=== PATIENT | female | born 1945 | race Caucasian/White ===

== ENCOUNTER 2020-11-25 17:58 | Emergency (ER) | payer MEDICARE ==
--- NOTE | 2020-11-25 18:47 | ERPHSYRPT ---
- History of Present Illness Time Seen by Provider: 11/25/20 18:02 Source: patient Exam Limitations: no limitations Patient Subjective Stated Complaint: HTN Triage Nursing Assessment: pt to ED c/o HTN and SOB onset today. states BP was 140/99 and HR 88 bpm. pt reports her normal BP runs around 130s systolic. 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 reports being shakey today after reading high BP. Physician History: 75 years old female with history of hypertension, hyperlipidemia, thoracic aortic aneurysm around 4.5 cm, atrial fibrillation not on any anticoagulants because of GI bleed who presented in the ER with chief complaint of elevated blood pressure and some shaking that started this afternoon. Patient report her blood pressure was 169/99 and usually her blood pressure is in 130s systolic. Denies any headache, no numbness tingling or focal weakness. Denies any difficulty speech or blurry vision. Patient report having some shaking's spell and this usually happens when her blood pressure is high. Denies any chest pain but have mild shortness of breath and palpitations. Denies any recent fever chills cough or sick contact. Timing/Duration: today, gradual onset, improved Severity: moderate Associated Symptoms: shortness of breath, weakness, No chest pain Allergies/Adverse Reactions: codeine Allergy (Verified 11/25/20 18:27) unknown Sulfa (Sulfonamide Antibiotics) Allergy (Verified 11/25/20 18:27) Rash JASBIR Inhibitors Adverse Reaction (Verified 11/25/20 18:27) Cough Home Medications: Amlodipine Besylate [Norvasc] 10 mg PO DAILY 11/25/20 [History] Ascorbic Acid [Vitamin C] 1,000 mg PO DAILY 11/25/20 [History] Atorvastatin Calcium [Lipitor 20MG Tablet] 20 mg PO DAILY 11/25/20 [History] Metoprolol Succinate 100 mg PO DAILY 11/25/20 [History] Omeprazole 20 mg PO DAILY 11/25/20 [History] Hx Tetanus, Diphtheria Vaccination/Date Given: Yes Hx Influenza Vaccination/Date Given: Yes Hx Pneumococcal Vaccination/Date Given: Yes Immunizations Up to Date: Yes Travel Risk - International Travel Have you traveled outside of the country in past 3 weeks: No - Coronavirus Screening Are you exhibiting any of the following symptoms?: Yes Symptoms: Shortness of Breath Close contact with a COVID-19 positive Pt in past 14-21 Days: No - Review of Systems Constitutional: No Symptoms Eyes: No Symptoms Ears, Nose, & Throat: No Symptoms Respiratory: Dyspnea, No Wheezing Cardiac: Palpitations, No Chest Pain Abdominal/Gastrointestinal: No Symptoms Genitourinary Symptoms: No Symptoms Musculoskeletal: No Symptoms Skin: No Symptoms Neurological: Other (Tremors) Endocrine: No Symptoms Hematologic/Lymphatic: No Symptoms Immunological/Allergic: No Symptoms - Past Medical History Pertinent Past Medical History: Yes Cardiac History: High Cholesterol, Hypertension, Other Female Reproductive Disorders: Breast Cancer Other Medical History: afib. breast cancer R side - 2017. aortic aneurysm - 2005 - Past Surgical History Past Surgical History: Yes Gastrointestinal: Appendectomy, Cholecystectomy Musculoskeletal: Joint Replacement, Orthopedic Surgery Female Surgical History: Hysterectomy Other Surgical History: R knee, metal in R ankle,. lymphectomy R side. lasix on eyes - Social History Smoking Status: Never smoker Exposure to second hand smoke: No Drug Use: none Patient Lives Alone: No () - Female History Hx Now: No - Nursing Vital Signs Nursing Vital Signs: Initial Vital Signs Temperature 99.1 F 11/25/20 18:04 Pulse Rate 100 H 11/25/20 18:04 Respiratory Rate 20 11/25/20 18:04 Blood Pressure 162/97 11/25/20 18:04 O2 Sat by Pulse Oximetry 98 11/25/20 18:04 Pain Scale Pain Intensity 0 - Physical Exam General Appearance: no apparent distress, alert, anxiety Eye Exam: PERRL/EOMI, eyes nml inspection Ears, Nose, Throat Exam: normal ENT inspection, TMs normal, pharynx normal Neck Exam: normal inspection, non-tender, supple, full range of motion Respiratory Exam: normal breath sounds, lungs clear Cardiovascular Exam: normal heart sounds, irregular Gastrointestinal/Abdomen Exam: soft, normal bowel sounds, No tenderness Back Exam: normal inspection, normal range of motion Extremity Exam: normal inspection, normal range of motion, pelvis stable Neurologic Exam: alert, oriented x 3, cooperative, assistant scientist II-XII nml as tested, nml cerebellar function, sensation nml, other (Anxious), No motor deficits, No sensory deficit Skin Exam: normal color SpO2 Interpretation: normal SpO2: 98 O2 Delivery: Room Air - Course EKG Interpreted by Me: RATE (98), A-fib, NORMAL AXIS, NORMAL INTERVALS, Q-wave (Anteroseptal) Ordered Tests: Active Orders 24 hr Category Date Time Status Mortar Man STAT Care 11/25/20 18:42 Active EKG-ER Only STAT Care 11/25/20 18:42 Active IV Insertion STAT Care 11/25/20 18:42 Active CHEST 1 VIEW (PORTABLE) Stat Exams 11/25/20 18:42 Taken CBC W DIFF Stat Lab 11/25/20 19:00 Completed CMP Stat Lab 11/25/20 19:00 Completed D-DIMER QUANTITATIVE Stat Lab 11/25/20 19:00 Completed MAGNESIUM Stat Lab 11/25/20 19:00 Completed NT PRO BNP Stat Lab 11/25/20 19:00 Completed TROPONIN Q3H Lab 11/25/20 19:00 Completed TROPONIN Q3H Lab 11/25/20 21:30 Completed TROPONIN Q3H Lab 11/26/20 00:45 Ordered TROPONIN Q3H Lab 11/26/20 03:45 Ordered TROPONIN Q3H Lab 11/26/20 06:45 Ordered Medication Summary Discontinued Medications Generic Name Dose Route Start Last Admin Trade Name Freq PRN Reason Stop Dose Admin Lorazepam 1 mg 11/25/20 18:42 11/25/20 18:50 Ativan 1 Mg PO 11/25/20 18:43 1 mg STAT ONE Administration Lorazepam Confirm 11/25/20 18:49 Ativan 1 Mg Administered 11/25/20 18:50 Dose 1 mg .ROUTE .STK-MED ONE Lab/Rad Data: Laboratory Result Diagrams 11/25/20 19:00 11/25/20 19:00 Laboratory Results 11/25/20 11/25/20 11/25/20 Range/Units 21:30 19:00 19:00 WBC (4.0-10.5) K/mm3 RBC (4.1-5.4) M/mm3 Hgb (12.0-16.0) gm/dl Hct (35-47) % MCV (78-100) fl MCH (26-32) pg MCHC (32-36) g/dl RDW (11.5-14.0) % Plt Count (150-450) K/mm3 MPV (7.5-11.0) fl Gran % (36.0-66.0) % Eos # (Auto) (0-0.5) Absolute Lymphs (auto) (1.0-4.6) Absolute Monos (auto) (0.0-1.3) Lymphocytes % (24.0-44.0) % Monocytes % (0.0-12.0) % Eosinophils % (0.00-5.0) % Basophils % (0.0-0.4) % Absolute Granulocytes (1.4-6.9) Basophils # (0-0.4) D-Dimer 395 (215-500) ng/mL Sodium (137-145) mmol/L Potassium (3.5-5.1) mmol/L Chloride (98-107) mmol/L Carbon Dioxide (22-30) mmol/L Anion Gap (5-15) MEQ/L BUN (7-17) mg/dL Creatinine (0.52-1.04) mg/dL Estimated GFR ML/MIN Glucose (74-106) mg/dL Calcium (8.4-10.2) mg/dL Magnesium (1.6-2.3) mg/dL Total Bilirubin (0.2-1.3) mg/dL AST (14-36) U/L ALT (0-35) U/L Alkaline Phosphatase (38-126) U/L Troponin I < 0.012 < 0.012 (0.000-0.034) ng/mL NT-Pro-B Natriuret Pep (0-1800) pg/mL Serum Total Protein (6.3-8.2) g/dL Albumin (3.5-5.0) g/dL 11/25/20 11/25/20 Range/Units 19:00 19:00 WBC 4.9 (4.0-10.5) K/mm3 RBC 3.86 L (4.1-5.4) M/mm3 Hgb 13.2 (12.0-16.0) gm/dl Hct 40.3 (35-47) % MCV 104.4 H (78-100) fl MCH 34.2 H (26-32) pg MCHC 32.8 (32-36) g/dl RDW 13.2 (11.5-14.0) % Plt Count 165 (150-450) K/mm3 MPV 10.7 (7.5-11.0) fl Gran % 67.2 H (36.0-66.0) % Eos # (Auto) 0.14 (0-0.5) Absolute Lymphs (auto) 0.79 L (1.0-4.6) Absolute Monos (auto) 0.68 (0.0-1.3) Lymphocytes % 16.0 L (24.0-44.0) % Monocytes % 13.8 H (0.0-12.0) % Eosinophils % 2.8 (0.00-5.0) % Basophils % 0.2 (0.0-0.4) % Absolute Granulocytes 3.32 (1.4-6.9) Basophils # 0.01 (0-0.4) D-Dimer (215-500) ng/mL Sodium 136 L (137-145) mmol/L Potassium 3.7 (3.5-5.1) mmol/L Chloride 105 (98-107) mmol/L Carbon Dioxide 24 (22-30) mmol/L Anion Gap 10.9 (5-15) MEQ/L BUN 19 H (7-17) mg/dL Creatinine 0.90 (0.52-1.04) mg/dL Estimated GFR > 60.0 ML/MIN Glucose 124 H (74-106) mg/dL Calcium 9.7 (8.4-10.2) mg/dL Magnesium 1.7 (1.6-2.3) mg/dL Total Bilirubin 1.00 (0.2-1.3) mg/dL AST 28 (14-36) U/L ALT 21 (0-35) U/L Alkaline Phosphatase 63 (38-126) U/L Troponin I (0.000-0.034) ng/mL NT-Pro-B Natriuret Pep 752 (0-1800) pg/mL Serum Total Protein 6.9 (6.3-8.2) g/dL Albumin 4.2 (3.5-5.0) g/dL - Progress Progress: improved, re-examined Progress Note: 11/25/20 22:32 75 years old is evaluated for elevated blood pressure at home and some shaking. Patient was very anxious on presentation. EKG did not show any acute ST elevations. Has negative troponins x2. Negative D-dimers. Chest x-ray negative for any acute cardiopulmonary findings. Patient is given Ativan, her shaking is improved and she is feeling back to normal. She did not have elevated blood pressure while in the ER and it remained in 120s/130s. Part of her symptoms are secondary to anxiety as well. Patient is advised to keep a blood pressure log and follow-up with primary care and laboratory animal caretaker for reevaluation. Discussed signs symptoms of worsening needing return to ER which she seems understanding. She does not have any chest pain tightness or pressure throughout stay in the ER or before she came in. Do not think patient needs to be admitted and is stable for discharge. 11/25/20 22:37 Counseled pt/family regarding: lab results, diagnosis, need for follow-up, rad results - Departure Departure Disposition: Home Clinical Impression: Uncontrolled hypertension, Anxiety Condition: Stable Critical Care Time: No Referrals: RIZWAN ASENCIO MD [Primary Care Provider] - (1-2 days for reevaluation) Instructions: Malignant Hypertension (DC) Additional Instructions: Call your laboratory animal caretaker for appointment tomorrow morning to be seen in next few days. Keep blood pressure log. Follow-up with primary care as well. Return to ER for any worsening.
[2020-11-25] MEDS ORDERED: Ativan 1 MG ONE (18:49)
[2020-11-25] MEDS: Ativan 1 MG PO ONE (18:50)
[2020-11-25 19:05] LABS: Absolute Neutrophil Ct (ANC) 3.32 (1.4-6.9); BASOPHIL % 0.2 % (0.0-0.4); Basophil (Absolute #) 0.01 (0-0.4); Eosinophil % 2.8 % (0.00-5.0); Eosinophil (Absolute #) 0.14 (0-0.5); Hematocrit 40.3 % (35-47); Hemoglobin 13.2 gm/dl (12.0-16.0); Lymphocyte (Absolute #) 0.79 (1.0-4.6); Mean Cell Volume 104.4 fl (78-100); Mean Corpuscular Hemoglobin 34.2 pg (26-32); Mean Corpuscular Hgb Concent. 32.8 g/dl (32-36); Mean Platelet Volume 10.7 fl (7.5-11.0); Monocyte (Absolute #) 0.68 (0.0-1.3); Monocytes % 13.8 % (0.0-12.0); Neutrophil % 67.2 % (36.0-66.0); Platelet Count 165 K/mm3 (150-450); Red Blood Count 3.86 M/mm3 (4.1-5.4); Red Cell Distribution Width 13.2 % (11.5-14.0); White Blood Count 4.9 K/mm3 (4.0-10.5)
[2020-11-25 19:27] LABS: ALBUMIN 4.2 g/dL (3.5-5.0); ALKALINE PHOSPHATASE 63 U/L (38-126); ANION GAP 10.9 MEQ/L (5-15); BLOOD UREA NITROGEN 19 mg/dL (7-17); CHLORIDE 105 mmol/L (98-107); Calcium 9.7 mg/dL (8.4-10.2); Carbon Dioxide 24 mmol/L (22-30); EST GLOMERULAR FILTRATION RATE > 60.0 ML/MIN; Glucose 124 mg/dL (74-106); MAGNESIUM 1.7 mg/dL (1.6-2.3); NT PRO BNP 752 pg/mL (0-1800); Potassium 3.7 mmol/L (3.5-5.1); SGOT/AST 28 U/L (14-36); SGPT/ALT 21 U/L (0-35); SODIUM 136 mmol/L (137-145); Total Protein 6.9 g/dL (6.3-8.2)
[2020-11-25 22:08] VITALS: BP 132/73; PULSE 82
[2020-11-25 22:36] VITALS: O2SAT 98
--- NOTE | 2020-11-26 08:34 | XRAY ---
Indication: High blood pressure. Known aortic aneurysm. Comparison: None Portable chest hyperinflated with minimal scattered fibrosis/scarring. No focal infiltrate, consolidation, or large effusion. Heart is borderline enlarged. Bony thorax intact with mild degenerative changes. Impression: Nonacute hyperinflated chest with chronic features.
== END 2020-11-25 22:52 | disposition home or self-care (01) ==
LOC: ED 17:58
DX: I10 Essential (primary) hypertension (principal); R06.02 Shortness of breath; E78.5 Hyperlipidemia, unspecified; I48.91 Unspecified atrial fibrillation; F41.9 Anxiety disorder, unspecified; Z79.899 Other long term (current) drug therapy
CPT/HCPCS: 36000; 36415; 71045; 80053; 83735; 83880; 84484; 85025; 85379; 93005; 93041; 99284; A9270-GY

== ENCOUNTER 2021-05-09 15:50 | Emergency (ER) | payer MEDICARE ==
--- NOTE | 2021-05-09 16:37 | ERPHSYRPT ---
- History of Present Illness Time Seen by Provider: 05/09/21 16:33 Source: patient, family Exam Limitations: no limitations Patient Subjective Stated Complaint: here for sudden onset of headache while watching tv , no other cos Triage Nursing Assessment: pt alert, walked in, resp easy, skin w/d/p. abd soft , slight swelling to ankles Physician History: pt has had onset today of feeling that her scalp /hair hurts ( which sounds like shingles , although she had the shot several yrs ago) no skin lesions yet. no hx trauma. fundi benign. no neuro deficits. pt is on eliquis and will need CT head . no fever. Timing/Duration: today Quality: burning, sharpness Head Pain Location: occipital Severity of Pain-Max: moderate Severity of Pain-Current: moderate Recent Head Trauma: no recent headache/trauma Associated Symptoms: denies symptoms Previous symptoms: no prior history Allergies/Adverse Reactions: codeine Allergy (Verified 05/09/21 16:05) unknown Sulfa (Sulfonamide Antibiotics) Allergy (Verified 05/09/21 16:05) Rash JASBIR Inhibitors Adverse Reaction (Verified 05/09/21 16:05) Cough Home Medications: Amlodipine Besylate [Norvasc] 10 mg PO DAILY 11/25/20 [History] Ascorbic Acid [Vitamin C] 1,000 mg PO DAILY 11/25/20 [History] Atorvastatin Calcium [Lipitor 20MG Tablet] 20 mg PO DAILY 11/25/20 [History] Metoprolol Succinate 100 mg PO DAILY 11/25/20 [History] Omeprazole 40 mg PO DAILY 11/25/20 [History] Apixaban [Eliquis] 1 ea DAILY 05/09/21 [History] Hx Tetanus, Diphtheria Vaccination/Date Given: Yes Hx Influenza Vaccination/Date Given: Yes Hx Pneumococcal Vaccination/Date Given: Yes Travel Risk - International Travel Have you traveled outside of the country in past 3 weeks: No - Coronavirus Screening Are you exhibiting any of the following symptoms?: No Close contact with a COVID-19 positive Pt in past 14-21 Days: No - Vaccine Status Have you recieved a Covid-19 vaccination: Yes 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: [employer] - Vaccination Dates Date of 2cond Vaccination (if applicable): january - Review of Systems Constitutional: No Fever, No Chills Eyes: No Symptoms, No Eye Pain Ears, Nose, & Throat: No Symptoms Respiratory: No Cough, No Dyspnea Cardiac: No Chest Pain, No Edema, No Syncope Abdominal/Gastrointestinal: No Abdominal Pain, No Nausea, No Vomiting, No Diarrhea Genitourinary Symptoms: No Dysuria Musculoskeletal: No Back Pain, No Neck Pain Skin: Other (pain in scalp), No Rash Neurological: Headache, No Dizziness, No Focal Weakness, No Sensory Changes Psychological: No Symptoms Endocrine: No Symptoms Hematologic/Lymphatic: No Symptoms Immunological/Allergic: No Symptoms All Other Systems: Reviewed and Negative - Past Medical History Pertinent Past Medical History: Yes Cardiac History: High Cholesterol, Hypertension, Other Female Reproductive Disorders: Breast Cancer Other Medical History: afib. breast cancer R side - 2017. aortic aneurysm - 2005 - Past Surgical History Past Surgical History: Yes Gastrointestinal: Appendectomy, Cholecystectomy Musculoskeletal: Joint Replacement, Orthopedic Surgery Female Surgical History: Hysterectomy Other Surgical History: R knee, metal in R ankle,. lymphectomy R side. lasix on eyes - Social History Smoking Status: Never smoker Exposure to second hand smoke: No Drug Use: none Patient Lives Alone: No - Female History Hx Last Menstrual Period: post - Nursing Vital Signs Nursing Vital Signs: Initial Vital Signs Temperature 98.0 F 05/09/21 15:57 Pulse Rate 98 H 05/09/21 15:57 Respiratory Rate 18 05/09/21 15:57 Blood Pressure 141/75 05/09/21 15:57 O2 Sat by Pulse Oximetry 97 05/09/21 15:57 Pain Scale Pain Intensity 6 - Physical Exam General Appearance: no apparent distress Eye Exam: PERRL/EOMI Ears, Nose, Throat Exam: normal ENT inspection, moist mucous membranes Neck Exam: normal inspection, supple, full range of motion, No meningismus Respiratory Exam: normal breath sounds, lungs clear Cardiovascular Exam: regular rate/rhythm, normal heart sounds Gastrointestinal/Abdominal Exam: soft, No tenderness, No distention Back Exam: normal inspection, normal range of motion Mental Status Exam: alert, oriented x 3, cooperative section hand Exam: normal speech, PERRL, No facial droop Coordination/Gait Exam: normal cerebellar function Motor/Sensory Exam: no motor deficit, no sensory deficit DTR Exam: bicep (R): 2+, bicep (L): 2+, tricep (R): 2+, tricep (L): 2+, knee (R): 2+, knee (L): 2+, ankle (R): 2+, ankle (L): 2+ Skin Exam: normal color, warm, dry, No rash SpO2 Interpretation: normal SpO2: 97 O2 Delivery: Room Air - Course Nursing assessment & vital signs reviewed: Yes Ordered Tests: Active Orders 24 hr Category Date Time Status HEAD WITHOUT CONTRAST [CT] Stat Exams 05/09/21 16:08 Taken CBC W DIFF Stat Lab 05/09/21 17:37 Completed SED RATE [Erythrocyte Sedimentation Rate] Stat Lab 05/09/21 17:37 Completed Lab/Rad Data: Laboratory Result Diagrams 05/09/21 17:37 Laboratory Results 05/09/21 05/09/21 Range/Units 17:37 17:37 WBC 4.0 (4.0-10.5) K/mm3 RBC 4.04 L (4.1-5.4) M/mm3 Hgb 13.3 (12.0-16.0) gm/dl Hct 40.4 (35-47) % MCV 100.0 (78-100) fl MCH 32.9 H (26-32) pg MCHC 32.9 (32-36) g/dl RDW 12.8 (11.5-14.0) % Plt Count 167 (150-450) K/mm3 MPV 11.3 H (7.5-11.0) fl Gran % 61.0 (36.0-66.0) % Eos # (Auto) 0.14 (0-0.5) Absolute Lymphs (auto) 0.88 L (1.0-4.6) Absolute Monos (auto) 0.54 (0.0-1.3) Lymphocytes % 22.0 L (24.0-44.0) % Monocytes % 13.5 H (0.0-12.0) % Eosinophils % 3.5 (0.00-5.0) % Basophils % 0.0 (0.0-0.4) % Absolute Granulocytes 2.44 (1.4-6.9) Basophils # 0 (0-0.4) ESR 17 (0-20) mm/hr Slides for Path Review 17 - Progress Progress: improved, re-examined Air Movement: good Progress Note: 05/09/21 18:20 discussed with pt and that we have not yet found a cause for her headache, and that serious pathology could still be evolving even with negative CT; discussed possibility for spinal tap but risks with that , and pt wishes to decline and accept the rsik of missing a bleed with just CT, which is reasonable vanessa with her at risk for complications on eliquis from tap as well, they have the capacity to make these choices and prefer to f/u with PCP this week, and will return meantime if any concerns- not improving. Blood Culture(s) Obtained: No Antibiotics given: No Counseled pt/family regarding: lab results, diagnosis, need for follow-up, rad results - Departure Departure Disposition: Home Clinical Impression: headache Condition: Good Critical Care Time: No Referrals: RIZWAN ASENCIO MD [Primary Care Provider] - Instructions: Concussion, Adult (DC), Headache, Adult (DC), Shingles (DC) Additional Instructions: we are providing instructions also for shingles since some symptoms could eventually clipper and turner to be this , and for concussion as this helps you be aware of serious symptoms to return for meantime - see your Dr,. this week for further workup and follow-up of the headache.
[2021-05-09 17:45] LABS: Absolute Neutrophil Ct (ANC) 2.44 (1.4-6.9); Basophil (Absolute #) 0 (0-0.4); Eosinophil % 3.5 % (0.00-5.0); Eosinophil (Absolute #) 0.14 (0-0.5); Hematocrit 40.4 % (35-47); Hemoglobin 13.3 gm/dl (12.0-16.0); Lymphocyte (Absolute #) 0.88 (1.0-4.6); Mean Corpuscular Hemoglobin 32.9 pg (26-32); Mean Corpuscular Hgb Concent. 32.9 g/dl (32-36); Mean Platelet Volume 11.3 fl (7.5-11.0); Monocyte (Absolute #) 0.54 (0.0-1.3); Monocytes % 13.5 % (0.0-12.0); Platelet Count 167 K/mm3 (150-450); Red Blood Count 4.04 M/mm3 (4.1-5.4); Red Cell Distribution Width 12.8 % (11.5-14.0)
[2021-05-09 18:03] LABS: Slide Review 1 17
[2021-05-09 18:31] VITALS: BP 132/78
[2021-05-09 18:42] VITALS: PULSE 74; O2SAT 98
--- NOTE | 2021-05-09 19:35 | XRAY ---
Indication: Right-sided headache. Blood thinner therapy. Multiple contiguous images obtained through the head without contrast. Comparison: None Normal appearing brain parenchyma, ventricles, and bony calvarium for patient's age. Visualized paranasal sinuses and mastoid air cells are clear. Impression: Negative CT head without contrast exam. Comment: Preliminary interpretation was made by [facility]. No critical discrepancy.
== END 2021-05-09 18:42 | disposition home or self-care (01) ==
LOC: ED 15:50
DX: R51.9 Headache, unspecified (principal); Z79.899 Other long term (current) drug therapy; Z79.01 Long term (current) use of anticoagulants; I10 Essential (primary) hypertension; E78.00 Pure hypercholesterolemia, unspecified
CPT/HCPCS: 36415; 70450; 85025; 85652; 99283

== ENCOUNTER 2021-09-03 21:54 | Emergency (ER) | payer MEDICARE ==
--- NOTE | 2021-09-03 22:06 | ERPHSYRPT ---
- History of Present Illness Time Seen by Provider: 09/03/21 22:06 Source: patient Exam Limitations: no limitations Physician History: This is a 75-year-old female who has recurrent urinary tract infections and today she was having some dysuria, frequency and some mild suprapubic pressure. She has had multiple urinary tract infections that tend to "get bad" quickly and therefore she wanted to come in early and get antibiotics started. She has no nausea vomiting or diarrhea. She has no chest pain and no shortness of breath. Timing/Duration: today Activites at Onset: none Quality: burning Onset Location: suprapubic Severity of Pain-Max: mild Severity of Pain-Current: mild Sexual intercourse history: non-contributory Associated Symptoms: abdominal pain (Mild suprapubic), dysuria, urinary frequency Allergies/Adverse Reactions: codeine Allergy (Verified 09/03/21 22:10) unknown Sulfa (Sulfonamide Antibiotics) Allergy (Verified 09/03/21 22:10) Rash JASBIR Inhibitors Adverse Reaction (Verified 09/03/21 22:10) Cough Home Medications: Amlodipine Besylate [Norvasc] 10 mg PO DAILY 11/25/20 [History] Ascorbic Acid [Vitamin C] 1,000 mg PO DAILY 11/25/20 [History] Atorvastatin Calcium [Lipitor 20MG Tablet] 20 mg PO DAILY 11/25/20 [History] Metoprolol Succinate 100 mg PO DAILY 11/25/20 [History] Omeprazole 40 mg PO DAILY 11/25/20 [History] Apixaban [Eliquis] 1 ea DAILY 05/09/21 [History] Hx Tetanus, Diphtheria Vaccination/Date Given: Yes Hx Influenza Vaccination/Date Given: Yes Hx Pneumococcal Vaccination/Date Given: Yes Travel Risk - International Travel Have you traveled outside of the country in past 3 weeks: No - Coronavirus Screening Are you exhibiting any of the following symptoms?: No Close contact with a COVID-19 positive Pt in past 14-21 Days: No - Vaccine Status Have you recieved a Covid-19 vaccination: Yes 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: [employer] - Vaccination Dates Date of 2cond Vaccination (if applicable): january - Review of Systems Constitutional: No Symptoms Eyes: No Symptoms Ears, Nose, & Throat: No Symptoms Respiratory: No Symptoms Cardiac: No Symptoms Abdominal/Gastrointestinal: Abdominal Pain (Mild suprapubic tenderness) Genitourinary Symptoms: Dysuria, Frequency Musculoskeletal: No Symptoms Skin: No Symptoms Neurological: No Symptoms Psychological: No Symptoms Endocrine: No Symptoms Hematologic/Lymphatic: No Symptoms Immunological/Allergic: No Symptoms All Other Systems: Reviewed and Negative - Past Medical History Pertinent Past Medical History: Yes Neurological History: No Pertinent History Cardiac History: Arrhythmia, Hypertension Respiratory History: No Pertinent History Endocrine Medical History: No Pertinent History Musculoskeletal History: Arthritis, Osteoarthritis Female Reproductive Disorders: Breast Cancer Other Medical History: R TKA 2011. R ankle fx 2009 - Past Surgical History Past Surgical History: Yes Gastrointestinal: Appendectomy, Cholecystectomy Musculoskeletal: Joint Replacement, Orthopedic Surgery Female Surgical History: Hysterectomy Other Surgical History: R knee, metal in R ankle,. lymphectomy R side. lasix on eyes - Social History Smoking Status: Never smoker Exposure to second hand smoke: No Drug Use: none Patient Lives Alone: No - Nursing Vital Signs Nursing Vital Signs: Initial Vital Signs Temperature 98 F 09/03/21 21:55 Pulse Rate 100 H 09/03/21 21:55 Respiratory Rate 18 09/03/21 21:55 Blood Pressure 162/94 09/03/21 21:55 O2 Sat by Pulse Oximetry 96 09/03/21 21:55 Pain Scale Pain Intensity 5 - Physical Exam General Appearance: no apparent distress, alert, anxiety Eye Exam: PERRL/EOMI, eyes nml inspection Ears, Nose, Throat Exam: normal ENT inspection, moist mucous membranes Neck Exam: normal inspection, non-tender, supple, full range of motion Respiratory Exam: airway intact, No respiratory distress Gastrointestinal/Abdomen Exam: soft, normal bowel sounds, tenderness (Mild suprapubic) Pelvic Exam: not done Rectal Exam: not done Back Exam: normal inspection, normal range of motion, vertebral tenderness, No CVA tenderness Extremity Exam: normal inspection, normal range of motion, pelvis stable Neurologic Exam: alert, oriented x 3, cooperative, 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 tested, normal mood/affect, nml cerebellar function, nml station & gait, sensation nml Skin Exam: normal color, warm, dry Lymphatic Exam: No adenopathy SpO2 Interpretation: normal O2 Delivery: Room Air - Course Nursing assessment & vital signs reviewed: Yes Ordered Tests: Active Orders 24 hr Category Date Time Status CULTURE,URINE Stat Lab 09/03/21 22:06 Received UA W/RFX UR CULTURE Stat Lab 09/03/21 22:06 Completed Medication Summary Discontinued Medications Generic Name Dose Route Start Last Admin Trade Name [place]ero PRN Reason Stop Dose Admin Levofloxacin 500 mg 09/03/21 22:41 Levofloxacin 500 Mg Tablet PO 09/03/21 22:42 STAT ONE Lab/Rad Data: Laboratory Results 09/03/21 Range/Units 22:06 Urine Color NAOMI (YELLOW) Urine Appearance CLOUDY (CLEAR) Urine pH 5.0 (5-6) Ur Specific [place] 1.032 (1.005-1.025) Urine Protein 30 (Negative) Urine Ketones TRACE (NEGATIVE) Urine Blood NEGATIVE (0-5) Thomas/ul Urine Nitrite POSITIVE (NEGATIVE) Urine Bilirubin NEGATIVE (NEGATIVE) Urine Urobilinogen 2 (0-1) mg/dL Ur Leukocyte Esterase MODERATE (NEGATIVE) Urine WBC (Auto) >100 (0-5) /HPF Urine RBC (Auto) 0-2 (0-2) /HPF U Hyaline Cast (Auto) 0-2 (0-2) /LPF U Epithel Cells (Auto) FEW (FEW) /HPF Urine Bacteria (Auto) MODERATE (NEGATIVE) /HPF Urine Mucus (Auto) SLIGHT (NEGATIVE) /HPF Urine Culture Reflexed YES (NO) Urine Glucose NEGATIVE (NEGATIVE) mg/dL - Progress Progress: re-examined Air Movement: good Blood Culture(s) Obtained: No Antibiotics given: Yes Counseled pt/family regarding: diagnosis, need for follow-up - Departure Departure Disposition: Home Clinical Impression: UTI (urinary tract infection) Condition: Stable Critical Care Time: No Referrals: RIZWAN ASENCIO MD [Primary Care Provider] - Additional Instructions: Drink plenty of fluids. Take your medication as prescribed. Follow-up with your primary care physician for further management. Prescriptions: Ciprofloxacin [Cipro 500 MG] 500 mg PO BID #14 tablet
[2021-09-03 22:31] LABS: Appearance CLOUDY (CLEAR); Bacteria MODERATE /HPF (NEGATIVE); Bilirubin NEGATIVE (NEGATIVE); Blood NEGATIVE Ery/ul (0-5); Epithelial Cells FEW /HPF (FEW); Glucose NEGATIVE (NEGATIVE); Hyaline Casts 0-2 /LPF (0-2); Ketones TRACE (NEGATIVE); Leukocyte Esterase MODERATE (NEGATIVE); Mucus SLIGHT /HPF (NEGATIVE); Nitrite POSITIVE (NEGATIVE); Protein,Urine Dip 30 (Negative); RBC 0-2 /HPF (0-2); Specific Gravity 1.032 (1.005-1.025); Urobilinogen 2 mg/dL (0-1); WBC >100 /HPF (0-5)
[2021-09-03] MEDS ORDERED: Levofloxacin 500 MG Tablet PO ONE (22:41)
[2021-09-03] MEDS ORDERED: Levofloxacin 500 MG Tablet ONE (22:46)
[2021-09-03 22:58] VITALS: BP 137/87; PULSE 88; O2SAT 98
== END 2021-09-03 22:55 | disposition home or self-care (01) ==
LOC: ED 21:54
DX: N39.0 Urinary tract infection, site not specified (principal)
CPT/HCPCS: 81001; 87077; 87086; 87186; 99283; A9270-GY

== ENCOUNTER 2021-12-03 13:41 | Emergency (ER) | payer MEDICARE ==
--- NOTE | 2021-12-03 13:51 | ERPHSYRPT ---
- History of Present Illness Time Seen by Provider: 12/03/21 13:51 Source: patient Exam Limitations: no limitations Physician History: This is a 76-year-old white female who has a history of hypertension, gastroesophageal reflux disease and elevated cholesterol who presents with urgency and frequency and suprapubic pressure with urination. Patient states that this is her second urinary tract infection, assuming that is what it is, in the last 2 years. She states that Cipro antibiotics works well for her. She has no chest pain she has no other areas of abdominal pain she has no shortness of breath. Timing/Duration: today Activites at Onset: none Quality: pressure (Suprapubic) Onset Location: suprapubic, abdominal pain (Suprapubic) Pain Radiation: none Severity of Pain-Max: mild (To moderate) Severity of Pain-Current: mild (To moderate) Sexual intercourse history: non-contributory Modifying Factors: Improves With: urinating Associated Symptoms: dysuria, urinary frequency Allergies/Adverse Reactions: codeine Allergy (Verified 12/03/21 13:55) unknown Sulfa (Sulfonamide Antibiotics) Allergy (Verified 12/03/21 13:55) Rash JASBIR Inhibitors Adverse Reaction (Verified 12/03/21 13:55) Cough Home Medications: Amlodipine Besylate [Norvasc] 10 mg PO DAILY 11/25/20 [History] Ascorbic Acid [Vitamin C] 1,000 mg PO DAILY 11/25/20 [History] Atorvastatin Calcium [Lipitor 20MG Tablet] 20 mg PO DAILY 11/25/20 [History] Metoprolol Succinate 100 mg PO DAILY 11/25/20 [History] Omeprazole 40 mg PO DAILY 11/25/20 [History] Apixaban [Eliquis] 1 ea BID 05/09/21 [History] Hx Tetanus, Diphtheria Vaccination/Date Given: Yes Hx Influenza Vaccination/Date Given: Yes Hx Pneumococcal Vaccination/Date Given: Yes Travel Risk - International Travel Have you traveled outside of the country in past 3 weeks: No - Coronavirus Screening Are you exhibiting any of the following symptoms?: No Close contact with a COVID-19 positive Pt in past 14-21 Days: No - Vaccine Status Have you recieved a Covid-19 vaccination: Yes [employer]: [employer] - Vaccination Dates Date of 2cond Vaccination (if applicable): january - Review of Systems Constitutional: No Symptoms Eyes: No Symptoms Ears, Nose, & Throat: No Symptoms Respiratory: No Symptoms Cardiac: No Symptoms Abdominal/Gastrointestinal: Abdominal Pain (Suprapubic pressure) Genitourinary Symptoms: Dysuria, Frequency, Urgency Musculoskeletal: No Symptoms Skin: No Symptoms Neurological: No Symptoms Psychological: No Symptoms Endocrine: No Symptoms Hematologic/Lymphatic: No Symptoms Immunological/Allergic: No Symptoms All Other Systems: Reviewed and Negative - Past Medical History Pertinent Past Medical History: Yes Neurological History: No Pertinent History Cardiac History: Arrhythmia, Hypertension Respiratory History: No Pertinent History Endocrine Medical History: No Pertinent History Musculoskeletal History: Arthritis, Osteoarthritis Female Reproductive Disorders: Breast Cancer Other Medical History: R TKA 2011. R ankle fx 2008 - Past Surgical History Past Surgical History: Yes Gastrointestinal: Appendectomy, Cholecystectomy Musculoskeletal: Joint Replacement, Orthopedic Surgery Female Surgical History: Hysterectomy Other Surgical History: R knee, metal in R ankle,. lymphectomy R side. lasix on eyes - Social History Smoking Status: Never smoker Exposure to second hand smoke: No Drug Use: none Patient Lives Alone: No - Nursing Vital Signs Nursing Vital Signs: Initial Vital Signs Temperature 98.1 F 12/03/21 13:49 Pulse Rate 93 H 12/03/21 13:49 Respiratory Rate 18 12/03/21 13:49 Blood Pressure 150/94 12/03/21 13:49 O2 Sat by Pulse Oximetry 98 12/03/21 13:49 Pain Scale Pain Intensity 5 - Physical Exam General Appearance: no apparent distress, alert, anxiety Eye Exam: PERRL/EOMI, eyes nml inspection Ears, Nose, Throat Exam: normal ENT inspection, moist mucous membranes Neck Exam: normal inspection, non-tender, supple, full range of motion Respiratory Exam: normal breath sounds, lungs clear, airway intact, No chest tenderness, No respiratory distress Cardiovascular Exam: regular rate/rhythm, normal heart sounds, normal peripheral pulses Gastrointestinal/Abdomen Exam: soft, normal bowel sounds, No tenderness Pelvic Exam: not done Rectal Exam: not done Back Exam: normal inspection, normal range of motion, No CVA tenderness, No vertebral tenderness Extremity Exam: normal inspection, normal range of motion, pelvis stable Neurologic Exam: alert, oriented x 3, cooperative, 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, normal mood/affect, nml cerebellar function, nml station & gait, sensation nml Skin Exam: normal color, warm, dry Lymphatic Exam: No adenopathy SpO2 Interpretation: normal O2 Delivery: Room Air - Course Nursing assessment & vital signs reviewed: Yes Ordered Tests: Active Orders 24 hr Category Date Time Status CULTURE,URINE Stat Lab 12/03/21 13:57 Received UA W/RFX UR CULTURE Stat Lab 12/03/21 13:57 Completed Lab/Rad Data: Laboratory Results 12/03/21 Range/Units 13:57 Urine Color NAOMI (YELLOW) Urine Appearance CLOUDY (CLEAR) Urine pH 5.0 (5-6) Ur Specific [place] 1.023 (1.005-1.025) Urine Protein NEGATIVE (Negative) Urine Ketones TRACE (NEGATIVE) Urine Blood NEGATIVE (0-5) Thomas/ul Urine Nitrite POSITIVE (NEGATIVE) Urine Bilirubin NEGATIVE (NEGATIVE) Urine Urobilinogen 4 (0-1) mg/dL Ur Leukocyte Esterase MODERATE (NEGATIVE) Urine WBC (Auto) >100 (0-5) /HPF Urine RBC (Auto) 0-2 (0-2) /HPF U Epithel Cells (Auto) MANY (FEW) /HPF Urine Bacteria (Auto) MODERATE (NEGATIVE) /HPF Urine Mucus (Auto) SLIGHT (NEGATIVE) /HPF Urine Culture Reflexed YES (NO) Urine Glucose NEGATIVE (NEGATIVE) mg/dL - Departure Departure Disposition: Home Clinical Impression: UTI (urinary tract infection) Condition: Stable Critical Care Time: No Referrals: RIZWAN ASENCIO MD [Primary Care Provider] - Follow up/PCP as directed Additional Instructions: Drink plenty of fluids. Take antibiotics as prescribed. Follow-up with your primary care provider for persistent symptoms.
[2021-12-03 14:41] LABS: Appearance CLOUDY (CLEAR); Bacteria MODERATE /HPF (NEGATIVE); Bilirubin NEGATIVE (NEGATIVE); Blood NEGATIVE Ery/ul (0-5); Epithelial Cells MANY /HPF (FEW); Glucose NEGATIVE (NEGATIVE); Ketones TRACE (NEGATIVE); Leukocyte Esterase MODERATE (NEGATIVE); Mucus SLIGHT /HPF (NEGATIVE); Nitrite POSITIVE (NEGATIVE); Protein,Urine Dip NEGATIVE (Negative); RBC 0-2 /HPF (0-2); Specific Gravity 1.023 (1.005-1.025); Urobilinogen 4 mg/dL (0-1); WBC >100 /HPF (0-5)
[2021-12-03 14:43] VITALS: BP 139/75; PULSE 88; O2SAT 97
[2021-12-03] MEDS ORDERED: Levofloxacin 500 MG Tablet PO ONE (14:44)
[2021-12-03] MEDS ORDERED: Levofloxacin 500 MG Tablet ONE (14:47)
== END 2021-12-03 14:55 | disposition home or self-care (01) ==
LOC: ED 13:41
DX: N39.0 Urinary tract infection, site not specified (principal); R30.0 Dysuria; R39.15 Urgency of urination; R35.0 Frequency of micturition; R10.2 Pelvic and perineal pain; I10 Essential (primary) hypertension; E78.5 Hyperlipidemia, unspecified; K21.9 Gastro-esophageal reflux disease without esophagitis; Z79.01 Long term (current) use of anticoagulants; Z79.899 Other long term (current) drug therapy
CPT/HCPCS: 81001; 87077; 87086; 87186; 99283; A9270-GY

== ENCOUNTER 2022-08-25 18:09 | Emergency (ER) | payer MEDICARE ==
[2022-08-25] MEDS ORDERED: Ativan 2 MG/1 ML VIAL IV ONE (18:42)
--- NOTE | 2022-08-25 18:48 | ERPHSYRPT ---
- History of Present Illness Time Seen by Provider: 08/25/22 18:25 Source: patient, family Exam Limitations: no limitations Patient Subjective Stated Complaint: daughter states "She was having blood pressure problems at home. It was reading 170s/100s." Triage Nursing Assessment: pt ambulated into the er along with a cane; pt is axo x4; pt is anxious; c/o hypertension; pt states 5/10 generalized pain; hypertensive 154/78; clear lung sounds in all lobes; clear heart tone; skin PDW Physician History: This is a 76-year-old white female patient who presents with hypertension per her report. Patient had a couple readings of her systolic blood pressure in the 170s and became concerned. The reason why she checked her blood pressure was because she was shaking all over. Patient took her amlodipine and metoprolol today which she takes for blood pressure and her chronic atrial fibrillation. She is taking Eliquis as well. Patient denies chest pain. She denies headache. She denies vision changes. She denies shortness of breath. Patient also has a history of gastroesophageal reflux disease and hyperlipidemia. Patient states that she is not sleeping well. She is under a lot of stress per her report. Her is ill. Timing/Duration: today Severity: mild Modifying Factors: Improves With: nothing Associated Symptoms: denies symptoms Allergies/Adverse Reactions: codeine Allergy (Verified 08/25/22 18:17) unknown Sulfa (Sulfonamide Antibiotics) Allergy (Verified 08/25/22 18:17) Rash JASBIR Inhibitors Adverse Reaction (Verified 08/25/22 18:17) Cough Home Medications: Amlodipine Besylate [Norvasc] 10 mg PO DAILY 11/25/20 [History] Ascorbic Acid [Vitamin C] 1,000 mg PO DAILY 11/25/20 [History] Atorvastatin Calcium [Lipitor 20MG Tablet] 20 mg PO DAILY 11/25/20 [History] Metoprolol Succinate 100 mg PO DAILY 11/25/20 [History] Omeprazole 40 mg PO DAILY 11/25/20 [History] Apixaban [Eliquis] 2.5 mg PO BID 05/09/21 [History] Anastrozole [Arimidex] 1 mg PO DAILY 08/25/22 [History] Furosemide 20 mg [Lasix 20 mg] 20 mg PO DAILY PRN 08/25/22 [History] Hx Tetanus, Diphtheria Vaccination/Date Given: Yes Hx Influenza Vaccination/Date Given: No Hx Pneumococcal Vaccination/Date Given: Yes Travel Risk - International Travel Have you traveled outside of the country in past 3 weeks: No - Coronavirus Screening Are you exhibiting any of the following symptoms?: No Close contact with a COVID-19 positive Pt in past 14-21 Days: No - Vaccine Status Have you recieved a Covid-19 vaccination: Yes [employer]: [employer] - Vaccination Dates Date of 2cond Vaccination (if applicable): january - Review of Systems Constitutional: No Symptoms Eyes: No Symptoms Ears, Nose, & Throat: No Symptoms Respiratory: No Symptoms Cardiac: No Symptoms Abdominal/Gastrointestinal: No Symptoms Genitourinary Symptoms: No Symptoms Musculoskeletal: No Symptoms Skin: No Symptoms Neurological: No Symptoms Psychological: Anxiety Endocrine: No Symptoms Hematologic/Lymphatic: No Symptoms Immunological/Allergic: No Symptoms All Other Systems: Reviewed and Negative - Past Medical History Pertinent Past Medical History: Yes Neurological History: No Pertinent History ENT History: Cataracts Cardiac History: Arrhythmia, Hypertension, Other Respiratory History: No Pertinent History Endocrine Medical History: No Pertinent History Musculoskeletal History: Arthritis, Osteoarthritis Psycho-Social History: Depression Female Reproductive Disorders: Breast Cancer Other Medical History: AAA. R TKA 2012. R ankle fx 2008 - Past Surgical History Past Surgical History: Yes Gastrointestinal: Appendectomy, Cholecystectomy Musculoskeletal: Joint Replacement, Orthopedic Surgery Female Surgical History: Hysterectomy Other Surgical History: R knee, metal in R ankle,. lymphectomy R and L side. lasix on eyes - Social History Smoking Status: Never smoker Exposure to second hand smoke: No Drug Use: none Patient Lives Alone: No - Nursing Vital Signs Nursing Vital Signs: Initial Vital Signs Pulse Rate 86 08/25/22 18:19 Respiratory Rate 18 08/25/22 18:19 Blood Pressure 154/78 08/25/22 18:19 O2 Sat by Pulse Oximetry 97 08/25/22 18:19 Pain Scale Pain Intensity 5 - Physical Exam General Appearance: no apparent distress, alert, anxiety, obese Eye Exam: PERRL/EOMI, eyes nml inspection Ears, Nose, Throat Exam: normal ENT inspection, moist mucous membranes Neck Exam: normal inspection, non-tender, supple, full range of motion Respiratory Exam: normal breath sounds, lungs clear, airway intact, No chest tenderness, No respiratory distress Cardiovascular Exam: regular rate/rhythm, normal heart sounds, normal peripheral pulses Gastrointestinal/Abdomen Exam: soft, normal bowel sounds, No tenderness Pelvic Exam: not done Rectal Exam: not done Back Exam: normal inspection, normal range of motion, No CVA tenderness, No vertebral tenderness Extremity Exam: normal inspection, normal range of motion, pelvis stable Neurologic Exam: alert, oriented x 3, 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, 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, normal mood/affect, nml cerebellar function, nml station & gait, sensation nml Skin Exam: normal color, warm, dry Lymphatic Exam: No adenopathy SpO2 Interpretation: normal SpO2: 97 O2 Delivery: Room Air - Course Nursing assessment & vital signs reviewed: Yes EKG Interpreted by Me: RATE (89), A-fib, NORMAL INTERVALS, Non-specific ST Changes, Other (No acute ischemic changes on today's EKG.) Ordered Tests: Active Orders 24 hr Category Date Time Status Vacuum [employer] Supervisor STAT Care 08/25/22 18:41 Active EKG-ER Only STAT Care 08/25/22 18:41 Active IV Insertion STAT Care 08/25/22 18:41 Active Pulse Oximetry (ED) STAT Care 08/25/22 18:41 Active BMP Stat Lab 08/25/22 18:54 Completed CBC W DIFF Stat Lab 08/25/22 18:54 Completed CULTURE,URINE Stat Lab 08/25/22 18:50 Received TROPONIN Q4H Lab 08/25/22 18:54 Received TROPONIN Q4H Lab 08/25/22 22:45 Ordered TROPONIN Q4H Lab 08/26/22 02:45 Ordered UA W/RFX CULTURE Stat Lab 08/25/22 18:50 Completed Medication Summary Generic Name Dose Route Start Last Admin Trade Name Freq PRN Reason Stop Dose Admin Levofloxacin 500 mg 08/25/22 19:15 Levofloxacin 500 Mg Tablet PO 08/25/22 19:16 STAT ONE Discontinued Medications Generic Name Dose Route Start Last Admin Trade Name Freq PRN Reason Stop Dose Admin Lorazepam 0.5 mg 08/25/22 18:42 08/25/22 18:54 Lorazepam 2 Mg/1 Ml 2 Mg Vial IV 08/25/22 18:43 0.5 mg STAT ONE Administration Lorazepam Confirm 08/25/22 18:51 Lorazepam 2 Mg/1 Ml 2 Mg Vial Administered 08/25/22 18:52 Dose 2 mg .ROUTE .STK-MED ONE Lab/Rad Data: Laboratory Result Diagrams 08/25/22 18:54 08/25/22 18:54 Laboratory Results 08/25/22 08/25/22 08/25/22 Range/Units 18:54 18:54 18:50 WBC 5.0 (4.0-10.5) x10^3/uL RBC 3.82 L (4.1-5.4) x10^6/uL Hgb 13.0 (12.0-16.0) g/dL Hct 39.3 (35-47) % MCV 102.9 H (78-100) fL MCH 34.0 H (26-32) pg MCHC 33.1 (32-36) g/dL RDW 12.4 (11.5-14.0) % Plt Count 187 (150-450) x10^3/uL MPV 10.9 (7.5-11.0) fL Gran % 74.0 H (36.0-66.0) % Immature Gran % (Auto) 0.2 (0.00-0.4) % Nucleat RBC Rel Count 0.0 (0.00-0.1) % Eos # (Auto) 0.08 (0-0.5) x10^3/uL Immature Gran # (Auto) 0.01 (0.00-0.03) x10^3u/L Absolute Lymphs (auto) 0.57 L (1.0-4.6) x10^3/uL Absolute Monos (auto) 0.61 (0.0-1.3) x10^3/uL Absolute Nucleated RBC 0.00 (0.00-0.01) x10^3u/L Lymphocytes % 11.5 L (24.0-44.0) % Monocytes % 12.3 H (0.0-12.0) % Eosinophils % 1.6 (0.00-5.0) % Basophils % 0.4 (0.0-0.4) % Absolute Granulocytes 3.68 (1.4-6.9) x10^3/uL Basophils # 0.02 (0-0.4) x10^3/uL Sodium 135 L (137-145) mmol/L Potassium 4.2 (3.5-5.1) mmol/L Chloride 105 (98-107) mmol/L Carbon Dioxide 26 (22-30) mmol/L Anion Gap 8.3 (5-15) MEQ/L BUN 17 (7-17) mg/dL Creatinine 0.93 (0.52-1.04) mg/dL Estimated GFR > 60.0 ML/MIN Glucose 115 H (74-106) mg/dL Calcium 9.6 (8.4-10.2) mg/dL Urinalys Dipstick Clnc MAIN LAB Urine Color YELLOW (YELLOW) Urine Appearance CLEAR (CLEAR) Urine pH 6.0 (5-6) Ur Specific [place] 1.020 (1.005-1.025) POC Urine Protein Conf NEGATIVE (Negative) Urine Ketones TRACE (NEGATIVE) Urine Nitrite NEGATIVE (NEGATIVE) Urine Bilirubin NEGATIVE (NEGATIVE) Urine Urobilinogen 2 (0-1) mg/dL Urine Leukocytes MODERATE (NEGATIVE) Urine WBC (Auto) 6-10 (0-5) /HPF Urine RBC (Auto) 3-5 (0-2) /HPF U Hyaline Cast (Auto) 3-5 (0-2) /LPF U Epithel Cells (Auto) RARE (FEW) /HPF Urine Bacteria (Auto) FEW (NEGATIVE) /HPF Urine RBC NEGATIVE (0-5) Thomas/ul Urine Mucus (Auto) SLIGHT (NEGATIVE) /HPF Ur Culture Indicated? YES Urine Glucose NEGATIVE (NEGATIVE) mg/dL - Progress Progress: improved Counseled pt/family regarding: lab results, diagnosis, need for follow-up - Departure Departure Disposition: Home Clinical Impression: UTI (urinary tract infection) Condition: Stable Critical Care Time: No Referrals: RIZWAN ASENCIO MD [Primary Care Provider] - Follow up/PCP as directed Additional Instructions: Drink plenty of fluids. Take your medication as prescribed. Follow-up with y our primary care provider tomorrow to make them aware of your visit today and to discuss treatment options for your insomnia. Prescriptions: Ciprofloxacin [Cipro 500 MG] 500 mg PO BID #14 tablet
[2022-08-25] MEDS ORDERED: Ativan 2 MG/1 ML VIAL ONE (18:51)
[2022-08-25 18:57] LABS: Appearance CLEAR (CLEAR); Bilirubin NEGATIVE (NEGATIVE); Dipstick done @ ? MAIN LAB; Glucose NEGATIVE (NEGATIVE); Ketones TRACE (NEGATIVE); Nitrite NEGATIVE (NEGATIVE); Protein,Urine Dip NEGATIVE (Negative); RBC NEGATIVE Ery/ul (0-5); Urobilinogen 2 mg/dL (0-1)
[2022-08-25 18:57] LABS: Absolute Neutrophil Ct (ANC) 3.68 x10^3/uL (1.4-6.9); Basophil (Absolute #) 0.02 x10^3/uL (0-0.4); Eosinophil % 1.6 % (0.00-5.0); Eosinophil (Absolute #) 0.08 x10^3/uL (0-0.5); Hematocrit 39.3 % (35-47); Lymphocyte (Absolute #) 0.57 x10^3/uL (1.0-4.6); Lymphocytes % 11.5 % (24.0-44.0); Mean Cell Volume 102.9 fL (78-100); Mean Corpuscular Hgb Concent. 33.1 g/dL (32-36); Mean Platelet Volume 10.9 fL (7.5-11.0); Monocyte (Absolute #) 0.61 x10^3/uL (0.0-1.3); Monocytes % 12.3 % (0.0-12.0); Platelet Count 187 x10^3/uL (150-450); Red Blood Count 3.82 x10^6/uL (4.1-5.4); Red Cell Distribution Width 12.4 % (11.5-14.0)
[2022-08-25 18:58] LABS: Bacteria FEW /HPF (NEGATIVE); Epithelial Cells RARE /HPF (FEW); Mucus SLIGHT /HPF (NEGATIVE)
[2022-08-25 18:59] LABS: Urine Cultured Indicated? YES
[2022-08-25 19:11] LABS: ANION GAP 8.3 MEQ/L (5-15); BLOOD UREA NITROGEN 17 mg/dL (7-17); CHLORIDE 105 mmol/L (98-107); Calcium 9.6 mg/dL (8.4-10.2); Carbon Dioxide 26 mmol/L (22-30); Creatinine 1 0.93 mg/dL (0.52-1.04); EST GLOMERULAR FILTRATION RATE > 60.0 ML/MIN; Glucose 115 mg/dL (74-106); Potassium 4.2 mmol/L (3.5-5.1); SODIUM 135 mmol/L (137-145)
[2022-08-25] MEDS ORDERED: Levofloxacin 500 MG Tablet PO ONE (19:15)
[2022-08-25] MEDS ORDERED: Levofloxacin 500 MG Tablet ONE (19:17)
[2022-08-25 19:31] VITALS: BP 127/87; PULSE 84; O2SAT 96
[2022-08-25 23:34] LABS: Slide Review 1 YES
== END 2022-08-25 19:36 | disposition home or self-care (01) ==
LOC: ED 18:09
DX: N39.0 Urinary tract infection, site not specified (principal); I10 Essential (primary) hypertension; R25.1 Tremor, unspecified; E78.5 Hyperlipidemia, unspecified; Z79.01 Long term (current) use of anticoagulants; Z79.899 Other long term (current) drug therapy
CPT/HCPCS: 36000; 36415; 80048; 81015; 84484; 85025; 87077; 87086; 87186; 93005; 93041; 94760; 96374; 99284; J2060; A9270-GY

== ENCOUNTER 2022-10-04 20:09 | Emergency (ER) | payer MEDICARE ==
[2022-10-04 21:55] LABS: Bacteria RARE /HPF (NEGATIVE); Epithelial Cells RARE /HPF (FEW); Mucus SLIGHT /HPF (NEGATIVE); RBC 0-2 /HPF (0-2); WBC >100 /HPF (0-5)
[2022-10-04 21:56] LABS: Appearance CLEAR (CLEAR); Bilirubin NEGATIVE (NEGATIVE); Glucose NEGATIVE (NEGATIVE); Ketones NEGATIVE (NEGATIVE); Nitrite POSITIVE (NEGATIVE); Ph 5.5 (5-6); Protein,Urine Dip NEGATIVE (Negative); RBC NEGATIVE Ery/ul (0-5); Urine Cultured Indicated? YES; Urobilinogen 0.2 mg/dL (0-1)
[2022-10-04 22:06] LABS: Dipstick done @ ? MAIN LAB
[2022-10-04 22:07] VITALS: BP 155/87; PULSE 81; O2SAT 95
[2022-10-04] MEDS ORDERED: Levofloxacin 500 MG Tablet PO ONE (22:26)
--- NOTE | 2022-10-04 22:27 | ERPHSYRPT ---
- History of Present Illness Time Seen by Provider: 10/04/22 21:30 Source: patient Exam Limitations: no limitations Patient Subjective Stated Complaint: pt states "I started feeling bad a week ago. I think I have a uti or bladder infection." Triage Nursing Assessment: pt ambulatory to bed by self with personal cane, a&o x3, pt c/o uti symptoms including burning, frequency, and pressure when urinating for about a week, pt states "I just generally don't feel well", symptoms started 09/27/22, pt received COVID booster on 09/26/22 Physician History: Patient is 76-year-old female presents to our ED with complaints of dysuria frequency and bladder pressure. Symptoms are similar to her previous history of UTI. Symptoms started approximately 1 week ago. Patient that symptoms have progressed. Symptoms are mild to moderate in intensity. No specific worsening improving factors. Patient does have some myalgias that started 2 days ago after her COVID booster. However her myalgias are improving. She has no other complaints. No nausea vomiting or diaphoresis. No diarrhea. No rash. No fever. Patient voices no other complaints or concerns at this time. Patient requesting ciprofloxacin for her UTI. Ciprofloxacin resolved her previous UTI symptoms. Patient declined pain medication. Patient states she has Tylenol in her purse. Portions of this note were created with voice recognition technology. There may be grammatical, spelling, punctuation or sound alike errors Timing/Duration: week(s) (1 week) Severity: moderate Modifying Factors: Improves With: nothing Associated Symptoms: denies symptoms, No nausea, No vomiting, No abdominal pain, No shortness of breath, No chest pain, No weakness Allergies/Adverse Reactions: codeine Allergy (Verified 10/04/22 21:06) unknown Sulfa (Sulfonamide Antibiotics) Allergy (Verified 10/04/22 21:06) Rash JASBIR Inhibitors Adverse Reaction (Verified 10/04/22 21:06) Cough Home Medications: Amlodipine Besylate [Norvasc] 10 mg PO DAILY 11/25/20 [History] Ascorbic Acid [Vitamin C] 1,000 mg PO DAILY 11/25/20 [History] Atorvastatin Calcium [Lipitor 20MG Tablet] 20 mg PO DAILY 11/25/20 [History] Metoprolol Succinate 100 mg PO DAILY 11/25/20 [History] Omeprazole 40 mg PO DAILY 11/25/20 [History] Apixaban [Eliquis] 2.5 mg PO BID 05/09/21 [History] Anastrozole [Arimidex] 1 mg PO DAILY 08/25/22 [History] Furosemide 20 mg [Lasix 20 mg] 20 mg PO DAILY PRN 08/25/22 [History] Hx Tetanus, Diphtheria Vaccination/Date Given: Yes Hx Influenza Vaccination/Date Given: Yes (2021) Hx Pneumococcal Vaccination/Date Given: Yes (12/02/2021) Immunizations Up to Date: Yes Travel Risk - International Travel Have you traveled outside of the country in past 3 weeks: No - Coronavirus Screening Are you exhibiting any of the following symptoms?: No Close contact with a COVID-19 positive Pt in past 14-21 Days: No - Vaccine Status Have you recieved a Covid-19 vaccination: Yes 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: [employer] - Vaccination Dates Date of 2cond Vaccination (if applicable): 01/07/2021 - Review of Systems Constitutional: No Symptoms, No Fever, No Chills Eyes: No Symptoms Ears, Nose, & Throat: No Symptoms Respiratory: No Symptoms, No Cough, No Dyspnea Cardiac: No Symptoms, No Chest Pain, No Edema, No Syncope Abdominal/Gastrointestinal: No Symptoms, No Abdominal Pain, No Nausea, No Vomiting, No Diarrhea Genitourinary Symptoms: No Symptoms, No Dysuria Musculoskeletal: No Symptoms, No Back Pain, No Neck Pain Skin: No Symptoms, No Rash Neurological: No Symptoms, No Dizziness, No Focal Weakness, No Sensory Changes Psychological: No Symptoms Endocrine: No Symptoms Hematologic/Lymphatic: No Symptoms Immunological/Allergic: No Symptoms All Other Systems: Reviewed and Negative - Past Medical History Pertinent Past Medical History: Yes Neurological History: No Pertinent History ENT History: Cataracts Cardiac History: Arrhythmia, Hypertension, Other Respiratory History: No Pertinent History Endocrine Medical History: No Pertinent History Musculoskeletal History: Arthritis, Osteoarthritis GI Medical History: No Pertinent History History: No Pertinent History Psycho-Social History: Depression Female Reproductive Disorders: Breast Cancer Other Medical History: AAA. R TKA 2012. R ankle fx 2008 - Past Surgical History Past Surgical History: Yes Neuro Surgical History: No Pertinent History Cardiac: No Pertinent History Respiratory: No Pertinent History Gastrointestinal: Appendectomy, Cholecystectomy Musculoskeletal: Joint Replacement, Orthopedic Surgery Female Surgical History: Hysterectomy Other Surgical History: R knee, metal in R ankle,. lymphectomy R and L side. lasix on eyes - Social History Smoking Status: Never smoker Exposure to second hand smoke: No Drug Use: none Patient Lives Alone: No - Nursing Vital Signs Nursing Vital Signs: Initial Vital Signs Temperature 97.6 F 10/04/22 21:10 Pulse Rate 83 10/04/22 21:10 Respiratory Rate 18 10/04/22 21:10 Blood Pressure 174/102 10/04/22 21:10 O2 Sat by Pulse Oximetry 97 10/04/22 21:10 Pain Scale Pain Intensity 4 - Physical Exam General Appearance: no apparent distress, alert Eye Exam: PERRL/EOMI, eyes nml inspection Ears, Nose, Throat Exam: normal ENT inspection, TMs normal, pharynx normal, moist mucous membranes Neck Exam: normal inspection, non-tender, supple, full range of motion Respiratory Exam: normal breath sounds, lungs clear, No respiratory distress Cardiovascular Exam: regular rate/rhythm, normal heart sounds, normal peripheral pulses Gastrointestinal/Abdomen Exam: soft, normal bowel sounds, other (No CVA tenderness), No tenderness, No mass Pelvic Exam: not done Back Exam: normal inspection, normal range of motion, No CVA tenderness, No vertebral tenderness Extremity Exam: normal inspection, normal range of motion, pelvis stable Neurologic Exam: alert, oriented x 3, cooperative, normal mood/affect, nml cerebellar function, nml station & gait, sensation nml, No motor deficits Skin Exam: normal color, warm, dry, No rash Lymphatic Exam: No adenopathy SpO2 Interpretation: normal SpO2: 95 O2 Delivery: Room Air - Course Nursing assessment & vital signs reviewed: Yes Ordered Tests: Active Orders 24 hr Category Date Time Status CULTURE,URINE Stat Lab 10/04/22 21:22 Received UA W/RFX CULTURE Stat Lab 10/04/22 21:22 Completed Medication Summary Discontinued Medications Generic Name Dose Route Start Last Admin Trade Name Freq PRN Reason Stop Dose Admin Levofloxacin 500 mg 10/04/22 22:26 Levofloxacin 500 Mg Tablet PO 10/04/22 22:27 STAT ONE Lab/Rad Data: Laboratory Results 10/04/22 Range/Units 21:22 Urinalys Dipstick Clnc MAIN LAB Urine Color YELLOW (YELLOW) Urine Appearance CLEAR (CLEAR) Urine pH 5.5 (5-6) Ur Specific [place] 1.020 (1.005-1.025) POC Urine Protein Conf NEGATIVE (Negative) Urine Ketones NEGATIVE (NEGATIVE) Urine Nitrite POSITIVE A (NEGATIVE) Urine Bilirubin NEGATIVE (NEGATIVE) Urine Urobilinogen 0.2 (0-1) mg/dL Urine Leukocytes MODERATE A (NEGATIVE) Urine WBC (Auto) >100 A (0-5) /HPF Urine RBC (Auto) 0-2 (0-2) /HPF U Epithel Cells (Auto) RARE (FEW) /HPF Urine Bacteria (Auto) RARE (NEGATIVE) /HPF Urine RBC NEGATIVE (0-5) Thomas/ul Urine Mucus (Auto) SLIGHT A (NEGATIVE) /HPF Ur Culture Indicated? YES Urine Glucose NEGATIVE (NEGATIVE) mg/dL - Progress Progress: improved Progress Note: Patient reassessed. She feels well. Work-up reveals a urinary tract infection. Patient declined pain medication. Patient states she has Tylenol in her purse. Patient received a dose of ciprofloxacin in our ED. A prescription for the same was forwarded to patient's pharmacy. Patient agrees to follow-up with her primary care doctor within 48 hours for evaluation. She voices no other complaints or concerns at this time. Portions of this note were created with voice recognition technology. There may be grammatical, spelling, punctuation or sound alike errors 10/04/22 22:38 Counseled pt/family regarding: lab results, diagnosis, need for follow-up - Departure Departure Disposition: Home Clinical Impression: UTI (urinary tract infection), Dysuria Condition: Stable Critical Care Time: No Referrals: RIZWAN ASENCIO MD [Primary Care Provider] - Follow up/PCP as directed Additional Instructions: Discharge/Care Plan MANDIE PA was seen on 10/04/22 in the Emergency Room. The patient was counseled regarding Diagnosis,Lab results, Imaging studies, need for follow up and when to return to the Emergency Room. Prescriptions given: Discharge Note I have spoken with the patient and/or caregivers. I have explained the patient's condition, diagnosis and treatment plan based on the information available to me at this time. I have answered the patient's and/or caregiver's questions and addressed any concerns. The patient and/or caregivers have as good understanding of the patient's diagnosis, condition and treatment plan as can be expected at this point. The vital signs have been stable. The patient's condition is stable and appropriate for discharge from the emergency department. The patient will pursue further outpatient evaluation with the primary care physician or other designated or consulting physician as outlined in the discharge instructions. The patient and/or caregivers are agreeable to this plan of care and follow-up instructions have been explained in detail. The patient and/or caregivers have received these instruction. The patient/and or caregivers are aware that any significant change in condition or worsening of symptoms should prompt an immediate return to this or the closest emergency department or call 911. Prescriptions: Ciprofloxacin [Cipro 500 MG] 500 mg PO BID 7 Days #14 tablet
[2022-10-04] MEDS ORDERED: Levofloxacin 500 MG Tablet ONE (22:32)
== END 2022-10-04 22:39 | disposition home or self-care (01) ==
LOC: ED 20:09
DX: N39.0 Urinary tract infection, site not specified (principal); R30.0 Dysuria; R35.0 Frequency of micturition; I10 Essential (primary) hypertension; Z79.01 Long term (current) use of anticoagulants; Z79.899 Other long term (current) drug therapy
CPT/HCPCS: 81015; 87077; 87086; 87186; 99283; A9270-GY

== ENCOUNTER 2022-10-17 18:21 | Emergency (ER) | payer MEDICARE ==
[2022-10-17 18:33] VITALS: O2SAT 97
[2022-10-17 18:50] LABS: Absolute Neutrophil Ct (ANC) 3.77 x10^3/uL (1.4-6.9); Basophil (Absolute #) 0.01 x10^3/uL (0-0.4); Eosinophil % 1.8 % (0.00-5.0); Eosinophil (Absolute #) 0.09 x10^3/uL (0-0.5); Hematocrit 39.8 % (35-47); Hemoglobin 13.1 g/dL (12.0-16.0); Mean Cell Volume 101.8 fL (78-100); Mean Corpuscular Hemoglobin 33.5 pg (26-32); Mean Corpuscular Hgb Concent. 32.9 g/dL (32-36); Mean Platelet Volume 10.3 fL (7.5-11.0); Monocyte (Absolute #) 0.51 x10^3/uL (0.0-1.3); Monocytes % 10.2 % (0.0-12.0); Neutrophil % 75.6 % (36.0-66.0); Platelet Count 196 x10^3/uL (150-450); Red Blood Count 3.91 x10^6/uL (4.1-5.4); Red Cell Distribution Width 13.6 % (11.5-14.0)
[2022-10-17 19:04] LABS: ALBUMIN 4.2 g/dL (3.5-5.0); ALKALINE PHOSPHATASE 69 U/L (38-126); ANION GAP 11.4 MEQ/L (5-15); BLOOD UREA NITROGEN 20 mg/dL (7-17); CHLORIDE 103 mmol/L (98-107); Carbon Dioxide 24 mmol/L (22-30); EST GLOMERULAR FILTRATION RATE > 60.0 ML/MIN; Glucose 149 mg/dL (74-106); Potassium 4.1 mmol/L (3.5-5.1); SGOT/AST 29 U/L (14-36); SGPT/ALT 27 U/L (0-35); SODIUM 134 mmol/L (137-145); Total Protein 6.8 g/dL (6.3-8.2)
[2022-10-17 19:12] VITALS: BP 142/88; PULSE 87
--- NOTE | 2022-10-17 19:16 | ERPHSYRPT ---
- History of Present Illness Time Seen by Provider: 10/17/22 19:16 Source: patient Exam Limitations: no limitations Patient Subjective Stated Complaint: pt here for hypertension today while eating pizza at home, she states she also feels shaky Triage Nursing Assessment: pt alert. arrived per ambulance, face mask apllied, resp easy, skin w/d/p. edema to lower legs, Physician History: Patient 76-year-old female presents emergency department via EMS for evaluation of high blood pressure. Patient states that she has been checking her blood pressure throughout the day and observed that to be higher than her baseline. Blood pressure has been up and down. Patient appears very anxious. Patient states I feel shaky. No chest pain or shortness of breath. No nausea vomiting or diaphoresis. No fever. No rash. No trauma. Patient voices no other complaints or concerns at this time. Patient appears anxious. Portions of this note were created with voice recognition technology. There may be grammatical, spelling, punctuation or sound alike errors Timing/Duration: today Severity: moderate Modifying Factors: Improves With: nothing Associated Symptoms: denies symptoms Allergies/Adverse Reactions: codeine Allergy (Verified 10/17/22 18:30) unknown Sulfa (Sulfonamide Antibiotics) Allergy (Verified 10/17/22 18:30) Rash JASBIR Inhibitors Adverse Reaction (Verified 10/17/22 18:30) Cough Home Medications: Amlodipine Besylate [Norvasc] 10 mg PO DAILY 11/25/20 [History] Ascorbic Acid [Vitamin C] 1,000 mg PO DAILY 11/25/20 [History] Atorvastatin Calcium [Lipitor 20MG Tablet] 20 mg PO DAILY 11/25/20 [History] Metoprolol Succinate 100 mg PO DAILY 11/25/20 [History] Omeprazole 40 mg PO DAILY 11/25/20 [History] Apixaban [Eliquis] 2.5 mg PO BID 05/09/21 [History] Anastrozole [Arimidex] 1 mg PO DAILY 08/25/22 [History] Furosemide 20 mg [Lasix 20 mg] 20 mg PO DAILY PRN 08/25/22 [History] Hx Tetanus, Diphtheria Vaccination/Date Given: Yes Hx Influenza Vaccination/Date Given: Yes (2021) Hx Pneumococcal Vaccination/Date Given: Yes (12/02/2021) Immunizations Up to Date: Yes Travel Risk - International Travel Have you traveled outside of the country in past 3 weeks: No - Vaccine Status Have you recieved a Covid-19 vaccination: Yes 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 - Vaccination Dates Date of 2cond Vaccination (if applicable): 01/07/2021 - Review of Systems Constitutional: No Symptoms, No Fever, No Chills Eyes: No Symptoms Ears, Nose, & Throat: No Symptoms Respiratory: No Symptoms, No Cough, No Dyspnea Cardiac: No Symptoms, No Chest Pain, No Edema, No Syncope Abdominal/Gastrointestinal: No Symptoms, No Abdominal Pain, No Nausea, No Vomiting, No Diarrhea Genitourinary Symptoms: No Symptoms, No Dysuria Musculoskeletal: No Symptoms, No Back Pain, No Neck Pain Skin: No Symptoms, No Rash Neurological: No Symptoms, No Dizziness, No Focal Weakness, No Sensory Changes Psychological: No Symptoms Endocrine: No Symptoms Hematologic/Lymphatic: No Symptoms Immunological/Allergic: No Symptoms All Other Systems: Reviewed and Negative - Past Medical History Pertinent Past Medical History: Yes Neurological History: No Pertinent History ENT History: Cataracts Cardiac History: Arrhythmia, Hypertension, Other Respiratory History: No Pertinent History Endocrine Medical History: No Pertinent History Musculoskeletal History: Arthritis, Osteoarthritis GI Medical History: No Pertinent History History: No Pertinent History Psycho-Social History: Depression Female Reproductive Disorders: Breast Cancer Other Medical History: AAA. R TKA 2012. R ankle fx 2008 - Past Surgical History Past Surgical History: Yes Neuro Surgical History: No Pertinent History Cardiac: No Pertinent History Respiratory: No Pertinent History Gastrointestinal: Appendectomy, Cholecystectomy Musculoskeletal: Joint Replacement, Orthopedic Surgery Female Surgical History: Hysterectomy Other Surgical History: R knee, metal in R ankle,. lymphectomy R and L side. lasix on eyes - Social History Smoking Status: Never smoker Exposure to second hand smoke: No Drug Use: none Patient Lives Alone: No - Nursing Vital Signs Nursing Vital Signs: Initial Vital Signs O2 Sat by Pulse Oximetry 97 10/17/22 18:33 Pain Scale Pain Intensity 4 - Physical Exam General Appearance: no apparent distress, alert, other (Patient appears very an xious. Pressured speech. Fine tremors.) Eye Exam: PERRL/EOMI, eyes nml inspection Ears, Nose, Throat Exam: normal ENT inspection, TMs normal, pharynx normal, moist mucous membranes Neck Exam: normal inspection, non-tender, supple, full range of motion Respiratory Exam: normal breath sounds, lungs clear, No respiratory distress Cardiovascular Exam: regular rate/rhythm, normal heart sounds, normal peripheral pulses Gastrointestinal/Abdomen Exam: soft, normal bowel sounds, No tenderness, No mass Back Exam: normal inspection, normal range of motion, No CVA tenderness, No vertebral tenderness Extremity Exam: normal inspection, normal range of motion, pelvis stable Neurologic Exam: alert, oriented x 3, cooperative, normal mood/affect, nml cerebellar function, nml station & gait, sensation nml, No motor deficits Skin Exam: normal color, warm, dry, No rash Lymphatic Exam: No adenopathy SpO2 Interpretation: normal SpO2: 97 O2 Delivery: Room Air - Course Nursing assessment & vital signs reviewed: Yes EKG Interpreted by Me: RATE (102 chronic A. fib. Patient is anticoagulated), A- fib, NORMAL AXIS, NORMAL INTERVALS Ordered Tests: Active Orders 24 hr Category Date Time Status Optical Engineering Manager STAT Care 10/17/22 18:26 Active IV Insertion STAT Care 10/17/22 18:26 Active Pulse Oximetry (ED) STAT Care 10/17/22 18:26 Active CBC W DIFF Stat Lab 10/17/22 18:45 Completed CMP Stat Lab 10/17/22 18:45 Completed TROPONIN Q4H Lab 10/17/22 18:45 Received TROPONIN Q4H Lab 10/17/22 22:30 Ordered TROPONIN Q4H Lab 10/18/22 02:30 Ordered TSH [TSH, 3RD Generation] Stat Lab 10/17/22 18:45 Received Lab/Rad Data: Laboratory Result Diagrams 10/17/22 18:45 10/17/22 18:45 Laboratory Results 10/17/22 10/17/22 Range/Units 18:45 18:45 WBC 5.0 (4.0-10.5) x10^3/uL RBC 3.91 L (4.1-5.4) x10^6/uL Hgb 13.1 (12.0-16.0) g/dL Hct 39.8 (35-47) % MCV 101.8 H (78-100) fL MCH 33.5 H (26-32) pg MCHC 32.9 (32-36) g/dL RDW 13.6 (11.5-14.0) % Plt Count 196 (150-450) x10^3/uL MPV 10.3 (7.5-11.0) fL Gran % 75.6 H (36.0-66.0) % Immature Gran % (Auto) 0.2 (0.00-0.4) % Nucleat RBC Rel Count 0.0 (0.00-0.1) % Eos # (Auto) 0.09 (0-0.5) x10^3/uL Immature Gran # (Auto) 0.01 (0.00-0.03) x10^3u/L Absolute Lymphs (auto) 0.60 L (1.0-4.6) x10^3/uL Absolute Monos (auto) 0.51 (0.0-1.3) x10^3/uL Absolute Nucleated RBC 0.00 (0.00-0.01) x10^3u/L Lymphocytes % 12.0 L (24.0-44.0) % Monocytes % 10.2 (0.0-12.0) % Eosinophils % 1.8 (0.00-5.0) % Basophils % 0.2 (0.0-0.4) % Absolute Granulocytes 3.77 (1.4-6.9) x10^3/uL Basophils # 0.01 (0-0.4) x10^3/uL Sodium 134 L (137-145) mmol/L Potassium 4.1 (3.5-5.1) mmol/L Chloride 103 (98-107) mmol/L Carbon Dioxide 24 (22-30) mmol/L Anion Gap 11.4 (5-15) MEQ/L BUN 20 H (7-17) mg/dL Creatinine 0.90 (0.52-1.04) mg/dL Estimated GFR > 60.0 ML/MIN Glucose 149 H (74-106) mg/dL Calcium 9.0 (8.4-10.2) mg/dL Total Bilirubin 1.30 (0.2-1.3) mg/dL AST 29 (14-36) U/L ALT 27 (0-35) U/L Alkaline Phosphatase 69 (38-126) U/L Serum Total Protein 6.8 (6.3-8.2) g/dL Albumin 4.2 (3.5-5.0) g/dL - Progress Progress: improved Will see patient in: hospital (observation) Counseled pt/family regarding: lab results, diagnosis, need for follow-up - Departure Departure Disposition: Home Clinical Impression: Essential hypertension, Anxiety Condition: Stable Critical Care Time: No Referrals: RIZWAN ASENCIO MD [Primary Care Provider] - Follow up/PCP as directed Additional Instructions: Discharge/Care Plan MANDIE PA was seen on 10/17/22 in the Emergency Room. The patient was counseled regarding Diagnosis,Lab results, Imaging studies, need for follow up and when to return to the Emergency Room. Prescriptions given: Discharge Note I have spoken with the patient and/or caregivers. I have explained the patient's condition, diagnosis and treatment plan based on the information available to me at this time. I have answered the patient's and/or caregiver's questions and addressed any concerns. The patient and/or caregivers have as good understanding of the patient's diagnosis, condition and treatment plan as can be expected at this point. The vital signs have been stable. The patient's condition is stable and appropriate for discharge from the emergency department. The patient will pursue further outpatient evaluation with the primary care physician or other designated or consulting physician as outlined in the discharge instructions. The patient and/or caregivers are agreeable to this plan of care and follow-up instructions have been explained in detail. The patient and/or caregivers have received these instruction. The patient/and or caregivers are aware that any significant change in condition or worsening of symptoms should prompt an immediate return to this or the closest emergency department or call 911.
== END 2022-10-17 19:56 | disposition home or self-care (01) ==
LOC: ED 18:21
DX: I10 Essential (primary) hypertension (principal); F41.9 Anxiety disorder, unspecified; Z79.01 Long term (current) use of anticoagulants; Z79.899 Other long term (current) drug therapy
CPT/HCPCS: 36000; 36415; 80053; 84443; 84484; 85025; 93005; 93041; 94760; 99284

== ENCOUNTER 2022-10-26 22:11 | Emergency (ER) | payer MEDICARE ==
--- NOTE | 2022-10-26 23:13 | ERPHSYRPT ---
- History of Present Illness Time Seen by Provider: 10/26/22 23:12 Exam Limitations: no limitations Patient Subjective Stated Complaint: pt states she has been having some palpitations and problems with her a fib. states she had a shaking episode today, had lower leg pain and leg weakness following episode Triage Nursing Assessment: pt alert and oriented, answers questions approp. pt back per wheelchair and ambulates from wheelchair to stretcher per self with steady gait noted. heart rate 82 on monitor with a fib noted. peripheral pulses intact. Physician History: Patient is 76-year-old female lives at home with her presents to our ED for evaluation of heart palpitations. Patient has history of chronic A. fib. Patient currently on Eliquis. Pain states she was at home and felt heart palpitations. No chest pain. Patient has had the symptoms before. Patient states they occur intermittently. Patient takes Benadryl to calm herself down. Patient states she took Benadryl as usual however it did not help this time. Symptoms are mild to moderate in intensity. No specific worsening improving factors. No associated nausea vomiting or diaphoresis. No fever. Patient voices no other complaints or concerns at this time. Portions of this note were created with voice recognition technology. There may be grammatical, spelling, punctuation or sound alike errors Timing/Duration: today Severity: moderate Modifying Factors: Improves With: nothing Associated Symptoms: denies symptoms Allergies/Adverse Reactions: codeine Allergy (Verified 10/26/22 23:01) unknown Sulfa (Sulfonamide Antibiotics) Allergy (Verified 10/26/22 23:01) Rash JASBIR Inhibitors Adverse Reaction (Verified 10/26/22 23:01) Cough Home Medications: Amlodipine Besylate [Norvasc] 10 mg PO DAILY 11/25/20 [History] Ascorbic Acid [Vitamin C] 1,000 mg PO DAILY 11/25/20 [History] Atorvastatin Calcium [Lipitor 20MG Tablet] 20 mg PO DAILY 11/25/20 [History] Metoprolol Succinate 100 mg PO DAILY 11/25/20 [History] Omeprazole 40 mg PO DAILY 11/25/20 [History] Apixaban [Eliquis] 2.5 mg PO BID 05/09/21 [History] Anastrozole [Arimidex] 1 mg PO DAILY 08/25/22 [History] Furosemide 20 mg [Lasix 20 mg] 20 mg PO DAILY PRN 08/25/22 [History] Hx Tetanus, Diphtheria Vaccination/Date Given: Yes Hx Influenza Vaccination/Date Given: Yes Hx Pneumococcal Vaccination/Date Given: Yes Immunizations Up to Date: Yes Travel Risk - International Travel Have you traveled outside of the country in past 3 weeks: No - Coronavirus Screening Are you exhibiting any of the following symptoms?: No Close contact with a COVID-19 positive Pt in past 14-21 Days: No - Vaccine Status Have you recieved a Covid-19 vaccination: Yes [employer]: [employer] - Vaccination Dates Date of 2cond Vaccination (if applicable): 01/07/2021 - Review of Systems Constitutional: No Symptoms, No Fever, No Chills Eyes: No Symptoms Ears, Nose, & Throat: No Symptoms Respiratory: No Symptoms, No Cough, No Dyspnea Cardiac: No Symptoms, No Chest Pain, No Edema, No Syncope Abdominal/Gastrointestinal: No Symptoms, No Abdominal Pain, No Nausea, No Vomiting, No Diarrhea Genitourinary Symptoms: No Symptoms, No Dysuria Musculoskeletal: No Symptoms, No Back Pain, No Neck Pain Skin: No Symptoms, No Rash Neurological: No Symptoms, No Dizziness, No Focal Weakness, No Sensory Changes Psychological: No Symptoms Endocrine: No Symptoms Hematologic/Lymphatic: No Symptoms Immunological/Allergic: No Symptoms All Other Systems: Reviewed and Negative - Past Medical History Pertinent Past Medical History: Yes Neurological History: No Pertinent History ENT History: Cataracts Cardiac History: Arrhythmia, Hypertension, Other Respiratory History: No Pertinent History Endocrine Medical History: No Pertinent History Musculoskeletal History: Arthritis, Osteoarthritis GI Medical History: No Pertinent History History: No Pertinent History Psycho-Social History: Depression Female Reproductive Disorders: Breast Cancer Other Medical History: AAA 4.0 cm. R TKA 2012. R ankle fx 2009 - Past Surgical History Past Surgical History: Yes Neuro Surgical History: No Pertinent History Cardiac: No Pertinent History Respiratory: No Pertinent History Gastrointestinal: Appendectomy, Cholecystectomy Musculoskeletal: Joint Replacement, Orthopedic Surgery Female Surgical History: Hysterectomy Other Surgical History: R knee, metal in R ankle,. lymphectomy R and L side. lasik on eyes - Social History Smoking Status: Never smoker Exposure to second hand smoke: No Drug Use: none Patient Lives Alone: No - Nursing Vital Signs Nursing Vital Signs: Initial Vital Signs Temperature 98.1 F 10/26/22 22:46 Pulse Rate 74 10/26/22 22:46 Respiratory Rate 18 10/26/22 22:46 Blood Pressure 117/78 10/26/22 22:46 O2 Sat by Pulse Oximetry 98 10/26/22 22:46 Pain Scale Pain Intensity 4 - Physical Exam General Appearance: no apparent distress, alert Eye Exam: PERRL/EOMI, eyes nml inspection Ears, Nose, Throat Exam: normal ENT inspection, TMs normal, pharynx normal, moist mucous membranes Neck Exam: normal inspection, non-tender, supple, full range of motion Respiratory Exam: normal breath sounds, lungs clear, airway intact, No chest tenderness, No respiratory distress Cardiovascular Exam: regular rate/rhythm, normal heart sounds, normal peripheral pulses Gastrointestinal/Abdomen Exam: soft, normal bowel sounds, No tenderness, No mass Back Exam: normal inspection, normal range of motion, No CVA tenderness, No vertebral tenderness Extremity Exam: normal inspection, normal range of motion, pelvis stable Neurologic Exam: alert, oriented x 3, cooperative, normal mood/affect, nml cerebellar function, nml station & gait, sensation nml, other (Nonremarkable neurologic exam.), No motor deficits Skin Exam: normal color, warm, dry, No rash Lymphatic Exam: No adenopathy SpO2 Interpretation: normal SpO2: 98 O2 Delivery: Room Air - Course Nursing assessment & vital signs reviewed: Yes EKG Interpreted by Me: RATE (85), A-fib, NORMAL AXIS, NORMAL INTERVALS, NORMAL QRS Ordered Tests: Active Orders 24 hr Category Date Time Status Database Dba STAT Care 10/26/22 23:05 Active EKG-ER Only STAT Care 10/26/22 23:02 Active IV Insertion STAT Care 10/26/22 23:02 Active Pulse Oximetry (ED) STAT Care 10/26/22 23:02 Active CBC W DIFF Stat Lab 10/26/22 23:15 Completed CMP Stat Lab 10/26/22 23:15 Completed TROPONIN Q4H Lab 10/26/22 23:15 Completed TROPONIN Q4H Lab 10/27/22 01:45 Completed TROPONIN Q4H Lab 10/27/22 07:15 Ordered Lab/Rad Data: Laboratory Result Diagrams 10/26/22 23:15 10/26/22 23:15 Laboratory Results 10/27/22 10/26/22 10/26/22 Range/Units 01:45 23:15 23:15 WBC (4.0-10.5) x10^3/uL RBC (4.1-5.4) x10^6/uL Hgb (12.0-16.0) g/dL Hct (35-47) % MCV (78-100) fL MCH (26-32) pg MCHC (32-36) g/dL RDW (11.5-14.0) % Plt Count (150-450) x10^3/uL MPV (7.5-11.0) fL Gran % (36.0-66.0) % Immature Gran % (Auto) (0.00-0.4) % Nucleat RBC Rel Count (0.00-0.1) % Eos # (Auto) (0-0.5) x10^3/uL Immature Gran # (Auto) (0.00-0.03) x10^3u/L Absolute Lymphs (auto) (1.0-4.6) x10^3/uL Absolute Monos (auto) (0.0-1.3) x10^3/uL Absolute Nucleated RBC (0.00-0.01) x10^3u/L Lymphocytes % (24.0-44.0) % Monocytes % (0.0-12.0) % Eosinophils % (0.00-5.0) % Basophils % (0.0-0.4) % Absolute Granulocytes (1.4-6.9) x10^3/uL Basophils # (0-0.4) x10^3/uL Sodium 135 L (137-145) mmol/L Potassium 4.1 (3.5-5.1) mmol/L Chloride 105 (98-107) mmol/L Carbon Dioxide 29 (22-30) mmol/L Anion Gap 6.2 (5-15) MEQ/L BUN 23 H (7-17) mg/dL Creatinine 0.84 (0.52-1.04) mg/dL Estimated GFR > 60.0 ML/MIN Glucose 111 H (74-106) mg/dL Calcium 9.0 (8.4-10.2) mg/dL Total Bilirubin 0.90 (0.2-1.3) mg/dL AST 23 (14-36) U/L ALT 19 (0-35) U/L Alkaline Phosphatase 61 (38-126) U/L Troponin I < 0.012 < 0.012 (0.000-0.034) ng/mL Serum Total Protein 6.5 (6.3-8.2) g/dL Albumin 4.0 (3.5-5.0) g/dL Slides for Path Review 10/26/22 Range/Units 23:15 WBC 4.3 (4.0-10.5) x10^3/uL RBC 3.77 L (4.1-5.4) x10^6/uL Hgb 12.8 (12.0-16.0) g/dL Hct 39.1 (35-47) % MCV 103.7 H (78-100) fL MCH 34.0 H (26-32) pg MCHC 32.7 (32-36) g/dL RDW 14.0 (11.5-14.0) % Plt Count 176 (150-450) x10^3/uL MPV 10.3 (7.5-11.0) fL Gran % 71.1 H (36.0-66.0) % Immature Gran % (Auto) 0.2 (0.00-0.4) % Nucleat RBC Rel Count 0.0 (0.00-0.1) % Eos # (Auto) 0.13 (0-0.5) x10^3/uL Immature Gran # (Auto) 0.01 (0.00-0.03) x10^3u/L Absolute Lymphs (auto) 0.50 L (1.0-4.6) x10^3/uL Absolute Monos (auto) 0.59 (0.0-1.3) x10^3/uL Absolute Nucleated RBC 0.00 (0.00-0.01) x10^3u/L Lymphocytes % 11.7 L (24.0-44.0) % Monocytes % 13.8 H (0.0-12.0) % Eosinophils % 3.0 (0.00-5.0) % Basophils % 0.2 (0.0-0.4) % Absolute Granulocytes 3.04 (1.4-6.9) x10^3/uL Basophils # 0.01 (0-0.4) x10^3/uL Sodium (137-145) mmol/L Potassium (3.5-5.1) mmol/L Chloride (98-107) mmol/L Carbon Dioxide (22-30) mmol/L Anion Gap (5-15) MEQ/L BUN (7-17) mg/dL Creatinine (0.52-1.04) mg/dL Estimated GFR ML/MIN Glucose (74-106) mg/dL Calcium (8.4-10.2) mg/dL Total Bilirubin (0.2-1.3) mg/dL AST (14-36) U/L ALT (0-35) U/L Alkaline Phosphatase (38-126) U/L Troponin I (0.000-0.034) ng/mL Serum Total Protein (6.3-8.2) g/dL Albumin (3.5-5.0) g/dL Slides for Path Review YES - Progress Progress: improved Progress Note: 10/27/22 02:30 Patient reassessed. She is well. Patient asymptomatic. No recurrence of heart palpitations while in our ED. Troponin negative x2. Work-up essentially nonremarkable. EKG shows chronic A. fib. Patient requesting discharge. No indication for further work-up at this time. Will discharge home. Patient agrees to follow-up with her primary care doctor within 48 hours for evaluation. Portions of this note were created with voice recognition technology. There may be grammatical, spelling, punctuation or sound alike errors 10/27/22 02:31 Counseled pt/family regarding: lab results, diagnosis, need for follow-up, rad r esults - Departure Departure Disposition: Home Clinical Impression: Heart palpitations Condition: Stable Critical Care Time: No Referrals: RIZWAN ASENCIO MD [Primary Care Provider] - Follow up/PCP as directed Additional Instructions: Discharge/Care Plan MANDIE PA was seen on 10/27/22 in the Emergency Room. The patient was counseled regarding Diagnosis,Lab results, Imaging studies, need for follow up and when to return to the Emergency Room. Prescriptions given: Discharge Note I have spoken with the patient and/or caregivers. I have explained the patient's condition, diagnosis and treatment plan based on the information available to me at this time. I have answered the patient's and/or caregiver's questions and addressed any concerns. The patient and/or caregivers have as good understanding of the patient's diagnosis, condition and treatment plan as can be expected at this point. The vital signs have been stable. The patient's condition is stable and appropriate for discharge from the emergency department. The patient will pursue further outpatient evaluation with the primary care p hysician or other designated or consulting physician as outlined in the discharge instructions. The patient and/or caregivers are agreeable to this plan of care and follow-up instructions have been explained in detail. The patient and/or caregivers have received these instruction. The patient/and or caregivers are aware that any significant change in condition or worsening of symptoms should prompt an immediate return to this or the closest emergency department or call 911.
[2022-10-26 23:19] LABS: Absolute Neutrophil Ct (ANC) 3.04 x10^3/uL (1.4-6.9); Basophil (Absolute #) 0.01 x10^3/uL (0-0.4); Eosinophil (Absolute #) 0.13 x10^3/uL (0-0.5); Hematocrit 39.1 % (35-47); Hemoglobin 12.8 g/dL (12.0-16.0); Lymphocytes % 11.7 % (24.0-44.0); Mean Cell Volume 103.7 fL (78-100); Mean Corpuscular Hgb Concent. 32.7 g/dL (32-36); Mean Platelet Volume 10.3 fL (7.5-11.0); Monocyte (Absolute #) 0.59 x10^3/uL (0.0-1.3); Monocytes % 13.8 % (0.0-12.0); Neutrophil % 71.1 % (36.0-66.0); Platelet Count 176 x10^3/uL (150-450); Red Blood Count 3.77 x10^6/uL (4.1-5.4); White Blood Count 4.3 x10^3/uL (4.0-10.5)
[2022-10-26 23:34] LABS: ALKALINE PHOSPHATASE 61 U/L (38-126); ANION GAP 6.2 MEQ/L (5-15); BLOOD UREA NITROGEN 23 mg/dL (7-17); CHLORIDE 105 mmol/L (98-107); Carbon Dioxide 29 mmol/L (22-30); Creatinine 1 0.84 mg/dL (0.52-1.04); EST GLOMERULAR FILTRATION RATE > 60.0 ML/MIN; Glucose 111 mg/dL (74-106); Potassium 4.1 mmol/L (3.5-5.1); SGOT/AST 23 U/L (14-36); SGPT/ALT 19 U/L (0-35); SODIUM 135 mmol/L (137-145); Total Protein 6.5 g/dL (6.3-8.2)
[2022-10-27 01:14] LABS: Slide Review 1 YES
[2022-10-27 02:42] VITALS: BP 143/95; PULSE 81; O2SAT 97
== END 2022-10-27 02:45 | disposition home or self-care (01) ==
LOC: ED 22:11
DX: R00.2 Palpitations (principal); I48.20 Chronic atrial fibrillation, unspecified; I10 Essential (primary) hypertension; Z79.01 Long term (current) use of anticoagulants; Z79.899 Other long term (current) drug therapy
CPT/HCPCS: 36000; 36415; 80053; 84484; 85025; 93005; 93041; 94760; 99284

== ENCOUNTER 2022-10-30 13:27 | Emergency (ER) | payer MEDICARE ==
[2022-10-30 13:49] VITALS: BP 147/94
[2022-10-30 13:53] LABS: Absolute Neutrophil Ct (ANC) 4.49 x10^3/uL (1.4-6.9); Basophil (Absolute #) 0.03 x10^3/uL (0-0.4); Eosinophil (Absolute #) 0.06 x10^3/uL (0-0.5); Hematocrit 42.6 % (35-47); Hemoglobin 13.8 g/dL (12.0-16.0); Lymphocyte (Absolute #) 0.68 x10^3/uL (1.0-4.6); Lymphocytes % 11.9 % (24.0-44.0); Mean Cell Volume 104.2 fL (78-100); Mean Corpuscular Hemoglobin 33.7 pg (26-32); Mean Corpuscular Hgb Concent. 32.4 g/dL (32-36); Mean Platelet Volume 10.2 fL (7.5-11.0); Monocyte (Absolute #) 0.45 x10^3/uL (0.0-1.3); Monocytes % 7.9 % (0.0-12.0); Neutrophil % 78.5 % (36.0-66.0); Platelet Count 183 x10^3/uL (150-450); Red Blood Count 4.09 x10^6/uL (4.1-5.4); Red Cell Distribution Width 13.8 % (11.5-14.0); White Blood Count 5.7 x10^3/uL (4.0-10.5)
--- NOTE | 2022-10-30 13:53 | ERPHSYRPT ---
- History of Present Illness Time Seen by Provider: 10/30/22 13:51 Source: patient Exam Limitations: no limitations Patient Subjective Stated Complaint: pt here for burning with urination that started today, hx UTI Triage Nursing Assessment: pt alert, resp easy, skin w/d/p, walked in with cane,abd soft Physician History: pt here for burning with urination that started today Patient is 76-year-old female with significant past medical history of atrial fibrillation hypertension started having burning urination today morning. She denies any fever chills nausea or vomiting. Patient states she has a history of recurrent urinary tract infection. Timing/Duration: today Severity: moderate Associated Symptoms: denies symptoms Allergies/Adverse Reactions: codeine Allergy (Verified 10/30/22 13:39) unknown Sulfa (Sulfonamide Antibiotics) Allergy (Verified 10/30/22 13:39) Rash JASBIR Inhibitors Adverse Reaction (Verified 10/30/22 13:39) Cough Home Medications: Amlodipine Besylate [Norvasc] 10 mg PO DAILY 11/25/20 [History] Ascorbic Acid [Vitamin C] 1,000 mg PO DAILY 11/25/20 [History] Atorvastatin Calcium [Lipitor 20MG Tablet] 20 mg PO DAILY 11/25/20 [History] Metoprolol Succinate 100 mg PO DAILY 11/25/20 [History] Omeprazole 40 mg PO DAILY 11/25/20 [History] Apixaban [Eliquis] 2.5 mg PO BID 05/09/21 [History] Anastrozole [Arimidex] 1 mg PO DAILY 08/25/22 [History] Furosemide 20 mg [Lasix 20 mg] 20 mg PO DAILY PRN 08/25/22 [History] Hx Tetanus, Diphtheria Vaccination/Date Given: Yes Hx Influenza Vaccination/Date Given: Yes Hx Pneumococcal Vaccination/Date Given: Yes Immunizations Up to Date: Yes Travel Risk - International Travel Have you traveled outside of the country in past 3 weeks: No - Coronavirus Screening Close contact with a COVID-19 positive Pt in past 14-21 Days: No - Vaccine Status Have you recieved a Covid-19 vaccination: Yes [employer]: [employer] - Vaccination Dates Date of 2cond Vaccination (if applicable): 01/07/2021 - Review of Systems Constitutional: No Fever, No Chills Eyes: No Symptoms Ears, Nose, & Throat: No Symptoms Respiratory: No Cough, No Dyspnea Cardiac: No Chest Pain, No Edema, No Syncope Abdominal/Gastrointestinal: No Abdominal Pain, No Nausea, No Vomiting, No Diarrhea Genitourinary Symptoms: Dysuria Musculoskeletal: No Back Pain, No Neck Pain Skin: No Rash Neurological: No Dizziness, No Focal Weakness, No Sensory Changes Psychological: No Symptoms Endocrine: No Symptoms All Other Systems: Reviewed and Negative - Past Medical History Pertinent Past Medical History: Yes Neurological History: No Pertinent History ENT History: Cataracts Cardiac History: Arrhythmia, Hypertension, Other Respiratory History: No Pertinent History Endocrine Medical History: No Pertinent History Musculoskeletal History: Arthritis, Osteoarthritis GI Medical History: No Pertinent History History: No Pertinent History Psycho-Social History: Depression Female Reproductive Disorders: Breast Cancer Other Medical History: AAA 4.0 cm. R TKA 2011. R ankle fx 2009 - Past Surgical History Past Surgical History: Yes Neuro Surgical History: No Pertinent History Cardiac: No Pertinent History Respiratory: No Pertinent History Gastrointestinal: Appendectomy, Cholecystectomy Musculoskeletal: Joint Replacement, Orthopedic Surgery Female Surgical History: Hysterectomy Other Surgical History: R knee, metal in R ankle,. lymphectomy R and L side. lasik on eyes - Social History Smoking Status: Never smoker Exposure to second hand smoke: No Drug Use: none Patient Lives Alone: No - Nursing Vital Signs Nursing Vital Signs: Initial Vital Signs Temperature 97.2 F 10/30/22 13:48 Pulse Rate 97 H 10/30/22 13:48 Respiratory Rate 18 10/30/22 13:48 Blood Pressure 147/94 10/30/22 13:48 O2 Sat by Pulse Oximetry 98 10/30/22 13:48 Pain Scale Pain Intensity 6 - Physical Exam General Appearance: no apparent distress, alert Eye Exam: PERRL/EOMI, eyes nml inspection Ears, Nose, Throat Exam: normal ENT inspection, TMs normal, pharynx normal, moist mucous membranes Neck Exam: normal inspection, non-tender, supple, full range of motion Respiratory Exam: normal breath sounds, lungs clear, No respiratory distress Cardiovascular Exam: regular rate/rhythm, normal heart sounds, normal peripheral pulses Gastrointestinal/Abdomen Exam: soft, normal bowel sounds, No tenderness, No mass Back Exam: normal inspection, normal range of motion, No CVA tenderness, No vertebral tenderness Extremity Exam: normal inspection, normal range of motion, pelvis stable Neurologic Exam: alert, oriented x 3, cooperative, normal mood/affect, nml cerebellar function, nml station & gait, sensation nml, No motor deficits Skin Exam: normal color, warm, dry, No rash Lymphatic Exam: No adenopathy SpO2: 98 Ordered Tests: Active Orders 24 hr Category Date Time Status cath [Cath for Specimen-Straight] STAT Care 10/30/22 15:24 Active CBC W DIFF Stat Lab 10/30/22 13:50 Completed CMP Stat Lab 10/30/22 13:50 Completed CULTURE,URINE Stat Lab 10/30/22 15:24 Ordered UA W/RFX CULTURE Stat Lab 10/30/22 15:24 Results Medication Summary Discontinued Medications Generic Name Dose Route Start Last Admin Trade Name Freq PRN Reason Stop Dose Admin Orphenadrine Citrate 60 mg 10/30/22 14:30 10/30/22 14:39 Orphenadrine Citrate 60 Mg/2 Ml Vial IM 10/30/22 14:31 60 mg STAT ONE Administration Orphenadrine Citrate Confirm 10/30/22 14:37 Orphenadrine Citrate 60 Mg/2 Ml Vial Administered 10/30/22 14:38 Dose 60 mg .ROUTE .STK-MED ONE Phenazopyridine HCl 200 mg 10/30/22 14:32 10/30/22 14:39 Phenazopyridine Hcl 200 Mg Tablet PO 10/30/22 14:33 200 mg ONCE ONE Administration Phenazopyridine HCl Confirm 10/30/22 14:37 Phenazopyridine Hcl 200 Mg Tablet Administered 10/30/22 14:38 Dose 200 mg .ROUTE .STK-MED ONE Lab/Rad Data: Laboratory Result Diagrams 10/30/22 13:50 10/30/22 13:50 Laboratory Results 10/30/22 10/30/22 10/30/22 Range/Units 15:24 13:50 13:50 WBC 5.7 (4.0-10.5) x10^3/uL RBC 4.09 L (4.1-5.4) x10^6/uL Hgb 13.8 (12.0-16.0) g/dL Hct 42.6 (35-47) % MCV 104.2 H (78-100) fL MCH 33.7 H (26-32) pg MCHC 32.4 (32-36) g/dL RDW 13.8 (11.5-14.0) % Plt Count 183 (150-450) x10^3/uL MPV 10.2 (7.5-11.0) fL Gran % 78.5 H (36.0-66.0) % Immature Gran % (Auto) 0.2 (0.00-0.4) % Nucleat RBC Rel Count 0.0 (0.00-0.1) % Eos # (Auto) 0.06 (0-0.5) x10^3/uL Immature Gran # (Auto) 0.01 (0.00-0.03) x10^3u/L Absolute Lymphs (auto) 0.68 L (1.0-4.6) x10^3/uL Absolute Monos (auto) 0.45 (0.0-1.3) x10^3/uL Absolute Nucleated RBC 0.00 (0.00-0.01) x10^3u/L Lymphocytes % 11.9 L (24.0-44.0) % Monocytes % 7.9 (0.0-12.0) % Eosinophils % 1.0 (0.00-5.0) % Basophils % 0.5 (0.0-0.4) % Absolute Granulocytes 4.49 (1.4-6.9) x10^3/uL Basophils # 0.03 (0-0.4) x10^3/uL Sodium 135 L (137-145) mmol/L Potassium 4.2 (3.5-5.1) mmol/L Chloride 103 (98-107) mmol/L Carbon Dioxide 24 (22-30) mmol/L Anion Gap 11.3 (5-15) MEQ/L BUN 19 H (7-17) mg/dL Creatinine 1.03 (0.52-1.04) mg/dL Estimated GFR 55.2 ML/MIN Glucose 219 H (74-106) mg/dL Calcium 9.4 (8.4-10.2) mg/dL Total Bilirubin 1.60 H (0.2-1.3) mg/dL AST 27 (14-36) U/L ALT 22 (0-35) U/L Alkaline Phosphatase 69 (38-126) U/L Serum Total Protein 7.4 (6.3-8.2) g/dL Albumin 4.5 (3.5-5.0) g/dL Urinalys Dipstick Clnc MAIN LAB Urine Color DARK YELLOW (YELLOW) Urine Appearance CLOUDY A (CLEAR) Urine pH 5.0 (5-6) Ur Specific [place] 1.020 (1.005-1.025) POC Urine Protein Conf 100 A (Negative) Urine Ketones TRACE A (NEGATIVE) Urine Nitrite POSITIVE A (NEGATIVE) Urine Bilirubin SMALL A (NEGATIVE) Urine Urobilinogen 1 A (0-1) mg/dL Urine Leukocytes SMALL A (NEGATIVE) Urine WBC (Auto) Pending Urine RBC (Auto) Pending U Epithel Cells (Auto) Pending Urine Bacteria (Auto) Pending Urine RBC MODERATE A (0-5) Thomas/ul Ur Culture Indicated? Pending Urine Glucose NEGATIVE (NEGATIVE) mg/dL - Progress Progress: improved, pain not gone completely Counseled pt/family regarding: lab results, diagnosis, need for follow-up - Departure Departure Disposition: Home Clinical Impression: UTI (urinary tract infection) Qualifiers: Urinary tract infection type: acute cystitis Hematuria presence: without hematuria Qualified Code(s): N30.00 - Acute cystitis without hematuria Condition: Stable Critical Care Time: No Referrals: RIZWAN ASENCIO MD [Primary Care Provider] - Follow up/PCP as directed Instructions: Urinary Tract Infection, Adult (DC) Additional Instructions: Discharge/Care Plan MANDIE PA was seen on 10/30/22 in the Emergency Room. The patient was counseled regarding Diagnosis,Lab results, Imaging studies, need for follow up and when to return to the Emergency Room. Prescriptions given: Discharge Note I have spoken with the patient and/or caregivers. I have explained the patient's condition, diagnosis and treatment plan based on the information available to me at this time. I have answered the patient's and/or caregiver's questions and ad dressed any concerns. The patient and/or caregivers have as good understanding of the patient's diagnosis, condition and treatment plan as can be expected at this point. The vital signs have been stable. The patient's condition is stable and appropriate for discharge from the emergency department. The patient will pursue further outpatient evaluation with the primary care physician or other designated or consulting physician as outlined in the discharge instructions. The patient and/or caregivers are agreeable to this plan of care and follow-up instructions have been explained in detail. The patient and/or caregivers have received these instruction. The patient/and or caregivers are aware that any significant change in condition or worsening of symptoms should prompt an immediate return to this or the closest emergency department or call 911. MANDIE PA was seen on 10/30/22 n the Emergency Room. At that time you were treated for an emergent condition, during your visit Laboratory, Radiology and/or other procedures may have been ordered. It is very important that you follow-up with your Primary Care Physician RIZWAN ASENCIO within the next 24-48 hours to review your Emergency Room visit and the final results of testing that was ordered. Some test results such as Urine Cultures, Blood Cultures, and other cultures if ordered will not be finalized for 24-48 hours. If you do not have a Primary Care Provider please call the medical records department at [phone] ext [phone] to obtain a copy of your results or you may sign into our patient portal to obtain these results by visiting us [email or web address] and completing the following steps: 1. Click on the Patient Portal link 2. Click the Patient Self Enrollment Link to complete the enrollment form and entering your 3. Once the enrollment form is completed you will receive an email with a temporary ID and password at the email address you provided. 4. Next choose a user name and password. Your user name must be at least 4 characters long and your password must be at least 4 characters long. 5. Choose a security question from the list and provide your answer to the question. If you already have signed into the Health Portal you may access your Health Care Information 29/05 by the following steps: 1. Login to our website @ [email or web address] 2. Enter your original user name and password. FAQS The [facility] Health Portal is an online tool that contains your Lab Results, Radiology Reports, Visit History, Discharge Instructions and Health Summary Lab and Radiology Results will not be available for 72 hours on the portal. The Portal is a secure site, passwords are encryted and URLs are re-written so they cannot be copied and pasted. You and authorized family members are the only ones who can access your Portal. Also there is a timeout feature that protects your information if you leave the Portal page open. If you have technical difficulty please use the Contact Us link on the page this will allow you to submit any questions you have regarding the Portal or you may contact the Medical Record Department at [phone] ext [phone]. Take Cephalexin (what you have already) 500 mg orally four times a day till all gone
[2022-10-30 14:07] LABS: ALBUMIN 4.5 g/dL (3.5-5.0); ANION GAP 11.3 MEQ/L (5-15); BILIRUBIN,TOTAL 1.6 mg/dL (0.2-1.3); Calcium 9.4 mg/dL (8.4-10.2); Creatinine 1 1.03 mg/dL (0.52-1.04); EST GLOMERULAR FILTRATION RATE 55.2 ML/MIN; Potassium 4.2 mmol/L (3.5-5.1); Total Protein 7.4 g/dL (6.3-8.2)
[2022-10-30] MEDS ORDERED: Norflex 60 MG/2 ML IM ONE (14:30)
[2022-10-30] MEDS ORDERED: PYRIDIUM 200 MG PO ONE (14:32)
[2022-10-30] MEDS ORDERED: PYRIDIUM 200 MG ONE (14:37)
[2022-10-30] MEDS ORDERED: Norflex 60 MG/2 ML ONE (14:37)
[2022-10-30 15:36] LABS: Appearance CLOUDY (CLEAR); Bilirubin SMALL (NEGATIVE); Glucose NEGATIVE (NEGATIVE); Ketones TRACE (NEGATIVE); Nitrite POSITIVE (NEGATIVE); Protein,Urine Dip 100 (Negative); RBC MODERATE Ery/ul (0-5); Urobilinogen 1 mg/dL (0-1)
[2022-10-30 15:37] LABS: Dipstick done @ ? MAIN LAB
[2022-10-30 15:39] LABS: Bacteria MODERATE /HPF (NEGATIVE); Mucus SLIGHT /HPF (NEGATIVE); RBC 51-100 /HPF (0-2); WBC >100 /HPF (0-5)
[2022-10-30] MEDS ORDERED: Rocephin 1000 MG INJ IM ONE (15:39)
[2022-10-30 15:42] LABS: Urine Cultured Indicated? YES
[2022-10-30] MEDS ORDERED: Rocephin 1000 MG INJ ONE (15:45)
[2022-10-30 16:03] VITALS: PULSE 92; O2SAT 96
== END 2022-10-30 16:02 | disposition home or self-care (01) ==
LOC: ED 13:27
DX: N30.00 Acute cystitis without hematuria (principal); R30.0 Dysuria; I10 Essential (primary) hypertension; Z79.01 Long term (current) use of anticoagulants; Z79.899 Other long term (current) drug therapy
CPT/HCPCS: 36415; 80053; 81015; 85025; 87086; 96372; 99284; J0696; J2360; P9612; A9270-GY

== ENCOUNTER 2022-11-14 05:50 | Emergency (ER) | payer MEDICARE ==
[2022-11-14 05:57] VITALS: O2SAT 98
--- NOTE | 2022-11-14 06:38 | ERPHSYRPT ---
- History of Present Illness Source: patient, EMS Exam Limitations: no limitations Patient Subjective Stated Complaint: my b/p is up and I have a headache Triage Nursing Assessment: pt brought in by ambulance, pt alert and oriented x3, pleasant and cooperative. Pt called the ambulance due to having a headache and htn, 178/100. Pt c/o headache to rt posterior upper portion of head, throbbing. Pt's headache started yesterday afternoon, relieved with tylenol, but returned at 4am this morning. Lungs clear, heart tones irreg, pt has hx of a-fib. Physician History: 77 yo wf presents per EMS w R parietal MILLER x 1 day. Pain is an ache and currently 5/10. It has been up to a 9/10. She took some Tylenol at 2200, but pain did not decrease until much later. Pt denies fever/stiff neck/nausea/vomiting/focal weakness/blurry vision/head trauma. She does not have a MILLER history and is on Eliquis for Afib. Cough/coryza/diarrhea are denied also. Nothing seems to make the pain better or worse. Pt states that her BP has been elevated. Timing/Duration: yesterday Quality: aching Head Pain Location: parietal (R parietal) Severity of Pain-Max: severe Severity of Pain-Current: moderate Recent Head Trauma: no recent headache/trauma Modifying Factors: Improves With: other Associated Symptoms: denies symptoms Previous symptoms: no prior history Allergies/Adverse Reactions: codeine Allergy (Verified 11/14/22 06:08) unknown Sulfa (Sulfonamide Antibiotics) Allergy (Verified 11/14/22 06:08) Rash JASBIR Inhibitors Adverse Reaction (Verified 11/14/22 06:08) Cough Home Medications: Amlodipine Besylate [Norvasc] 10 mg PO DAILY 11/25/20 [History] Ascorbic Acid [Vitamin C] 1,000 mg PO DAILY 11/25/20 [History] Atorvastatin Calcium [Lipitor 20MG Tablet] 20 mg PO DAILY 11/25/20 [History] Metoprolol Succinate 100 mg PO DAILY 11/25/20 [History] Omeprazole 40 mg PO DAILY 11/25/20 [History] Apixaban [Eliquis] 2.5 mg PO BID 05/09/21 [History] Anastrozole [Arimidex] 1 mg PO DAILY 08/25/22 [History] Furosemide 20 mg [Lasix 20 mg] 20 mg PO DAILY PRN PRN 08/25/22 [History] Cholecalciferol (Vitamin D3) [Vitamin D3] 10 mcg PO DAILY 11/14/22 [History] Cyanocobalamin (Vitamin B-12) [Vitamin B12] 2,500 mcg PO DAILY 11/14/22 [History] Hx Tetanus, Diphtheria Vaccination/Date Given: Yes Hx Influenza Vaccination/Date Given: Yes Hx Pneumococcal Vaccination/Date Given: Yes Immunizations Up to Date: Yes Travel Risk - International Travel Have you traveled outside of the country in past 3 weeks: No - Coronavirus Screening Are you exhibiting any of the following symptoms?: No Close contact with a COVID-19 positive Pt in past 14-21 Days: No - Vaccine Status Have you recieved a Covid-19 vaccination: Yes 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 Comment: 2 boosters - Review of Systems Constitutional: No Symptoms Eyes: No Symptoms Ears, Nose, & Throat: No Symptoms Respiratory: No Symptoms Cardiac: No Symptoms Abdominal/Gastrointestinal: No Symptoms Genitourinary Symptoms: No Symptoms Musculoskeletal: No Symptoms Skin: No Symptoms Neurological: No Symptoms, Headache Psychological: No Symptoms Endocrine: No Symptoms Hematologic/Lymphatic: No Symptoms Immunological/Allergic: No Symptoms - Past Medical History Pertinent Past Medical History: Yes Neurological History: No Pertinent History ENT History: Cataracts Cardiac History: Arrhythmia, Hypertension, Other Respiratory History: No Pertinent History Endocrine Medical History: No Pertinent History Musculoskeletal History: Arthritis, Osteoarthritis GI Medical History: No Pertinent History History: No Pertinent History Psycho-Social History: Depression Female Reproductive Disorders: Breast Cancer Other Medical History: AAA 4.0 cm. R TKA 2012. R ankle fx 2009 - Past Surgical History Past Surgical History: Yes Neuro Surgical History: No Pertinent History Cardiac: No Pertinent History Respiratory: No Pertinent History Gastrointestinal: Appendectomy, Cholecystectomy Musculoskeletal: Joint Replacement, Orthopedic Surgery Female Surgical History: Hysterectomy Other Surgical History: R knee, metal in R ankle,. lumpectomy R and L side. lasik on eyes - Social History Smoking Status: Never smoker Exposure to second hand smoke: No Drug Use: none Patient Lives Alone: No - Nursing Vital Signs Nursing Vital Signs: Initial Vital Signs Temperature 98.6 F 11/14/22 05:56 Pulse Rate 95 H 11/14/22 05:56 Respiratory Rate 20 11/14/22 05:56 Blood Pressure 153/81 11/14/22 05:56 O2 Sat by Pulse Oximetry 98 11/14/22 05:56 Pain Scale Pain Intensity 5 Hypertensive - Physical Exam General Appearance: no apparent distress Eye Exam: PERRL/EOMI, eyes nml inspection Ears, Nose, Throat Exam: normal ENT inspection, TMs normal, pharynx normal, moist mucous membranes Neck Exam: normal inspection, non-tender, supple, full range of motion, No meningismus, No mass, No Brudzinski, No Kernig's, No carotid bruit Respiratory Exam: normal breath sounds, lungs clear, airway intact, No respiratory distress Cardiovascular Exam: capillary refill <2 sec, other (Ir-Ir), No murmur Gastrointestinal/Abdominal Exam: soft, normal bowel sounds, No tenderness Back Exam: normal inspection, normal range of motion, No CVA tenderness, No vertebral tenderness Extremity Exam: normal inspection, normal range of motion Mental Status Exam: alert, oriented x 3, 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 Exam: normal hearing, normal speech, PERRL, tongue midline, No facial droop, No facial paresthesias, No facial weakness, No tongue deviation to R, No tongue deviation to L Motor/Sensory Exam: no motor deficit, no sensory deficit, no pronator drift, negative Babinski's sign DTR Exam: bicep (R): 2+, bicep (L): 2+ Skin Exam: normal color, warm, dry, No rash Lymphatic Exam: No adenopathy SpO2 Interpretation: normal SpO2: 98 O2 Delivery: Room Air - Course Nursing assessment & vital signs reviewed: Yes - CT Exams Head CT Interpretation: Tele-radiologist Report (CT head neg per Rad) Ordered Tests: Active Orders 24 hr Category Date Time Status HEAD WITHOUT CONTRAST [CT] Stat Exams 11/14/22 06:27 Taken Medication Summary Generic Name Dose Route Start Last Admin Trade Name Frefranco PRN Reason Stop Dose Admin Ketorolac Tromethamine 15 mg 11/14/22 07:22 Ketorolac Tromethamine 30 Mg/Ml Inj IM 11/14/22 07:23 STAT ONE - Progress Progress: improved Progress Note: Pt w neg CT of head. Blood pressure has been good wo treatment during stay. Pt states that she has been having similar headaches after initially stating that she did not. She was wo focal weakness/fever/nuchal rigidity during entire stay. 15mg IM Toradol CT results reviewed and shared w pt Counseled pt/family regarding: diagnosis, need for follow-up, rad results - Departure Departure Disposition: Home Clinical Impression: Headache Condition: Stable Critical Care Time: No Referrals: RIZWAN ASENCIO MD [Primary Care Provider] - Follow up/PCP as directed Instructions: Headache, Adult (DC) Additional Instructions: Continue current meds Follow up with your family MD Return to ER for increasing pain, focal weakness, or temperature greater than 100.5
[2022-11-14] MEDS ORDERED: TORAdol 30 mg Injection IM ONE (07:22)
[2022-11-14] MEDS ORDERED: TORAdol 30 mg Injection ONE (07:25)
[2022-11-14 07:27] VITALS: BP 114/78; PULSE 80
--- NOTE | 2022-11-14 09:00 | XRAY ---
Indication: Posterior headache and nausea. High blood pressure. Multiple contiguous axial images obtained through the head without contrast. Comparison: May 09, 2021 Normal appearing brain parenchyma, ventricles, and bony calvarium for patient's age. Mild mucosal thickening floor of both maxillary sinuses. Remaining visualized paranasal sinuses and mastoid air cells are clear. Impression: Continued negative CT head without contrast exam. Comment: Preliminary interpretation made by [facility]. No critical discrepancy.
== END 2022-11-14 07:48 | disposition home or self-care (01) ==
LOC: ED 05:50
DX: R51.9 Headache, unspecified (principal); Z79.01 Long term (current) use of anticoagulants; Z79.899 Other long term (current) drug therapy; I10 Essential (primary) hypertension
CPT/HCPCS: 70450; 96372; 99283; J1885

== ENCOUNTER 2023-01-31 21:55 | Observation (INO) | payer MEDICARE ==
--- NOTE | 2023-01-31 22:13 | ERPHSYRPT ---
- History of Present Illness Time Seen by Provider: 01/31/23 22:12 Historian: patient Exam Limitations: no limitations Physician History: Pt c/o chest pain; a few episodes during last few weeks. Pain located on center. No radiation. Described as pressure, 5/10 in severity Lasts for a few minutes. Both at rest and on exertion. BP elevated over the past week, SBP 190 at home Endorses palpitations. Denies SOB, heartburn or emotional stressors. Recent diarrheal illness Hx of Afib on Eliquis Hx of Afib, HTN, HLD Timing/Duration: today Activities at Onset: rest Quality: pressure Location: central Chest Pain Radiation: no radiation Severity of Pain-Max: severe Severity of Pain-Current: moderate Modifying Factors: Improves With: nothing. Worsens With: exertion Associated Symptoms: palpitations, back pain, No nausea, No vomiting, No heartbu rn, No abdominal pain, No shortness of breath, No diaphoresis, No chills Prior Chest Pain/Cardiac Workup: no prior chest pain Nitro Today/Relief: no nitro taken today Aspirin Treatment Today: 81 mg x 4, provided by ED Allergies/Adverse Reactions: codeine Allergy (Verified 01/31/23 22:22) unknown Sulfa (Sulfonamide Antibiotics) Allergy (Verified 01/31/23 22:22) Rash JASBIR Inhibitors Adverse Reaction (Verified 01/31/23 22:22) Cough Home Medications: Amlodipine Besylate [Norvasc] 10 mg PO DAILY 11/25/20 [History] Ascorbic Acid [Vitamin C] 1,000 mg PO DAILY 11/25/20 [History] Atorvastatin Calcium [Lipitor 20MG Tablet] 20 mg PO DAILY 11/25/20 [History] Metoprolol Succinate 100 mg PO DAILY 11/25/20 [History] Omeprazole 40 mg PO DAILY 11/25/20 [History] Apixaban [Eliquis] 2.5 mg PO BID 05/09/21 [History] Furosemide 20 mg [Lasix 20 mg] 20 mg PO DAILY PRN PRN 08/25/22 [History] Cholecalciferol (Vitamin D3) [Vitamin D3] 10 mcg PO DAILY 11/14/22 [History] Cyanocobalamin (Vitamin B-12) [Vitamin B12] 2,500 mcg PO DAILY 11/14/22 [History] Anastrozole [Arimidex] 1 mg PO DAILY 01/31/23 [History] Hx Tetanus, Diphtheria Vaccination/Date Given: Yes Hx Influenza Vaccination/Date Given: Yes Hx Pneumococcal Vaccination/Date Given: Yes Travel Risk - Vaccine Status Have you recieved a Covid-19 vaccination: Yes 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 Comment: 2 boosters - Review of Systems Constitutional: No Symptoms Eyes: No Symptoms Ears, Nose, & Throat: No Symptoms Respiratory: No Symptoms Cardiac: Chest Pain, Palpitations, No Edema Abdominal/Gastrointestinal: Diarrhea, No Abdominal Pain, No Nausea, No Vomiting Genitourinary Symptoms: No Symptoms Musculoskeletal: No Symptoms Neurological: No Symptoms Psychological: No Symptoms Endocrine: No Symptoms Hematologic/Lymphatic: No Symptoms Immunological/Allergic: No Symptoms All Other Systems: Reviewed and Negative - Past Medical History Pertinent Past Medical History: Yes Neurological History: No Pertinent History ENT History: Cataracts Cardiac History: Arrhythmia, Hypertension, Other Respiratory History: No Pertinent History Endocrine Medical History: No Pertinent History Musculoskeletal History: Arthritis, Osteoarthritis GI Medical History: No Pertinent History History: No Pertinent History Psycho-Social History: Depression Female Reproductive Disorders: Breast Cancer Other Medical History: AAA 4.0 cm. R TKA 2012. R ankle fx 2009 - Past Surgical History Past Surgical History: Yes Neuro Surgical History: No Pertinent History Cardiac: No Pertinent History Respiratory: No Pertinent History Gastrointestinal: Appendectomy, Cholecystectomy Musculoskeletal: Joint Replacement, Orthopedic Surgery Female Surgical History: Hysterectomy Other Surgical History: R knee, metal in R ankle,. lumpectomy R and L side. lasik on eyes - Social History Smoking Status: Never smoker Exposure to second hand smoke: No Drug Use: none Patient Lives Alone: No - Nursing Vital Signs Nursing Vital Signs: Initial Vital Signs Temperature 98.1 F 01/31/23 21:58 Pulse Rate 90 01/31/23 21:58 Respiratory Rate 22 01/31/23 21:58 Blood Pressure 159/87 01/31/23 21:58 O2 Sat by Pulse Oximetry 96 01/31/23 21:58 Pain Scale Pain Intensity 0 - Physical Exam General Appearance: no apparent distress Eye Exam: eyes nml inspection Ears, Nose, Throat Exam: normal ENT inspection Neck Exam: normal inspection Respiratory Exam: normal breath sounds, lungs clear, airway intact, No respiratory distress Cardiovascular Exam: irregular, capillary refill <2 sec, No edema Gastrointestinal/Abdomen Exam: soft, normal bowel sounds, No tenderness Back Exam: point tenderness (sacrum) Extremity Exam: normal inspection, swelling (trace) Neurologic Exam: alert, oriented x 3, cooperative Skin Exam: normal color, warm, dry SpO2 Interpretation: normal O2 Delivery: Room Air - Course Nursing assessment & vital signs reviewed: Yes EKG Interpreted by Me: RATE (87), A-fib, NORMAL AXIS, NORMAL INTERVALS, NORMAL QRS, NORMAL ST-T - Radiology Exams Chest X-ray Interpretation: Interpreted by me, Negative (similar to previous) Ordered Tests: Active Orders 24 hr Category Date Time Status Foreign Student Adviser STAT Care 01/31/23 22:15 Active EKG-ER Only STAT Care 01/31/23 22:15 Active IV Insertion STAT Care 01/31/23 22:15 Active Pulse Oximetry (ED) STAT Care 01/31/23 22:15 Active CHEST 1 VIEW (PORTABLE) Stat Exams 01/31/23 22:15 Taken CBC W DIFF Stat Lab 01/31/23 22:21 Completed CMP Stat Lab 01/31/23 22:21 Completed NT PRO BNPII Stat Lab 01/31/23 22:21 Completed TROPONIN Q4H Lab 01/31/23 22:21 Completed TROPONIN Q4H Lab 02/01/23 02:15 Ordered TROPONIN Q4H Lab 02/01/23 06:15 Ordered Medication Summary Discontinued Medications Generic Name Dose Route Start Last Admin Trade Name Freq PRN Reason Stop Dose Admin Aspirin 324 mg 01/31/23 22:15 01/31/23 22:20 Aspirin 81 Mg Tab.Chew PO 01/31/23 22:16 324 mg STAT ONE Administration Aspirin Confirm 01/31/23 22:19 Aspirin 81 Mg Tab.Chew Administered 01/31/23 22:20 Dose 324 mg .ROUTE .STK-MED ONE Nitroglycerin 0.4 mg 01/31/23 22:15 Nitroglycerin 0.4 Mg (Ed) 0.4 Mg Tab.Subl SL 01/31/23 22:16 STAT ONE Ondansetron HCl 4 mg 01/31/23 22:15 Ondansetron Hcl 4 Mg/2 Ml Vial IV 01/31/23 22:16 STAT ONE Lab/Rad Data: Laboratory Result Diagrams 01/31/23 22:21 01/31/23 22:21 Laboratory Results 03/01/31/23 01/31/23 Range/Units 22:21 22:21 22:21 WBC 4.3 (4.0-10.5) x10^3/uL RBC 3.85 L (4.1-5.4) x10^6/uL Hgb 13.2 (12.0-16.0) g/dL Hct 39.7 (35-47) % MCV 103.1 H (78-100) fL MCH 34.3 H (26-32) pg MCHC 33.2 (32-36) g/dL RDW 12.7 (11.5-14.0) % Plt Count 181 (150-450) x10^3/uL MPV 10.1 (7.5-11.0) fL Gran % 67.7 H (36.0-66.0) % Immature Gran % (Auto) 0.2 (0.00-0.4) % Nucleat RBC Rel Count 0.0 (0.00-0.1) % Eos # (Auto) 0.15 (0-0.5) x10^3/uL Immature Gran # (Auto) 0.01 (0.00-0.03) x10^3u/L Absolute Lymphs (auto) 0.72 L (1.0-4.6) x10^3/uL Absolute Monos (auto) 0.49 (0.0-1.3) x10^3/uL Absolute Nucleated RBC 0.00 (0.00-0.01) x10^3u/L Lymphocytes % 16.7 L (24.0-44.0) % Monocytes % 11.4 (0.0-12.0) % Eosinophils % 3.5 (0.00-5.0) % Basophils % 0.5 (0.0-0.4) % Absolute Granulocytes 2.91 (1.4-6.9) x10^3/uL Basophils # 0.02 (0-0.4) x10^3/uL Sodium 138 (137-145) mmol/L Potassium 4.1 (3.5-5.1) mmol/L Chloride 100 (98-107) mmol/L Carbon Dioxide 26 (22-30) mmol/L Anion Gap 15.0 (5-15) MEQ/L BUN 20 H (7-17) mg/dL Creatinine 1.04 (0.52-1.04) mg/dL Estimated GFR 54.5 ML/MIN Glucose 129 H (74-106) mg/dL Calcium 8.9 (8.4-10.2) mg/dL Total Bilirubin 1.10 (0.2-1.3) mg/dL AST 28 (14-36) U/L ALT 23 (0-35) U/L Alkaline Phosphatase 75 (38-126) U/L Troponin I < 0.012 (0.000-0.034) ng/mL NT-Pro-B Natriuret Pep 695 (<300) pg/mL Serum Total Protein 6.6 (6.3-8.2) g/dL Albumin 4.0 (3.5-5.0) g/dL - Progress Progress: improved Air Movement: good Progress Note: 01/31/23 23:34 NERY, supportive care. Admit to telemetry r/o ACS. Hemodynamically stable. EKG w/o evidence of acute ischemia, in Afib, rate controlled Negative troponin. Trend. 01/31/23 23:42 Spoke w/ Dr. Subramanian who accepts patient for observation to r/o ACS. Blood Culture(s) Obtained: No Antibiotics given: No Counseled pt/family regarding: lab results, diagnosis, rad results Medical Desision Making - Discussion of managment Care discussed with:: hospitalist Reviewed:: Test results, Need for additional workup Agreed on:: Treatment plan, place in obs Will see patient: in hospital - Diagnostic Testing Diagnostic test were ordered, analyzed, and reviewed by me: Yes Radiological Interpretation: Interpreted by me, Reviewed by me - Risk of complications The pt has a high risk of morbidity or mortality based on: Decision regarding hospitilization or escalation of hosp level of care - Departure Departure Disposition: Observation Clinical Impression: Unstable angina, Uncontrolled hypertension, Atrial fibrillation with controlled ventricular rate, HLD (hyperlipidemia) Condition: Good Critical Care Time: No Referrals: RIZWAN ASENCIO MD [Primary Care Provider] - Follow up/PCP as directed Instructions: Chest Pain (DC)
[2023-01-31] MEDS ORDERED: Nitrostat 0.4 MG (ED) SL ONE (22:15)
[2023-01-31] MEDS ORDERED: Zofran 4 MG/2 ML VIAL IV ONE (22:15)
[2023-01-31] MEDS ORDERED: BABY ASPIRIN 81 MG CHEW PO ONE (22:15)
[2023-01-31] MEDS ORDERED: BABY ASPIRIN 81 MG CHEW ONE (22:19)
[2023-01-31 22:23] LABS: Absolute Neutrophil Ct (ANC) 2.91 x10^3/uL (1.4-6.9); BASOPHIL % 0.5 % (0.0-0.4); Basophil (Absolute #) 0.02 x10^3/uL (0-0.4); Eosinophil % 3.5 % (0.00-5.0); Eosinophil (Absolute #) 0.15 x10^3/uL (0-0.5); Hematocrit 39.7 % (35-47); Hemoglobin 13.2 g/dL (12.0-16.0); IMMATURE GRAN # 0.01 x10^3u/L (0.00-0.03); IMMATURE GRAN % 0.2 % (0.00-0.4); Lymphocyte (Absolute #) 0.72 x10^3/uL (1.0-4.6); Lymphocytes % 16.7 % (24.0-44.0); Mean Cell Volume 103.1 fL (78-100); Mean Corpuscular Hemoglobin 34.3 pg (26-32); Mean Corpuscular Hgb Concent. 33.2 g/dL (32-36); Mean Platelet Volume 10.1 fL (7.5-11.0); Monocyte (Absolute #) 0.49 x10^3/uL (0.0-1.3); Monocytes % 11.4 % (0.0-12.0); Neutrophil % 67.7 % (36.0-66.0); Platelet Count 181 x10^3/uL (150-450); Red Blood Count 3.85 x10^6/uL (4.1-5.4); Red Cell Distribution Width 12.7 % (11.5-14.0); White Blood Count 4.3 x10^3/uL (4.0-10.5)
[2023-01-31 22:48] LABS: ALKALINE PHOSPHATASE 75 U/L (38-126); BLOOD UREA NITROGEN 20 mg/dL (7-17); CHLORIDE 100 mmol/L (98-107); Calcium 8.9 mg/dL (8.4-10.2); Carbon Dioxide 26 mmol/L (22-30); Creatinine 1 1.04 mg/dL (0.52-1.04); EST GLOMERULAR FILTRATION RATE 54.5 ML/MIN; Glucose 129 mg/dL (74-106); Potassium 4.1 mmol/L (3.5-5.1); SGOT/AST 28 U/L (14-36); SGPT/ALT 23 U/L (0-35); SODIUM 138 mmol/L (137-145); TROPONIN < 0.012 ng/mL (0.000-0.034); Total Protein 6.6 g/dL (6.3-8.2)
[2023-01-31 23:49] LABS: INFLUENZA A NEGATIVE (NEGATIVE); INFLUENZA B NEGATIVE (NEGATIVE); RESPIRATORY SYNCTIAL VIRUS NEGATIVE (NEGATIVE); SARS-CoV-2 Xpert Express NEGATIVE (NEGATIVE)
[2023-02-01] MEDS ORDERED: Zofran 4 MG/2 ML VIAL IV PRN (00:28)
[2023-02-01] MEDS ORDERED: MILK OF MAGNESIA 30 ML PO PRN (00:28)
[2023-02-01] MEDS ORDERED: Nitrostat 0.4 MG Tablet SL PRN (00:28)
[2023-02-01] MEDS ORDERED: Senokot-S Tablet PO PRN (00:28)
[2023-02-01] MEDS ORDERED: TYLENOL 325 MG PO PRN (00:28)
[2023-02-01] MEDS ORDERED: MAALOX ES 30 ML UNIT DOSE PO PRN (00:28)
[2023-02-01] MEDS ORDERED: Lidoderm Patch 5% TOP SCH ×2 (00:45→10:00)
--- NOTE | 2023-02-01 01:49 | PCM.HP ---
History of Present Illness - Chief Complaint Chief Complaint: chest pain History of Present Illness: is a 77 year old female with h/o HTN, breast cancer, A-fib, and thoracic aortic aneurysm, who presents with one week of substernal chest pressure, lasting for seconds up to a minute, recurrent a few times per day, not worsened with exertion, non-radiating. No associated dyspnea, nausea, or diaphoresis. No similar prior episodes. No history of coronary disease. She notes that she has PRN Lasix at home, but has not been taking recently and has not felt dyspneic or that she has edema. Primary care physician: Dr. Tamiko Elias, [facility] Works Manager: Dr. Avni Mike, [facility] - Review of Systems Constitutional: No Symptoms Eyes: No Symptoms Ears, Nose, & Throat: No Symptoms Respiratory: No Cough, No Short Of Breath, No Wheezing Cardiac: Chest Pain, No Edema, No Palpitations, No PND Abdominal/Gastrointestinal: No Abdominal Pain, No Nausea, No Constipation Genitourinary Symptoms: No Symptoms Musculoskeletal: No Symptoms Skin: No Symptoms Neurological: No Symptoms All Other Systems: Reviewed and Negative Medications & Allergies Home Medications: Home Medication List Amlodipine Besylate [Norvasc] 10 mg PO DAILY 11/25/20 [History Confirmed 01/31/23] Ascorbic Acid [Vitamin C] 1,000 mg PO DAILY 11/25/20 [History Confirmed 01/31/23] Atorvastatin Calcium [Lipitor 20MG Tablet] 20 mg PO DAILY 11/25/20 [History Confirmed 01/31/23] Metoprolol Succinate 100 mg PO DAILY 11/25/20 [History Confirmed 01/31/23] Omeprazole 40 mg PO DAILY 11/25/20 [History Confirmed 01/31/23] Apixaban [Eliquis] 2.5 mg PO BID 05/09/21 [History Confirmed 01/31/23] Furosemide 20 mg [Lasix 20 mg] 20 mg PO DAILY PRN PRN 08/25/22 [History Confirmed 02/01/23] Cholecalciferol (Vitamin D3) [Vitamin D3] 10 mcg PO DAILY 11/14/22 [History Confirmed 01/31/23] Cyanocobalamin (Vitamin B-12) [Vitamin B12] 2,500 mcg PO DAILY 11/14/22 [History Confirmed 01/31/23] Anastrozole [Arimidex] 1 mg PO DAILY 01/31/23 [History Confirmed 01/31/23] Allergies/Adverse Reactions: Allergies Allergy/AdvReac Type Severity Reaction Status Date / Time codeine Allergy unknown Verified 01/31/23 22:22 Sulfa (Sulfonamide Allergy Rash Verified 01/31/23 22:22 Antibiotics) JASBIR Inhibitors AdvReac Cough Verified 01/31/23 22:22 - Past Medical History Past Medical History: Yes Neurological History: No Pertinent History ENT History: Cataracts Cardiac History: Hypertension, Other (Thoracic aortic aneurysm, follows with cyber reverse engineer Avni Mike, due for repeat Echo now) Respiratory History: No Pertinent History Endocrine Medical History: No Pertinent History Musculoskelatal History: Arthritis, Fractures GI Medical History: No Pertinent History History: No Pertinent History Pyscho-Social History: No Pertinent History Reproductive Disorders: Breast Cancer Comment: AAA 4.0 cm. R TKA 2011. R ankle fx 2008 - Female History Are you now?: No (N/A) - Past Surgical History Past Surgical History: Yes Neuro Surgical History: No Pertinent History Cardiac History: No Pertinent History Respiratory Surgery: No Pertinent History GI Surgical History: Appendectomy, Cholecystectomy Genitourinary Surgical Hx: No Pertinent History Musculskeletal Surgical Hx: Joint Replacement Female Surgical History: Hysterectomy Other Surgical History: R knee, metal in R ankle,. lumpectomy R and L side. lasik on eyes - Social History Smoking Status: Never smoker Exposure to second hand smoke: No Alcohol: None Drug Use: none Family History: No history of CAD - Physical Exam Vital Signs: Vital Signs - 24 hr Temp Pulse Pulse Resp BP Pulse Ox 02/01/23 00:49 97 F 83 20 140/87 01/31/23 23:06 77 17 148/92 95 01/31/23 22:18 95 01/31/23 21:58 98.1 F 90 90 22 159/87 96 General Appearance: no apparent distress Neurologic Exam: alert, oriented x 3, cooperative, normal mood/affect Eye Exam: eyes nml inspection Respiratory Exam: normal breath sounds, No respiratory distress Cardiovascular Exam: irregular, No murmur, No edema Gastrointestinal/Abdomen Exam: normal bowel sounds Skin Exam: No rash Results - Labs Lab/Micro Results: Lab Results-Last 24 Hours 01/31/23 01/31/23 01/31/23 Range/Units 22:21 22:21 22:21 WBC 4.3 (4.0-10.5) x10^3/uL RBC 3.85 L (4.1-5.4) x10^6/uL Hgb 13.2 (12.0-16.0) g/dL Hct 39.7 (35-47) % MCV 103.1 H (78-100) fL MCH 34.3 H (26-32) pg MCHC 33.2 (32-36) g/dL RDW 12.7 (11.5-14.0) % Plt Count 181 (150-450) x10^3/uL MPV 10.1 (7.5-11.0) fL Gran % 67.7 H (36.0-66.0) % Immature Gran % (Auto) 0.2 (0.00-0.4) % Nucleat RBC Rel Count 0.0 (0.00-0.1) % Eos # (Auto) 0.15 (0-0.5) x10^3/uL Immature Gran # (Auto) 0.01 (0.00-0.03) x10^3u/L Absolute Lymphs (auto) 0.72 L (1.0-4.6) x10^3/uL Absolute Monos (auto) 0.49 (0.0-1.3) x10^3/uL Absolute Nucleated RBC 0.00 (0.00-0.01) x10^3u/L Lymphocytes % 16.7 L (24.0-44.0) % Monocytes % 11.4 (0.0-12.0) % Eosinophils % 3.5 (0.00-5.0) % Basophils % 0.5 (0.0-0.4) % Absolute Granulocytes 2.91 (1.4-6.9) x10^3/uL Basophils # 0.02 (0-0.4) x10^3/uL Sodium 138 (137-145) mmol/L Potassium 4.1 (3.5-5.1) mmol/L Chloride 100 (98-107) mmol/L Carbon Dioxide 26 (22-30) mmol/L Anion Gap 15.0 (5-15) MEQ/L BUN 20 H (7-17) mg/dL Creatinine 1.04 (0.52-1.04) mg/dL Estimated GFR 54.5 ML/MIN Glucose 129 H (74-106) mg/dL Calcium 8.9 (8.4-10.2) mg/dL Total Bilirubin 1.10 (0.2-1.3) mg/dL AST 28 (14-36) U/L ALT 23 (0-35) U/L Alkaline Phosphatase 75 (38-126) U/L Troponin I < 0.012 (0.000-0.034) ng/mL NT-Pro-B Natriuret Pep 695 (<300) pg/mL Serum Total Protein 6.6 (6.3-8.2) g/dL Albumin 4.0 (3.5-5.0) g/dL Influenza Type A Ag (NEGATIVE) Influenza Type B Ag (NEGATIVE) RSV (PCR) (NEGATIVE) SARS-CoV-2 (PCR) (NEGATIVE) 01/31/23 Range/Units 23:11 WBC (4.0-10.5) x10^3/uL RBC (4.1-5.4) x10^6/uL Hgb (12.0-16.0) g/dL Hct (35-47) % MCV (78-100) fL MCH (26-32) pg MCHC (32-36) g/dL RDW (11.5-14.0) % Plt Count (150-450) x10^3/uL MPV (7.5-11.0) fL Gran % (36.0-66.0) % Immature Gran % (Auto) (0.00-0.4) % Nucleat RBC Rel Count (0.00-0.1) % Eos # (Auto) (0-0.5) x10^3/uL Immature Gran # (Auto) (0.00-0.03) x10^3u/L Absolute Lymphs (auto) (1.0-4.6) x10^3/uL Absolute Monos (auto) (0.0-1.3) x10^3/uL Absolute Nucleated RBC (0.00-0.01) x10^3u/L Lymphocytes % (24.0-44.0) % Monocytes % (0.0-12.0) % Eosinophils % (0.00-5.0) % Basophils % (0.0-0.4) % Absolute Granulocytes (1.4-6.9) x10^3/uL Basophils # (0-0.4) x10^3/uL Sodium (137-145) mmol/L Potassium (3.5-5.1) mmol/L Chloride (98-107) mmol/L Carbon Dioxide (22-30) mmol/L Anion Gap (5-15) MEQ/L BUN (7-17) mg/dL Creatinine (0.52-1.04) mg/dL Estimated GFR ML/MIN Glucose (74-106) mg/dL Calcium (8.4-10.2) mg/dL Total Bilirubin (0.2-1.3) mg/dL AST (14-36) U/L ALT (0-35) U/L Alkaline Phosphatase (38-126) U/L Troponin I (0.000-0.034) ng/mL NT-Pro-B Natriuret Pep (<300) pg/mL Serum Total Protein (6.3-8.2) g/dL Albumin (3.5-5.0) g/dL Influenza Type A Ag NEGATIVE (NEGATIVE) Influenza Type B Ag NEGATIVE (NEGATIVE) RSV (PCR) NEGATIVE (NEGATIVE) SARS-CoV-2 (PCR) NEGATIVE (NEGATIVE) - Radiology Impressions Radiology Exams & Impressions: Radiology Procedures Category Date Time Status CHEST 1 VIEW (PORTABLE) Stat Exams 01/31/23 22:15 Taken Images reviewed personally. No infiltrates, effusion, or consolidation. Normal heart size. Borderline pulmonary edema. - Other Procedures and Tests Respiratory Therapy 02/01/23 00:28 EKG Q8HX2,QAMX3,PRN Assessment/Plan (1) Chest pain Current Visit: Yes Status: Acute Assessment & Plan: Onset for the past week, atypical for cardiac pain (no exertional component, no associated symtpoms.) Main risk factors are age. Does have h/o stable thoracic aortic aneurysm, but usually would expect constant chest pain in that scenario. Initial troponin, EKG, and CXR are all unremarkable. - trend troponins - repeat EKG - if negative troponins, can plan on stress test perhaps - patient would like results communicated to her cyber reverse engineer [facility] Code(s): R07.9 - CHEST PAIN, UNSPECIFIED (2) Atrial fibrillation with controlled ventricular rate Current Visit: Yes Status: Acute Assessment & Plan: Rate controlled. - continue home Eliquis, Toprol XL 100 Code(s): I48.91 - UNSPECIFIED ATRIAL FIBRILLATION (3) Essential hypertension Current Visit: Yes Status: Acute Assessment & Plan: BP controlled - continue home Toprol XL 100, Norvasc 10 Code(s): I10 - ESSENTIAL (PRIMARY) HYPERTENSION (4) HLD (hyperlipidemia) Current Visit: Yes Status: Acute Assessment & Plan: Continue home statin Code(s): E78.5 - HYPERLIPIDEMIA, UNSPECIFIED Telemedicine Encounter - Telemedicine Encounter Telemedicine Encounter: The entirety of this encounter was performed via Telemedicine" Patient consented to telemedicine.
[2023-02-01 06:57] LABS: Hemoglobin 12.9 g/dL (12.0-16.0); Mean Cell Volume 101.6 fL (78-100); Mean Corpuscular Hemoglobin 33.6 pg (26-32); Mean Corpuscular Hgb Concent. 33.1 g/dL (32-36); Platelet Count 163 x10^3/uL (150-450); Red Blood Count 3.84 x10^6/uL (4.1-5.4); Red Cell Distribution Width 12.5 % (11.5-14.0); White Blood Count 3.9 x10^3/uL (4.0-10.5)
[2023-02-01 07:14] LABS: ANION GAP 10.6 MEQ/L (5-15); BLOOD UREA NITROGEN 15 mg/dL (7-17); CHLORIDE 104 mmol/L (98-107); Calcium 9.1 mg/dL (8.4-10.2); Carbon Dioxide 29 mmol/L (22-30); Creatinine 1 0.84 mg/dL (0.52-1.04); EST GLOMERULAR FILTRATION RATE > 60.0 ML/MIN; Glucose 102 mg/dL (74-106); Potassium 4.3 mmol/L (3.5-5.1); SODIUM 140 mmol/L (137-145)
[2023-02-01 07:27] VITALS: O2SAT 94
[2023-02-01 07:54] LABS: Risk Ratio 2.1
--- NOTE | 2023-02-01 08:40 | XRAY ---
Indication: Chest pain. Comparison: November 25, 2020. Portable chest again demonstrates minimal scattered fibrosis/scarring. No focal infiltrate, consolidation, or large effusion. Heart remains borderline enlarged. Bony thorax intact again with osteopenia, mild degenerative changes, and left axilla wanda dissection. Impression: Continued nonacute chest with chronic features.
[2023-02-01] MEDS ORDERED: Protonix 40MG Tablet PO SCH (10:00)
[2023-02-01] MEDS ORDERED: ELIQUIS 2.5 MG TABLET PO SCH (10:00)
[2023-02-01] MEDS ORDERED: Toprol Xl 100 MG PO SCH (10:00)
[2023-02-01] MEDS ORDERED: NORVASC 5 MG PO SCH (10:00)
[2023-02-01 11:25] VITALS: BP 122/70; PULSE 77
--- NOTE | 2023-02-01 12:49 | PCM.DS ---
Discharge Summary Date of Admission: 02/01/23 00:26 Admitting Physician: ARIANNA SUBRAMANIAN MD Primary Care Provider: FERNANDEZ FIERRO Allergies Allergies codeine Allergy (Verified 01/31/23 22:22) unknown Sulfa (Sulfonamide Antibiotics) Allergy (Verified 01/31/23 22:22) Rash JASBIR Inhibitors Adverse Reaction (Verified 01/31/23 22:22) Cough Hospital Summary - Hospital Course Hospital Course: Chief Complaint Diagnosis chest pain Allergies Allergy/AdvReac Type Severity Reaction Status Date / Time codeine Allergy unknown Verified 01/31/23 22:22 Sulfa (Sulfonamide Allergy Rash Verified 01/31/23 22:22 Antibiotics) JASBIR Inhibitors AdvReac Cough Verified 01/31/23 22:22 Vital Signs (Last 24 hours) Temp Pulse Pulse Resp BP Pulse Ox 02/01/23 11:24 97.3 F 77 16 122/70 94 L 02/01/23 07:26 97.1 F 80 16 134/76 94 L 02/01/23 03:52 97.7 F 78 18 125/61 96 02/01/23 00:49 97 F 83 20 140/87 01/31/23 23:06 77 17 148/92 95 01/31/23 22:18 95 01/31/23 21:58 98.1 F 90 90 22 159/87 96 Home Medications Medication Instructions Recorded Confirmed Last Taken Type Anastrozole [Arimidex] 1 mg PO DAILY 01/31/23 01/31/23 01/31/23 History Diclofenac Sodium [Voltaren 1 each TOP BIDPRN PRN 02/01/23 02/01/23 Unknown History Arthritis Pain] Current Medications Generic Name Dose Route Start Last Admin Trade Name Freq PRN Reason Stop Dose Admin Acetaminophen 650 mg 02/01/23 00:28 02/01/23 06:47 Acetaminophen 325 Mg Tablet PO 03/03/23 00:27 650 mg Q4H PRN PRN Administration PAIN AND/OR FEVER Al Hydrox/Mg Hydrox/Simethicone 30 ml 02/01/23 00:28 02/01/23 06:48 Mag Hydrox/Al Hydrox/Simeth 30 Ml Udcup PO 03/03/23 00:27 30 ml Q4H PRN PRN Administration INDIGESTION Amlodipine Besylate 10 mg 02/01/23 10:00 02/01/23 09:21 Amlodipine Besylate 5 Mg Tablet PO 03/03/23 09:59 10 mg QAM MERCED Administration Apixaban 2.5 mg 02/01/23 10:00 02/01/23 09:21 Apixaban 2.5 Mg Tablet PO 03/03/23 09:59 2.5 mg BID MERCED Administration Lidocaine 2 patch 02/01/23 10:00 02/01/23 09:22 Lidocaine Hcl 1 Patch Patch TOP 03/03/23 00:44 2 patch DAILY MERCED Administration Magnesium Hydroxide 30 - 60 ml 02/01/23 00:28 Magnesium Hydroxide 30 Ml Udcup PO 03/03/23 00:27 QDP PRN CONSTIPATION Metoprolol Succinate 100 mg 02/01/23 10:00 02/01/23 09:21 Metoprolol Succinate 100 Mg Tablet.Sa PO 03/03/23 09:59 100 mg DAILY MERCED Administration Nitroglycerin 0.4 mg 02/01/23 00:28 Nitroglycerin 0.4 Mg Tablet Bottle SL 03/03/23 00:27 .Q5MIN PRN CHEST PAIN Non-Formulary Medication 1 each 02/01/23 07:16 Remove Patch 1 Each TOP 03/03/23 07:15 UD PRN Ondansetron HCl 4 mg 02/01/23 00:28 Ondansetron Hcl 4 Mg/2 Ml Vial IV 03/03/23 00:27 Q4H PRN PRN NAUSEA/VOMITING Pantoprazole Sodium 40 mg 02/01/23 10:00 02/01/23 09:21 Protonix (Pantoprazole) 40 Mg Tablet PO 03/03/23 09:59 40 mg DAILY MERCED Administration Senna/Docusate Sodium 2 udtab 02/01/23 00:28 Senna/Docusate Sodium 1 Udtab Tablet PO 03/03/23 00:27 BID PRN PRN CONSTIPATION Simvastatin 40 mg 02/01/23 22:00 Simvastatin 20 Mg Tablet PO 03/03/23 21:59 HS MERCED Discontinued Medications Generic Name Dose Route Start Last Admin Trade Name Freq PRN Reason Stop Dose Admin Aspirin 324 mg 01/31/23 22:15 01/31/23 22:20 Aspirin 81 Mg Tab.Chew PO 01/31/23 22:16 324 mg STAT ONE Administration Aspirin Confirm 01/31/23 22:19 Aspirin 81 Mg Tab.Chew Administered 01/31/23 22:20 Dose 324 mg .ROUTE .STK-MED ONE Lidocaine 2 patch 02/01/23 00:45 02/01/23 01:42 Lidocaine Hcl 1 Patch Patch TOP 03/03/23 00:44 2 patch Q12H MERCED Administration Nitroglycerin 0.4 mg 01/31/23 22:15 02/01/23 08:11 Nitroglycerin 0.4 Mg (Ed) 0.4 Mg Tab.Subl SL 01/31/23 22:16 Not Given STAT ONE Ondansetron HCl 4 mg 01/31/23 22:15 02/01/23 08:11 Ondansetron Hcl 4 Mg/2 Ml Vial IV 01/31/23 22:16 Not Given STAT ONE Intake & Output (Last 24 hours) 01/30/23 01/31/23 02/01/23 02/02/23 11:59 11:59 11:59 11:59 Intake Total 360 Output Total 1800 Balance -1440 Weight 114.2 kg Laboratory Results (Last 24 hours) 02/01/23 02/01/23 02/01/23 06:50 06:50 06:50 WBC 3.9 L RBC 3.84 L Hgb 12.9 Hct 39.0 MCV 101.6 H MCH 33.6 H MCHC 33.1 RDW 12.5 Plt Count 163 MPV 10.0 Gran % Immature Gran % (Auto) Nucleat RBC Rel Count Eos # (Auto) Immature Gran # (Auto) Absolute Lymphs (auto) Absolute Monos (auto) Absolute Nucleated RBC Lymphocytes % Monocytes % Eosinophils % Basophils % Absolute Granulocytes Basophils # Sodium 140 Potassium 4.3 Chloride 104 Carbon Dioxide 29 Anion Gap 10.6 BUN 15 Creatinine 0.84 Estimated GFR > 60.0 Glucose 102 Calcium 9.1 Total Bilirubin AST ALT Alkaline Phosphatase Troponin I NT-Pro-B Natriuret Pep Serum Total Protein Albumin Triglycerides 79 Cholesterol 153 LDL Cholesterol 57 HDL Cholesterol 74 H Heart Disease Risk Ratio 2.1 Influenza Type A Ag Influenza Type B Ag RSV (PCR) SARS-CoV-2 (PCR) 02/01/23 02/01/23 01/31/23 06:50 02:24 23:11 WBC RBC Hgb Hct MCV MCH MCHC RDW Plt Count MPV Gran % Immature Gran % (Auto) Nucleat RBC Rel Count Eos # (Auto) Immature Gran # (Auto) Absolute Lymphs (auto) Absolute Monos (auto) Absolute Nucleated RBC Lymphocytes % Monocytes % Eosinophils % Basophils % Absolute Granulocytes Basophils # Sodium Potassium Chloride Carbon Dioxide Anion Gap BUN Creatinine Estimated GFR Glucose Calcium Total Bilirubin AST ALT Alkaline Phosphatase Troponin I < 0.012 < 0.012 NT-Pro-B Natriuret Pep Serum Total Protein Albumin Triglycerides Cholesterol LDL Cholesterol HDL Cholesterol Heart Disease Risk Ratio Influenza Type A Ag NEGATIVE Influenza Type B Ag NEGATIVE RSV (PCR) NEGATIVE SARS-CoV-2 (PCR) NEGATIVE 01/31/23 01/31/23 01/31/23 22:21 22:21 22:21 WBC 4.3 RBC 3.85 L Hgb 13.2 Hct 39.7 MCV 103.1 H MCH 34.3 H MCHC 33.2 RDW 12.7 Plt Count 181 MPV 10.1 Gran % 67.7 H Immature Gran % (Auto) 0.2 Nucleat RBC Rel Count 0.0 Eos # (Auto) 0.15 Immature Gran # (Auto) 0.01 Absolute Lymphs (auto) 0.72 L Absolute Monos (auto) 0.49 Absolute Nucleated RBC 0.00 Lymphocytes % 16.7 L Monocytes % 11.4 Eosinophils % 3.5 Basophils % 0.5 Absolute Granulocytes 2.91 Basophils # 0.02 Sodium 138 Potassium 4.1 Chloride 100 Carbon Dioxide 26 Anion Gap 15.0 BUN 20 H Creatinine 1.04 Estimated GFR 54.5 Glucose 129 H Calcium 8.9 Total Bilirubin 1.10 AST 28 ALT 23 Alkaline Phosphatase 75 Troponin I < 0.012 NT-Pro-B Natriuret Pep 695 Serum Total Protein 6.6 Albumin 4.0 Triglycerides Cholesterol LDL Cholesterol HDL Cholesterol Heart Disease Risk Ratio Influenza Type A Ag Influenza Type B Ag RSV (PCR) SARS-CoV-2 (PCR) Orders (Last 24 hours) Category Date Time Status Bedrest with BRP/BSC TOLERATED Activity 02/01/23 01:44 Active Up Ad Preeti TOLERATED Activity 02/01/23 01:45 Active Ride Operator STAT Care 01/31/23 22:15 Completed Code Status Order ROUTINE Care 02/01/23 00:28 Active EKG-ER Only STAT Care 01/31/23 22:15 Completed IV Care Q6H Care 02/01/23 00:28 Active IV Insertion STAT Care 01/31/23 22:15 Completed Implement Chest Pain Pathway ROUTINE Care 02/01/23 00:[address] in Observation ROUTINE Care 02/01/23 00:28 Active Pulse Oximetry (ED) STAT Care 01/31/23 22:15 Completed Teresa Carroll ROUTINE Care 02/01/23 00:28 Active Telemetry q6h Care 02/01/23 00:28 Active Weight,Daily 0600 Care 02/01/23 00:28 Active Heart-Healthy Diet Diet 02/01/23 Breakfast Active Discharge Routine Discharge 02/01/23 Ordered CHEST 1 VIEW (PORTABLE) Stat Exams 01/31/23 22:15 Completed BMP AM.LAB Lab 02/01/23 06:50 Completed CBC AM.LAB Lab 02/01/23 06:50 Completed CBC W DIFF Stat Lab 01/31/23 22:21 Completed CMP Stat Lab 01/31/23 22:21 Completed COVID/FLU/RSV Panel Stat Lab 01/31/23 23:11 Completed LIPID PROFILE AM.LAB Lab 02/01/23 06:50 Completed NT PRO BNPII Stat Lab 01/31/23 22:21 Completed TROPONIN Q4H Lab 01/31/23 22:21 Completed TROPONIN Q4H Lab 02/01/23 02:24 Completed TROPONIN Q4H Lab 02/01/23 06:50 Completed Acetaminophen 325 mg [Tylenol 325 mg] Med 02/01/23 00:28 Active 650 mg PO Q4H PRN PRN Amlodipine Besylate 5 mg [Norvasc 5 mg] Med 02/01/23 10:00 Active 10 mg PO QAM Apixaban [Eliquis 2.5 mg Tablet] Med 02/01/23 10:00 Active 2.5 mg PO BID Aspirin 81 gm Chew [Baby Aspirin 81 mg Chew] Med 01/31/23 22:19 Discontinued 324 mg .ROUTE .STK-MED ONE Aspirin 81 gm Chew [Baby Aspirin 81 mg Chew] Med 01/31/23 22:15 Discontinued 324 mg PO STAT ONE Lidocaine HCl 5% Patch [Lidoderm Patch 5%] Med 02/01/23 10:00 Active 2 patch TOP DAILY Lidocaine HCl 5% Patch [Lidoderm Patch 5%] Med 02/01/23 00:45 Discontinued 2 patch TOP Q12H Mag Hydrox/Al Hydrox/Simeth [Maalox Es 30 ml Unit Med 02/01/23 00:28 Active Dose] 30 ml PO Q4H PRN PRN Magnesium Hydroxide 30 ml [Milk of Magnesia 30 ml Med 02/01/23 00:28 Active ] 30 - 60 ml PO QDP PRN Metoprolol Succinate 100 mg [Toprol Xl 100 MG] Med 02/01/23 10:00 Active 100 mg PO DAILY Nitroglycerin 0.4 mg (Ed) [Nitrostat 0.4 MG (ED)] Med 01/31/23 22:15 Discontinued 0.4 mg SL STAT ONE Nitroglycerin 0.4 mg Tablet [Nitrostat 0.4 MG Tablet Med 02/01/23 00:28 Active ] 0.4 mg SL .Q5MIN PRN Ondansetron HCl 4 mg/2 ml [Zofran 4 MG/2 ML VIAL] Med 02/01/23 00:28 Active 4 mg IV Q4H PRN PRN Ondansetron HCl 4 mg/2 ml [Zofran 4 MG/2 ML VIAL] Med 01/31/23 22:15 Discontinued 4 mg IV STAT ONE PANTOPRAZOLE 40 mg Tablet [Protonix 40MG Tablet] Med 02/01/23 10:00 Active 40 mg PO DAILY Remove Patch [Remove Patch Reminder] Med 02/01/23 07:16 Active 1 each TOP UD PRN Senna/Docusate Sodium Tab [Senokot-S Tablet] Med 02/01/23 00:28 Active 2 udtab PO BID PRN PRN Simvastatin 20Mg [Zocor 20Mg] Med 02/01/23 22:00 Active 40 mg PO HS EKG Q8HX2,QAMX3,PRN RT 02/01/23 00:28 Completed EKG ROUTINE RT 02/01/23 05:00 Completed EKG ROUTINE RT 02/02/23 05:00 Active EKG ROUTINE RT 02/03/23 05:00 Active EKG ROUTINE RT 02/04/23 05:00 Active Pulse Oximetry Q4H RT 02/01/23 00:28 Completed Patient Care Notes (Last 24 hours) 02/01/23 06:50 Nursing Note by Aissatou Hobbs Patient medicated for lower back pain; 5/10; Tylenol 650 mg p.o. Also Patient reported to [employer] that she had a discomfort in her chest; this RN noted Patient to be belching. Vital signs josé luis, skin warm/dry, no changes on telemetry. Maalox 30 ml p.o. given. Will continue to monitor and inform oncoming RN. Initialized on 02/01/23 06:50 - END OF NOTE 02/01/23 01:30 (created 02/01/23 01:50) Nursing Note by Aissatou Hobbs This RN spoke with Dr. Subramanian regarding adm assessment. Tele-health monitor set- up in patient room. Initialized on 02/01/23 01:50 - END OF NOTE 02/01/23 00:30 (created 02/01/23 02:38) Nursing Admission Note by Aissatou Hobbs Patient received to unit/room #[id number] via wheelchair; oriented x4, RA no acute distress noted. Assisted to bed, stand-by assist. Patient has her personal cane to use as well. Patient assessment performed; see form; introduced to room. Telemetry applied, [id number]; patient denies, CP or SOB, skin warm/dry, PIV to right AC intact/patent. SR up x2 with call light and personal items in reach; fall risk explained and Patient voiced understanding and agreement. Initialized on 02/01/23 02:38 - END OF NOTE - Vitals & Intake/Output Vital Signs: Vital Signs Temperature 97.3 F 02/01/23 11:24 Pulse Rate 77 02/01/23 11:24 Respiratory Rate 16 02/01/23 11:24 Blood Pressure 122/70 02/01/23 11:24 O2 Sat by Pulse Oximetry 94 L 02/01/23 11:24 Intake & Output: Intake & Output 01/30/23 01/31/23 02/01/23 02/02/23 11:59 11:59 11:59 11:59 Intake Total 360 Output Total 1800 Balance -1440 Weight 114.2 kg - Lab Result Diagrams: 02/01/23 06:50 02/01/23 06:50 Lab Results-Last 24 Hrs: Lab Results-Last 24 Hours 01/31/23 01/31/23 01/31/23 Range/Units 22:21 22:21 22:21 WBC 4.3 (4.0-10.5) x10^3/uL RBC 3.85 L (4.1-5.4) x10^6/uL Hgb 13.2 (12.0-16.0) g/dL Hct 39.7 (35-47) % MCV 103.1 H (78-100) fL MCH 34.3 H (26-32) pg MCHC 33.2 (32-36) g/dL RDW 12.7 (11.5-14.0) % Plt Count 181 (150-450) x10^3/uL MPV 10.1 (7.5-11.0) fL Gran % 67.7 H (36.0-66.0) % Immature Gran % (Auto) 0.2 (0.00-0.4) % Nucleat RBC Rel Count 0.0 (0.00-0.1) % Eos # (Auto) 0.15 (0-0.5) x10^3/uL Immature Gran # (Auto) 0.01 (0.00-0.03) x10^3u/L Absolute Lymphs (auto) 0.72 L (1.0-4.6) x10^3/uL Absolute Monos (auto) 0.49 (0.0-1.3) x10^3/uL Absolute Nucleated RBC 0.00 (0.00-0.01) x10^3u/L Lymphocytes % 16.7 L (24.0-44.0) % Monocytes % 11.4 (0.0-12.0) % Eosinophils % 3.5 (0.00-5.0) % Basophils % 0.5 (0.0-0.4) % Absolute Granulocytes 2.91 (1.4-6.9) x10^3/uL Basophils # 0.02 (0-0.4) x10^3/uL Sodium 138 (137-145) mmol/L Potassium 4.1 (3.5-5.1) mmol/L Chloride 100 (98-107) mmol/L Carbon Dioxide 26 (22-30) mmol/L Anion Gap 15.0 (5-15) MEQ/L BUN 20 H (7-17) mg/dL Creatinine 1.04 (0.52-1.04) mg/dL Estimated GFR 54.5 ML/MIN Glucose 129 H (74-106) mg/dL Calcium 8.9 (8.4-10.2) mg/dL Total Bilirubin 1.10 (0.2-1.3) mg/dL AST 28 (14-36) U/L ALT 23 (0-35) U/L Alkaline Phosphatase 75 (38-126) U/L Troponin I < 0.012 (0.000-0.034) ng/mL NT-Pro-B Natriuret Pep 695 (<300) pg/mL Serum Total Protein 6.6 (6.3-8.2) g/dL Albumin 4.0 (3.5-5.0) g/dL Triglycerides (30-150) mg/dL Cholesterol (50-200) mg/dL LDL Cholesterol (30-100) mg/dL HDL Cholesterol (40-60) mg/dL Heart Disease Risk Ratio Influenza Type A Ag (NEGATIVE) Influenza Type B Ag (NEGATIVE) RSV (PCR) (NEGATIVE) SARS-CoV-2 (PCR) (NEGATIVE) 01/31/23 02/01/23 02/01/23 Range/Units 23:11 02:24 06:50 WBC (4.0-10.5) x10^3/uL RBC (4.1-5.4) x10^6/uL Hgb (12.0-16.0) g/dL Hct (35-47) % MCV (78-100) fL MCH (26-32) pg MCHC (32-36) g/dL RDW (11.5-14.0) % Plt Count (150-450) x10^3/uL MPV (7.5-11.0) fL Gran % (36.0-66.0) % Immature Gran % (Auto) (0.00-0.4) % Nucleat RBC Rel Count (0.00-0.1) % Eos # (Auto) (0-0.5) x10^3/uL Immature Gran # (Auto) (0.00-0.03) x10^3u/L Absolute Lymphs (auto) (1.0-4.6) x10^3/uL Absolute Monos (auto) (0.0-1.3) x10^3/uL Absolute Nucleated RBC (0.00-0.01) x10^3u/L Lymphocytes % (24.0-44.0) % Monocytes % (0.0-12.0) % Eosinophils % (0.00-5.0) % Basophils % (0.0-0.4) % Absolute Granulocytes (1.4-6.9) x10^3/uL Basophils # (0-0.4) x10^3/uL Sodium (137-145) mmol/L Potassium (3.5-5.1) mmol/L Chloride (98-107) mmol/L Carbon Dioxide (22-30) mmol/L Anion Gap (5-15) MEQ/L BUN (7-17) mg/dL Creatinine (0.52-1.04) mg/dL Estimated GFR ML/MIN Glucose (74-106) mg/dL Calcium (8.4-10.2) mg/dL Total Bilirubin (0.2-1.3) mg/dL AST (14-36) U/L ALT (0-35) U/L Alkaline Phosphatase (38-126) U/L Troponin I < 0.012 < 0.012 (0.000-0.034) ng/mL NT-Pro-B Natriuret Pep (<300) pg/mL Serum Total Protein (6.3-8.2) g/dL Albumin (3.5-5.0) g/dL Triglycerides (30-150) mg/dL Cholesterol (50-200) mg/dL LDL Cholesterol (30-100) mg/dL HDL Cholesterol (40-60) mg/dL Heart Disease Risk Ratio Influenza Type A Ag NEGATIVE (NEGATIVE) Influenza Type B Ag NEGATIVE (NEGATIVE) RSV (PCR) NEGATIVE (NEGATIVE) SARS-CoV-2 (PCR) NEGATIVE (NEGATIVE) 02/01/23 02/01/23 02/01/23 Range/Units 06:50 06:50 06:50 WBC 3.9 L (4.0-10.5) x10^3/uL RBC 3.84 L (4.1-5.4) x10^6/uL Hgb 12.9 (12.0-16.0) g/dL Hct 39.0 (35-47) % MCV 101.6 H (78-100) fL MCH 33.6 H (26-32) pg MCHC 33.1 (32-36) g/dL RDW 12.5 (11.5-14.0) % Plt Count 163 (150-450) x10^3/uL MPV 10.0 (7.5-11.0) fL Gran % (36.0-66.0) % Immature Gran % (Auto) (0.00-0.4) % Nucleat RBC Rel Count (0.00-0.1) % Eos # (Auto) (0-0.5) x10^3/uL Immature Gran # (Auto) (0.00-0.03) x10^3u/L Absolute Lymphs (auto) (1.0-4.6) x10^3/uL Absolute Monos (auto) (0.0-1.3) x10^3/uL Absolute Nucleated RBC (0.00-0.01) x10^3u/L Lymphocytes % (24.0-44.0) % Monocytes % (0.0-12.0) % Eosinophils % (0.00-5.0) % Basophils % (0.0-0.4) % Absolute Granulocytes (1.4-6.9) x10^3/uL Basophils # (0-0.4) x10^3/uL Sodium 140 (137-145) mmol/L Potassium 4.3 (3.5-5.1) mmol/L Chloride 104 (98-107) mmol/L Carbon Dioxide 29 (22-30) mmol/L Anion Gap 10.6 (5-15) MEQ/L BUN 15 (7-17) mg/dL Creatinine 0.84 (0.52-1.04) mg/dL Estimated GFR > 60.0 ML/MIN Glucose 102 (74-106) mg/dL Calcium 9.1 (8.4-10.2) mg/dL Total Bilirubin (0.2-1.3) mg/dL AST (14-36) U/L ALT (0-35) U/L Alkaline Phosphatase (38-126) U/L Troponin I (0.000-0.034) ng/mL NT-Pro-B Natriuret Pep (<300) pg/mL Serum Total Protein (6.3-8.2) g/dL Albumin (3.5-5.0) g/dL Triglycerides 79 (30-150) mg/dL Cholesterol 153 (50-200) mg/dL LDL Cholesterol 57 (30-100) mg/dL HDL Cholesterol 74 H (40-60) mg/dL Heart Disease Risk Ratio 2.1 Influenza Type A Ag (NEGATIVE) Influenza Type B Ag (NEGATIVE) RSV (PCR) (NEGATIVE) SARS-CoV-2 (PCR) (NEGATIVE) - Radiology Exams Ordered Rad Exams-Entire Visit: Radiology Procedures Category Date Time Status CHEST 1 VIEW (PORTABLE) Stat Exams 01/31/23 22:15 Completed - Procedures and Test Procedures and Tests throughout Hospitalization: Therapy Orders & Screens 02/01/23 00:28 EKG Q8HX2,QAMX3,PRN Comment: 02/01/23 05:00 EKG ROUTINE Comment: Diagnosis: chest pain 02/02/23 05:00 EKG ROUTINE Comment: Diagnosis: chest pain 02/03/23 05:00 EKG ROUTINE Comment: Diagnosis: chest pain 02/04/23 05:00 EKG ROUTINE Comment: Diagnosis: chest pain Discharge Exam General Appearance: no apparent distress, alert Neurologic Exam: alert, oriented x 3, cooperative, normal mood/affect, nml cerebellar function, sensation nml, No motor deficits Eye Exam: PERRL, EOMI, eyes nml inspection Ears, Nose, Throat Exam: normal ENT inspection, pharynx normal, moist mucous membranes Neck Exam: normal inspection, non-tender, supple, full range of motion Respiratory Exam: normal breath sounds, lungs clear, No respiratory distress Cardiovascular Exam: regular rate/rhythm, normal heart sounds Gastrointestinal/Abdomen Exam: soft, No tenderness, No mass Pelvic Exam: deferred Rectal Exam: deferred Back Exam: normal inspection, normal range of motion, No CVA tenderness, No vertebral tenderness Extremity Exam: normal inspection, normal range of motion Skin Exam: normal color, warm, dry Final Diagnosis/Problem List - Final Discharge Diagnosis/Problem (1) Atrial fibrillation with controlled ventricular rate Current Visit: Yes Status: Chronic Code(s): I48.91 - UNSPECIFIED ATRIAL FIBRILLATION (2) Essential hypertension Current Visit: Yes Status: Chronic Code(s): I10 - ESSENTIAL (PRIMARY) HYPERTENSION (3) Unstable angina Current Visit: Yes Status: Resolved - Discharge Discharge Date: 02/01/23 Disposition: Home, Self-Care Condition: Stable Prescriptions: Continue Omeprazole 40 mg PO DAILY Metoprolol Succinate 100 mg PO DAILY Atorvastatin Calcium [Lipitor 20MG Tablet] 20 mg PO DAILY Ascorbic Acid [Vitamin C] 1,000 mg PO DAILY Amlodipine Besylate [Norvasc] 10 mg PO DAILY Apixaban [Eliquis] 2.5 mg PO BID Furosemide 20 mg [Lasix 20 mg] 20 mg PO DAILY PRN PRN PRN Reason: edema Cyanocobalamin (Vitamin B-12) [Vitamin B12] 2,500 mcg PO DAILY Cholecalciferol (Vitamin D3) [Vitamin D3] 10 mcg PO DAILY Anastrozole [Arimidex] 1 mg PO DAILY Diclofenac Sodium [Voltaren Arthritis Pain] 1 each TOP BIDPRN PRN PRN Reason: Pain Follow up with: FERNANDEZ FIERRO MD [Primary Care Provider] - 7 Days
[2023-02-01] MEDS ORDERED: ZOCOR 20MG PO SCH (22:00)
== END 2023-02-01 14:40 | disposition home or self-care (01) ==
LOC: ED 21:55 → MED SURG 02-01 00:26
PROVIDERS: ADMIT Internal Medicine; ATTEND General Practice
DX: I48.91 Unspecified atrial fibrillation (principal); I10 Essential (primary) hypertension; I20.0 Unstable angina; E78.5 Hyperlipidemia, unspecified; Z79.01 Long term (current) use of anticoagulants; Z79.899 Other long term (current) drug therapy; Z20.828 Contact with and (suspected) exposure to other viral communicable diseases; Z85.3 Personal history of malignant neoplasm of breast
CPT/HCPCS: 0241U; 36000; 36415; 71045; 80048; 80053; 80061; 83721; 83880; 84484; 85025; 85027; 93005; 93041; 94760; 93268; 99285; A9270-GY; G0378

== ENCOUNTER 2023-03-08 05:31 | Emergency (ER) | payer MEDICARE ==
[2023-03-08 05:55] VITALS: PULSE 85
--- NOTE | 2023-03-08 06:24 | ERPHSYRPT ---
- History of Present Illness Time Seen by Provider: 03/08/23 06:26 Source: patient Exam Limitations: no limitations Patient Subjective Stated Complaint: pt states "she woke up at 0330 and took her BP which was high and that the bottom number got up to 95. I recently switched to Dr Fierro and he had me change the time I take my norvasc from am to 6pm and ever since I have had issues with my blood pressure". Pt is unable to verbalize any other specifics about BP except the bottom number as high as 95. Triage Nursing Assessment: Pt was brought into room 6 via EMS cot and stood and walked to get into ED bed independently with slow steady gait. pt is alert and oriented times three, able to move all extremities, speak in complete sentences, and with resp even and unlabored. no s/s distress noted. denies pain, sob, n/v, lightheadedness, dizziness, or other complaint. Physician History: Patient is a 77-year-old female presents to our ED via EMS for evaluation of blood pressure and inability to sleep. Patient states that she has been experiencing chronic leg pain for several months. Patient's primary care doctor changed the timing of her Norvasc from morning to evening. Patient awoke this morning at 3:30 AM. Patient checked her blood pressure and found her diastolic to be 95. Patient states this is too high for her. Patient decided come to our ED for an evaluation. No associated chest pain or shortness of breath. No nausea vomiting or diaphoresis. Patient otherwise asymptomatic. Patient's complaints are chronic. Patient otherwise feels well. She voices no other complaints or concerns at this time. Portions of this note were created with voice recognition technology. There may be grammatical, spelling, punctuation or sound alike errors Timing/Duration: today Severity: mild Modifying Factors: Improves With: nothing Associated Symptoms: denies symptoms Allergies/Adverse Reactions: codeine Allergy (Verified 01/31/23 22:22) unknown Sulfa (Sulfonamide Antibiotics) Allergy (Verified 01/31/23 22:22) Rash JASBIR Inhibitors Adverse Reaction (Verified 01/31/23 22:22) Cough Home Medications: Amlodipine Besylate [Norvasc] 10 mg PO DAILY 11/25/20 [History] Ascorbic Acid [Vitamin C] 1,000 mg PO DAILY 11/25/20 [History] Atorvastatin Calcium [Lipitor 20MG Tablet] 20 mg PO DAILY 11/25/20 [History] Metoprolol Succinate 100 mg PO DAILY 11/25/20 [History] Omeprazole 40 mg PO DAILY 11/25/20 [History] Apixaban [Eliquis] 2.5 mg PO BID 05/09/21 [History] Furosemide 20 mg [Lasix 20 mg] 20 mg PO DAILY PRN PRN 08/25/22 [History] Cholecalciferol (Vitamin D3) [Vitamin D3] 10 mcg PO DAILY 11/14/22 [History] Cyanocobalamin (Vitamin B-12) [Vitamin B12] 2,500 mcg PO DAILY 11/14/22 [History] Anastrozole [Arimidex] 1 mg PO DAILY 01/31/23 [History] Diclofenac Sodium [Voltaren Arthritis Pain] 1 each TOP BIDPRN PRN 02/01/23 [History] Hx Tetanus, Diphtheria Vaccination/Date Given: Yes Hx Influenza Vaccination/Date Given: Yes Hx Pneumococcal Vaccination/Date Given: Yes Immunizations Up to Date: Yes Travel Risk - International Travel Have you traveled outside of the country in past 3 weeks: No - Coronavirus Screening Are you exhibiting any of the following symptoms?: No Close contact with a COVID-19 positive Pt in past 14-21 Days: No - Vaccine Status Have you recieved a Covid-19 vaccination: Yes [employer]: [employer] - Vaccination Dates Date of 2cond Vaccination (if applicable): 01/07/2021 - Review of Systems Constitutional: No Symptoms, No Fever, No Chills Eyes: No Symptoms Ears, Nose, & Throat: No Symptoms Respiratory: No Symptoms, No Cough, No Dyspnea Cardiac: No Symptoms, No Chest Pain, No Edema, No Syncope Abdominal/Gastrointestinal: No Symptoms, No Abdominal Pain, No Nausea, No Vomiting, No Diarrhea Genitourinary Symptoms: No Symptoms, No Dysuria Musculoskeletal: No Symptoms, No Back Pain, No Neck Pain Skin: No Symptoms, No Rash Neurological: No Symptoms, No Dizziness, No Focal Weakness, No Sensory Changes Psychological: No Symptoms Endocrine: No Symptoms Hematologic/Lymphatic: No Symptoms Immunological/Allergic: No Symptoms All Other Systems: Reviewed and Negative - Past Medical History Pertinent Past Medical History: Yes Neurological History: No Pertinent History ENT History: Cataracts Cardiac History: Hypertension, Other Respiratory History: No Pertinent History Endocrine Medical History: No Pertinent History Musculoskeletal History: Arthritis, Fractures GI Medical History: No Pertinent History History: No Pertinent History Psycho-Social History: No Pertinent History Female Reproductive Disorders: Breast Cancer Other Medical History: AAA 4.0 cm. R TKA 2012. R ankle fx 2009 - Past Surgical History Past Surgical History: Yes Neuro Surgical History: No Pertinent History Cardiac: No Pertinent History Respiratory: No Pertinent History Gastrointestinal: Appendectomy, Cholecystectomy Genitourinary: No Pertinent History Musculoskeletal: Joint Replacement Female Surgical History: Hysterectomy Other Surgical History: R knee, metal in R ankle,. lumpectomy R and L side. lasik on eyes - Social History Smoking Status: Never smoker Exposure to second hand smoke: No Drug Use: none Patient Lives Alone: No - Nursing Vital Signs Nursing Vital Signs: Initial Vital Signs Temperature 98.1 F 03/08/23 05:33 Pulse Rate 89 03/08/23 05:33 Respiratory Rate 16 03/08/23 05:33 Blood Pressure 164/83 03/08/23 05:33 O2 Sat by Pulse Oximetry 97 03/08/23 05:33 Pain Scale Pain Intensity 0 - Physical Exam General Appearance: no apparent distress, alert Eye Exam: PERRL/EOMI, eyes nml inspection Ears, Nose, Throat Exam: normal ENT inspection, TMs normal, pharynx normal, moist mucous membranes Neck Exam: normal inspection, non-tender, supple, full range of motion Respiratory Exam: normal breath sounds, lungs clear, airway intact, No respirat ory distress Cardiovascular Exam: regular rate/rhythm, normal heart sounds, normal peripheral pulses Gastrointestinal/Abdomen Exam: soft, normal bowel sounds, No tenderness, No mass Back Exam: normal inspection, normal range of motion, No CVA tenderness, No vertebral tenderness Extremity Exam: normal inspection, normal range of motion, pelvis stable, other (Negative Homans' sign bilaterally) Neurologic Exam: alert, oriented x 3, cooperative, normal mood/affect, nml cereb ellar function, nml station & gait, sensation nml, No motor deficits Skin Exam: normal color, warm, dry, No rash Lymphatic Exam: No adenopathy SpO2 Interpretation: normal SpO2: 96 O2 Delivery: Room Air - Course Nursing assessment & vital signs reviewed: Yes - Progress Progress: improved Progress Note: Case discussed with patient's primary care doctor, Dr. Fierro who advises that patient does not require work-up giving her complaints. Patient's leg pain is chronic. Patient's blood pressure is not an acute issue. Patient otherwise asymptomatic. He will call in a prescription today to address her chronic leg pain. He will also see patient tomorrow in his office. Plan of care discussed with patient. Patient states she will call office today to confirm the medication has been sent to the pharmacy and to arrange a follow-up appointment for tomorrow. Patient states she is ready for discharge. Patient requesting a breakfast tray prior to discharge home. She will call her daughter for a ride home. Vital stable. Patient voices no other complaints or concerns at this time. Patient is a 77-year-old female presents to our ED for evaluation of unable to sleep due to concerns regarding her blood pressure and leg pain. These concerns are chronic not acute. No chest pain or shortness of breath no nausea vomiting or diaphoresis. Physical exam nonremarkable. Complexity of problem addressed is low acute uncomplicated. No critical care time. Complexity of data reviewed and analyzed is none. No specialized testing indicated. Risk of complication and or risk morbidity/mortality of patient management is minimal. No specific intervention administered. Patient's blood pressure is in a safe range at this time. Patient has no acute complaints. Patient's primary care doctor will manage patient chronic problems as an outpatient. Patient agrees to follow-up with her primary care doctor this morning. Patient voices no other complaints or concerns at this time. Portions of this note were created with voice recognition technology. There may be grammatical, spelling, punctuation or sound alike errors 03/08/23 06:19 Discussed with .: Nicole Will see patient in: office Counseled pt/family regarding: diagnosis, need for follow-up - Departure Departure Disposition: Home Clinical Impression: Chronic leg pain, Hypertension Condition: Stable Critical Care Time: No Referrals: FERNANDEZ FIERRO MD [Primary Care Provider] - Follow up/PCP as directed Additional Instructions: Please call Dr. Fierro's office today to confirm your prescription for leg pain and to schedule a follow-up visit for tomorrow. Discharge/Care Plan MANDIE PA was seen on 03/08/23 in the Emergency Room. The patient was counseled regarding Diagnosis,Lab results, Imaging studies, need for follow up and when to return to the Emergency Room. Prescriptions given: Discharge Note I have spoken with the patient and/or caregivers. I have explained the patient's condition, diagnosis and treatment plan based on the information available to me at this time. I have answered the patient's and/or caregiver's questions and addressed any concerns. The patient and/or caregivers have as good understanding of the patient's diagnosis, condition and treatment plan as can be expected at this point. The vital signs have been stable. The patient's condition is stable and appropriate for discharge from the emergency department. The patient will pursue further outpatient evaluation with the primary care physician or other designated or consulting physician as outlined in the discharge instructions. The patient and/or caregivers are agreeable to this plan of care and follow-up instructions have been explained in detail. The patient and/or caregivers have received these instruction. The patient/and or caregivers are aware that any significant change in condition or worsening of symptoms should prompt an immediate return to this or the closest emergency department or call 911.
[2023-03-08 06:37] VITALS: BP 103/82; O2SAT 98
== END 2023-03-08 07:28 | disposition home or self-care (01) ==
LOC: ED 05:31
DX: I10 Essential (primary) hypertension (principal); G89.29 Other chronic pain; M79.606 Pain in leg, unspecified; G47.00 Insomnia, unspecified; Z79.01 Long term (current) use of anticoagulants; Z79.899 Other long term (current) drug therapy
CPT/HCPCS: 99282

== ENCOUNTER 2023-04-23 08:38 | Emergency (ER) | payer MEDICARE ==
[2023-04-23 09:53] VITALS: O2SAT 97
--- NOTE | 2023-04-23 10:40 | ERPHSYRPT ---
- History of Present Illness Time Seen by Provider: 04/23/23 09:22 Source: patient Exam Limitations: no limitations Patient Subjective Stated Complaint: c/o right leg pain for 3 weeks. States first noticed after getting bug bites to leg. Dr Fierro prescribed mupirocin a nd amoxicillin with no relief of symptoms yet. Patient aaox3, walks with a cane. Triage Nursing Assessment: C/o pain to right leg starting just above right knee radiating down to lower leg, 2 small lesions approx 1 cm ea noted to area above right knee anteriorly. States bites and pain present for past 3 week. AAox3, Physician History: 77 years old female with history of hypertension, hyperlipidemia, atrial fibrillation on Eliquis presented in the ER with chief complaint of right big toe bleeding and some leg pain. Patient reports she woke up this morning and noticed blood around right big toe with some injury to the nail which patient is totally unaware of. Patient also having possible insect bite around right knee area couple of weeks ago and is currently on topical and oral antibiotics by primary care but is not completely healed. Patient does report having off-and-on pain initially around the area of insect bite but now sometimes in the leg as well. No swelling of the leg. No redness. Patient is taking Eliquis regularly. No active bleeding from the nail currently. No fever or chills reported. Allergies/Adverse Reactions: codeine Allergy (Verified 01/31/23 22:22) unknown Sulfa (Sulfonamide Antibiotics) Allergy (Verified 01/31/23 22:22) Rash JASBIR Inhibitors Adverse Reaction (Verified 01/31/23 22:22) Cough Home Medications: Amlodipine Besylate [Norvasc] 10 mg PO DAILY 11/25/20 [History] Ascorbic Acid [Vitamin C] 1,000 mg PO DAILY 11/25/20 [History] Atorvastatin Calcium [Lipitor 20MG Tablet] 20 mg PO DAILY 11/25/20 [History] Metoprolol Succinate 100 mg PO DAILY 11/25/20 [History] Omeprazole 40 mg PO DAILY 11/25/20 [History] Apixaban [Eliquis] 2.5 mg PO BID 05/09/21 [History] Furosemide 20 mg [Lasix 20 mg] 20 mg PO DAILY PRN PRN 08/25/22 [History] Cholecalciferol (Vitamin D3) [Vitamin D3] 10 mcg PO DAILY 11/14/22 [History] Cyanocobalamin (Vitamin B-12) [Vitamin B12] 2,500 mcg PO DAILY 11/14/22 [History] Anastrozole [Arimidex] 1 mg PO DAILY 01/31/23 [History] Diclofenac Sodium [Voltaren Arthritis Pain] 1 each TOP BIDPRN PRN 02/01/23 [History] Hx Tetanus, Diphtheria Vaccination/Date Given: No Hx Influenza Vaccination/Date Given: Yes Hx Pneumococcal Vaccination/Date Given: Yes Immunizations Up to Date: Yes Travel Risk - International Travel Have you traveled outside of the country in past 3 weeks: No - Coronavirus Screening Are you exhibiting any of the following symptoms?: No Close contact with a COVID-19 positive Pt in past 14-21 Days: No - Vaccine Status Have you recieved a Covid-19 vaccination: Yes 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: [employer] - Vaccination Dates Date of 2cond Vaccination (if applicable): 2020 - Review of Systems Constitutional: No Symptoms Ears, Nose, & Throat: No Symptoms Respiratory: No Symptoms Cardiac: No Symptoms Abdominal/Gastrointestinal: No Symptoms Musculoskeletal: Injury Skin: Rash, Skin Lesions Neurological: No Symptoms Psychological: No Symptoms Endocrine: No Symptoms Hematologic/Lymphatic: No Symptoms - Past Medical History Pertinent Past Medical History: Yes Neurological History: No Pertinent History ENT History: Cataracts Cardiac History: Hypertension, Other Respiratory History: No Pertinent History Endocrine Medical History: No Pertinent History Musculoskeletal History: Arthritis, Fractures GI Medical History: No Pertinent History History: No Pertinent History Psycho-Social History: No Pertinent History Female Reproductive Disorders: Breast Cancer Other Medical History: AAA 4.0 cm. R TKA 2011. R ankle fx 2008 - Past Surgical History Past Surgical History: Yes Neuro Surgical History: No Pertinent History Cardiac: No Pertinent History Respiratory: No Pertinent History Gastrointestinal: Appendectomy, Cholecystectomy Genitourinary: No Pertinent History Musculoskeletal: Joint Replacement Female Surgical History: Hysterectomy Other Surgical History: R knee, metal in R ankle,. lumpectomy R and L side. lasik on eyes - Social History Smoking Status: Never smoker Exposure to second hand smoke: No Drug Use: none Patient Lives Alone: No - Nursing Vital Signs Nursing Vital Signs: Initial Vital Signs Temperature 97.7 F 04/23/23 09:40 Pulse Rate 73 04/23/23 09:40 Respiratory Rate 18 04/23/23 09:40 Blood Pressure 95/74 06/18/23 09:40 O2 Sat by Pulse Oximetry 97 04/23/23 09:40 Pain Scale Pain Intensity 6 - Physical Exam General Appearance: no apparent distress, alert Eye Exam: PERRL/EOMI Ears, Nose, Throat Exam: normal ENT inspection Neck Exam: normal inspection, supple, full range of motion Respiratory Exam: normal breath sounds, lungs clear Cardiovascular Exam: regular rate/rhythm, normal heart sounds Back Exam: normal inspection Extremity Exam: normal inspection, normal range of motion Neurologic Exam: alert, oriented x 3, cooperative Skin Exam: normal color, rash (Scabbed area/rash just below right knee almost 0.25 cm with no tenderness. No discharge. Does have broken right big toe nail on the lateral aspect but still attached. Bleeding underneath the normal side. No active bleeding currently.) SpO2 Interpretation: normal SpO2: 97 O2 Delivery: Room Air - Progress Progress: unchanged Progress Note: 04/23/23 10:39 77 years old female with history of hypertension, hyperlipidemia, atrial fibrillation on Eliquis presented in the ER with chief complaint of right big toe bleeding and some leg pain. Patient reports she woke up this morning and noticed blood around right big toe with some injury to the nail which patient is totally unaware of. Patient also having possible insect bite around right knee area couple of weeks ago and is currently on topical and oral antibiotics by primary care but is not completely healed. Patient does report having off-and-on pain initially around the area of insect bite but now sometimes in the leg as well. No swelling of the leg. No redness. Patient is taking Eliquis regularly. No active bleeding from the nail currently. No fever or chills reported. Patient is on Eliquis, low risk for DVT. No signs of cellulitis. Does have some insect bite and is currently on amoxicillin and mupirocin which she is advised to continue. She does have some injury to right big toenail with partial broken but no active bleeding currently. Do not think the nail needs to be removed in the ER. No tenderness/swelling of the toe. It is cleaned and recommended outpatient follow-up. No injury anywhere else. Discussed signs symptoms of worsening needing return to ER which she seems understanding. Counseled pt/family regarding: diagnosis, need for follow-up Medical Desision Making - Risk of complications Minimal Risk: Minimal risk of morbidity - Departure Departure Disposition: Home Clinical Impression: Injury of toenail of right foot Condition: Stable Critical Care Time: No Referrals: FERNANDEZ FIERRO MD [Primary Care Provider] - Follow up with PCP 1 day MICHAELA HE DPM [ACTIVE STAFF] - Follow up/PCP as directed (Call tomorrow for appointment for reevaluation) Instructions: Nail Avulsion (DC) Additional Instructions: Take Tylenol as needed. Keep it clean. Follow-up with podiatry for reevaluation. Return to ER for any worsening.
[2023-04-23 11:15] VITALS: BP 126/70; PULSE 70
== END 2023-04-23 11:15 | disposition home or self-care (01) ==
LOC: ED 08:38
DX: S91.201A Unspecified open wound of right great toe with damage to nail, initial encounter (principal); M79.604 Pain in right leg; I10 Essential (primary) hypertension; E78.5 Hyperlipidemia, unspecified; Z79.01 Long term (current) use of anticoagulants; Z79.899 Other long term (current) drug therapy
CPT/HCPCS: 99281

== ENCOUNTER 2023-06-03 17:42 | Emergency (ER) | payer MEDICARE ==
--- NOTE | 2023-06-03 18:00 | ERPHSYRPT ---
- History of Present Illness Time Seen by Provider: 06/03/23 18:00 Source: patient Exam Limitations: no limitations Physician History: This is a 77-year-old white female patient of Dr. 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 Patient states that she has her blood pr essure typically in the mid 120s to mid 70s and that is where she is most comfortable with. Today she had that elevated reading and she took her amlodipine and metoprolol. She only takes his medications once a day in the morning. Patient arrives to the emergency department with a left frontal hea dache that is mild and described as pressure without visual changes. She has no nausea vomiting. Patient is on Eliquis. She has a history of hypertension, gastroesophageal reflux disease and hyperlipidemia. She denies chest pain and she denies shortness of breath. Her initial blood pressure upon arrival to the emergency department is 156/72. Her second blood pressure reading was 140/100. Timing/Duration: today Quality: aching (Left frontal), pressure (Left frontal) Head Pain Location: frontal Severity of Pain-Max: mild Severity of Pain-Current: mild Recent Head Trauma: no recent headache/trauma, occasional headaches Modifying Factors: Improves With: other (Nothing) Associated Symptoms: denies symptoms Previous symptoms: no prior history Allergies/Adverse Reactions: codeine Allergy (Verified 06/03/23 18:02) unknown Sulfa (Sulfonamide Antibiotics) Allergy (Verified 06/03/23 18:02) Rash JASBIR Inhibitors Adverse Reaction (Verified 06/03/23 18:02) Cough Home Medications: Amlodipine Besylate [Norvasc] 10 mg PO DAILY 11/25/20 [History] Atorvastatin Calcium [Lipitor 20MG Tablet] 20 mg PO DAILY 11/25/20 [History] Metoprolol Succinate 100 mg PO DAILY 11/25/20 [History] Omeprazole 40 mg PO DAILY 11/25/20 [History] Apixaban [Eliquis] 2.5 mg PO BID 05/09/21 [History] Cholecalciferol (Vitamin D3) [Vitamin D3] 10 mcg PO DAILY 11/14/22 [History] Cyanocobalamin (Vitamin B-12) [Vitamin B12] 2,500 mcg PO DAILY 11/14/22 [History] Anastrozole [Arimidex] 1 mg PO DAILY 01/31/23 [History] Calcium Carbonate/Vitamin D3 [Calcium 600-Vit D3 200 Tablet] 1 tab PO DAILY 06/03/23 [History] Hx Tetanus, Diphtheria Vaccination/Date Given: No Hx Influenza Vaccination/Date Given: Yes Hx Pneumococcal Vaccination/Date Given: Yes Travel Risk - International Travel Have you traveled outside of the country in past 3 weeks: No - Coronavirus Screening Are you exhibiting any of the following symptoms?: No Close contact with a COVID-19 positive Pt in past 14-21 Days: No - Vaccine Status Have you recieved a Covid-19 vaccination: Yes 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[employer] - Vaccination Dates Date of 2cond Vaccination (if applicable): 2020 - Review of Systems Constitutional: No Symptoms Eyes: No Symptoms Ears, Nose, & Throat: No Symptoms Respiratory: No Symptoms Cardiac: No Symptoms Abdominal/Gastrointestinal: No Symptoms Genitourinary Symptoms: No Symptoms Musculoskeletal: No Symptoms Skin: No Symptoms Neurological: Headache (Left frontal mild achiness and pressure) Psychological: No Symptoms Endocrine: No Symptoms Hematologic/Lymphatic: No Symptoms Immunological/Allergic: No Symptoms All Other Systems: Reviewed and Negative - Past Medical History Pertinent Past Medical History: Yes Neurological History: No Pertinent History ENT History: Cataracts Cardiac History: Hypertension, Other Respiratory History: No Pertinent History Endocrine Medical History: No Pertinent History Musculoskeletal History: Arthritis, Fractures GI Medical History: No Pertinent History History: No Pertinent History Psycho-Social History: No Pertinent History Female Reproductive Disorders: Breast Cancer Other Medical History: AAA 4.0 cm. R TKA 2012. R ankle fx 2009 - Past Surgical History Past Surgical History: Yes Neuro Surgical History: No Pertinent History Cardiac: No Pertinent History Respiratory: No Pertinent History Gastrointestinal: Appendectomy, Cholecystectomy Genitourinary: No Pertinent History Musculoskeletal: Joint Replacement Female Surgical History: Hysterectomy Other Surgical History: R knee, metal in R ankle,. lumpectomy R and L side. lasik on eyes - Social History Smoking Status: Never smoker Exposure to second hand smoke: No Drug Use: none Patient Lives Alone: No - Nursing Vital Signs Nursing Vital Signs: Initial Vital Signs Temperature 97.4 F 06/03/23 18:03 Pulse Rate 107 H 06/03/23 18:03 Respiratory Rate 19 06/03/23 18:03 Blood Pressure 156/72 06/03/23 18:03 O2 Sat by Pulse Oximetry 96 06/03/23 18:03 Pain Scale Pain Intensity 4 - Physical Exam General Appearance: no apparent distress, alert, anxiety, obese Eye Exam: PERRL/EOMI, eyes nml inspection Ears, Nose, Throat Exam: normal ENT inspection, moist mucous membranes Neck Exam: normal inspection, non-tender, supple, full range of motion, thyromegaly Respiratory Exam: normal breath sounds, lungs clear, airway intact, No chest tenderness, No respiratory distress Cardiovascular Exam: regular rate/rhythm, normal heart sounds, normal peripheral pulses Gastrointestinal/Abdominal Exam: soft, normal bowel sounds, No tenderness Back Exam: normal inspection, normal range of motion, No CVA tenderness, No vertebral tenderness Extremity Exam: normal inspection, normal range of motion, pelvis stable Mental Status Exam: alert, oriented x 3, 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 Exam: normal hearing, normal speech, PERRL, tongue midline Coordination/Gait Exam: normal finger to nose, normal gait, normal cerebellar function Motor/Sensory Exam: no motor deficit, no sensory deficit, no pronator drift Skin Exam: normal color, warm, dry Lymphatic Exam: No adenopathy SpO2 Interpretation: normal O2 Delivery: Room Air - Course Nursing assessment & vital signs reviewed: Yes EKG Interpreted by Me: RATE (92), A-fib, NORMAL INTERVALS, NORMAL QRS, NORMAL ST-T, Other (No acute ischemic changes on today's twelve-lead EKG.) Ordered Tests: Active Orders 24 hr Category Date Time Status EKG-ER Only STAT Care 06/03/23 18:40 Active IV Insertion STAT Care 06/03/23 18:40 Active Pulse Oximetry (ED) STAT Care 06/03/23 18:40 Active HEAD WITHOUT CONTRAST [CT] Stat Exams 06/03/23 18:41 Completed CBC W DIFF Stat Lab 06/03/23 19:00 Completed CMP Stat Lab 06/03/23 19:00 Completed TROPONIN Q4H Lab 06/03/23 19:00 Completed TROPONIN Q4H Lab 06/03/23 22:45 Ordered TROPONIN Q4H Lab 06/04/23 02:45 Ordered UA W/RFX UR CULTURE Stat Lab 06/03/23 18:42 Completed Medication Summary Discontinued Medications Generic Name Dose Route Start Last Admin Trade Name Freq PRN Reason Stop Dose Admin Cephalexin HCl 500 mg 06/03/23 19:51 Cephalexin Mh500 Mg Capsule PO 06/03/23 19:52 STAT ONE Lab/Rad Data: Laboratory Result Diagrams 06/03/23 19:00 06/03/23 19:00 Laboratory Results 06/03/23 06/03/23 06/03/23 Range/Units 19:00 19:00 19:00 WBC 4.6 (4.0-10.5) x10^3/uL RBC 3.96 L (4.1-5.4) x10^6/uL Hgb 13.6 (12.0-16.0) g/dL Hct 40.5 (35-47) % MCV 102.3 H (78-100) fL MCH 34.3 H (26-32) pg MCHC 33.6 (32-36) g/dL RDW 13.4 (11.5-14.0) % Plt Count 195 (150-450) x10^3/uL MPV 9.8 (7.5-11.0) fL Gran % 76.5 H (36.0-66.0) % Immature Gran % (Auto) 0.2 (0.00-0.4) % Nucleat RBC Rel Count 0.0 (0.00-0.1) % Eos # (Auto) 0.05 (0-0.5) x10^3/uL Immature Gran # (Auto) 0.01 (0.00-0.03) x10^3u/L Absolute Lymphs (auto) 0.56 L (1.0-4.6) x10^3/uL Absolute Monos (auto) 0.44 (0.0-1.3) x10^3/uL Absolute Nucleated RBC 0.00 (0.00-0.01) x10^3u/L Lymphocytes % 12.3 L (24.0-44.0) % Monocytes % 9.7 (0.0-12.0) % Eosinophils % 1.1 (0.00-5.0) % Basophils % 0.2 (0.0-0.4) % Absolute Granulocytes 3.48 (1.4-6.9) x10^3/uL Basophils # 0.01 (0-0.4) x10^3/uL Sodium 138 (137-145) mmol/L Potassium 3.8 (3.5-5.1) mmol/L Chloride 104 (98-107) mmol/L Carbon Dioxide 25 (22-30) mmol/L Anion Gap 12.8 (5-15) MEQ/L BUN 15 (7-17) mg/dL Creatinine 0.84 (0.52-1.04) mg/dL Estimated GFR > 60.0 ML/MIN Glucose 115 H (74-106) mg/dL Calcium 9.1 (8.4-10.2) mg/dL Total Bilirubin 1.20 (0.2-1.3) mg/dL AST 28 (14-36) U/L ALT 23 (0-35) U/L Alkaline Phosphatase 67 (38-126) U/L Troponin I < 0.012 (0.000-0.034) ng/mL Serum Total Protein 6.8 (6.3-8.2) g/dL Albumin 4.1 (3.5-5.0) g/dL Urine Color (Yellow) Urine Appearance (Clear) Urine pH (4.6-8.0) Ur Specific [place] (1.005-1.030) Urine Protein (Negative) Urine Glucose (UA) (Negative) mg/dL Urine Ketones (Negative) Urine Blood (Negative) Urine Nitrite (Negative) Urine Bilirubin (Negative) Urine Urobilinogen (0.2) mg/dL Ur Leukocyte Esterase (Negative) U Hyaline Cast (Auto) (0-2) /LPF Urine Microscopic RBC (0-5) /HPF Urine Microscopic WBC (0-5) /HPF Ur Epithelial Cells (None Seen) /HPF Urine Bacteria (None Seen) /HPF Urine Culture Reflexed (NO) 06/03/23 Range/Units 18:42 WBC (4.0-10.5) x10^3/uL RBC (4.1-5.4) x10^6/uL Hgb (12.0-16.0) g/dL Hct (35-47) % MCV (78-100) fL MCH (26-32) pg MCHC (32-36) g/dL RDW (11.5-14.0) % Plt Count (150-450) x10^3/uL MPV (7.5-11.0) fL Gran % (36.0-66.0) % Immature Gran % (Auto) (0.00-0.4) % Nucleat RBC Rel Count (0.00-0.1) % Eos # (Auto) (0-0.5) x10^3/uL Immature Gran # (Auto) (0.00-0.03) x10^3u/L Absolute Lymphs (auto) (1.0-4.6) x10^3/uL Absolute Monos (auto) (0.0-1.3) x10^3/uL Absolute Nucleated RBC (0.00-0.01) x10^3u/L Lymphocytes % (24.0-44.0) % Monocytes % (0.0-12.0) % Eosinophils % (0.00-5.0) % Basophils % (0.0-0.4) % Absolute Granulocytes (1.4-6.9) x10^3/uL Basophils # (0-0.4) x10^3/uL Sodium (137-145) mmol/L Potassium (3.5-5.1) mmol/L Chloride (98-107) mmol/L Carbon Dioxide (22-30) mmol/L Anion Gap (5-15) MEQ/L BUN (7-17) mg/dL Creatinine (0.52-1.04) mg/dL Estimated GFR ML/MIN Glucose (74-106) mg/dL Calcium (8.4-10.2) mg/dL Total Bilirubin (0.2-1.3) mg/dL AST (14-36) U/L ALT (0-35) U/L Alkaline Phosphatase (38-126) U/L Troponin I (0.000-0.034) ng/mL Serum Total Protein (6.3-8.2) g/dL Albumin (3.5-5.0) g/dL Urine Color Yellow (Yellow) Urine Appearance Clear (Clear) Urine pH 7.0 (4.6-8.0) Ur Specific [place] 1.015 (1.005-1.030) Urine Protein Negative (Negative) Urine Glucose (UA) Negative (Negative) mg/dL Urine Ketones Negative (Negative) Urine Blood Negative (Negative) Urine Nitrite Negative (Negative) Urine Bilirubin Negative (Negative) Urine Urobilinogen 1.0 A (0.2) mg/dL Ur Leukocyte Esterase Small A (Negative) U Hyaline Cast (Auto) NONE SEEN (0-2) /LPF Urine Microscopic RBC 0-2 (0-5) /HPF Urine Microscopic WBC 3-5 (0-5) /HPF Ur Epithelial Cells Few (None Seen) /HPF Urine Bacteria None Seen (None Seen) /HPF Urine Culture Reflexed NO (NO) - Progress Progress: improved, re-examined Air Movement: good Progress Note: 06/03/23 19:47 CAT scan of the head without contrast was interpreted by the radiologist. There is age-matched senile changes. There is no acute intracranial abnormality. There are chronic microvascular ischemic changes. This patient's medical issue is 1 of moderate complexity. Level complexity in the work-up performed based on review of the patient's past medical history, review of the patient's medication list, review of the patient's drug allergy list, history present illness and physical findings on examination. The work-up in this patient includes a CT scan of the head without contrast, twelve-lead EKG, troponin level, CBC, CMP and urinalysis. The urinalysis shows a mild, early urinary tract infection with bacteria in her urine as well as a small amount of leukocyte esterase. We will treat this with Keflex orally 500 mg here in the emergency department I will remotely send 7 more days of the same medicine 3 times a day to her pharmacy. Patient is to keep a log of this evening's blood pressure at home, 3 times a day blood pressure tomorrow and morning blood pressure reading on the morning of 06/05/2023. She is to call her primary care provider on the morning of 06/05/2023 to make arranges for follow-up appointment for further evaluation management. Blood Culture(s) Obtained: No Antibiotics given: Yes Counseled pt/family regarding: lab results, diagnosis, need for follow-up, rad results Medical Desision Making - Independent Historian Additional History obtained from: Child - Diagnostic Testing Diagnostic test were ordered, analyzed, and reviewed by me: Yes Radiological Interpretation: Reviewed by me, Teleradiologist Report - Risk of complications The pt has a mod risk of morbidity or mortality based on: Need for prescription drug management - Departure Departure Disposition: Home Clinical Impression: Headache, High blood pressure, UTI (urinary tract infection) Condition: Stable Critical Care Time: No Referrals: FERNANDEZ FIERRO MD [Primary Care Provider] - Follow up/PCP as directed Additional Instructions: Drink plenty of fluids. Take your medication as prescribed. Follow-up with your primary care provider on 06/05/2023 and provide them with your blood pressure log readings from the evening of 06/03/2023, 3 times a day readings on 06/04/2023 and the reading on the morning of 06/05/2023. Make arrangements for follow-up appointment for further evaluation management. Prescriptions: Cephalexin Mh 500 mg [Keflex 500 mg] 500 mg PO TID #21 cap
[2023-06-03 18:18] VITALS: TEMP 97.4
[2023-06-03 19:10] LABS: Appearance Clear (Clear); Bacteria None Seen /HPF (None Seen); Bilirubin Negative (Negative); Blood Negative (Negative); Epithelial Cells Few /HPF (None Seen); Glucose, Urine Negative (Negative); Hyaline Casts NONE SEEN /LPF (0-2); Ketones Negative (Negative); Leukocyte Esterase Small (Negative); Nitrite Negative (Negative); Protein,Urine Dip Negative (Negative); RBC 0-2 /HPF (0-5); Specific Gravity 1.015 (1.005-1.030)
[2023-06-03 19:12] LABS: Absolute Neutrophil Ct (ANC) 3.48 x10^3/uL (1.4-6.9); BASOPHIL % 0.2 % (0.0-0.4); Basophil (Absolute #) 0.01 x10^3/uL (0-0.4); Eosinophil % 1.1 % (0.00-5.0); Eosinophil (Absolute #) 0.05 x10^3/uL (0-0.5); Hematocrit 40.5 % (35-47); Hemoglobin 13.6 g/dL (12.0-16.0); IMMATURE GRAN # 0.01 x10^3u/L (0.00-0.03); IMMATURE GRAN % 0.2 % (0.00-0.4); Lymphocyte (Absolute #) 0.56 x10^3/uL (1.0-4.6); Lymphocytes % 12.3 % (24.0-44.0); Mean Cell Volume 102.3 fL (78-100); Mean Corpuscular Hemoglobin 34.3 pg (26-32); Mean Corpuscular Hgb Concent. 33.6 g/dL (32-36); Mean Platelet Volume 9.8 fL (7.5-11.0); Monocyte (Absolute #) 0.44 x10^3/uL (0.0-1.3); Monocytes % 9.7 % (0.0-12.0); Neutrophil % 76.5 % (36.0-66.0); Platelet Count 195 x10^3/uL (150-450); Red Blood Count 3.96 x10^6/uL (4.1-5.4); Red Cell Distribution Width 13.4 % (11.5-14.0); White Blood Count 4.6 x10^3/uL (4.0-10.5)
[2023-06-03 19:19] LABS: ADD URINE CULTURE? NO (NO)
[2023-06-03 19:23] LABS: ALBUMIN 4.1 g/dL (3.5-5.0); ALKALINE PHOSPHATASE 67 U/L (38-126); ANION GAP 12.8 MEQ/L (5-15); BLOOD UREA NITROGEN 15 mg/dL (7-17); CHLORIDE 104 mmol/L (98-107); Calcium 9.1 mg/dL (8.4-10.2); Carbon Dioxide 25 mmol/L (22-30); Creatinine 1 0.84 mg/dL (0.52-1.04); EST GLOMERULAR FILTRATION RATE > 60.0 ML/MIN; Glucose 115 mg/dL (74-106); Potassium 3.8 mmol/L (3.5-5.1); SGOT/AST 28 U/L (14-36); SGPT/ALT 23 U/L (0-35); SODIUM 138 mmol/L (137-145); Total Protein 6.8 g/dL (6.3-8.2)
--- NOTE | 2023-06-03 19:36 | XRAY ---
CLINICAL HISTORY:Headache; high blood pressure COMPARISON:None. TECHNIQUE:Axial noncontrast CT scan of the brain was performed from the skull base to the high parietal region. FINDINGS: No evidence of acute intracranial hemorrhage or major vascular territory infarct. The cortical sulci, fissures, basal cisterns, and ventricles are widened, and the cerebellar folia are shrunken, consistent with volume loss. Eisenberg-white matter differentiation is maintained. No midline shifts or deformity. There are calcifications in the falx cerebri. There is atherosclerosis of the bilateral internal carotid and vertebral arteries. Normal CT appearance of the posterior fossa structures namely the cerebellar hemispheres, brainstem and cerebellar peduncles. The IACs are unremarkable. The cerebello-pontine angles are clear. The pituitary gland, the pineal gland, the optic chiasm is unremarkable. The osseous structures in the skull base are unremarkable. No definite calvarium fractures. The scanned paranasal sinuses are clear. IMPRESSION: 1. No evidence of acute intracranial hemorrhage or major vascular territory infarct. 2. Age matched senile atrophic changes. 3. Periventricular white matter hypodensities in keeping with chronic microvascular ischemic changes. Electronically Signed by: Mary Ann Martínez MD. (06/03/2023 18:34:38 [employer])
[2023-06-03] MEDS ORDERED: KEFLEX 500 MG PO ONE (19:51)
[2023-06-03] MEDS ORDERED: KEFLEX 500 MG ONE (19:58)
[2023-06-03 20:05] VITALS: BP 156/96; PULSE 105; RESP 17; O2SAT 96
[2023-06-03 22:10] LABS: Slide Review 1 YES
== END 2023-06-03 20:22 | disposition home or self-care (01) ==
LOC: ED 17:42
DX: I10 Essential (primary) hypertension (principal); R51.9 Headache, unspecified; N39.0 Urinary tract infection, site not specified; E78.5 Hyperlipidemia, unspecified; Z79.01 Long term (current) use of anticoagulants; Z79.899 Other long term (current) drug therapy
CPT/HCPCS: 36000; 36415; 70450; 80053; 81001; 84484; 85025; 93005; 94760; 99284; A9270-GY

== ENCOUNTER 2023-07-12 14:33 | Emergency (ER) | payer MEDICARE ==
--- NOTE | 2023-07-12 14:42 | ERPHSYRPT ---
- History of Present Illness Time Seen by Provider: 07/12/23 14:42 Source: patient Exam Limitations: no limitations Physician History: This is a 77-year-old white female patient of Dr. Fierro who was up early this morning to use the restroom when she hit the left lower leg against a metal item that was sticking out and suffered a laceration. She put dressing on the site but the patient is on Eliquis and it soaks through. Patient's tetanus status is not up-to-date. Patient arrives with no active bleeding to the site. However, the patient will require stapling and a tetanus shot. Timing/Duration: today Quality: painful Severity: mild Location: extremities (Left lower leg) Associated Symptoms: denies symptoms Allergies/Adverse Reactions: codeine Allergy (Verified 07/12/23 14:45) unknown Sulfa (Sulfonamide Antibiotics) Allergy (Verified 07/12/23 14:45) Rash JASBIR Inhibitors Adverse Reaction (Verified 07/12/23 14:45) Cough Home Medications: Amlodipine Besylate [Norvasc] 10 mg PO DAILY 11/25/20 [History] Atorvastatin Calcium [Lipitor 20MG Tablet] 20 mg PO DAILY 11/25/20 [History] Metoprolol Succinate 100 mg PO DAILY 11/25/20 [History] Omeprazole 40 mg PO DAILY 11/25/20 [History] Apixaban [Eliquis] 2.5 mg PO BID 05/09/21 [History] Cholecalciferol (Vitamin D3) [Vitamin D3] 10 mcg PO DAILY 11/14/22 [History] Anastrozole [Arimidex] 1 mg PO DAILY 01/31/23 [History] Calcium Carbonate/Vitamin D3 [Calcium 600-Vit D3 200 Tablet] 1 tab PO DAILY 06/03/23 [History] Hx Tetanus, Diphtheria Vaccination/Date Given: No Hx Influenza Vaccination/Date Given: Yes Hx Pneumococcal Vaccination/Date Given: Yes Travel Risk - International Travel Have you traveled outside of the country in past 3 weeks: No - Coronavirus Screening Are you exhibiting any of the following symptoms?: No Close contact with a COVID-19 positive Pt in past 14-21 Days: No - Vaccine Status Have you recieved a Covid-19 vaccination: Yes 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[employer] - Vaccination Dates Date of 2cond Vaccination (if applicable): 2020 - Review of Systems Constitutional: No Symptoms Eyes: No Symptoms Ears, Nose, & Throat: No Symptoms Respiratory: No Symptoms Cardiac: No Symptoms Abdominal/Gastrointestinal: No Symptoms Genitourinary Symptoms: No Symptoms Musculoskeletal: No Symptoms Skin: Other (Laceration left lower leg) Neurological: No Symptoms Psychological: No Symptoms Endocrine: No Symptoms Hematologic/Lymphatic: No Symptoms Immunological/Allergic: No Symptoms All Other Systems: Reviewed and Negative - Past Medical History Pertinent Past Medical History: Yes Neurological History: No Pertinent History ENT History: Cataracts Cardiac History: Hypertension, Other Respiratory History: No Pertinent History Endocrine Medical History: No Pertinent History Musculoskeletal History: Arthritis, Fractures GI Medical History: No Pertinent History History: No Pertinent History Psycho-Social History: No Pertinent History Female Reproductive Disorders: Breast Cancer Other Medical History: AAA 4.0 cm. R TKA 2012. R ankle fx 2009 - Past Surgical History Past Surgical History: Yes Neuro Surgical History: No Pertinent History Cardiac: No Pertinent History Respiratory: No Pertinent History Gastrointestinal: Appendectomy, Cholecystectomy Genitourinary: No Pertinent History Musculoskeletal: Joint Replacement Female Surgical History: Hysterectomy Other Surgical History: R knee, metal in R ankle,. lumpectomy R and L side. lasik on eyes - Social History Smoking Status: Never smoker Exposure to second hand smoke: No Drug Use: none Patient Lives Alone: No - Nursing Vital Signs Nursing Vital Signs: Initial Vital Signs Pulse Rate 77 07/12/23 14:48 Respiratory Rate 18 07/12/23 14:48 Blood Pressure 141/77 07/12/23 14:48 O2 Sat by Pulse Oximetry 97 07/12/23 14:48 Pain Scale Pain Intensity 0 - Physical Exam General Appearance: no apparent distress, alert, anxiety, obese Eye Exam: PERRL/EOMI, eyes nml inspection Ears, Nose, Throat Exam: normal ENT inspection, moist mucous membranes Neck Exam: normal inspection, non-tender, supple, full range of motion Respiratory Exam: airway intact, No chest tenderness, No respiratory distress Gastrointestinal/Abdomen Exam: No tenderness Pelvic Exam: not done Rectal Exam: not done Back Exam: normal inspection, normal range of motion, No CVA tenderness, No vertebral tenderness Extremity Exam: normal range of motion, pelvis stable, lacerations ("V" shaped laceration left lower leg approximately 2.5 cm x 2 cm. 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, normal mood/affect, nml cerebellar function, nml station & gait, sensation nml Skin Exam: normal color, warm, dry, laceration (As described above) Lymphatic Exam: No adenopathy SpO2 Interpretation: normal O2 Delivery: Room Air Procedures - Laceration/Wound Repair Left Lower Ankle Time of Procedure: 15:25 Wound Location: Left, lower leg Wound Length (cm): 2.5 (V shaped 2.5 x 2 cm) Wound's Depth, Shape: superficial, linear, stellate (V-shaped) Wound Explored: clean (Wound explored to the base in a bloodless field and no foreign body noted) Irrigated: Yes Hibiclens Prep: Yes Anesthesia: topical Wound Repaired With: Sher (8 sher used) Layer Closure?: No Progress: 07/12/23 15:17 No complications. Patient Toller procedure well. Pressure dressing was applied. - Course Nursing assessment & vital signs reviewed: Yes Ordered Tests: Medication Summary Discontinued Medications Generic Name Dose Route Start Last Admin Trade Name Lucero PRN Reason Stop Dose Admin Lidocaine/Prilocaine Confirm 07/12/23 14:53 Lidocaine/Prilocaine 5 Gm 5 Gm Tube Administered 07/12/23 14:54 Dose 5 gm TP .STK-MED ONE Lidocaine/Prilocaine 2.5 gm 07/12/23 15:00 07/12/23 15:00 Lidocaine/Prilocaine 5 Gm 5 Gm Tube TP 07/12/23 15:01 2.5 gm STAT ONE Administration - Progress Progress: improved Progress Note: 07/12/23 15:17 This patient's medical issue is 1 of low complexity. Level complexity in the work-up performed is based on review of the patient's past medical history, history present illness, review of the patient's medication list, review of the patient's drug allergy list, physical findings on examination. No laboratory data or radiographic studies necessary. Repair was performed the patient procedure well. Staple removal in 8 to 10 days. Counseled pt/family regarding: diagnosis, need for follow-up Medical Desision Making - Independent Historian Additional History obtained from: Child (Daughter) - Diagnostic Testing Diagnostic test were ordered, analyzed, and reviewed by me: No - Risk of complications Minimal Risk: Minimal risk of morbidity - Departure Departure Disposition: Home (Left leg laceration) Clinical Impression: Laceration of left leg Condition: Stable Critical Care Time: No Referrals: FERNANDEZ FIERRO MD [Primary Care Provider] - Follow up/PCP as directed Additional Instructions: Keep pressure dressing in place until the evening of 07/13/2023. May remove dressing at that time. Daily thereafter let the shower soap and water hit the side then rinse. Blot dry use a chair caner. Apply thin layer of antibiotic ointment of choice to the site and cover with a bandage. Staple removal in 8 to 10 days.
[2023-07-12] MEDS ORDERED: EMLA Cream 5 GM TP ONE ×2 (14:53→15:00)
[2023-07-12 14:58] VITALS: RESP 18
[2023-07-12] MEDS ORDERED: BACIGUENT PACKET ONE (15:47)
[2023-07-12] MEDS ORDERED: BACIGUENT PACKET TP ONE (15:47)
[2023-07-12 15:54] VITALS: BP 148/92; PULSE 72; O2SAT 96
== END 2023-07-12 15:55 | disposition home or self-care (01) ==
LOC: ED 14:33
DX: S81.812A Laceration without foreign body, left lower leg, initial encounter (principal); W22.09XA Striking against other stationary object, initial encounter; I10 Essential (primary) hypertension; Z79.01 Long term (current) use of anticoagulants; Z79.899 Other long term (current) drug therapy
CPT/HCPCS: 12001; 99282; A9270-GY

== ENCOUNTER 2023-08-14 18:23 | Emergency (ER) | payer MEDICARE ==
[2023-08-14 18:38] VITALS: TEMP 97
--- NOTE | 2023-08-14 19:19 | ERPHSYRPT ---
- History of Present Illness Time Seen by Provider: 08/14/23 18:55 Source: patient, family Exam Limitations: no limitations Patient Subjective Stated Complaint: pt here for headache to both sides of neck since 1200 today while shopping, no injury, denies any illness Triage Nursing Assessment: pt alert, arrived per wc resp easy, skin w/d/p, has swelling to lower legs, badage to left lower leg, no cough . abs soft Physician History: This is a 77-year-old white female patient of Dr. Fierro who has a history of atrial fibrillation and is on Eliquis and presents to the emergency department with bilateral posterior headache. Started in her neck posteriorly and moved cranially. She also felt off. She could not think straight. Those symptoms are brief. Her headache has improved. She presents to the emergency department with a systolic blood pressure of 113. Her heart rate is within normal limits. In addition, patient has a history of hypertension and gastroesophageal reflux disease. She denies chest pain. She denies shortness of breath. She has not had any visual changes. Timing/Duration: today Severity: mild Character of Deficits: none Deficits: no difficulties Baseline/Normal Cognition: alert oriented x 3 Current Cognition: alert oriented x 3 Baseline Gait: walks w/o assistance Associated Symptoms: denies symptoms Allergies/Adverse Reactions: codeine Allergy (Verified 08/14/23 18:41) unknown Sulfa (Sulfonamide Antibiotics) Allergy (Verified 08/14/23 18:41) Rash JASBIR Inhibitors Adverse Reaction (Verified 08/14/23 18:41) Cough Home Medications: Amlodipine Besylate [Norvasc] 10 mg PO DAILY 11/25/20 [History] Atorvastatin Calcium [Lipitor 20MG Tablet] 20 mg PO DAILY 11/25/20 [History] Metoprolol Succinate 100 mg PO DAILY 11/25/20 [History] Omeprazole 40 mg PO DAILY 11/25/20 [History] Apixaban [Eliquis] 2.5 mg PO BID 05/09/21 [History] Cholecalciferol (Vitamin D3) [Vitamin D3] 10 mcg PO DAILY 11/14/22 [History] Anastrozole [Arimidex] 1 mg PO DAILY 01/31/23 [History] Calcium Carbonate/Vitamin D3 [Calcium 600-Vit D3 200 Tablet] 1 tab PO DAILY 06/03/23 [History] Anastrozole [Arimidex] 1 ea DAILY 08/14/23 [History] Hx Tetanus, Diphtheria Vaccination/Date Given: No Hx Influenza Vaccination/Date Given: No Hx Pneumococcal Vaccination/Date Given: Yes Immunizations Up to Date: Yes Travel Risk - International Travel Have you traveled outside of the country in past 3 weeks: No - Coronavirus Screening Are you exhibiting any of the following symptoms?: No Close contact with a COVID-19 positive Pt in past 14-21 Days: No - Vaccine Status Have you recieved a Covid-19 vaccination: Yes 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: [employer] - Vaccination Dates Date of 2cond Vaccination (if applicable): 2020 - Review of Systems Constitutional: No Symptoms Eyes: No Symptoms Ears, Nose, & Throat: No Symptoms Respiratory: No Symptoms Cardiac: No Symptoms Abdominal/Gastrointestinal: No Symptoms Genitourinary Symptoms: No Symptoms Musculoskeletal: No Symptoms Skin: No Symptoms Neurological: Headache (Mild posteriorly bilateral) Psychological: No Symptoms Endocrine: No Symptoms Hematologic/Lymphatic: No Symptoms Immunological/Allergic: No Symptoms All Other Systems: Reviewed and Negative - Past Medical History Pertinent Past Medical History: Yes Neurological History: No Pertinent History ENT History: Cataracts Cardiac History: Arrhythmia, High Cholesterol, Hypertension, Other Respiratory History: No Pertinent History Endocrine Medical History: No Pertinent History Musculoskeletal History: Arthritis, Fractures GI Medical History: No Pertinent History History: No Pertinent History Psycho-Social History: No Pertinent History Female Reproductive Disorders: Breast Cancer Other Medical History: AAA 4.0 cm. R TKA 2012. R ankle fx 2009 - Past Surgical History Past Surgical History: Yes Neuro Surgical History: No Pertinent History Cardiac: Cardiac Catheterization Respiratory: No Pertinent History Gastrointestinal: Appendectomy, Cholecystectomy Genitourinary: No Pertinent History Musculoskeletal: Joint Replacement Female Surgical History: Hysterectomy Other Surgical History: R knee, metal in R ankle,. lumpectomy R and L side. lasik on eyes - Social History Smoking Status: Never smoker Exposure to second hand smoke: No Drug Use: none Patient Lives Alone: No - Nursing Vital Signs Nursing Vital Signs: Initial Vital Signs Temperature 97 F 08/14/23 18:29 Pulse Rate 92 H 08/14/23 18:29 Respiratory Rate 18 08/14/23 18:29 Blood Pressure 113/78 08/14/23 18:29 O2 Sat by Pulse Oximetry 96 08/14/23 18:29 Pain Scale Pain Intensity 0 - Armando Coma Scale Best Eye Response ([place]): (4) open spontaneously Best Verbal Response ([place]): (5) oriented Best Motor Response (Arm[place]): (6) obeys commands Armando Total: 15 - Physical Exam General Appearance: no apparent distress, alert Eye Exam: bilateral eye: normal inspection, PERRL, EOMI Ears, Nose, Throat Exam: normal ENT inspection, moist mucous membranes Neck Exam: normal inspection, non-tender, supple, full range of motion Respiratory: normal breath sounds, lungs clear, airway intact, No chest tenderness, No respiratory distress Cardiovascular: regular rate/rhythm, normal heart sounds, normal peripheral pulses Gastrointestinal: soft, normal bowel sounds, No tenderness Pelvic Exam: not done Rectal Exam: not done Back Exam: normal inspection, normal range of motion, No CVA tenderness, No vertebral tenderness Extremity Exam: normal inspection, normal range of motion, pelvis stable Mental Status: alert, oriented x 3, 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 Exam: normal hearing, normal speech, PERRL, tongue midline Coordination/Gait: normal finger to nose, normal gait, normal cerebellar function Motor/Sensory: no motor deficit, no sensory deficit, no pronator drift Skin Exam: normal color, warm, dry SpO2 Interpretation: normal SpO2: 96 O2 Delivery: Room Air - Course Nursing assessment & vital signs reviewed: Yes Ordered Tests: Active Orders 24 hr Category Date Time Status Doughnut Batter Mixer STAT Care 08/14/23 19:02 Active EKG-ER Only STAT Care 08/14/23 19:01 Active NPO (ED) STAT Care 08/14/23 19:01 Active Pulse Oximetry (ED) STAT Care 08/14/23 19:01 Active HEAD WITHOUT CONTRAST [CT] Stat Exams 08/14/23 19:01 Taken CBC W DIFF Stat Lab 08/14/23 19:29 Completed CMP Stat Lab 08/14/23 19:29 Completed TROPONIN Q4H Lab 08/14/23 19:29 Completed TROPONIN Q4H Lab 08/14/23 23:15 Ordered UA W/RFX UR CULTURE Stat Lab 08/14/23 19:03 Completed Lab/Rad Data: Laboratory Result Diagrams 08/14/23 19:29 08/14/23 19:29 Laboratory Results 08/14/23 08/14/23 08/14/23 Range/Units 19:29 19:29 19:29 WBC 4.7 (4.0-10.5) x10^3/uL RBC 3.74 L (4.1-5.4) x10^6/uL Hgb 12.7 (12.0-16.0) g/dL Hct 38.2 (35-47) % MCV 102.1 H (78-100) fL MCH 34.0 H (26-32) pg MCHC 33.2 (32-36) g/dL RDW 12.6 (11.5-14.0) % Plt Count 186 (150-450) x10^3/uL MPV 10.3 (7.5-11.0) fL Gran % 73.3 H (36.0-66.0) % Immature Gran % (Auto) 0.2 (0.00-0.4) % Nucleat RBC Rel Count 0.0 (0.00-0.1) % Eos # (Auto) 0.13 (0-0.5) x10^3/uL Immature Gran # (Auto) 0.01 (0.00-0.03) x10^3u/L Absolute Lymphs (auto) 0.59 L (1.0-4.6) x10^3/uL Absolute Monos (auto) 0.52 (0.0-1.3) x10^3/uL Absolute Nucleated RBC 0.00 (0.00-0.01) x10^3u/L Lymphocytes % 12.5 L (24.0-44.0) % Monocytes % 11.0 (0.0-12.0) % Eosinophils % 2.8 (0.00-5.0) % Basophils % 0.2 (0.0-0.4) % Absolute Granulocytes 3.46 (1.4-6.9) x10^3/uL Basophils # 0.01 (0-0.4) x10^3/uL Sodium 139 (137-145) mmol/L Potassium 3.9 (3.5-5.1) mmol/L Chloride 104 (98-107) mmol/L Carbon Dioxide 26 (22-30) mmol/L Anion Gap 13.7 (5-15) MEQ/L BUN 19 H (7-17) mg/dL Creatinine 0.96 (0.52-1.04) mg/dL Estimated GFR 59.7 ML/MIN Glucose 105 (74-106) mg/dL Calcium 9.5 (8.4-10.2) mg/dL Total Bilirubin 0.90 (0.2-1.3) mg/dL AST 30 (14-36) U/L ALT 24 (0-35) U/L Alkaline Phosphatase 61 (38-126) U/L Troponin I < 0.012 (0.000-0.034) ng/mL Serum Total Protein 6.5 (6.3-8.2) g/dL Albumin 4.1 (3.5-5.0) g/dL Urine Color (Yellow) Urine Appearance (Clear) Urine pH (4.6-8.0) Ur Specific [place] (1.005-1.030) Urine Protein (Negative) Urine Glucose (UA) (Negative) mg/dL Urine Ketones (Negative) Urine Blood (Negative) Urine Nitrite (Negative) Urine Bilirubin (Negative) Urine Urobilinogen (0.2) mg/dL Ur Leukocyte Esterase (Negative) U Hyaline Cast (Auto) (0-2) /LPF Urine Microscopic RBC (0-5) /HPF Urine Microscopic WBC (0-5) /HPF Ur Epithelial Cells (None Seen) /HPF Urine Bacteria (None Seen) /HPF Urine Culture Reflexed (NO) Slides for Path Review YES 08/14/23 Range/Units 19:03 WBC (4.0-10.5) x10^3/uL RBC (4.1-5.4) x10^6/uL Hgb (12.0-16.0) g/dL Hct (35-47) % MCV (78-100) fL MCH (26-32) pg MCHC (32-36) g/dL RDW (11.5-14.0) % Plt Count (150-450) x10^3/uL MPV (7.5-11.0) fL Gran % (36.0-66.0) % Immature Gran % (Auto) (0.00-0.4) % Nucleat RBC Rel Count (0.00-0.1) % Eos # (Auto) (0-0.5) x10^3/uL Immature Gran # (Auto) (0.00-0.03) x10^3u/L Absolute Lymphs (auto) (1.0-4.6) x10^3/uL Absolute Monos (auto) (0.0-1.3) x10^3/uL Absolute Nucleated RBC (0.00-0.01) x10^3u/L Lymphocytes % (24.0-44.0) % Monocytes % (0.0-12.0) % Eosinophils % (0.00-5.0) % Basophils % (0.0-0.4) % Absolute Granulocytes (1.4-6.9) x10^3/uL Basophils # (0-0.4) x10^3/uL Sodium (137-145) mmol/L Potassium (3.5-5.1) mmol/L Chloride (98-107) mmol/L Carbon Dioxide (22-30) mmol/L Anion Gap (5-15) MEQ/L BUN (7-17) mg/dL Creatinine (0.52-1.04) mg/dL Estimated GFR ML/MIN Glucose (74-106) mg/dL Calcium (8.4-10.2) mg/dL Total Bilirubin (0.2-1.3) mg/dL AST (14-36) U/L ALT (0-35) U/L Alkaline Phosphatase (38-126) U/L Troponin I (0.000-0.034) ng/mL Serum Total Protein (6.3-8.2) g/dL Albumin (3.5-5.0) g/dL Urine Color Yellow (Yellow) Urine Appearance Clear (Clear) Urine pH 6.0 (4.6-8.0) Ur Specific [place] 1.020 (1.005-1.030) Urine Protein Negative (Negative) Urine Glucose (UA) Negative (Negative) mg/dL Urine Ketones Trace A (Negative) Urine Blood Negative (Negative) Urine Nitrite Negative (Negative) Urine Bilirubin Negative (Negative) Urine Urobilinogen 1.0 A (0.2) mg/dL Ur Leukocyte Esterase Small A (Negative) U Hyaline Cast (Auto) 3-5 A (0-2) /LPF Urine Microscopic RBC 0-2 (0-5) /HPF Urine Microscopic WBC 3-5 (0-5) /HPF Ur Epithelial Cells Few (None Seen) /HPF Urine Bacteria None Seen (None Seen) /HPF Urine Culture Reflexed NO (NO) Slides for Path Review - Progress Progress: improved, re-examined Progress Note: 08/14/23 19:25 This patient's medical issue is 1 of moderate complexity. The level of complexity in the work-up performed is based on review of the patient's past medical history, review the patient's medication list, review the patient's drug allergy list, history of present illness and physical findings on examination. The work-up in this patient includes twelve-lead EKG, troponin level, CBC, CMP, urinalysis, CT scan of the head without contrast. 08/14/23 20:05 I reviewed the above laboratory results and interpreted them. Patient has no acute, emergent findings on laboratory work-up. CT scan of the head without contrast showed continued nonacute senile brain. This was interpreted by the radiologist. Counseled pt/family regarding: lab results, diagnosis, need for follow-up, rad results Medical Desision Making - Independent Historian Additional History obtained from: Child (Daughter) - Diagnostic Testing Diagnostic test were ordered, analyzed, and reviewed by me: Yes Radiological Interpretation: Reviewed by me, Teleradiologist Report - Risk of complications Low Risk: Low risk of morbidity from additional dx testing or treatment - Departure Departure Disposition: Home Clinical Impression: Headache Condition: Stable Critical Care Time: No Referrals: FERNANDEZ FIERRO MD [Primary Care Provider] - Follow up/PCP as directed Additional Instructions: Drink plenty of fluids. Take your medication as prescribed. Use Tylenol for headache control. Contact your primary care provider tomorrow, 08/15/2023, to make arrangements for further evaluation and management in the next 3 to 5 days.
[2023-08-14 19:32] LABS: Absolute Neutrophil Ct (ANC) 3.46 x10^3/uL (1.4-6.9); BASOPHIL % 0.2 % (0.0-0.4); Basophil (Absolute #) 0.01 x10^3/uL (0-0.4); Eosinophil % 2.8 % (0.00-5.0); Eosinophil (Absolute #) 0.13 x10^3/uL (0-0.5); Hematocrit 38.2 % (35-47); Hemoglobin 12.7 g/dL (12.0-16.0); IMMATURE GRAN # 0.01 x10^3u/L (0.00-0.03); IMMATURE GRAN % 0.2 % (0.00-0.4); Lymphocyte (Absolute #) 0.59 x10^3/uL (1.0-4.6); Lymphocytes % 12.5 % (24.0-44.0); Mean Cell Volume 102.1 fL (78-100); Mean Corpuscular Hgb Concent. 33.2 g/dL (32-36); Mean Platelet Volume 10.3 fL (7.5-11.0); Monocyte (Absolute #) 0.52 x10^3/uL (0.0-1.3); Neutrophil % 73.3 % (36.0-66.0); Platelet Count 186 x10^3/uL (150-450); Red Blood Count 3.74 x10^6/uL (4.1-5.4); Red Cell Distribution Width 12.6 % (11.5-14.0); White Blood Count 4.7 x10^3/uL (4.0-10.5)
[2023-08-14 19:36] LABS: ADD URINE CULTURE? NO (NO); Appearance Clear (Clear); Bacteria None Seen /HPF (None Seen); Bilirubin Negative (Negative); Blood Negative (Negative); Epithelial Cells Few /HPF (None Seen); Glucose, Urine Negative (Negative); Ketones Trace (Negative); Leukocyte Esterase Small (Negative); Nitrite Negative (Negative); Protein,Urine Dip Negative (Negative); RBC 0-2 /HPF (0-5)
[2023-08-14 19:49] LABS: ALBUMIN 4.1 g/dL (3.5-5.0); ANION GAP 13.7 MEQ/L (5-15); BILIRUBIN,TOTAL 0.9 mg/dL (0.2-1.3); Calcium 9.5 mg/dL (8.4-10.2); Creatinine 1 0.96 mg/dL (0.52-1.04); EST GLOMERULAR FILTRATION RATE 59.7 ML/MIN; Potassium 3.9 mmol/L (3.5-5.1); Total Protein 6.5 g/dL (6.3-8.2)
[2023-08-14 20:00] LABS: Slide Review 1 YES
[2023-08-14 20:04] VITALS: BP 130/79; PULSE 75; RESP 22; O2SAT 96
--- NOTE | 2023-08-15 08:58 | XRAY ---
Indication: Headache. Multiple contiguous axial images obtained through the head without contrast. Comparison: June 03, 2023 Again age-appropriate global atrophy. No acute intracranial hemorrhage, abnormal extra-axial fluid collection, or mass effect. Fourth ventricle is midline without hydrocephalus. Eisenberg-white matter differentiation preserved. Bony calvarium intact. Visualized paranasal sinuses and mastoid air cells are clear. Impression: Continued negative CT head without contrast exam.
== END 2023-08-14 20:15 | disposition home or self-care (01) ==
LOC: ED 18:23
DX: R51.9 Headache, unspecified (principal); I10 Essential (primary) hypertension; E78.5 Hyperlipidemia, unspecified; Z79.899 Other long term (current) drug therapy
CPT/HCPCS: 36415; 70450; 80053; 81001; 84484; 85025; 93005; 93041; 94760; 99283

== ENCOUNTER 2023-12-08 18:42 | Emergency (ER) | payer MEDICARE ==
--- NOTE | 2023-12-08 19:40 | ERPHSYRPT ---
- History of Present Illness Time Seen by Provider: 12/08/23 19:15 Source: patient Patient Subjective Stated Complaint: pt began having burning when she urinates this afternoon Triage Nursing Assessment: Pt brought self to the ER, rates pain as 4/10, pt states that she is having burning when she urinates and it started this afternoon, pulses normal, skin n/w/d, doesn't appear to be in any distress Physician History: 78 years old female with past medical history of atrial fibrillation currently on Eliquis, history of hypertension and UTIs. The patient presenting the emergency room complaining of urgency and burning of micturition that started today. She denies any fever or chills. No abdominal pain nausea or vomiting she is having normal bowel movements. The patient has been drinking enough of fluid, she had UTIs in the past that were treated with Cipro. She denies any vaginal discharge. Allergies/Adverse Reactions: codeine Allergy (Verified 12/08/23 19:02) unknown Sulfa (Sulfonamide Antibiotics) Allergy (Verified 12/08/23 19:02) Rash JASBIR Inhibitors Adverse Reaction (Verified 12/08/23 19:02) Cough Home Medications: Amlodipine Besylate [Norvasc] 10 mg PO DAILY 11/25/20 [History] Atorvastatin Calcium [Lipitor 20MG Tablet] 20 mg PO DAILY 11/25/20 [History] Metoprolol Succinate 100 mg PO DAILY 11/25/20 [History] Omeprazole 40 mg PO DAILY 11/25/20 [History] Apixaban [Eliquis] 2.5 mg PO BID 05/09/21 [History] Cholecalciferol (Vitamin D3) [Vitamin D3] 10 mcg PO DAILY 11/14/22 [History] Anastrozole [Arimidex] 1 mg PO DAILY 01/31/23 [History] Calcium Carbonate/Vitamin D3 [Calcium 600-Vit D3 200 Tablet] 1 tab PO DAILY 06/03/23 [History] Hx Tetanus, Diphtheria Vaccination/Date Given: No Hx Influenza Vaccination/Date Given: No Hx Pneumococcal Vaccination/Date Given: Yes Travel Risk - International Travel Have you traveled outside of the country in past 3 weeks: No - Coronavirus Screening Are you exhibiting any of the following symptoms?: No Close contact with a COVID-19 positive Pt in past 14-21 Days: No - Vaccine Status Have you recieved a Covid-19 vaccination: Yes 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[employer] - Vaccination Dates Date of 2cond Vaccination (if applicable): 2020 - Review of Systems Constitutional: No Fever, No Chills Eyes: No Symptoms Ears, Nose, & Throat: No Symptoms Respiratory: No Cough, No Dyspnea Cardiac: No Chest Pain, No Edema, No Syncope Abdominal/Gastrointestinal: No Abdominal Pain, No Nausea, No Vomiting, No Diarrhea Genitourinary Symptoms: Dysuria, Frequency, Urgency Musculoskeletal: No Back Pain, No Neck Pain Skin: No Rash Neurological: No Dizziness, No Focal Weakness, No Sensory Changes Psychological: No Symptoms Endocrine: No Symptoms All Other Systems: Reviewed and Negative - Past Medical History Pertinent Past Medical History: Yes Neurological History: No Pertinent History ENT History: Cataracts Cardiac History: Arrhythmia, Hypertension Respiratory History: No Pertinent History Endocrine Medical History: No Pertinent History Musculoskeletal History: Osteoarthritis GI Medical History: No Pertinent History History: No Pertinent History Psycho-Social History: No Pertinent History Female Reproductive Disorders: Breast Cancer Other Medical History: PSH: R TKA 2011, R ANKLE ORIF 2009, HYSTERECTOMY, GALL BLADDER, BREAST CANCER REMOVAL, APPENDECOMY, TONSILLECTOMY. PMH: A-FIB, - Past Surgical History Past Surgical History: Yes Neuro Surgical History: No Pertinent History Cardiac: Cardiac Catheterization Respiratory: No Pertinent History Gastrointestinal: Appendectomy, Cholecystectomy Genitourinary: No Pertinent History Musculoskeletal: Joint Replacement Female Surgical History: Hysterectomy Other Surgical History: R knee, metal in R ankle,. lumpectomy R and L side. lasik on eyes - Social History Smoking Status: Never smoker Exposure to second hand smoke: No Drug Use: none Patient Lives Alone: No - Nursing Vital Signs Nursing Vital Signs: Initial Vital Signs Temperature 97.7 F 12/08/23 18:47 Pulse Rate 93 H 12/08/23 18:47 Blood Pressure 119/64 12/08/23 18:47 O2 Sat by Pulse Oximetry 97 12/08/23 18:47 Pain Scale Pain Intensity 4 - Physical Exam General Appearance: no apparent distress, alert Eye Exam: PERRL/EOMI, eyes nml inspection Ears, Nose, Throat Exam: normal ENT inspection, TMs normal, pharynx normal, moist mucous membranes Neck Exam: normal inspection, non-tender, supple, full range of motion Respiratory Exam: normal breath sounds, lungs clear, No respiratory distress Cardiovascular Exam: regular rate/rhythm, normal heart sounds, normal peripheral pulses, capillary refill <2 sec Gastrointestinal/Abdomen Exam: soft, normal bowel sounds, No tenderness, No mass Back Exam: normal inspection, normal range of motion, No CVA tenderness, No vert ebral tenderness Extremity Exam: normal inspection, normal range of motion, pelvis stable Neurologic Exam: alert, oriented x 3, cooperative, normal mood/affect, nml cerebellar function, nml station & gait, sensation nml, No motor deficits Skin Exam: normal color, warm, dry, No rash Lymphatic Exam: No adenopathy SpO2: 97 - Course Nursing assessment & vital signs reviewed: Yes Ordered Tests: Active Orders 24 hr Category Date Time Status CULTURE,URINE Stat Lab 12/08/23 19:39 Received UA W/RFX UR CULTURE Stat Lab 12/08/23 19:39 Completed Medication Summary Discontinued Medications Generic Name Dose Route Start Last Admin Trade Name Freq PRN Reason Stop Dose Admin Ciprofloxacin 500 mg 12/08/23 20:37 12/08/23 20:48 Ciprofloxacin 500 Mg Tablet PO 12/08/23 20:38 500 mg ONCE STA Administration Ciprofloxacin Confirm 12/08/23 20:47 Ciprofloxacin 500 Mg Tablet Administered 12/08/23 20:48 Dose 500 mg .ROUTE .STK-MED ONE Phenazopyridine HCl 200 mg 12/08/23 20:38 12/08/23 20:49 Phenazopyridine Hcl 200 Mg Tablet PO 12/08/23 20:39 200 mg ONCE STA Administration Phenazopyridine HCl Confirm 12/08/23 20:46 Phenazopyridine Hcl 200 Mg Tablet Administered 12/08/23 20:47 Dose 200 mg .ROUTE .STK-MED ONE Lab/Rad Data: Laboratory Results 12/08/23 Range/Units 19:39 Urine Color Yellow (Yellow) Urine Appearance Turbid A (Clear) Urine pH 6.0 (4.6-8.0) Ur Specific [place] 1.015 (1.005-1.030) Urine Protein Negative (Negative) Urine Glucose (UA) Negative (Negative) mg/dL Urine Ketones Negative (Negative) Urine Blood Small A (Negative) Urine Nitrite Positive A (Negative) Urine Bilirubin Negative (Negative) Urine Urobilinogen 1.0 A (0.2) mg/dL Ur Leukocyte Esterase Large A (Negative) U Hyaline Cast (Auto) NONE SEEN (0-2) /LPF Urine Microscopic RBC 0-2 (0-5) /HPF Urine Microscopic WBC >100 A (0-5) /HPF Ur Epithelial Cells Rare (None Seen) /HPF Urine Bacteria Many A (None Seen) /HPF Urine Culture Reflexed YES (NO) - Progress Progress: unchanged Progress Note: 12/08/23 19:38 78 years old female presenting to emergency room complaining of frequency, urgency and burning micturition that started today. She has history of UTIs in the past. Emergency room course and medical decision making. Check urine analysis 12/08/23 20:39 The patient's urine analysis is positive for nitrites, large leukocyte esterase, more than 100 white blood cells and many bacteria. She will be given Cipro 500 mg oral dose, Pyridium 200 mg oral dose. She will be discharged on Cipro 500 mg twice a day for 5 days. Pyridium 200 mg 3 times a day for 2 days. Rest increase fluid intake. Follow-up with her family physician to 3 days. - Departure Departure Disposition: Home Clinical Impression: Urinary tract infection Condition: Stable Critical Care Time: No Referrals: FERNANDEZ FIERRO MD [Primary Care Provider] - Follow up/PCP as directed Instructions: Urinary Tract Infection, Adult (DC) Prescriptions: Ciprofloxacin [Cipro 500 MG] 500 mg PO BID #14 tablet Phenazopyridine HCl 200 mg [Pyridium 200 mg] 200 mg PO TID #6 tablet
[2023-12-08 20:26] LABS: Appearance Turbid (Clear); Bacteria Many /HPF (None Seen); Bilirubin Negative (Negative); Blood Small (Negative); Epithelial Cells Rare /HPF (None Seen); Glucose, Urine Negative (Negative); Hyaline Casts NONE SEEN /LPF (0-2); Ketones Negative (Negative); Leukocyte Esterase Large (Negative); Nitrite Positive (Negative); Protein,Urine Dip Negative (Negative); RBC 0-2 /HPF (0-5); Specific Gravity 1.015 (1.005-1.030); WBC >100 /HPF (0-5)
[2023-12-08 20:27] LABS: ADD URINE CULTURE? YES (NO)
[2023-12-08] MEDS ORDERED: Cipro 500 MG PO STA (20:37)
[2023-12-08] MEDS ORDERED: PYRIDIUM 200 MG PO STA (20:38)
[2023-12-08 20:42] VITALS: O2SAT 97
[2023-12-08] MEDS ORDERED: PYRIDIUM 200 MG ONE (20:46)
[2023-12-08] MEDS ORDERED: Cipro 500 MG ONE (20:47)
[2023-12-08 21:05] VITALS: BP 125/72; PULSE 72; RESP 20; TEMP 98.8
== END 2023-12-08 21:00 | disposition home or self-care (01) ==
LOC: ED 18:42
DX: N39.0 Urinary tract infection, site not specified (principal); R30.9 Painful micturition, unspecified; R39.15 Urgency of urination; I10 Essential (primary) hypertension; Z79.01 Long term (current) use of anticoagulants; Z79.899 Other long term (current) drug therapy
CPT/HCPCS: 81001; 87077; 87086; 87186; 99283; A9270-GY

== ENCOUNTER 2023-12-19 15:42 | Emergency (ER) | payer MEDICARE ==
[2023-12-19 16:12] VITALS: TEMP 97.6; O2SAT 95
[2023-12-19 16:45] LABS: Appearance Cloudy (Clear); Bilirubin Negative (Negative); Blood Negative (Negative); Epithelial Cells Few /HPF (None Seen); Glucose, Urine Negative (Negative); Hyaline Casts NONE SEEN /LPF (0-2); Ketones Negative (Negative); Leukocyte Esterase Moderate (Negative); Nitrite Negative (Negative); Ph 5.5 (4.6-8.0); Protein,Urine Dip Negative (Negative); RBC 0-2 /HPF (0-5)
[2023-12-19 16:46] LABS: ADD URINE CULTURE? YES (NO); Bacteria Rare /HPF (None Seen)
[2023-12-19] MEDS ORDERED: Macrobid 100MG Capsule ONE (17:30)
[2023-12-19] MEDS: Macrobid 100MG Capsule PO ONE (17:31)
--- NOTE | 2023-12-19 17:40 | ERPHSYRPT ---
- History of Present Illness Time Seen by Provider: 12/19/23 16:10 Source: patient Exam Limitations: no limitations Patient Subjective Stated Complaint: pt states that she has burning and itching with urination Triage Nursing Assessment: pt ambulated into the er with assist of cane; pt is axo x4; c/o burning and itching with urination; active bowel sounds in all quads; tenderness to lower abd; pt denies N/V/D; skin PDW; no respiratory distress present; hypertensive Physician History: 69-year-old female presents emergency department for evaluation of dysuria, urinary frequency for 1 day. Patient also completed a course of antibiotics for chest congestion over a week ago. Since then patient has had some vaginal itching. No discharge. No fever. No nausea vomiting diaphoresis. Symptoms are mild to moderate in intensity. No specific worsening improving factors. Patient voices no other complaints or concerns at this time. Portions of this note were created with voice recognition technology. There may be grammatical, spelling, punctuation or sound alike errors Timing/Duration: yesterday Severity: moderate Modifying Factors: Improves With: nothing Associated Symptoms: denies symptoms Allergies/Adverse Reactions: codeine Allergy (Verified 12/19/23 15:54) unknown Sulfa (Sulfonamide Antibiotics) Allergy (Verified 12/19/23 15:54) Rash JASBIR Inhibitors Adverse Reaction (Verified 12/19/23 15:54) Cough Home Medications: Amlodipine Besylate [Norvasc] 10 mg PO DAILY 11/25/20 [History] Atorvastatin Calcium [Lipitor 20MG Tablet] 20 mg PO DAILY 11/25/20 [History] Metoprolol Succinate 100 mg PO DAILY 11/25/20 [History] Omeprazole 40 mg PO DAILY 11/25/20 [History] Apixaban [Eliquis] 2.5 mg PO BID 05/09/21 [History] Cholecalciferol (Vitamin D3) [Vitamin D3] 10 mcg PO DAILY 11/14/22 [History] Anastrozole [Arimidex] 1 mg PO DAILY 01/31/23 [History] Calcium Carbonate/Vitamin D3 [Calcium 600-Vit D3 200 Tablet] 1 tab PO DAILY 06/03/23 [History] Hx Tetanus, Diphtheria Vaccination/Date Given: Yes Hx Influenza Vaccination/Date Given: Yes Hx Pneumococcal Vaccination/Date Given: Yes Travel Risk - International Travel Have you traveled outside of the country in past 3 weeks: No - Coronavirus Screening Are you exhibiting any of the following symptoms?: No Close contact with a COVID-19 positive Pt in past 14-21 Days: No - Vaccine Status Have you recieved a Covid-19 vaccination: Yes Director Phone: Pf[employer] - Vaccination Dates Date of 2cond Vaccination (if applicable): 2020 - Review of Systems Constitutional: No Symptoms, No Fever, No Chills Eyes: No Symptoms Ears, Nose, & Throat: No Symptoms Respiratory: No Symptoms, No Cough, No Dyspnea Cardiac: No Symptoms, No Chest Pain, No Edema, No Syncope Abdominal/Gastrointestinal: No Symptoms, No Abdominal Pain, No Nausea, No Vomiting, No Diarrhea Genitourinary Symptoms: No Symptoms, No Dysuria Musculoskeletal: No Symptoms, No Back Pain, No Neck Pain Skin: No Symptoms, No Rash Neurological: No Symptoms, No Dizziness, No Focal Weakness, No Sensory Changes Psychological: No Symptoms Endocrine: No Symptoms Hematologic/Lymphatic: No Symptoms Immunological/Allergic: No Symptoms All Other Systems: Reviewed and Negative - Past Medical History Pertinent Past Medical History: Yes Neurological History: No Pertinent History ENT History: Cataracts Cardiac History: Arrhythmia, Hypertension Respiratory History: No Pertinent History Endocrine Medical History: No Pertinent History Musculoskeletal History: Osteoarthritis GI Medical History: No Pertinent History History: No Pertinent History Psycho-Social History: No Pertinent History Female Reproductive Disorders: Breast Cancer Other Medical History: PSH: R TKA 2011, R ANKLE ORIF 2009, HYSTERECTOMY, GALL BLADDER, BREAST CANCER REMOVAL, APPENDECOMY, TONSILLECTOMY. PMH: A-FIB, - Past Surgical History Past Surgical History: Yes Neuro Surgical History: No Pertinent History Cardiac: Cardiac Catheterization Respiratory: No Pertinent History Gastrointestinal: Appendectomy, Cholecystectomy Genitourinary: No Pertinent History Musculoskeletal: Joint Replacement Female Surgical History: Hysterectomy Other Surgical History: R knee, metal in R ankle,. lumpectomy R and L side. lasik on eyes - Social History Smoking Status: Never smoker Exposure to second hand smoke: No Drug Use: none Patient Lives Alone: No - Nursing Vital Signs Nursing Vital Signs: Initial Vital Signs Temperature 97.6 F 12/19/23 16:00 Pulse Rate 69 12/19/23 16:00 Respiratory Rate 14 12/19/23 16:00 Blood Pressure 146/64 12/19/23 16:00 O2 Sat by Pulse Oximetry 95 12/19/23 16:00 Pain Scale Pain Intensity 0 - Physical Exam General Appearance: no apparent distress, alert Eye Exam: PERRL/EOMI, eyes nml inspection Ears, Nose, Throat Exam: normal ENT inspection, TMs normal, pharynx normal, moist mucous membranes Neck Exam: normal inspection, non-tender, supple, full range of motion Respiratory Exam: normal breath sounds, lungs clear, No respiratory distress Cardiovascular Exam: regular rate/rhythm, normal heart sounds, normal peripheral pulses Gastrointestinal/Abdomen Exam: soft, normal bowel sounds, No tenderness, No mass Back Exam: normal inspection, normal range of motion, No CVA tenderness, No vertebral tenderness Extremity Exam: normal inspection, normal range of motion, pelvis stable Neurologic Exam: alert, oriented x 3, cooperative, normal mood/affect, nml cerebellar function, nml station & gait, sensation nml, No motor deficits Skin Exam: normal color, warm, dry, No rash Lymphatic Exam: No adenopathy SpO2 Interpretation: normal SpO2: 95 O2 Delivery: Room Air - Course Nursing assessment & vital signs reviewed: Yes Ordered Tests: Active Orders 24 hr Category Date Time Status CULTURE,URINE Stat Lab 12/19/23 16:12 Received UA W/RFX UR CULTURE Stat Lab 12/19/23 16:12 Completed Medication Summary Discontinued Medications Generic Name Dose Route Start Last Admin Trade Name Freq PRN Reason Stop Dose Admin Nitrofurantoin Macrocrystals 100 mg 12/19/23 17:29 Nitrofurantoin Macro 100 Mg Capsule PO 12/19/23 17:30 STAT ONE Lab/Rad Data: Laboratory Results 12/19/23 Range/Units 16:12 Urine Color Yellow (Yellow) Urine Appearance Cloudy A (Clear) Urine pH 5.5 (4.6-8.0) Ur Specific [place] 1.020 (1.005-1.030) Urine Protein Negative (Negative) Urine Glucose (UA) Negative (Negative) mg/dL Urine Ketones Negative (Negative) Urine Blood Negative (Negative) Urine Nitrite Negative (Negative) Urine Bilirubin Negative (Negative) Urine Urobilinogen 1.0 A (0.2) mg/dL Ur Leukocyte Esterase Moderate A (Negative) U Hyaline Cast (Auto) NONE SEEN (0-2) /LPF Urine Microscopic RBC 0-2 (0-5) /HPF Urine Microscopic WBC 6-10 A (0-5) /HPF Ur Epithelial Cells Few (None Seen) /HPF Urine Bacteria Rare A (None Seen) /HPF Urine Culture Reflexed YES (NO) - Progress Progress: improved Progress Note: 78-year-old female presents emergency department for evaluation of dysuria urinary frequency. Physical exam essentially nonremarkable. Urinalysis reveals a urinary tract infection. Patient was on antibiotics over a week ago. Since then patient developed vaginal itching. No discharge. A prescription for Diflucan forwarded to patient's pharmacy. Patient received a dose of Macrobid in our ED. A prescription for the same was forwarded to patient's pharmacy. Patient agrees to follow-up with the primary care doctor within 48 hours for evaluation. Patient voices no other complaints or concerns at this time. Portions of this note were created with voice recognition technology. There may be grammatical, spelling, punctuation or sound alike errors Complexity problem addressed is moderate acute complicated No critical care time Complexity of data reviewed and analyzed is moderate. Test ordered test reviewed. Dr. Wilson independently analyzed the results of the urinalysis and compared the findings with patient's history and physical examination. Risk complication and a risk morbidity/mortality patient management is moderate. A prescription for Macrobid and Diflucan forwarded to patient's pharmacy Stable. Time spent to discharge patient approximately 15 minutes. Plan of care established for shared decision making. No social determinants of health present impede follow-up. Patient will follow-up with primary care doctor within 48 hours for reevaluation. Portions of this note were created with voice recognition technology. There may be grammatical, spelling, punctuation or sound alike errors 12/19/23 17:42 Counseled pt/family regarding: lab results, diagnosis, need for follow-up - Departure Departure Disposition: Home Clinical Impression: Urinary tract infection Condition: Stable Critical Care Time: No Referrals: FERNANDEZ FIERRO MD [Primary Care Provider] - Follow up/PCP as directed Additional Instructions: Discharge/Care Plan MANDIE PA was seen on 12/19/23 in the Emergency Room. The patient was counseled regarding Diagnosis,Lab results, Imaging studies, need for follow up and when to return to the Emergency Room. Prescriptions given: Discharge Note I have spoken with the patient and/or caregivers. I have explained the patient's condition, diagnosis and treatment plan based on the information available to me at this time. I have answered the patient's and/or caregiver's questions and addressed any concerns. The patient and/or caregivers have as good understanding of the patient's diagnosis, condition and treatment plan as can be expected at this point. The vital signs have been stable. The patient's condition is stable and appropriate for discharge from the emergency department. The patient will pursue further outpatient evaluation with the primary care physician or other designated or consulting physician as outlined in the discharge instructions. The patient and/or caregivers are agreeable to this plan of care and follow-up instructions have been explained in detail. The patient and/or caregivers have received these instruction. The patient/and or caregivers are aware that any significant change in condition or worsening of symptoms should prompt an immediate return to this or the closest emergency department or call 911. Prescriptions: Fluconazole [Diflucan] 200 mg PO QDP #2 tablet Nitrofurantoin Macro 100 mg [Macrobid 100MG Capsule] 100 mg PO BID 7 Days #14 cap
[2023-12-19 17:46] VITALS: BP 140/84; PULSE 70; RESP 16
== END 2023-12-19 17:47 | disposition home or self-care (01) ==
LOC: ED 15:42
DX: N39.0 Urinary tract infection, site not specified (principal); R30.0 Dysuria; R35.0 Frequency of micturition; I10 Essential (primary) hypertension; Z79.01 Long term (current) use of anticoagulants; Z79.899 Other long term (current) drug therapy
CPT/HCPCS: 81001; 87086; 99283; A9270-GY

== ENCOUNTER 2024-08-06 12:48 | Observation (INO) | payer MEDICARE ==
--- NOTE | 2024-08-06 13:20 | ERPHSYRPT ---
- History of Present Illness Time Seen by Provider: 08/06/24 13:16 Historian: patient Exam Limitations: no limitations Patient Subjective Stated Complaint: pt c/o of chest pain, shortness of breath and back pain Triage Nursing Assessment: Pt was brought to the ER by a friend, hypertensive, rates pain as 8/10, pulses normal, 4+ pitting edema to joshua lower ext, pain to lower thoracic, shortness of breath when she has chest pain Physician History: 78-year-old female history of A-fib on Eliquis presents to emergency department for evaluation of chest pain and shortness of breath and leg swelling. Patient also experiencing some pain in her back. Symptoms have been ongoing for 2 to 3 days. No trauma no fever. Pain is localized. Pain is substernal. No radiation. No associated nausea vomiting or diaphoresis. No fever. Blood pressure 149/90. Patient states the leg swelling is chronic but somewhat worse today than normal. Patient otherwise feels well. She voices no other complaints or concerns at this time. Portions of this note were created with voice recognition technology. There may be grammatical, spelling, punctuation or sound alike errors Timing/Duration: today Activities at Onset: none Quality: aching Location: substernal Chest Pain Radiation: no radiation Severity of Pain-Max: moderate Severity of Pain-Current: mild Modifying Factors: Improves With: nothing Associated Symptoms: shortness of breath Nitro Today/Relief: no nitro taken today Aspirin Treatment Today: no aspirin today Allergies/Adverse Reactions: codeine Allergy (Verified 08/06/24 13:19) unknown Sulfa (Sulfonamide Antibiotics) Allergy (Verified 08/06/24 13:19) Rash JASBIR Inhibitors Adverse Reaction (Verified 08/06/24 13:19) Cough Home Medications: Amlodipine Besylate [Norvasc] 10 mg PO DAILY 11/25/20 [History] Atorvastatin Calcium [Lipitor 20MG Tablet] 20 mg PO DAILY 11/25/20 [History] Metoprolol Succinate 100 mg PO DAILY 11/25/20 [History] Omeprazole 40 mg PO DAILY 11/25/20 [History] Apixaban [Eliquis] 2.5 mg PO BID 05/09/21 [History] Anastrozole [Arimidex] 1 mg PO DAILY 01/31/23 [History] Calcium Carbonate/Vitamin D3 [Calcium 600-Vit D3 200 Tablet] 1 tab PO DAILY 06/03/23 [History] Cholecalciferol (Vitamin D3) [Vitamin D3] 125 mcg PO DAILY 08/06/24 [History] Cyanocobalamin (Vitamin B-12) [Vitamin B-12] 1,000 mcg PO DAILY 08/06/24 [History] Tramadol HCl 50 mg [Ultram 50 mg] 50 mg PO BID 08/06/24 [History] Hx Tetanus, Diphtheria Vaccination/Date Given: Yes Hx Influenza Vaccination/Date Given: Yes Hx Pneumococcal Vaccination/Date Given: Yes Travel Risk - International Travel Have you traveled outside of the country in past 3 weeks: No - Emerging Infectious Disease Are you exhibiting symptoms associated with any current EIDs: Yes Symptoms: Shortness of Breath - Review of Systems Constitutional: No Symptoms, No Fever, No Chills Eyes: No Symptoms Ears, Nose, & Throat: No Symptoms Respiratory: No Symptoms, No Cough, No Dyspnea Cardiac: No Symptoms, No Chest Pain, No Edema, No Syncope Abdominal/Gastrointestinal: No Symptoms, No Abdominal Pain, No Nausea, No Vomiting, No Diarrhea Genitourinary Symptoms: No Symptoms, No Dysuria Musculoskeletal: No Symptoms, No Back Pain, No Neck Pain Skin: No Symptoms, No Rash Neurological: No Symptoms, No Dizziness, No Focal Weakness, No Sensory Changes Psychological: No Symptoms Endocrine: No Symptoms Hematologic/Lymphatic: No Symptoms Immunological/Allergic: No Symptoms All Other Systems: Reviewed and Negative - Past Medical History Pertinent Past Medical History: Yes Neurological History: No Pertinent History ENT History: Cataracts Cardiac History: Arrhythmia, Hypertension Respiratory History: No Pertinent History Endocrine Medical History: No Pertinent History Musculoskeletal History: Osteoarthritis GI Medical History: No Pertinent History History: No Pertinent History Psycho-Social History: No Pertinent History Female Reproductive Disorders: Breast Cancer Other Medical History: PSH: R TKA 2011, R ANKLE ORIF 2009, HYSTERECTOMY, GALL BLADDER, BREAST CANCER REMOVAL, APPENDECOMY, TONSILLECTOMY. PMH: A-FIB, - Past Surgical History Past Surgical History: Yes Neuro Surgical History: No Pertinent History Cardiac: Cardiac Catheterization Respiratory: No Pertinent History Gastrointestinal: Appendectomy, Cholecystectomy Genitourinary: No Pertinent History Musculoskeletal: Joint Replacement Female Surgical History: Hysterectomy Other Surgical History: R knee, metal in R ankle,. lumpectomy R and L side. lasik on eyes - Social History Smoking Status: Never smoker Exposure to second hand smoke: No Drug Use: none Patient Lives Alone: No - Social Determinants of Health Will the patient participate in the screening: Yes Do you worry about a steady place to live?: No Do you have any problems with any of the following?: No known problems In the past 12 months,have you had to go without utilities?: No Transportation Issues: No Has anyone in your support network made you feel unsafe?: No Have you or anyone in your house had to go without enough: No - Nursing Vital Signs Nursing Vital Signs: Initial Vital Signs Pulse Rate 75 08/06/24 13:00 Respiratory Rate 18 08/06/24 13:00 Blood Pressure 149/90 08/06/24 13:00 O2 Sat by Pulse Oximetry 96 08/06/24 13:00 Pain Scale Pain Intensity 8 - Physical Exam General Appearance: no apparent distress, alert Eye Exam: PERRL/EOMI, eyes nml inspection Ears, Nose, Throat Exam: normal ENT inspection, moist mucous membranes Neck Exam: normal inspection, non-tender, supple, full range of motion Respiratory Exam: normal breath sounds, lungs clear, No respiratory distress Cardiovascular Exam: regular rate/rhythm, normal heart sounds Gastrointestinal/Abdomen Exam: soft, No tenderness, No mass Back Exam: normal inspection, other (Tenderness to palpation thoracic spine), No CVA tenderness, No vertebral tenderness Extremity Exam: normal inspection, normal range of motion, other (4+ lower extremity pitting edema) Neurologic Exam: alert, oriented x 3, cooperative, normal mood/affect, sensation nml, No motor deficits Skin Exam: normal color, warm, dry SpO2 Interpretation: normal SpO2: 98 O2 Delivery: Room Air - Course Nursing assessment & vital signs reviewed: Yes EKG Interpreted by Me: RATE (76), A-fib, NORMAL AXIS, NORMAL INTERVALS, NORMAL QRS (Chronic atrial fibrillation) - Radiology Exams Chest X-ray Interpretation: Teleradiologist Report (Nonacute chest with chronic features) Ordered Tests: Active Orders 24 hr Category Date Time Status Product Marketing Analyst STAT Care 08/06/24 13:23 Active EKG-ER Only STAT Care 08/06/24 13:22 Active IV Insertion STAT Care 08/06/24 13:22 Active Pulse Oximetry (ED) STAT Care 08/06/24 13:22 Active CHEST 1 VIEW (PORTABLE) Stat Exams 08/06/24 13:23 Completed THORACIC SPINE (AP,LAT,SWIMM) Stat Exams 08/06/24 14:44 Ordered CBC W DIFF Stat Lab 08/06/24 13:27 Completed CMP Stat Lab 08/06/24 13:27 Completed NT PRO BNPII Stat Lab 08/06/24 13:27 Completed TROPONIN Q4H Lab 08/06/24 13:27 Completed TROPONIN Q4H Lab 08/06/24 17:30 Ordered TROPONIN Q4H Lab 08/06/24 21:30 Ordered UA W/RFX UR CULTURE Stat Lab 08/06/24 14:13 Ordered Transfer Order Routine Transfer 08/06/24 Ordered Medication Summary Discontinued Medications Generic Name Dose Route Start Last Admin Trade Name Freq PRN Reason Stop Dose Admin Aspirin 81 mg 08/06/24 14:45 Aspirin 81 Mg Tab.Chew PO 08/06/24 14:46 STAT ONE Nitroglycerin 1 gm 08/06/24 14:45 Nitroglycerin 1 Gm Packet TOP 08/06/24 14:46 STAT ONE Lab/Rad Data: Laboratory Result Diagrams 08/06/24 13:27 08/06/24 13:27 Laboratory Results 08/06/24 08/06/24 08/06/24 Range/Units 13:27 13:27 13:27 WBC 3.9 L (3.98-10.04) x10^3/uL RBC 3.75 L (3.93-5.22) x10^6/uL Hgb 12.7 (11.2-15.7) g/dL Hct 37.1 (34.1-44.9) % MCV 98.9 H (79.4-94.8) fL MCH 33.9 H (25.6-32.2) pg MCHC 34.2 (32.2-35.5) g/dL RDW 13.9 (11.7-14.4) % Plt Count 190 (182-369) x10^3/uL MPV 9.5 (9.4-12.3) fL Gran % 68.4 (34.0-71.1) % Immature Gran % (Auto) 0.0 L (0.001-0.429) % Nucleat RBC Rel Count 0.0 (0.00-0.2) % Eos # (Auto) 0.11 (0.04-0.36) x10^3/uL Immature Gran # (Auto) 0.00 L (0.001-0.031) x10^3u/L Absolute Lymphs (auto) 0.60 L (1.18-3.74) x10^3/uL Absolute Monos (auto) 0.51 (0.24-0.86) x10^3/uL Absolute Nucleated RBC 0.00 (0.00-0.012) x10^3u/L Lymphocytes % 15.3 L (19.3-51.7) % Monocytes % 13.0 H (4.7-12.5) % Eosinophils % 2.8 (0.7-5.8) % Basophils % 0.5 (0.1-1.2) % Absolute Granulocytes 2.67 (1.56-6.13) x10^3/uL Basophils # 0.02 (0.01-0.08) x10^3/uL Sodium 139 (135-145) mmol/L Potassium 3.9 (3.5-5.1) mmol/L Chloride 104 (98-107) mmol/L Carbon Dioxide 27 (22-30) mmol/L Anion Gap 11.7 (5-15) MEQ/L BUN 12 (7-17) mg/dL Creatinine 0.79 (0.52-1.04) mg/dL Estimated GFR 76.0 ML/MIN Glucose 108 H (74-106) mg/dL Calcium 9.6 (8.4-10.2) mg/dL Total Bilirubin 1.50 H (0.2-1.3) mg/dL AST 30 (14-36) U/L ALT 19 (0-35) U/L Alkaline Phosphatase 89 (38-126) U/L Troponin I < 0.012 (0.000-0.033) ng/mL NT-Pro-B Natriuret Pep 1380 (<300) pg/mL Serum Total Protein 6.9 (6.3-8.2) g/dL Albumin 4.4 (3.5-5.0) g/dL - Progress Progress: improved Air Movement: good Progress Note: 78-year-old female history of A-fib on Eliquis presents to our ED for evaluation of chest pain shortness of breath leg swelling and back pain. Physical exam reveals some tenderness to the thoracic spine. Patient reports that she is known to have his thoracic spine fracture which was diagnosed in February. Chest x-ray shows no acute findings. No pulmonary edema. Lungs are clear. No tachypnea. O2 sat 98% on room air. BNP marginally elevated at 1380. Initial troponin negative. Laboratory workup otherwise [facility] 08/06/24 14:48 In light of patient's ongoing chest discomfort we decided to admit patient for rule out. Aspirin administered as well as Nitropaste. Case discussed with hospitalist Dr. Cortez. Hospitalist accepts patient at 2:35 PM. Plan of care discussed with patient. She agrees to admission at [facility] for further evaluation and treatment. Portions of this note were created with voice recognition technology. There may be grammatical, spelling, punctuation or sound alike errors Complexity of problem addressed is moderate acute complicated. No critical care time. Complex of data reviewed and analyzed is extensive. Management discussed with hospitalist accepts admission to observation.. Test ordered test reviewed results analyzed and correlated clinically with history and physical exam. Risk of complication and or risk of morbidity/mortality of patient management is high. Patient requires hospitalization for further evaluation and treatment. Vital stable. Time spent admit patient approximately 20 minutes. Plan of care established for shared decision making. No social determinants of health present to impede follow-up. Portions of this note were created with voice recognition technology. There may be grammatical, spelling, punctuation or sound alike errors Blood Culture(s) Obtained: No Antibiotics given: No Counseled pt/family regarding: lab results, diagnosis, rad results - Departure Departure Disposition: Observation Clinical Impression: Chest pain, ACS (acute coronary syndrome), SOB (shortness of breath), Thoracic spine pain, Chronic a-fib Condition: Stable Critical Care Time: No Referrals: FERNANDEZ FIERRO MD [Primary Care Provider] - Follow up/PCP as directed
[2024-08-06 13:31] LABS: Absolute Neutrophil Ct (ANC) 2.67 x10^3/uL (1.56-6.13); BASOPHIL % 0.5 % (0.1-1.2); Basophil (Absolute #) 0.02 x10^3/uL (0.01-0.08); Eosinophil % 2.8 % (0.7-5.8); Eosinophil (Absolute #) 0.11 x10^3/uL (0.04-0.36); Hematocrit 37.1 % (34.1-44.9); Hemoglobin 12.7 g/dL (11.2-15.7); Lymphocytes % 15.3 % (19.3-51.7); Mean Cell Volume 98.9 fL (79.4-94.8); Mean Corpuscular Hemoglobin 33.9 pg (25.6-32.2); Mean Corpuscular Hgb Concent. 34.2 g/dL (32.2-35.5); Mean Platelet Volume 9.5 fL (9.4-12.3); Monocyte (Absolute #) 0.51 x10^3/uL (0.24-0.86); Neutrophil % 68.4 % (34.0-71.1); Platelet Count 190 x10^3/uL (182-369); Red Blood Count 3.75 x10^6/uL (3.93-5.22); Red Cell Distribution Width 13.9 % (11.7-14.4); White Blood Count 3.9 x10^3/uL (3.98-10.04)
[2024-08-06 13:51] LABS: ALBUMIN 4.4 g/dL (3.5-5.0); ANION GAP 11.7 MEQ/L (5-15); BILIRUBIN,TOTAL 1.5 mg/dL (0.2-1.3); Calcium 9.6 mg/dL (8.4-10.2); Creatinine 1 0.79 mg/dL (0.52-1.04); Potassium 3.9 mmol/L (3.5-5.1); Total Protein 6.9 g/dL (6.3-8.2)
--- NOTE | 2024-08-06 14:07 | XRAY ---
Indication: Chest pain. Comparison: January 31, 2023. Portable chest again demonstrates minimal scattered fibrosis/scarring bilaterally. No focal infiltrate, consolidation, or large effusion. Heart remains borderline enlarged. Bony thorax intact again with osteopenia, degenerative changes, and left axillary wanda dissection. Impression: Continued nonacute chest with chronic features.
[2024-08-06] MEDS: NITRO-BID 2% UD PACKETS TOP ONE (14:48)
[2024-08-06] MEDS ORDERED: BABY ASPIRIN 81 MG CHEW ONE (14:48)
[2024-08-06] MEDS ORDERED: NITRO-BID 2% UD PACKETS ONE (14:48)
[2024-08-06] MEDS: BABY ASPIRIN 81 MG CHEW PO ONE (14:49)
--- NOTE | 2024-08-06 15:20 | XRAY ---
Indication: Pain. No known injury. Comparison: None AP/lateral thoracic spine demonstrates 12 rib-bearing segments with osteopenia, minimal/mild multilevel degenerative spondylosis, remote-appearing T5 compression fracture with approximately 25% height loss, and remote-appearing T8 compression fracture with approximately 50% height loss. Incidental scattered aortic calcifications.
[2024-08-06 15:55] LABS: Appearance Clear (Clear); Bacteria None Seen /HPF (None Seen); Bilirubin Negative (Negative); Blood Negative (Negative); Epithelial Cells None Seen /HPF (None Seen); Glucose, Urine Negative (Negative); Hyaline Casts NONE SEEN /LPF (0-2); Ketones Negative (Negative); Leukocyte Esterase Trace (Negative); Nitrite Negative (Negative); Protein,Urine Dip Negative (Negative); RBC 0-2 /HPF (0-5); WBC 0-2 /HPF (0-5)
--- NOTE | 2024-08-06 16:30 | PCM.HP ---
History of Present Illness - Chief Complaint Chief Complaint: Chest pain, ACS Date: 08/06/24 History of Present Illness: is a 78 year old female with a pmhx of AFIB (Eliquis), HTN, Breast Cancer, and OA who presented to ED 08/06/24 with complaints of chest pain, shortness of breath, and BLE edema. Onset of intermittent chest pain was approximately 2-3 days ago. Pain is substernal with no radiation or associated symptoms, dull/achy in characteristic, aggravated with movement, and relieved with position changes. Patient states that she feels the pain due to back pain. She was diagnosed in February with with two compression fractures of her thoracic vertebrae. She rates her pain 6/10 on a numerical pain scale - in her back. Currently she states she is not having pain in her chest. She reports she follows with Dr. Marina Mike (cardiology) with recent Echo with no abnormal findings one month ago. Upon exam BLE noted with R>K pitting edema 4+/3+ - she states this is slightly above baseline for her. Denies fever,cough, sob, abdominal pain, MILLER, dizziness, N/V/D. Upon presentation patient was tachypneic and mildly hypertensive. CXR with no acute cardiopulmonary process. EKG with AFIB HR 76. Lab findings remarkable for leukopenia which appears to be chronic, Tbili of 1.50, and BNP of 1380. Patient given aspirin and nitro in ED. - Review of Systems Constitutional: No Symptoms Eyes: No Symptoms Ears, Nose, & Throat: No Symptoms Respiratory: No Symptoms Cardiac: Chest Pain, Edema (BLE ) Abdominal/Gastrointestinal: No Symptoms Genitourinary Symptoms: No Symptoms Musculoskeletal: Back Pain (6/10) Skin: No Symptoms Neurological: No Symptoms Psychological: No Symptoms Endocrine: No Symptoms Hematologic/Lymphatic: No Symptoms Immunological/Allergic: No Symptoms Medications & Allergies Home Medications: Home Medication List Amlodipine Besylate [Norvasc] 10 mg PO DAILY 11/25/20 [History Confirmed 08/06/24] Atorvastatin Calcium [Lipitor 20MG Tablet] 20 mg PO DAILY 11/25/20 [History Confirmed 08/06/24] Metoprolol Succinate 100 mg PO DAILY 11/25/20 [History Confirmed 08/06/24] Omeprazole 40 mg PO DAILY 11/25/20 [History Confirmed 08/06/24] Apixaban [Eliquis] 2.5 mg PO BID 05/09/21 [History Confirmed 08/06/24] Anastrozole [Arimidex] 1 mg PO DAILY 01/31/23 [History Confirmed 08/06/24] Calcium Carbonate/Vitamin D3 [Calcium 600-Vit D3 200 Tablet] 1 tab PO DAILY 06/03/23 [History Confirmed 08/06/24] Cholecalciferol (Vitamin D3) [Vitamin D3] 125 mcg PO DAILY 08/06/24 [History Confirmed 08/06/24] Cyanocobalamin (Vitamin B-12) [Vitamin B-12] 1,000 mcg PO DAILY 08/06/24 [History Confirmed 08/06/24] Tramadol HCl 50 mg [Ultram 50 mg] 50 mg PO DAILY 08/06/24 [History Confirmed 08/06/24] Allergies/Adverse Reactions: Allergies Allergy/AdvReac Type Severity Reaction Status Date / Time codeine Allergy unknown Verified 08/06/24 13:19 Sulfa (Sulfonamide Allergy Rash Verified 08/06/24 13:19 Antibiotics) JASBIR Inhibitors AdvReac Cough Verified 08/06/24 13:19 - Past Medical History Past Medical History: Yes Neurological History: No Pertinent History ENT History: Cataracts Cardiac History: Arrhythmia, Hypertension Respiratory History: No Pertinent History Endocrine Medical History: No Pertinent History Musculoskelatal History: Osteoarthritis GI Medical History: No Pertinent History History: No Pertinent History Pyscho-Social History: No Pertinent History Reproductive Disorders: Breast Cancer Comment: PSH: R TKA 2011, R ANKLE ORIF 2009, HYSTERECTOMY, GALL BLADDER, BREAST CANCER REMOVAL, APPENDECOMY, TONSILLECTOMY. PMH: A-FIB, - Past Surgical History Past Surgical History: Yes Neuro Surgical History: No Pertinent History Cardiac History: Cardiac Catheterization Respiratory Surgery: No Pertinent History GI Surgical History: Appendectomy, Cholecystectomy Genitourinary Surgical Hx: No Pertinent History Musculskeletal Surgical Hx: Joint Replacement Female Surgical History: Hysterectomy Other Surgical History: R knee, metal in R ankle,. lumpectomy R and L side. lasik on eyes - Social History Smoking Status: Never smoker Exposure to second hand smoke: No Alcohol: None Drug Use: none - Social Determinants of Health Will the patient participate in the screening: Yes Do you worry about a steady place to live?: No Do you have any problems with any of the following?: No known problems In the past 12 months,have you had to go without utilities?: No Have you or anyone in your house had to go without enough: No Transportation Issues: No Has anyone in your support network made you feel unsafe?: No - Physical Exam Vital Signs: Vital Signs - 24 hr Temp Pulse Resp BP BP Pulse Ox 08/06/24 15:05 72 19 124/79 96 08/06/24 15:04 78 25 H 96 08/06/24 15:03 80 23 97 08/06/24 14:52 98 08/06/24 14:30 170/93 08/06/24 14:09 77 19 155/97 98 08/06/24 14:07 77 17 139/119 97 08/06/24 13:36 96 08/06/24 13:31 75 16 120/101 98 08/06/24 13:06 98.3 F 74 29 H 149/90 98 08/06/24 13:00 75 18 149/90 96 General Appearance: no apparent distress Neurologic Exam: alert, oriented x 3, cooperative Eye Exam: PERRL/EOMI Ears, Nose, Throat Exam: normal ENT inspection Neck Exam: normal inspection Respiratory Exam: normal breath sounds, lungs clear Cardiovascular Exam: irregular Gastrointestinal/Abdomen Exam: soft, normal bowel sounds Pelvic Exam: not done Rectal Exam: deferred Back Exam: normal inspection Extremity Exam: swelling (BLE edema R>L 4+/3+) Skin Exam: normal color Results - Labs Lab/Micro Results: Lab Results-Last 24 Hours 08/06/24 08/06/24 08/06/24 Range/Units 13:27 13:27 13:27 WBC 3.9 L (3.98-10.04) x10^3/uL RBC 3.75 L (3.93-5.22) x10^6/uL Hgb 12.7 (11.2-15.7) g/dL Hct 37.1 (34.1-44.9) % MCV 98.9 H (79.4-94.8) fL MCH 33.9 H (25.6-32.2) pg MCHC 34.2 (32.2-35.5) g/dL RDW 13.9 (11.7-14.4) % Plt Count 190 (182-369) x10^3/uL MPV 9.5 (9.4-12.3) fL Gran % 68.4 (34.0-71.1) % Immature Gran % (Auto) 0.0 L (0.001-0.429) % Nucleat RBC Rel Count 0.0 (0.00-0.2) % Eos # (Auto) 0.11 (0.04-0.36) x10^3/uL Immature Gran # (Auto) 0.00 L (0.001-0.031) x10^3u/L Absolute Lymphs (auto) 0.60 L (1.18-3.74) x10^3/uL Absolute Monos (auto) 0.51 (0.24-0.86) x10^3/uL Absolute Nucleated RBC 0.00 (0.00-0.012) x10^3u/L Lymphocytes % 15.3 L (19.3-51.7) % Monocytes % 13.0 H (4.7-12.5) % Eosinophils % 2.8 (0.7-5.8) % Basophils % 0.5 (0.1-1.2) % Absolute Granulocytes 2.67 (1.56-6.13) x10^3/uL Basophils # 0.02 (0.01-0.08) x10^3/uL Sodium 139 (135-145) mmol/L Potassium 3.9 (3.5-5.1) mmol/L Chloride 104 (98-107) mmol/L Carbon Dioxide 27 (22-30) mmol/L Anion Gap 11.7 (5-15) MEQ/L BUN 12 (7-17) mg/dL Creatinine 0.79 (0.52-1.04) mg/dL Estimated GFR 76.0 ML/MIN Glucose 108 H (74-106) mg/dL Calcium 9.6 (8.4-10.2) mg/dL Total Bilirubin 1.50 H (0.2-1.3) mg/dL AST 30 (14-36) U/L ALT 19 (0-35) U/L Alkaline Phosphatase 89 (38-126) U/L Troponin I < 0.012 (0.000-0.033) ng/mL NT-Pro-B Natriuret Pep 1380 (<300) pg/mL Serum Total Protein 6.9 (6.3-8.2) g/dL Albumin 4.4 (3.5-5.0) g/dL Urine Color (Yellow) Urine Appearance (Clear) Urine pH (4.6-8.0) Ur Specific Deaver (1.005-1.030) Urine Protein (Negative) Urine Glucose (UA) (Negative) mg/dL Urine Ketones (Negative) Urine Blood (Negative) Urine Nitrite (Negative) Urine Bilirubin (Negative) Urine Urobilinogen (0.2) mg/dL Ur Leukocyte Esterase (Negative) U Hyaline Cast (Auto) (0-2) /LPF Urine Microscopic RBC (0-5) /HPF Urine Microscopic WBC (0-5) /HPF Ur Epithelial Cells (None Seen) /HPF Urine Bacteria (None Seen) /HPF Urine Culture Reflexed (NO) 08/06/24 Range/Units 14:13 WBC (3.98-10.04) x10^3/uL RBC (3.93-5.22) x10^6/uL Hgb (11.2-15.7) g/dL Hct (34.1-44.9) % MCV (79.4-94.8) fL MCH (25.6-32.2) pg MCHC (32.2-35.5) g/dL RDW (11.7-14.4) % Plt Count (182-369) x10^3/uL MPV (9.4-12.3) fL Gran % (34.0-71.1) % Immature Gran % (Auto) (0.001-0.429) % Nucleat RBC Rel Count (0.00-0.2) % Eos # (Auto) (0.04-0.36) x10^3/uL Immature Gran # (Auto) (0.001-0.031) x10^3u/L Absolute Lymphs (auto) (1.18-3.74) x10^3/uL Absolute Monos (auto) (0.24-0.86) x10^3/uL Absolute Nucleated RBC (0.00-0.012) x10^3u/L Lymphocytes % (19.3-51.7) % Monocytes % (4.7-12.5) % Eosinophils % (0.7-5.8) % Basophils % (0.1-1.2) % Absolute Granulocytes (1.56-6.13) x10^3/uL Basophils # (0.01-0.08) x10^3/uL Sodium (135-145) mmol/L Potassium (3.5-5.1) mmol/L Chloride (98-107) mmol/L Carbon Dioxide (22-30) mmol/L Anion Gap (5-15) MEQ/L BUN (7-17) mg/dL Creatinine (0.52-1.04) mg/dL Estimated GFR ML/MIN Glucose (74-106) mg/dL Calcium (8.4-10.2) mg/dL Total Bilirubin (0.2-1.3) mg/dL AST (14-36) U/L ALT (0-35) U/L Alkaline Phosphatase (38-126) U/L Troponin I (0.000-0.033) ng/mL NT-Pro-B Natriuret Pep (<300) pg/mL Serum Total Protein (6.3-8.2) g/dL Albumin (3.5-5.0) g/dL Urine Color Yellow (Yellow) Urine Appearance Clear (Clear) Urine pH 7.0 (4.6-8.0) Ur Specific Deaver 1.010 (1.005-1.030) Urine Protein Negative (Negative) Urine Glucose (UA) Negative (Negative) mg/dL Urine Ketones Negative (Negative) Urine Blood Negative (Negative) Urine Nitrite Negative (Negative) Urine Bilirubin Negative (Negative) Urine Urobilinogen 1.0 A (0.2) mg/dL Ur Leukocyte Esterase Trace A (Negative) U Hyaline Cast (Auto) NONE SEEN (0-2) /LPF Urine Microscopic RBC 0-2 (0-5) /HPF Urine Microscopic WBC 0-2 (0-5) /HPF Ur Epithelial Cells None Seen (None Seen) /HPF Urine Bacteria None Seen (None Seen) /HPF Urine Culture Reflexed NO (NO) - Radiology Impressions Radiology Exams & Impressions: Radiology Procedures Category Date Time Status CHEST 1 VIEW (PORTABLE) Stat Exams 08/06/24 13:23 Completed THORACIC SPINE (AP,LAT,SWIMM) Stat Exams 08/06/24 14:44 Completed Assessment/Plan (1) Chest pain Current Visit: Yes Status: Acute Assessment & Plan: -EKG with AFIB - HR controlled -Initial trop WNL - continue series -repeat EKG in the a.m. -Pain could be secondary to thoracic compression fractures - pain control -Recent echo with Ramesh - will obtain records -CXR nonacute Code(s): R07.9 - CHEST PAIN, UNSPECIFIED (2) Compression fracture of thoracic vertebra Current Visit: Yes Status: Acute Assessment & Plan: -Xray showing 12 rib-bearing segments with osteopenia, minimal/mild multilevel degenerative spondylosis, remote-appearing T5 compression fracture with approximately 25% height loss, and remote-appearing T8 compression fracture with approximately 50% height loss -Will set patient up with pain management -Pain control for now Code(s): S22.000A - WEDGE COMPRESSION FRACTURE OF UNSP THORACIC VERTEBRA, INIT (3) History of breast cancer Current Visit: Yes Status: Acute Assessment & Plan: -S/P radiation -no chemo - follows with (radiation oncology) Code(s): Z85.3 - PERSONAL HISTORY OF MALIGNANT NEOPLASM OF BREAST (4) Bilateral lower extremity edema Current Visit: Yes Status: Acute Assessment & Plan: -lasix IV 40mg daily Code(s): R60.0 - LOCALIZED EDEMA (5) Chronic a-fib Current Visit: Yes Status: Acute Assessment & Plan: -continue home metoprolol/ eliquis Code(s): I48.20 - CHRONIC ATRIAL FIBRILLATION, UNSPECIFIED (6) HLD (hyperlipidemia) Current Visit: No Status: Acute Assessment & Plan: -continue home statin Code(s): E78.5 - HYPERLIPIDEMIA, UNSPECIFIED (7) Leukopenia Current Visit: Yes Status: Acute Assessment & Plan: -? secondary to arimidex - although rare - appears chronic -Continue to monitor Code(s): D72.819 - DECREASED WHITE BLOOD CELL COUNT, UNSPECIFIED (8) Hypertension Current Visit: No Status: Acute Assessment & Plan: -continue home amlodipine VTE: eliquis Dispo: 1-2 days Code status: Full code Code(s): I10 - ESSENTIAL (PRIMARY) HYPERTENSION Telemedicine Encounter - Telemedicine Encounter Telemedicine Encounter: "The entirety of this encounter was performed via Telemedicine" This visit was performed using real-time audio and video connection between my location and thepatients locationwith the assistance of a surrogateat the patients location. Written or verbal consent was obtained from the patient/guardian to perform this visit usingsynchrACB ([place]) Limitedtelemedicine technology. Any patient questions regarding the telemedicine interaction were answered.
[2024-08-06] MEDS ORDERED: TYLENOL 325 MG PO PRN (17:20)
[2024-08-06] MEDS ORDERED: Zofran 4 MG/2 ML VIAL IV PRN (17:20)
[2024-08-06] MEDS ORDERED: Nitrostat 0.4 MG Tablet SL PRN (17:20)
[2024-08-06] MEDS: Lasix 40 MG/4 ML IV ONE (17:32)
[2024-08-06] MEDS: PROTONIX 40 MG IV IV ONE (19:17)
[2024-08-06] MEDS: ULTRAM 50 MG PO PRN (21:42)
[2024-08-06] MEDS: ELIQUIS 2.5 MG TABLET PO SCH (21:42)
[2024-08-06] MEDS ORDERED: NON-FORMULARY ITEM (Apixaban [Eliquis] 5 MG Tablet) PO SCH (22:00)
[2024-08-06] MEDS: Lidoderm Patch 5% TOP SCH (22:14)
[2024-08-07 04:58] LABS: Absolute Neutrophil Ct (ANC) 2.16 x10^3/uL (1.56-6.13); BASOPHIL % 0.6 % (0.1-1.2); Basophil (Absolute #) 0.02 x10^3/uL (0.01-0.08); Eosinophil % 2.8 % (0.7-5.8); Hematocrit 35.3 % (34.1-44.9); Hemoglobin 12.1 g/dL (11.2-15.7); IMMATURE GRAN # 0.01 x10^3u/L (0.001-0.031); IMMATURE GRAN % 0.3 % (0.001-0.429); Lymphocytes % 19.7 % (19.3-51.7); Mean Cell Volume 98.6 fL (79.4-94.8); Mean Corpuscular Hemoglobin 33.8 pg (25.6-32.2); Mean Corpuscular Hgb Concent. 34.3 g/dL (32.2-35.5); Monocyte (Absolute #) 0.56 x10^3/uL (0.24-0.86); Monocytes % 15.8 % (4.7-12.5); Neutrophil % 60.8 % (34.0-71.1); Platelet Count 192 x10^3/uL (182-369); Red Blood Count 3.58 x10^6/uL (3.93-5.22); Red Cell Distribution Width 14.6 % (11.7-14.4); White Blood Count 3.6 x10^3/uL (3.98-10.04)
[2024-08-07 05:21] LABS: ALBUMIN 3.9 g/dL (3.5-5.0); ANION GAP 9.5 MEQ/L (5-15); BILIRUBIN,TOTAL 1.5 mg/dL (0.2-1.3); Calcium 8.9 mg/dL (8.4-10.2); Creatinine 1 0.87 mg/dL (0.52-1.04); EST GLOMERULAR FILTRATION RATE 67.7 ML/MIN; Potassium 3.4 mmol/L (3.5-5.1); Total Protein 6.5 g/dL (6.3-8.2)
--- NOTE | 2024-08-07 05:22 | PCM.NOTE ---
Date and Time: 08/07/24520 Subjective Assessment: is a 78 year old female with a pmhx of AFIB (Eliquis), HTN, Breast Cancer, and OA who presented to ED 08/06/24 with complaints of chest pain, shortness of breath, and BLE edema. Onset of intermittent chest pain was approximately 2-3 days ago. Pain is substernal with no radiation or associated symptoms, dull/achy in characteristic, aggravated with movement, and relieved with position changes. Patient states that she feels the pain due to back pain. She was diagnosed in February with with two compression fractures of her thoracic vertebrae. She rates her pain 6/10 on a numerical pain scale - in her back. Currently she states she is not having pain in her chest. She reports she follows with Dr. Marina Mike (cardiology) with recent Echo with no abnormal findings one month ago. Upon exam BLE noted with R>K pitting edema 4+/3+ - she states this is slightly above baseline for her. Denies fever,cough, sob, abdominal pain, MILLER, dizziness, N/V/D.Upon presentation patient was tachypneic and mildly hypertensive. CXR with no acute cardiopulmonary process. EKG with AFIB HR 76. Lab findings remarkable for leukopenia which appears to be chronic, Tbili of 1.50, and BNP of 1380. Patient given aspirin and nitro in ED. Objective Data Vital Signs: Vital Signs - 24 hr Temp Pulse Resp BP BP Pulse Ox 08/07/24 03:52 98.0 F 65 16 127/67 95 08/06/24 23:52 97.4 F 74 16 130/69 93 L 08/06/24 18:00 98.2 F 86 17 126/61 95 08/06/24 17:44 88 16 97 08/06/24 16:19 96.9 F 78 18 138/85 95 08/06/24 15:05 72 19 124/79 96 08/06/24 15:04 78 25 H 96 08/06/24 15:03 80 23 97 08/06/24 14:52 98 08/06/24 14:30 170/93 08/06/24 14:09 77 19 155/97 98 08/06/24 14:07 77 17 139/119 97 08/06/24 13:36 96 08/06/24 13:31 75 16 120/101 98 08/06/24 13:06 98.3 F 74 29 H 149/90 98 08/06/24 13:00 75 18 149/90 96 Pain Assessment - Last Documented Pain Intensity 4 Intake and Output: Intake & Output 08/04/24 08/05/24 08/06/24 08/07/24 11:59 11:59 11:59 11:59 Intake Total 760 Balance 760 Weight 105.3 kg Lab Results: Lab Results-Last 24 Hours 08/06/24 08/06/24 08/06/24 Range/Units 13:27 13:27 13:27 WBC 3.9 L (3.98-10.04) x10^3/uL RBC 3.75 L (3.93-5.22) x10^6/uL Hgb 12.7 (11.2-15.7) g/dL Hct 37.1 (34.1-44.9) % MCV 98.9 H (79.4-94.8) fL MCH 33.9 H (25.6-32.2) pg MCHC 34.2 (32.2-35.5) g/dL RDW 13.9 (11.7-14.4) % Plt Count 190 (182-369) x10^3/uL MPV 9.5 (9.4-12.3) fL Gran % 68.4 (34.0-71.1) % Immature Gran % (Auto) 0.0 L (0.001-0.429) % Nucleat RBC Rel Count 0.0 (0.00-0.2) % Eos # (Auto) 0.11 (0.04-0.36) x10^3/uL Immature Gran # (Auto) 0.00 L (0.001-0.031) x10^3u/L Absolute Lymphs (auto) 0.60 L (1.18-3.74) x10^3/uL Absolute Monos (auto) 0.51 (0.24-0.86) x10^3/uL Absolute Nucleated RBC 0.00 (0.00-0.012) x10^3u/L Lymphocytes % 15.3 L (19.3-51.7) % Monocytes % 13.0 H (4.7-12.5) % Eosinophils % 2.8 (0.7-5.8) % Basophils % 0.5 (0.1-1.2) % Absolute Granulocytes 2.67 (1.56-6.13) x10^3/uL Basophils # 0.02 (0.01-0.08) x10^3/uL Sodium 139 (135-145) mmol/L Potassium 3.9 (3.5-5.1) mmol/L Chloride 104 (98-107) mmol/L Carbon Dioxide 27 (22-30) mmol/L Anion Gap 11.7 (5-15) MEQ/L BUN 12 (7-17) mg/dL Creatinine 0.79 (0.52-1.04) mg/dL Estimated GFR 76.0 ML/MIN Glucose 108 H (74-106) mg/dL Calcium 9.6 (8.4-10.2) mg/dL Total Bilirubin 1.50 H (0.2-1.3) mg/dL AST 30 (14-36) U/L ALT 19 (0-35) U/L Alkaline Phosphatase 89 (38-126) U/L Troponin I < 0.012 (0.000-0.033) ng/mL NT-Pro-B Natriuret Pep 1380 (<300) pg/mL Serum Total Protein 6.9 (6.3-8.2) g/dL Albumin 4.4 (3.5-5.0) g/dL Urine Color (Yellow) Urine Appearance (Clear) Urine pH (4.6-8.0) Ur Specific Kiester (1.005-1.030) Urine Protein (Negative) Urine Glucose (UA) (Negative) mg/dL Urine Ketones (Negative) Urine Blood (Negative) Urine Nitrite (Negative) Urine Bilirubin (Negative) Urine Urobilinogen (0.2) mg/dL Ur Leukocyte Esterase (Negative) U Hyaline Cast (Auto) (0-2) /LPF Urine Microscopic RBC (0-5) /HPF Urine Microscopic WBC (0-5) /HPF Ur Epithelial Cells (None Seen) /HPF Urine Bacteria (None Seen) /HPF Urine Culture Reflexed (NO) 08/06/24 08/06/24 08/06/24 Range/Units 14:13 17:17 21:12 WBC (3.98-10.04) x10^3/uL RBC (3.93-5.22) x10^6/uL Hgb (11.2-15.7) g/dL Hct (34.1-44.9) % MCV (79.4-94.8) fL MCH (25.6-32.2) pg MCHC (32.2-35.5) g/dL RDW (11.7-14.4) % Plt Count (182-369) x10^3/uL MPV (9.4-12.3) fL Gran % (34.0-71.1) % Immature Gran % (Auto) (0.001-0.429) % Nucleat RBC Rel Count (0.00-0.2) % Eos # (Auto) (0.04-0.36) x10^3/uL Immature Gran # (Auto) (0.001-0.031) x10^3u/L Absolute Lymphs (auto) (1.18-3.74) x10^3/uL Absolute Monos (auto) (0.24-0.86) x10^3/uL Absolute Nucleated RBC (0.00-0.012) x10^3u/L Lymphocytes % (19.3-51.7) % Monocytes % (4.7-12.5) % Eosinophils % (0.7-5.8) % Basophils % (0.1-1.2) % Absolute Granulocytes (1.56-6.13) x10^3/uL Basophils # (0.01-0.08) x10^3/uL Sodium (135-145) mmol/L Potassium (3.5-5.1) mmol/L Chloride (98-107) mmol/L Carbon Dioxide (22-30) mmol/L Anion Gap (5-15) MEQ/L BUN (7-17) mg/dL Creatinine (0.52-1.04) mg/dL Estimated GFR ML/MIN Glucose (74-106) mg/dL Calcium (8.4-10.2) mg/dL Total Bilirubin (0.2-1.3) mg/dL AST (14-36) U/L ALT (0-35) U/L Alkaline Phosphatase (38-126) U/L Troponin I < 0.012 < 0.012 (0.000-0.033) ng/mL NT-Pro-B Natriuret Pep (<300) pg/mL Serum Total Protein (6.3-8.2) g/dL Albumin (3.5-5.0) g/dL Urine Color Yellow (Yellow) Urine Appearance Clear (Clear) Urine pH 7.0 (4.6-8.0) Ur Specific Kiester 1.010 (1.005-1.030) Urine Protein Negative (Negative) Urine Glucose (UA) Negative (Negative) mg/dL Urine Ketones Negative (Negative) Urine Blood Negative (Negative) Urine Nitrite Negative (Negative) Urine Bilirubin Negative (Negative) Urine Urobilinogen 1.0 A (0.2) mg/dL Ur Leukocyte Esterase Trace A (Negative) U Hyaline Cast (Auto) NONE SEEN (0-2) /LPF Urine Microscopic RBC 0-2 (0-5) /HPF Urine Microscopic WBC 0-2 (0-5) /HPF Ur Epithelial Cells None Seen (None Seen) /HPF Urine Bacteria None Seen (None Seen) /HPF Urine Culture Reflexed NO (NO) 08/07/24 Range/Units 04:45 WBC 3.6 L (3.98-10.04) x10^3/uL RBC 3.58 L (3.93-5.22) x10^6/uL Hgb 12.1 (11.2-15.7) g/dL Hct 35.3 (34.1-44.9) % MCV 98.6 H (79.4-94.8) fL MCH 33.8 H (25.6-32.2) pg MCHC 34.3 (32.2-35.5) g/dL RDW 14.6 H (11.7-14.4) % Plt Count 192 (182-369) x10^3/uL MPV 10.0 (9.4-12.3) fL Gran % 60.8 (34.0-71.1) % Immature Gran % (Auto) 0.3 (0.001-0.429) % Nucleat RBC Rel Count 0.0 (0.00-0.2) % Eos # (Auto) 0.10 (0.04-0.36) x10^3/uL Immature Gran # (Auto) 0.01 (0.001-0.031) x10^3u/L Absolute Lymphs (auto) 0.70 L (1.18-3.74) x10^3/uL Absolute Monos (auto) 0.56 (0.24-0.86) x10^3/uL Absolute Nucleated RBC 0.00 (0.00-0.012) x10^3u/L Lymphocytes % 19.7 (19.3-51.7) % Monocytes % 15.8 H (4.7-12.5) % Eosinophils % 2.8 (0.7-5.8) % Basophils % 0.6 (0.1-1.2) % Absolute Granulocytes 2.16 (1.56-6.13) x10^3/uL Basophils # 0.02 (0.01-0.08) x10^3/uL Sodium (135-145) mmol/L Potassium (3.5-5.1) mmol/L Chloride (98-107) mmol/L Carbon Dioxide (22-30) mmol/L Anion Gap (5-15) MEQ/L BUN (7-17) mg/dL Creatinine (0.52-1.04) mg/dL Estimated GFR ML/MIN Glucose (74-106) mg/dL Calcium (8.4-10.2) mg/dL Total Bilirubin (0.2-1.3) mg/dL AST (14-36) U/L ALT (0-35) U/L Alkaline Phosphatase (38-126) U/L Troponin I (0.000-0.033) ng/mL NT-Pro-B Natriuret Pep (<300) pg/mL Serum Total Protein (6.3-8.2) g/dL Albumin (3.5-5.0) g/dL Urine Color (Yellow) Urine Appearance (Clear) Urine pH (4.6-8.0) Ur Specific Kiester (1.005-1.030) Urine Protein (Negative) Urine Glucose (UA) (Negative) mg/dL Urine Ketones (Negative) Urine Blood (Negative) Urine Nitrite (Negative) Urine Bilirubin (Negative) Urine Urobilinogen (0.2) mg/dL Ur Leukocyte Esterase (Negative) U Hyaline Cast (Auto) (0-2) /LPF Urine Microscopic RBC (0-5) /HPF Urine Microscopic WBC (0-5) /HPF Ur Epithelial Cells (None Seen) /HPF Urine Bacteria (None Seen) /HPF Urine Culture Reflexed (NO) Radiology Exams: Radiology Procedures Category Date Time Status CHEST 1 VIEW (PORTABLE) Stat Exams 08/06/24 13:23 Completed THORACIC SPINE (AP,LAT,SWIMM) Stat Exams 08/06/24 14:44 Completed Assessment/Plan (1) Chest pain Current Visit: Yes Status: Acute Assessment & Plan: -EKG with AFIB - HR controlled -Initial trop WNL - continue series -repeat EKG in the a.m. -Pain could be secondary to thoracic compression fractures - pain control -Recent echo with Ramesh - will obtain records -CXR nonacute Code(s): R07.9 - CHEST PAIN, UNSPECIFIED (2) Compression fracture of thoracic vertebra Current Visit: Yes Status: Acute Assessment & Plan: -Xray showing 12 rib-bearing segments with osteopenia, minimal/mild multilevel degenerative spondylosis, remote-appearing T5 compression fracture with approximately 25% height loss, and remote-appearing T8 compression fracture with approximately 50% height loss -Will set patient up with pain management -Pain control for now Code(s): S22.000A - WEDGE COMPRESSION FRACTURE OF UNSP THORACIC VERTEBRA, INIT ##Hypokalemia -most likely secondary to diuresis -will replenish per protocol (3) History of breast cancer Current Visit: Yes Status: Acute Assessment & Plan: -S/P radiation -no chemo - follows with (radiation oncology) Code(s): Z85.3 - PERSONAL HISTORY OF MALIGNANT NEOPLASM OF BREAST (4) Bilateral lower extremity edema Current Visit: Yes Status: Acute Assessment & Plan: -lasix IV 40mg daily Code(s): R60.0 - LOCALIZED EDEMA (5) Chronic a-fib Current Visit: Yes Status: Acute Assessment & Plan: -continue home metoprolol/ eliquis Code(s): I48.20 - CHRONIC ATRIAL FIBRILLATION, UNSPECIFIED (6) HLD (hyperlipidemia) Current Visit: No Status: Acute Assessment & Plan: -continue home statin Code(s): E78.5 - HYPERLIPIDEMIA, UNSPECIFIED (7) Leukopenia Current Visit: Yes Status: Acute Assessment & Plan: -? secondary to arimidex - although rare - appears chronic -Continue to monitor Code(s): D72.819 - DECREASED WHITE BLOOD CELL COUNT, UNSPECIFIED (8) Hypertension Current Visit: No Status: Acute Assessment & Plan: -continue home amlodipine VTE: eliquis Dispo: 1-2 days Code status: Full code Code(s): I10 - ESSENTIAL (PRIMARY) HYPERTENSION Code(s): R07.9 - CHEST PAIN, UNSPECIFIED (2) Compression fracture of thoracic vertebra Current Visit: Yes Status: Acute Code(s): S22.000A - WEDGE COMPRESSION FRACTURE OF UNSP THORACIC VERTEBRA, INIT (3) History of breast cancer Current Visit: Yes Status: Acute Code(s): Z85.3 - PERSONAL HISTORY OF MALIGNANT NEOPLASM OF BREAST (4) Bilateral lower extremity edema Current Visit: Yes Status: Acute Code(s): R60.0 - LOCALIZED EDEMA (5) Chronic a-fib Current Visit: Yes Status: Acute Code(s): I48.20 - CHRONIC ATRIAL FIBRILLATION, UNSPECIFIED (6) HLD (hyperlipidemia) Current Visit: No Status: Acute Code(s): E78.5 - HYPERLIPIDEMIA, UNSPECIFIED (7) Leukopenia Current Visit: Yes Status: Acute Code(s): D72.819 - DECREASED WHITE BLOOD CELL COUNT, UNSPECIFIED (8) Hypertension Current Visit: No Status: Acute Code(s): I10 - ESSENTIAL (PRIMARY) HYPERTENSION (9) Hypokalemia Current Visit: Yes Status: Acute Code(s): E87.6 - HYPOKALEMIA
[2024-08-07] MEDS: Klor Con PO ONE (05:40)
[2024-08-07] MEDS ORDERED: MEDICATION INTERVENTION MC SCH (07:30)
[2024-08-07 07:34] VITALS: TEMP 97.7
[2024-08-07] MEDS: VITAMIN D PO SCH (08:41)
[2024-08-07] MEDS: Toprol Xl 100 MG PO SCH (08:44)
[2024-08-07] MEDS: Calcium 500MG W/Vit D Tablet PO SCH (08:44)
[2024-08-07] MEDS: ZOCOR 20MG PO SCH (08:45)
[2024-08-07] MEDS: Protonix 40MG Tablet PO SCH (08:45)
[2024-08-07] MEDS: Lasix 40 MG/4 ML IV SCH (08:46)
[2024-08-07] MEDS: Vitamin B-12 500 MCG PO SCH (08:46)
[2024-08-07] MEDS: NORVASC 5 MG PO SCH (08:46)
[2024-08-07] MEDS ORDERED: NON-FORMULARY ITEM (Omeprazole [Omeprazole] 20 MG Capsule.Dr) PO SCH (10:00)
[2024-08-07] MEDS ORDERED: NON-FORMULARY ITEM (Amlodipine Besylate [Norvasc] 5 MG) PO SCH (10:00)
[2024-08-07] MEDS ORDERED: NON-FORMULARY ITEM (Calcium Carbonate/Vitamin D3 [Calcium 600-Vit D3 200 Tablet] 1 EACH Ta PO SCH (10:00)
[2024-08-07] MEDS ORDERED: NON-FORMULARY ITEM (Amlodipine Besylate [Norvasc] 10 MG Tablet) PO SCH (10:00)
[2024-08-07] MEDS ORDERED: NON-FORMULARY ITEM (Cyanocobalamin (Vitamin B-12) [Vitamin B-12] 1,000 MCG Capsule) PO SCH (10:00)
[2024-08-07] MEDS ORDERED: NON-FORMULARY ITEM (Atorvastatin Calcium 20 MG Tab) PO SCH (10:00)
[2024-08-07] MEDS ORDERED: NON-FORMULARY ITEM (Cholecalciferol (Vitamin D3) [Vitamin D3] 125 MCG Capsule) PO SCH (10:00)
[2024-08-07] MEDS ORDERED: NON-FORMULARY ITEM (Anastrozole [Arimidex] 1 MG Tablet) PO SCH (10:00)
--- NOTE | 2024-08-07 10:22 | PCM.DS ---
Discharge Summary Date of Admission: 08/06/24 16:08 Date of Discharge: 08/07/24 Admitting Physician: NAV REGAN MD Primary Care Provider: SRI,FERNANDEZ Allergies Allergies codeine Allergy (Verified 08/06/24 13:19) unknown Sulfa (Sulfonamide Antibiotics) Allergy (Verified 08/06/24 13:19) Rash JASBIR Inhibitors Adverse Reaction (Verified 08/06/24 13:19) Cough Hospital Summary - Hospital Course Hospital Course: is a 78 year old female with a pmhx of AFIB (Eliquis), HTN, Breast Cancer, and OA who presented to ED 08/06/24 with complaints of chest pain, shortness of breath, and BLE edema. Onset of intermittent chest pain was approximately 2-3 days ago. Pain is substernal with no radiation or associated symptoms, dull/achy in characteristic, aggravated with movement, and relieved with position changes. Patient states that she feels the pain due to back pain. She was diagnosed in February with with two compression fractures of her thoracic vertebrae. She rates her pain 6/10 on a numerical pain scale - in her back. Currently she states she is not having pain in her chest. She reports she follows with Dr. Marina Mike (cardiology) with recent Echo with no abnormal findings one month ago. Upon exam BLE noted with R>K pitting edema 4+/3+ - she states this is slightly above baseline for her. Denies fever,cough, sob, abdominal pain, MILLER, dizziness, N/V/D.Upon presentation patient was tachypneic and mildly hypertensive. CXR with no acute cardiopulmonary process. EKG with AFIB HR 76. Lab findings remarkable for leukopenia which appears to be chronic, Tbili of 1.50, and BNP of 1380. Patient given aspirin and nitro in ED. No further episode of chest pressure. EKG and troponin series unremarkable. Patient is set up with pain management - she will follow up with them for her chronic back pain. She reports that she has tramadol at home. Patient agreeable to plan and stable for discharge. Discharge Note New Diagnosis: CP New Medications: none Follow Up: pain management Results pending: none Latest Assessment & Plan (1) Chest pain Current Visit: Yes Status: Acute Assessment & Plan: -EKG with AFIB - HR controlled x 2 -trop series wnl -Pain most likely secondary to thoracic compression fractures - pain control with pain management -Recent echo with Ramesh - will obtain records -CXR nonacute Code(s): R07.9 - CHEST PAIN, UNSPECIFIED (2) Compression fracture of thoracic vertebra Current Visit: Yes Status: Acute Assessment & Plan: -Xray showing 12 rib-bearing segments with osteopenia, minimal/mild multilevel degenerative spondylosis, remote-appearing T5 compression fracture with approximately 25% height loss, and remote-appearing T8 compression fracture with approximately 50% height loss -Patient sees Dr. Glasgow Code(s): S22.000A - WEDGE COMPRESSION FRACTURE OF UNSP THORACIC VERTEBRA, INIT ##Hypokalemia -resolved (3) History of breast cancer Current Visit: Yes Status: Acute Assessment & Plan: -S/P radiation -no chemo - follows with (radiation oncology) Code(s): Z85.3 - PERSONAL HISTORY OF MALIGNANT NEOPLASM OF BREAST (4) Bilateral lower extremity edema Current Visit: Yes Status: Acute Assessment & Plan: -lasix IV 40mg daily Code(s): R60.0 - LOCALIZED EDEMA (5) Chronic a-fib Current Visit: Yes Status: Acute Assessment & Plan: -continue home metoprolol/ eliquis Code(s): I48.20 - CHRONIC ATRIAL FIBRILLATION, UNSPECIFIED (6) HLD (hyperlipidemia) Current Visit: No Status: Acute Assessment & Plan: -continue home statin Code(s): E78.5 - HYPERLIPIDEMIA, UNSPECIFIED (7) Leukopenia Current Visit: Yes Status: Acute Assessment & Plan: -? secondary to arimidex - although rare - appears chronic -Continue to monitor Code(s): D72.819 - DECREASED WHITE BLOOD CELL COUNT, UNSPECIFIED (8) Hypertension Current Visit: No Status: Acute Assessment & Plan: -continue home amlodipine I spent 35 minutes [id number] with the patient on the day of discharge performing discharge exam, discussing hospital stay and discharge instructions with patient and caregivers, preparation of discharge records, prescriptions & referral forms and addressing any questions/concerns the patient had as documented above. - Vitals & Intake/Output Vital Signs: Vital Signs Temperature 97.7 F 08/07/24 07:34 Pulse Rate 84 08/07/24 07:34 Respiratory Rate 20 08/07/24 07:34 Blood Pressure 177/79 08/07/24 07:34 O2 Sat by Pulse Oximetry 93 L 08/07/24 07:34 Intake & Output: Intake & Output 08/04/24 08/05/24 08/06/24 08/07/24 11:59 11:59 11:59 11:59 Intake Total 1000 Balance 1000 Weight 105 kg - Lab Result Diagrams: 08/07/24 04:45 08/07/24 04:45 Lab Results-Last 24 Hrs: Lab Results-Last 24 Hours 08/06/24 08/06/24 08/06/24 Range/Units 13:27 13:27 13:27 WBC 3.9 L (3.98-10.04) x10^3/uL RBC 3.75 L (3.93-5.22) x10^6/uL Hgb 12.7 (11.2-15.7) g/dL Hct 37.1 (34.1-44.9) % MCV 98.9 H (79.4-94.8) fL MCH 33.9 H (25.6-32.2) pg MCHC 34.2 (32.2-35.5) g/dL RDW 13.9 (11.7-14.4) % Plt Count 190 (182-369) x10^3/uL MPV 9.5 (9.4-12.3) fL Gran % 68.4 (34.0-71.1) % Immature Gran % (Auto) 0.0 L (0.001-0.429) % Nucleat RBC Rel Count 0.0 (0.00-0.2) % Eos # (Auto) 0.11 (0.04-0.36) x10^3/uL Immature Gran # (Auto) 0.00 L (0.001-0.031) x10^3u/L Absolute Lymphs (auto) 0.60 L (1.18-3.74) x10^3/uL Absolute Monos (auto) 0.51 (0.24-0.86) x10^3/uL Absolute Nucleated RBC 0.00 (0.00-0.012) x10^3u/L Lymphocytes % 15.3 L (19.3-51.7) % Monocytes % 13.0 H (4.7-12.5) % Eosinophils % 2.8 (0.7-5.8) % Basophils % 0.5 (0.1-1.2) % Absolute Granulocytes 2.67 (1.56-6.13) x10^3/uL Basophils # 0.02 (0.01-0.08) x10^3/uL Sodium 139 (135-145) mmol/L Potassium 3.9 (3.5-5.1) mmol/L Chloride 104 (98-107) mmol/L Carbon Dioxide 27 (22-30) mmol/L Anion Gap 11.7 (5-15) MEQ/L BUN 12 (7-17) mg/dL Creatinine 0.79 (0.52-1.04) mg/dL Estimated GFR 76.0 ML/MIN Glucose 108 H (74-106) mg/dL Calcium 9.6 (8.4-10.2) mg/dL Total Bilirubin 1.50 H (0.2-1.3) mg/dL AST 30 (14-36) U/L ALT 19 (0-35) U/L Alkaline Phosphatase 89 (38-126) U/L Troponin I < 0.012 (0.000-0.033) ng/mL NT-Pro-B Natriuret Pep 1380 (<300) pg/mL Serum Total Protein 6.9 (6.3-8.2) g/dL Albumin 4.4 (3.5-5.0) g/dL Urine Color (Yellow) Urine Appearance (Clear) Urine pH (4.6-8.0) Ur Specific [place] (1.005-1.030) Urine Protein (Negative) Urine Glucose (UA) (Negative) mg/dL Urine Ketones (Negative) Urine Blood (Negative) Urine Nitrite (Negative) Urine Bilirubin (Negative) Urine Urobilinogen (0.2) mg/dL Ur Leukocyte Esterase (Negative) U Hyaline Cast (Auto) (0-2) /LPF Urine Microscopic RBC (0-5) /HPF Urine Microscopic WBC (0-5) /HPF Ur Epithelial Cells (None Seen) /HPF Urine Bacteria (None Seen) /HPF Urine Culture Reflexed (NO) 08/06/24 08/06/24 08/06/24 Range/Units 14:13 17:17 21:12 WBC (3.98-10.04) x10^3/uL RBC (3.93-5.22) x10^6/uL Hgb (11.2-15.7) g/dL Hct (34.1-44.9) % MCV (79.4-94.8) fL MCH (25.6-32.2) pg MCHC (32.2-35.5) g/dL RDW (11.7-14.4) % Plt Count (182-369) x10^3/uL MPV (9.4-12.3) fL Gran % (34.0-71.1) % Immature Gran % (Auto) (0.001-0.429) % Nucleat RBC Rel Count (0.00-0.2) % Eos # (Auto) (0.04-0.36) x10^3/uL Immature Gran # (Auto) (0.001-0.031) x10^3u/L Absolute Lymphs (auto) (1.18-3.74) x10^3/uL Absolute Monos (auto) (0.24-0.86) x10^3/uL Absolute Nucleated RBC (0.00-0.012) x10^3u/L Lymphocytes % (19.3-51.7) % Monocytes % (4.7-12.5) % Eosinophils % (0.7-5.8) % Basophils % (0.1-1.2) % Absolute Granulocytes (1.56-6.13) x10^3/uL Basophils # (0.01-0.08) x10^3/uL Sodium (135-145) mmol/L Potassium (3.5-5.1) mmol/L Chloride (98-107) mmol/L Carbon Dioxide (22-30) mmol/L Anion Gap (5-15) MEQ/L BUN (7-17) mg/dL Creatinine (0.52-1.04) mg/dL Estimated GFR ML/MIN Glucose (74-106) mg/dL Calcium (8.4-10.2) mg/dL Total Bilirubin (0.2-1.3) mg/dL AST (14-36) U/L ALT (0-35) U/L Alkaline Phosphatase (38-126) U/L Troponin I < 0.012 < 0.012 (0.000-0.033) ng/mL NT-Pro-B Natriuret Pep (<300) pg/mL Serum Total Protein (6.3-8.2) g/dL Albumin (3.5-5.0) g/dL Urine Color Yellow (Yellow) Urine Appearance Clear (Clear) Urine pH 7.0 (4.6-8.0) Ur Specific [place] 1.010 (1.005-1.030) Urine Protein Negative (Negative) Urine Glucose (UA) Negative (Negative) mg/dL Urine Ketones Negative (Negative) Urine Blood Negative (Negative) Urine Nitrite Negative (Negative) Urine Bilirubin Negative (Negative) Urine Urobilinogen 1.0 A (0.2) mg/dL Ur Leukocyte Esterase Trace A (Negative) U Hyaline Cast (Auto) NONE SEEN (0-2) /LPF Urine Microscopic RBC 0-2 (0-5) /HPF Urine Microscopic WBC 0-2 (0-5) /HPF Ur Epithelial Cells None Seen (None Seen) /HPF Urine Bacteria None Seen (None Seen) /HPF Urine Culture Reflexed NO (NO) 08/07/24 08/07/24 Range/Units 04:45 04:45 WBC 3.6 L (3.98-10.04) x10^3/uL RBC 3.58 L (3.93-5.22) x10^6/uL Hgb 12.1 (11.2-15.7) g/dL Hct 35.3 (34.1-44.9) % MCV 98.6 H (79.4-94.8) fL MCH 33.8 H (25.6-32.2) pg MCHC 34.3 (32.2-35.5) g/dL RDW 14.6 H (11.7-14.4) % Plt Count 192 (182-369) x10^3/uL MPV 10.0 (9.4-12.3) fL Gran % 60.8 (34.0-71.1) % Immature Gran % (Auto) 0.3 (0.001-0.429) % Nucleat RBC Rel Count 0.0 (0.00-0.2) % Eos # (Auto) 0.10 (0.04-0.36) x10^3/uL Immature Gran # (Auto) 0.01 (0.001-0.031) x10^3u/L Absolute Lymphs (auto) 0.70 L (1.18-3.74) x10^3/uL Absolute Monos (auto) 0.56 (0.24-0.86) x10^3/uL Absolute Nucleated RBC 0.00 (0.00-0.012) x10^3u/L Lymphocytes % 19.7 (19.3-51.7) % Monocytes % 15.8 H (4.7-12.5) % Eosinophils % 2.8 (0.7-5.8) % Basophils % 0.6 (0.1-1.2) % Absolute Granulocytes 2.16 (1.56-6.13) x10^3/uL Basophils # 0.02 (0.01-0.08) x10^3/uL Sodium 138 (135-145) mmol/L Potassium 3.4 L (3.5-5.1) mmol/L Chloride 103 (98-107) mmol/L Carbon Dioxide 29 (22-30) mmol/L Anion Gap 9.5 (5-15) MEQ/L BUN 11 (7-17) mg/dL Creatinine 0.87 (0.52-1.04) mg/dL Estimated GFR 67.7 ML/MIN Glucose 105 (74-106) mg/dL Calcium 8.9 (8.4-10.2) mg/dL Total Bilirubin 1.50 H (0.2-1.3) mg/dL AST 28 (14-36) U/L ALT 17 (0-35) U/L Alkaline Phosphatase 74 (38-126) U/L Troponin I (0.000-0.033) ng/mL NT-Pro-B Natriuret Pep (<300) pg/mL Serum Total Protein 6.5 (6.3-8.2) g/dL Albumin 3.9 (3.5-5.0) g/dL Urine Color (Yellow) Urine Appearance (Clear) Urine pH (4.6-8.0) Ur Specific [place] (1.005-1.030) Urine Protein (Negative) Urine Glucose (UA) (Negative) mg/dL Urine Ketones (Negative) Urine Blood (Negative) Urine Nitrite (Negative) Urine Bilirubin (Negative) Urine Urobilinogen (0.2) mg/dL Ur Leukocyte Esterase (Negative) U Hyaline Cast (Auto) (0-2) /LPF Urine Microscopic RBC (0-5) /HPF Urine Microscopic WBC (0-5) /HPF Ur Epithelial Cells (None Seen) /HPF Urine Bacteria (None Seen) /HPF Urine Culture Reflexed (NO) - Radiology Exams Ordered Rad Exams-Entire Visit: Radiology Procedures Category Date Time Status CHEST 1 VIEW (PORTABLE) Stat Exams 08/06/24 13:23 Completed THORACIC SPINE (AP,LAT,SWIMM) Stat Exams 08/06/24 14:44 Completed - Procedures and Test Procedures and Tests throughout Hospitalization: Therapy Orders & Screens 08/06/24 17:20 EKG REPEAT IN AM Comment: Diagnosis: Chest pain, ACS Respiratory Therapy Consult ONCE Comment: Reason For Exam: Diagnosis: Chest pain, ACS Discharge Exam General Appearance: no apparent distress Neurologic Exam: alert, oriented x 3, cooperative Eye Exam: PERRL Ears, Nose, Throat Exam: normal ENT inspection Neck Exam: normal inspection Respiratory Exam: normal breath sounds, lungs clear Cardiovascular Exam: irregular Gastrointestinal/Abdomen Exam: soft, normal bowel sounds Pelvic Exam: deferred Rectal Exam: deferred Back Exam: normal inspection Extremity Exam: normal inspection Skin Exam: normal color Final Diagnosis/Problem List - Final Discharge Diagnosis/Problem (1) Chest pain Current Visit: Yes Status: Resolved Code(s): R07.9 - CHEST PAIN, UNSPECIFIED (2) Compression fracture of thoracic vertebra Current Visit: Yes Status: Chronic Code(s): S22.000A - WEDGE COMPRESSION FRACTURE OF UNSP THORACIC VERTEBRA, INIT (3) History of breast cancer Current Visit: Yes Status: Chronic Code(s): Z85.3 - PERSONAL HISTORY OF MALIGNANT NEOPLASM OF BREAST (4) Bilateral lower extremity edema Current Visit: Yes Status: Chronic Code(s): R60.0 - LOCALIZED EDEMA (5) Chronic a-fib Current Visit: Yes Status: Chronic Code(s): I48.20 - CHRONIC ATRIAL FIBR ILLATION, UNSPECIFIED (6) HLD (hyperlipidemia) Current Visit: No Status: Chronic Code(s): E78.5 - HYPERLIPIDEMIA, UNSPECIFIED (7) Leukopenia Current Visit: Yes Status: Chronic Code(s): D72.819 - DECREASED WHITE BLOOD CELL COUNT, UNSPECIFIED (8) Hypertension Current Visit: No Status: Chronic Code(s): I10 - ESSENTIAL (PRIMARY) HYPERTENSION (9) Hypokalemia Current Visit: Yes Status: Resolved Code(s): E87.6 - HYPOKALEMIA - Discharge Disposition: Home, Self-Care Condition: Stable Prescriptions: Continue Omeprazole 40 mg PO DAILY Metoprolol Succinate 100 mg PO DAILY Atorvastatin Calcium [Lipitor 20MG Tablet] 20 mg PO DAILY Amlodipine Besylate [Norvasc] 10 mg PO DAILY Apixaban [Eliquis] 2.5 mg PO BID Anastrozole [Arimidex] 1 mg PO DAILY Calcium Carbonate/Vitamin D3 [Calcium 600-Vit D3 200 Tablet] 1 tab PO DAILY Tramadol HCl 50 mg [Ultram 50 mg] 50 mg PO DAILY Cholecalciferol (Vitamin D3) [Vitamin D3] 125 mcg PO DAILY Cyanocobalamin (Vitamin B-12) [Vitamin B-12] 1,000 mcg PO DAILY Additional Instructions: Patient has an appointment set up with Pain Management August 12 @ 08:30. Patient will see Krishan. Follow up with: FERNANDEZ FIERRO MD [Primary Care Provider] - 08/13/24 2:00 pm
[2024-08-07 12:41] VITALS: BP 140/69; PULSE 71; RESP 18; O2SAT 95
== END 2024-08-07 15:50 | disposition home or self-care (01) ==
LOC: ED 12:48 → MED SURG 16:08
PROVIDERS: ADMIT Internal Medicine; ATTEND Internal Medicine
DX: R07.9 Chest pain, unspecified (principal); S22.000A Wedge compression fracture of unspecified thoracic vertebra, initial encounter for closed fracture; E87.6 Hypokalemia; M54.9 Dorsalgia, unspecified; R60.0 Localized edema; I10 Essential (primary) hypertension; I48.20 Chronic atrial fibrillation, unspecified; E78.5 Hyperlipidemia, unspecified; D72.819 Decreased white blood cell count, unspecified; Z85.3 Personal history of malignant neoplasm of breast; Z79.01 Long term (current) use of anticoagulants; Z79.899 Other long term (current) drug therapy
CPT/HCPCS: 36000; 36415; 71045; 72072; 80053; 81001; 83880; 84132; 84484; 85025; 93005; 93041; 93268; 94760; 99284; J1940; Q3014; A9270-GY; G0378

== ENCOUNTER 2024-08-18 13:43 | Emergency (ER) | payer MEDICARE ==
[2024-08-18 13:57] VITALS: TEMP 98.5
--- NOTE | 2024-08-18 14:06 | ERPHSYRPT ---
- History of Present Illness Time Seen by Provider: 08/18/24 14:00 Historian: patient, family Exam Limitations: no limitations Patient Subjective Stated Complaint: . Triage Nursing Assessment: . Physician History: Pt had onset of right LE pain after flu shot last week and then got CP and came into ER. CP now resolved but leg still with pain - no erythema. Nontender. chronic Afib on elliquis and so no ASA today. No NTG due to CP now stopped. Normal mental status and neuro exam. Discussed risk/benefit with family and pt of testing , CBC, CMP, Trop BNP, D DImer, US leg, EKG, CXR and they wish to proceed. Timing/Duration: day(s) Activities at Onset: none Location: central Severity of Pain-Max: moderate Severity of Pain-Current: none Associated Symptoms: shortness of breath, other (right leg pain) Nitro Today/Relief: no nitro taken today Aspirin Treatment Today: no aspirin today Allergies/Adverse Reactions: codeine Allergy (Verified 08/18/24 13:49) unknown Sulfa (Sulfonamide Antibiotics) Allergy (Verified 08/18/24 13:49) Rash JASBIR Inhibitors Adverse Reaction (Verified 08/18/24 13:49) Cough Home Medications: Amlodipine Besylate [Norvasc] 10 mg PO DAILY 11/25/20 [History] Atorvastatin Calcium [Lipitor 20MG Tablet] 20 mg PO DAILY 11/25/20 [History] Metoprolol Succinate 100 mg PO DAILY 11/25/20 [History] Omeprazole 40 mg PO DAILY 11/25/20 [History] Apixaban [Eliquis] 2.5 mg PO BID 05/09/21 [History] Anastrozole [Arimidex] 1 mg PO DAILY 01/31/23 [History] Calcium Carbonate/Vitamin D3 [Calcium 600-Vit D3 200 Tablet] 1 tab PO DAILY 06/03/23 [History] Cholecalciferol (Vitamin D3) [Vitamin D3] 125 mcg PO DAILY 08/06/24 [History] Cyanocobalamin (Vitamin B-12) [Vitamin B-12] 1,000 mcg PO DAILY 08/06/24 [History] Tramadol HCl 50 mg [Ultram 50 mg] 50 mg PO DAILY 08/06/24 [History] Hx Tetanus, Diphtheria Vaccination/Date Given: Yes Hx Influenza Vaccination/Date Given: Yes Hx Pneumococcal Vaccination/Date Given: Yes Immunizations Up to Date: Yes Travel Risk - International Travel Have you traveled outside of the country in past 3 weeks: No - Emerging Infectious Disease Are you exhibiting symptoms associated with any current EIDs: No Symptoms: Shortness of Breath - Review of Systems Constitutional: No Fever, No Chills Eyes: No Symptoms Ears, Nose, & Throat: No Symptoms Respiratory: Dyspnea, No Cough Cardiac: Chest Pain (resolved), No Edema, No Syncope Abdominal/Gastrointestinal: No Abdominal Pain, No Nausea, No Vomiting, No Diarrhea Genitourinary Symptoms: No Dysuria Musculoskeletal: No Back Pain, No Neck Pain, No Injury Skin: No Rash Neurological: No Dizziness, No Focal Weakness, No Sensory Changes Psychological: No Symptoms Endocrine: No Symptoms Hematologic/Lymphatic: No Symptoms Immunological/Allergic: No Symptoms All Other Systems: Reviewed and Negative - Past Medical History Pertinent Past Medical History: Yes Neurological History: No Pertinent History ENT History: Cataracts Cardiac History: Arrhythmia, Hypertension Respiratory History: No Pertinent History Endocrine Medical History: No Pertinent History Musculoskeletal History: Osteoarthritis GI Medical History: No Pertinent History History: No Pertinent History Psycho-Social History: No Pertinent History Female Reproductive Disorders: Breast Cancer Other Medical History: PSH: R TKA 2011, R ANKLE ORIF 2009, HYSTERECTOMY, GALL BLADDER, BREAST CANCER REMOVAL, APPENDECOMY, TONSILLECTOMY. PMH: A-FIB, - Past Surgical History Past Surgical History: Yes Neuro Surgical History: No Pertinent History Cardiac: Cardiac Catheterization Respiratory: No Pertinent History Gastrointestinal: Appendectomy, Cholecystectomy Genitourinary: No Pertinent History Musculoskeletal: Joint Replacement Female Surgical History: Hysterectomy Other Surgical History: R knee, metal in R ankle,. lumpectomy R and L side. lasik on eyes - Social History Smoking Status: Never smoker Exposure to second hand smoke: No Drug Use: none Patient Lives Alone: No - Social Determinants of Health Will the patient participate in the screening: Yes Do you worry about a steady place to live?: No Do you have any problems with any of the following?: No known problems In the past 12 months,have you had to go without utilities?: No Transportation Issues: No Has anyone in your support network made you feel unsafe?: No Have you or anyone in your house had to go without enough: No - Nursing Vital Signs Nursing Vital Signs: Initial Vital Signs Pulse Rate 85 08/18/24 13:37 Respiratory Rate 22 08/18/24 13:37 Blood Pressure 141/93 08/18/24 13:37 O2 Sat by Pulse Oximetry 97 08/18/24 13:37 Pain Scale Pain Intensity 5 - Physical Exam General Appearance: no apparent distress, alert Eye Exam: PERRL/EOMI, eyes nml inspection Ears, Nose, Throat Exam: normal ENT inspection, moist mucous membranes Neck Exam: normal inspection, non-tender, supple, full range of motion Respiratory Exam: normal breath sounds, lungs clear, No respiratory distress Cardiovascular Exam: regular rate/rhythm, normal heart sounds Gastrointestinal/Abdomen Exam: soft, No tenderness, No mass Pelvic Exam: deferred Rectal Exam: deferred Back Exam: normal inspection, No CVA tenderness, No vertebral tenderness Extremity Exam: normal inspection, normal range of motion Neurologic Exam: alert, oriented x 3, cooperative, normal mood/affect, sensation nml, No motor deficits Skin Exam: normal color, warm, dry SpO2 Interpretation: normal SpO2: 96 O2 Delivery: Room Air - Course Nursing assessment & vital signs reviewed: Yes EKG Interpreted by Me: A-fib, NORMAL AXIS, NORMAL INTERVALS, NORMAL QRS, Non- specific ST Changes - Radiology Exams Chest X-ray Interpretation: Interpreted by me, Reviewed by me, Other (right hilar mass) - Radiology Ultrasound Exam Venous Lower Extremity Ultrasound: negative, Other (No DVT) Ordered Tests: Active Orders 24 hr Category Date Time Status Behavioral Instructor STAT Care 08/18/24 14:01 Active EKG-ER Only STAT Care 08/18/24 14:01 Active IV Insertion STAT Care 08/18/24 14:01 Active Pulse Oximetry (ED) STAT Care 08/18/24 14:01 Active CHEST 1 VIEW (PORTABLE) Stat Exams 08/18/24 14:20 Taken VENOUS UNILAT/LIMITED EXTREMIT [US] Stat Exams 08/18/24 15:52 Taken AMYLASE Stat Lab 08/18/24 14:13 Completed CBC W DIFF Stat Lab 08/18/24 14:13 Completed CMP Stat Lab 08/18/24 14:13 Completed D-DIMER QUANTITATIVE Stat Lab 08/18/24 14:13 Completed LIPASE Stat Lab 08/18/24 14:13 Completed NT PRO BNPII Stat Lab 08/18/24 14:13 Completed TROPONIN Q4H Lab 08/18/24 14:13 Completed TROPONIN Q4H Lab 08/18/24 18:15 Ordered TROPONIN Q4H Lab 08/18/24 22:15 Ordered Lab/Rad Data: Laboratory Result Diagrams 08/18/24 14:13 08/18/24 14:13 Laboratory Results 08/18/24 08/18/24 08/18/24 Range/Units 14:13 14:13 14:13 WBC (3.98-10.04) x10^3/uL RBC (3.93-5.22) x10^6/uL Hgb (11.2-15.7) g/dL Hct (34.1-44.9) % MCV (79.4-94.8) fL MCH (25.6-32.2) pg MCHC (32.2-35.5) g/dL RDW (11.7-14.4) % Plt Count (182-369) x10^3/uL MPV (9.4-12.3) fL Gran % (34.0-71.1) % Immature Gran % (Auto) (0.001-0.429) % Nucleat RBC Rel Count (0.00-0.2) % Eos # (Auto) (0.04-0.36) x10^3/uL Immature Gran # (Auto) (0.001-0.031) x10^3u/L Absolute Lymphs (auto) (1.18-3.74) x10^3/uL Absolute Monos (auto) (0.24-0.86) x10^3/uL Absolute Nucleated RBC (0.00-0.012) x10^3u/L Lymphocytes % (19.3-51.7) % Monocytes % (4.7-12.5) % Eosinophils % (0.7-5.8) % Basophils % (0.1-1.2) % Absolute Granulocytes (1.56-6.13) x10^3/uL Basophils # (0.01-0.08) x10^3/uL D-Dimer 0.46 (0.0-0.50) mg/L Sodium 139 (135-145) mmol/L Potassium 4.0 (3.5-5.1) mmol/L Chloride 104 (98-107) mmol/L Carbon Dioxide 25 (22-30) mmol/L Anion Gap 14.0 (5-15) MEQ/L BUN 16 (7-17) mg/dL Creatinine 0.86 (0.52-1.04) mg/dL Estimated GFR 68.7 ML/MIN Glucose 116 H (74-106) mg/dL Calcium 9.4 (8.4-10.2) mg/dL Total Bilirubin 0.90 (0.2-1.3) mg/dL AST 30 (14-36) U/L ALT 19 (0-35) U/L Alkaline Phosphatase 54 (38-126) U/L Troponin I < 0.012 (0.000-0.033) ng/mL NT-Pro-B Natriuret Pep 1240 (<300) pg/mL Serum Total Protein 6.7 (6.3-8.2) g/dL Albumin 4.0 (3.5-5.0) g/dL Amylase 59 (30-110) U/L Lipase 138 (23-300) U/L //24 Range/Units 14:13 WBC 3.7 L (3.98-10.04) x10^3/uL RBC 3.72 L (3.93-5.22) x10^6/uL Hgb 12.7 (11.2-15.7) g/dL Hct 36.7 (34.1-44.9) % MCV 98.7 H (79.4-94.8) fL MCH 34.1 H (25.6-32.2) pg MCHC 34.6 (32.2-35.5) g/dL RDW 13.5 (11.7-14.4) % Plt Count 185 (182-369) x10^3/uL MPV 9.7 (9.4-12.3) fL Gran % 66.7 (34.0-71.1) % Immature Gran % (Auto) 0.3 (0.001-0.429) % Nucleat RBC Rel Count 0.0 (0.00-0.2) % Eos # (Auto) 0.07 (0.04-0.36) x10^3/uL Immature Gran # (Auto) 0.01 (0.001-0.031) x10^3u/L Absolute Lymphs (auto) 0.69 L (1.18-3.74) x10^3/uL Absolute Monos (auto) 0.44 (0.24-0.86) x10^3/uL Absolute Nucleated RBC 0.00 (0.00-0.012) x10^3u/L Lymphocytes % 18.8 L (19.3-51.7) % Monocytes % 12.0 (4.7-12.5) % Eosinophils % 1.9 (0.7-5.8) % Basophils % 0.3 (0.1-1.2) % Absolute Granulocytes 2.45 (1.56-6.13) x10^3/uL Basophils # 0.01 (0.01-0.08) x10^3/uL D-Dimer (0.0-0.50) mg/L Sodium (135-145) mmol/L Potassium (3.5-5.1) mmol/L Chloride (98-107) mmol/L Carbon Dioxide (22-30) mmol/L Anion Gap (5-15) MEQ/L BUN (7-17) mg/dL Creatinine (0.52-1.04) mg/dL Estimated GFR ML/MIN Glucose (74-106) mg/dL Calcium (8.4-10.2) mg/dL Total Bilirubin (0.2-1.3) mg/dL AST (14-36) U/L ALT (0-35) U/L Alkaline Phosphatase (38-126) U/L Troponin I (0.000-0.033) ng/mL NT-Pro-B Natriuret Pep (<300) pg/mL Serum Total Protein (6.3-8.2) g/dL Albumin (3.5-5.0) g/dL Amylase (30-110) U/L Lipase (23-300) U/L - Progress Progress: improved, re-examined Air Movement: good Progress Note: 08/18/24 17:22 discussed findings with pt and that we have not determined a cause for her symptoms and that although the test performed are negative so far there still could be serious conditions cardiac or vascular or other developing. SHe prefers DC with outpt f/u rather than further eval in ER or hospital and has the capacity to make this choice. Blood Culture(s) Obtained: No Antibiotics given: No Counseled pt/family regarding: lab results, diagnosis, need for follow-up, rad results Medical Desision Making - Independent Historian Additional History obtained from: Family - Discussion of managment Reviewed:: Test results, Need for additional workup Agreed on:: Treatment plan, need for follow-up - Diagnostic Testing Diagnostic test were ordered, analyzed, and reviewed by me: Yes Radiological Interpretation: Interpreted by me, Reviewed by me - Risk of complications The pt has a mod risk of morbidity or mortality based on: Need for prescription drug management The pt has a high risk of morbidity or mortality based on: Decision regarding hospitilization or escalation of hosp level of care - Departure Departure Disposition: Home Clinical Impression: Transient chest pain - resolved, Hypertension, right leg pain unknown etiology Condition: Good Critical Care Time: No Referrals: FERNANDEZ FIERRO MD [Primary Care Provider] - Follow up/PCP as directed Instructions: Chest Pain (DC) Additional Instructions: although we did not find any serious problems in our limited evaluation, there still can be cardiac or vascular or other conditions developing and so follow- up for further workup is advised with your Dr as soon as possible this week. Return meantime if any further symptoms of concern such as chest pain, shortness or breath, dizziness, weakness, numbness, fever, or other concerns. also followup with your Dr for blood pressure control and the low white blood count.
[2024-08-18 14:16] LABS: Absolute Neutrophil Ct (ANC) 2.45 x10^3/uL (1.56-6.13); BASOPHIL % 0.3 % (0.1-1.2); Basophil (Absolute #) 0.01 x10^3/uL (0.01-0.08); Eosinophil % 1.9 % (0.7-5.8); Eosinophil (Absolute #) 0.07 x10^3/uL (0.04-0.36); Hematocrit 36.7 % (34.1-44.9); Hemoglobin 12.7 g/dL (11.2-15.7); IMMATURE GRAN # 0.01 x10^3u/L (0.001-0.031); IMMATURE GRAN % 0.3 % (0.001-0.429); Lymphocyte (Absolute #) 0.69 x10^3/uL (1.18-3.74); Lymphocytes % 18.8 % (19.3-51.7); Mean Cell Volume 98.7 fL (79.4-94.8); Mean Corpuscular Hemoglobin 34.1 pg (25.6-32.2); Mean Corpuscular Hgb Concent. 34.6 g/dL (32.2-35.5); Mean Platelet Volume 9.7 fL (9.4-12.3); Monocyte (Absolute #) 0.44 x10^3/uL (0.24-0.86); Neutrophil % 66.7 % (34.0-71.1); Platelet Count 185 x10^3/uL (182-369); Red Blood Count 3.72 x10^6/uL (3.93-5.22); Red Cell Distribution Width 13.5 % (11.7-14.4); White Blood Count 3.7 x10^3/uL (3.98-10.04)
[2024-08-18 14:31] LABS: BILIRUBIN,TOTAL 0.9 mg/dL (0.2-1.3); Calcium 9.4 mg/dL (8.4-10.2); Creatinine 1 0.86 mg/dL (0.52-1.04); EST GLOMERULAR FILTRATION RATE 68.7 ML/MIN; Total Protein 6.7 g/dL (6.3-8.2)
[2024-08-18 17:22] VITALS: O2SAT 96
[2024-08-18 17:37] VITALS: BP 122/92; PULSE 74; RESP 16
--- NOTE | 2024-08-18 19:18 | XRAY ---
Indication: Chest pain. Comparison: August 06, 2024 Portable chest inflated without focal infiltrate, consolidation, or large effusion. Heart remains borderline enlarged. Bony thorax intact again with osteopenia, degenerative changes, and left axilla wanda dissection. Impression: Continued nonacute chest with chronic features.
--- NOTE | 2024-08-18 19:20 | XRAY ---
Indication: Pain and swelling. Current blood thinner therapy. Two-dimensional sonogram and color Doppler imaging major venous vessels right leg performed. Comparison: None No thrombus seen in the examined deep venous vessels right leg including greater saphenous vein. Veins demonstrate normal compressibility. Venous waveforms are normal with and without augmentation. Impression: Right leg negative for DVT. Comment: Preliminary report was given.
== END 2024-08-18 17:41 | disposition home or self-care (01) ==
LOC: ED 13:43
DX: I10 Essential (primary) hypertension (principal); M79.604 Pain in right leg; R07.9 Chest pain, unspecified; Z79.01 Long term (current) use of anticoagulants; Z79.891 Long term (current) use of opiate analgesic; Z79.899 Other long term (current) drug therapy
CPT/HCPCS: 36000; 36415; 71045; 80053; 82150; 83690; 83880; 84484; 85025; 85379; 93005; 93041; 93971; 94760; 99284

== ENCOUNTER 2024-08-22 05:39 | Emergency (ER) | payer MEDICARE ==
[2024-08-22 05:56] VITALS: TEMP 97.9
[2024-08-22] MEDS ORDERED: TORAdol 30 mg Injection ONE (06:43)
[2024-08-22] MEDS: TORAdol 30 mg Injection IM ONE (06:44)
--- NOTE | 2024-08-22 06:46 | ERPHSYRPT ---
- History of Present Illness Time Seen by Provider: 08/22/24 06:00 Source: patient Exam Limitations: no limitations Patient Subjective Stated Complaint: c/o of right lower leg pain Triage Nursing Assessment: pt brought to ED by ambulance with c/o of right lower extremeity pain. Rates 8/10 pain that starts in the right ankle and radiates up towards the top of the knee. Patient stated she tried to get out of bed this morning and stated she couldn't walk due to the pain. Patient has a appt at [address] Fierro. Denies falling, but states her leg "goes " when she tries to walk. Vitals wnl, skin w/n/d, no deformities noted, non-tender with palpation, brought in by stretcher, pulses normal, pt doesn't appear to be in any distress at this time. Physician History: Patient is a 78-year-old female presents to our ED via EMS for evaluation of right leg pain and numbness. Patient states that her right leg has been pain and numb since August 14 after an immunization injection. Patient has seen podiatry for this problem. She has had ultrasound to the right lower extremity. DVT was ruled out. Patient was advised to keep yourself hydrated. Patient thought that dehydration was causing her symptomology. Patient states when she tries to stand and put weight on her leg gives out however when she is lying in bed she is able to move her leg freely. Her symptoms are worse when she is upright and weightbearing. Patient reports that she has chronic back pain. Patient also reports that she has had fractured vertebrae in her back. She has not had any imaging of studies of her back regarding this leg pain and numbness. No other neurologic complaints. No focal or lateralizing symptoms. No slurred speech. Patient states her left lower extremity is strong and working well. Patient voices no other complaints or concerns at this time. Patient currently has an appointment scheduled with her primary care doctor today 10 AM regarding this leg problem Portions of this note were created with voice recognition technology. There may be grammatical, spelling, punctuation or sound alike errors Timing/Duration: week(s) Severity: moderate Modifying Factors: Improves With: nothing (Symptoms are worse when she is upright weightbearing onto her right lower extremity) Associated Symptoms: denies symptoms Allergies/Adverse Reactions: codeine Allergy (Verified 08/18/24 13:49) unknown Sulfa (Sulfonamide Antibiotics) Allergy (Verified 08/18/24 13:49) Rash JASBIR Inhibitors Adverse Reaction (Verified 08/22/24 05:55) Cough Home Medications: Amlodipine Besylate [Norvasc] 10 mg PO DAILY 11/25/20 [History] Atorvastatin Calcium [Lipitor 20MG Tablet] 20 mg PO DAILY 11/25/20 [History] Metoprolol Succinate 100 mg PO DAILY 11/25/20 [History] Omeprazole 40 mg PO DAILY 11/25/20 [History] Apixaban [Eliquis] 2.5 mg PO BID 05/09/21 [History] Anastrozole [Arimidex] 1 mg PO DAILY 01/31/23 [History] Calcium Carbonate/Vitamin D3 [Calcium 600-Vit D3 200 Tablet] 1 tab PO DAILY 06/03/23 [History] Cholecalciferol (Vitamin D3) [Vitamin D3] 125 mcg PO DAILY 08/06/24 [History] Cyanocobalamin (Vitamin B-12) [Vitamin B-12] 1,000 mcg PO DAILY 08/06/24 [History] Tramadol HCl 50 mg [Ultram 50 mg] 50 mg PO BID 08/06/24 [History] Lidocaine 1 patch TOP DAILY 08/22/24 [History] Hx Tetanus, Diphtheria Vaccination/Date Given: Yes Hx Influenza Vaccination/Date Given: Yes Hx Pneumococcal Vaccination/Date Given: Yes Travel Risk - International Travel Have you traveled outside of the country in past 3 weeks: No - Emerging Infectious Disease Are you exhibiting symptoms associated with any current EIDs: No Symptoms: Shortness of Breath - Review of Systems Constitutional: No Symptoms, No Fever, No Chills Eyes: No Symptoms Ears, Nose, & Throat: No Symptoms Respiratory: No Symptoms, No Cough, No Dyspnea Cardiac: No Symptoms, No Chest Pain, No Edema, No Syncope Abdominal/Gastrointestinal: No Symptoms, No Abdominal Pain, No Nausea, No Vomiting, No Diarrhea Genitourinary Symptoms: No Symptoms, No Dysuria Musculoskeletal: No Symptoms, No Back Pain, No Neck Pain Skin: No Symptoms, No Rash Neurological: No Symptoms, No Dizziness, No Focal Weakness, No Sensory Changes Psychological: No Symptoms Endocrine: No Symptoms All Other Systems: Reviewed and Negative - Past Medical History Pertinent Past Medical History: Yes Neurological History: No Pertinent History ENT History: Cataracts Cardiac History: Arrhythmia, Hypertension Respiratory History: No Pertinent History Endocrine Medical History: No Pertinent History Musculoskeletal History: Osteoarthritis GI Medical History: No Pertinent History History: No Pertinent History Psycho-Social History: No Pertinent History Female Reproductive Disorders: Breast Cancer Other Medical History: PSH: R TKA 2011, R ANKLE ORIF 2009, HYSTERECTOMY, GALL BLADDER, BREAST CANCER REMOVAL, APPENDECOMY, TONSILLECTOMY. PMH: A-FIB, - Past Surgical History Past Surgical History: Yes Neuro Surgical History: No Pertinent History Cardiac: Cardiac Catheterization Respiratory: No Pertinent History Gastrointestinal: Appendectomy, Cholecystectomy Genitourinary: No Pertinent History Musculoskeletal: Joint Replacement Female Surgical History: Hysterectomy Other Surgical History: R knee, metal in R ankle,. lumpectomy R and L side. lasik on eyes - Social History Smoking Status: Never smoker Exposure to second hand smoke: No Drug Use: none Patient Lives Alone: No - Social Determinants of Health Will the patient participate in the screening: Yes Do you worry about a steady place to live?: No Do you have any problems with any of the following?: No known problems In the past 12 months,have you had to go without utilities?: No Transportation Issues: No Has anyone in your support network made you feel unsafe?: No Have you or anyone in your house had to go without enough: No - Nursing Vital Signs Nursing Vital Signs: Initial Vital Signs Temperature 97.9 F 08/22/24 05:40 Pulse Rate 84 08/22/24 05:40 Respiratory Rate 17 08/22/24 05:40 Blood Pressure 131/67 08/22/24 05:40 O2 Sat by Pulse Oximetry 99 08/22/24 05:40 Pain Scale Pain Intensity 8 - Physical Exam General Appearance: no apparent distress, alert Eye Exam: PERRL/EOMI, eyes nml inspection Ears, Nose, Throat Exam: normal ENT inspection, TMs normal, pharynx normal, moist mucous membranes Neck Exam: normal inspection, non-tender, supple, full range of motion Respiratory Exam: normal breath sounds, lungs clear, airway intact, No respiratory distress Cardiovascular Exam: regular rate/rhythm, normal heart sounds, normal peripheral pulses Gastrointestinal/Abdomen Exam: soft, normal bowel sounds, No tenderness, No mass Back Exam: normal inspection, normal range of motion, No CVA tenderness, No v ertebral tenderness Extremity Exam: normal inspection, normal range of motion, pelvis stable Neurologic Exam: alert, oriented x 3, cooperative, normal mood/affect, sensation nml, No motor deficits Skin Exam: normal color, warm, dry, No rash Lymphatic Exam: No adenopathy SpO2 Interpretation: normal SpO2: 99 O2 Delivery: Room Air - Course Nursing assessment & vital signs reviewed: Yes Ordered Tests: Active Orders 24 hr Category Date Time Status LUMBAR SPINE W/O [CT] Stat Exams 08/22/24 06:39 Ordered - Progress Progress: improved Progress Note: 78-year-old female presents to the emergency department for evaluation of right leg pain and numbness. Symptoms have been ongoing for over a week. Symptoms are worse when she stands and weightbears. Patient has had chronic back pain with history of vertebral fractures. CT scan lumbar spine ordered to assess for pathology that may be contributing to her symptomology. Results pending. It is currently the change of shift. Patient endorsed to incoming physician who will review CAT scan and make final disposition. I will request that physician to contact patient's primary care doctor, Dr. Fierro to discuss the case and further recommendations as patient currently has an appointment scheduled to see him this morning at 10 AM. Patient requested Toradol for her back pain. Toradol just administered. However we will reassess patient's pain within the hour. No indication for further workup at this time. Imaging study pending. Final disposition as per incoming physician. Patient resting comfortably at this time. Portions of this note were created with voice recognition technology. There may be grammatical, spelling, punctuation or sound alike errors Complexity of problem addressed is moderate acute complicated. No critical care time. Complex of data reviewed and analyzed is moderate. Test ordered test reviewed results analyzed and correlated clinically with history and physical exam. Risk of complication and or risk of morbidity/mortality of patient management is low. Vital stable. Time spent to disposition patient is approximately 15 minutes. Plan of care established for shared decision making. No social determinants of health present to impede follow-up. Portions of this note were created with voice recognition technology. There may be grammatical, spelling, punctuation or sound alike errors 08/22/24 06:49 Counseled pt/family regarding: diagnosis - Departure Departure Disposition: Home Clinical Impression: Leg numbness, Back pain Condition: Stable Critical Care Time: No Referrals: FERNANDEZ FIERRO MD [Primary Care Provider] - Follow up/PCP as directed Additional Instructions: Discharge/Care Plan MANDIE PA was seen on 08/22/24 in the Emergency Room. The patient was counseled regarding Diagnosis,Lab results, Imaging studies, need for follow up and when to return to the Emergency Room. Prescriptions given: Discharge Note I have spoken with the patient and/or caregivers. I have explained the patient's condition, diagnosis and treatment plan based on the information available to me at this time. I have answered the patient's and/or caregiver's questions and addressed any concerns. The patient and/or caregivers have as good understanding of the patient's diagnosis, condition and treatment plan as can be expected at this point. The vital signs have been stable. The patient's condition is stable and appropriate for discharge from the emergency department. The patient will pursue further outpatient evaluation with the primary care physician or other designated or consulting physician as outlined in the discharge instructions. The patient and/or caregivers are agreeable to this plan of care and follow-up instructions have been explained in detail. The patient and/or caregivers have received these instruction. The patient/and or caregivers are aware that any significant change in condition or worsening of symptoms should prompt an immediate return to this or the closest emergency department or call 911.
[2024-08-22 07:39] VITALS: RESP 18
--- NOTE | 2024-08-22 08:13 | XRAY ---
CLINICAL HISTORY: pain, leg numbness COMPARISON: None. TECHNIQUE: CT scan of lumbar spine done. Axial images were obtained with reformatted coronal and sagittal images and submitted for interpretation. One of the following dose reduction techniques were utilized for this exam: Automated exposure control, adjustment of the mA and/or kV according to patient size, use of iterative reconstruction. DLP: 1236.71 mGy-cm. FINDINGS: Dextroscoliosis of the lumbar spine. There is a 4mm grade I retrolisthesis of L4 vertebra body. There is a 2 mm grade I anterolisthesis of L5 vertebra body secondary to degenerative facet arthropathy. Moderate to severe lumbar spondylodegenerative changes in the form of marginal osteophytosis, subcortical irregularity and sclerosis of the opposing vertebral end plates, multilevel facet arthropathy, and multilevel disc narrowing were noted most evident at L2-3 and L4-5 levels. L3-4, L4-5, and L5-S1 intra-discal gas lucency were seen. Central sagging of L4 upper-end plate. Otherwise, Normal vertebral body height with no fractures could be detected. Multilevel L1-2 down to L5-S1 posterior disc bulges/osteophyte complex along with degenerative facet arthropathy and ligamenta flava hypertrophy causing spinal canal and bilateral neural foraminal stenosis, most evident at L2-3, L3-4 and L4-5 levels. No retro or paraspinal soft tissue masses. IMPRESSION: 1. Dextroscoliosis of the lumbar spine. 2. There is a 4mm grade I retrolisthesis of L4 vertebra body. 3. There is a 2 mm grade I anterolisthesis of L5 vertebra body secondary to degenerative facet arthropathy. 4. 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 5. Central sagging of L4 upper-end plate 6. Multilevel L1-2 down to L5-S1 diffuse disc bulges/osteophyte complexes were noted along with facet arthropathy and ligamenta flava hypertrophy causing spinal canal and bilateral neural foraminal narrowing most evident at L2-3, L3-4, and L4-5 levels. would recommend an MRI spine for further complete evaluation. Electronically Signed by: Mary Ann Martínez MD. (08/22/2024 08:07:57 EDT)
[2024-08-22 08:38] VITALS: BP 148/92; PULSE 74; O2SAT 97
== END 2024-08-22 09:30 | disposition home or self-care (01) ==
LOC: ED 05:39
DX: R20.1 Hypoesthesia of skin (principal); M54.9 Dorsalgia, unspecified; M79.604 Pain in right leg; I10 Essential (primary) hypertension; Z79.01 Long term (current) use of anticoagulants; Z79.891 Long term (current) use of opiate analgesic; Z79.899 Other long term (current) drug therapy
CPT/HCPCS: 72131; 96372; 99283; J1885

== ENCOUNTER 2024-08-28 13:25 | Emergency (ER) | payer MEDICARE ==
--- NOTE | 2024-08-28 13:30 | ERPHSYRPT ---
- History of Present Illness Time Seen by Provider: 08/28/24 13:30 Source: patient Exam Limitations: no limitations Physician History: This is an obese 78-year-old white female patient of Dr. Fierro who presents by private vehicle escorted by her spouse for pain in the lateral aspect of her right lower leg below the knee with an area of localized ecchymosis present. Patient is convinced she has a blood clot. Patient had a normal right lower extremity venous Doppler performed on 08/18/2024. Patient is already on low- dose Eliquis because she has a history of arrhythmias. Patient contacted the primary care provider's office who told the patient to come to the emergency department to have a repeat Doppler of the right lower extremity. There is been no new trauma to the area. She does not have a cough. She has no chest pain and she is not short of breath. She patient has a history of hypertension, gastroesophageal reflux disease and arrhythmia. She is here desiring a repeat right lower extremity venous Doppler at the request of the primary care provi rich's office. Quality: aching Severity of Pain-Max: mild Severity of Pain-Current: mild Lower Extremities Pain: leg: right (Lateral aspect localized, mid tibial level) Modifying Factors: Improves With: movement Associated Symptoms: none Allergies/Adverse Reactions: codeine Allergy (Verified 08/18/24 13:49) unknown Sulfa (Sulfonamide Antibiotics) Allergy (Verified 08/18/24 13:49) Rash JASBIR Inhibitors Adverse Reaction (Verified 08/22/24 05:55) Cough Home Medications: Amlodipine Besylate [Norvasc] 10 mg PO DAILY 11/25/20 [History] Atorvastatin Calcium [Lipitor 20MG Tablet] 20 mg PO DAILY 11/25/20 [History] Metoprolol Succinate 100 mg PO DAILY 11/25/20 [History] Omeprazole 40 mg PO DAILY 11/25/20 [History] Apixaban [Eliquis] 2.5 mg PO BID 05/09/21 [History] Anastrozole [Arimidex] 1 mg PO DAILY 01/31/23 [History] Calcium Carbonate/Vitamin D3 [Calcium 600-Vit D3 200 Tablet] 1 tab PO DAILY 06/03/23 [History] Cholecalciferol (Vitamin D3) [Vitamin D3] 125 mcg PO DAILY 08/06/24 [History] Cyanocobalamin (Vitamin B-12) [Vitamin B-12] 1,000 mcg PO DAILY 08/06/24 [History] Tramadol HCl 50 mg [Ultram 50 mg] 50 mg PO BID 08/06/24 [History] Lidocaine 1 patch TOP DAILY 08/22/24 [History] Hx Tetanus, Diphtheria Vaccination/Date Given: Yes Hx Influenza Vaccination/Date Given: Yes Hx Pneumococcal Vaccination/Date Given: Yes Travel Risk - International Travel Have you traveled outside of the country in past 3 weeks: No - Emerging Infectious Disease Are you exhibiting symptoms associated with any current EIDs: No Symptoms: Shortness of Breath - Review of Systems Constitutional: No Symptoms Eyes: No Symptoms Ears, Nose, & Throat: No Symptoms Respiratory: No Symptoms Cardiac: No Symptoms Abdominal/Gastrointestinal: No Symptoms Genitourinary Symptoms: No Symptoms Musculoskeletal: Other (Localized pain, below the knee, lateral aspect on the right lower leg), No Injury Skin: No Symptoms Neurological: No Symptoms Psychological: No Symptoms Endocrine: No Symptoms Hematologic/Lymphatic: No Symptoms Immunological/Allergic: No Symptoms All Other Systems: Reviewed and Negative - Past Medical History Pertinent Past Medical History: Yes Neurological History: No Pertinent History ENT History: Cataracts Cardiac History: Arrhythmia, Hypertension Respiratory History: No Pertinent History Endocrine Medical History: No Pertinent History Musculoskeletal History: Osteoarthritis GI Medical History: No Pertinent History History: No Pertinent History Psycho-Social History: No Pertinent History Female Reproductive Disorders: Breast Cancer Other Medical History: PSH: R TKA 2011, R ANKLE ORIF 2009, HYSTERECTOMY, GALL BLADDER, BREAST CANCER REMOVAL, APPENDECOMY, TONSILLECTOMY. PMH: A-FIB, - Past Surgical History Past Surgical History: Yes Neuro Surgical History: No Pertinent History Cardiac: Cardiac Catheterization Respiratory: No Pertinent History Gastrointestinal: Appendectomy, Cholecystectomy Genitourinary: No Pertinent History Musculoskeletal: Joint Replacement Female Surgical History: Hysterectomy Other Surgical History: R knee, metal in R ankle,. lumpectomy R and L side. lasik on eyes - Social History Smoking Status: Never smoker Exposure to second hand smoke: No Drug Use: none Patient Lives Alone: No - Social Determinants of Health Will the patient participate in the screening: Yes Do you worry about a steady place to live?: No In the past 12 months,have you had to go without utilities?: No Transportation Issues: No Has anyone in your support network made you feel unsafe?: No Have you or anyone in your house had to go without enough: No - Nursing Vital Signs Nursing Vital Signs: Initial Vital Signs Temperature 97.4 F 08/28/24 13:29 Pulse Rate 110 H 08/28/24 13:29 Respiratory Rate 20 08/28/24 13:29 Blood Pressure 131/90 08/28/24 13:29 O2 Sat by Pulse Oximetry 98 08/28/24 13:29 Pain Scale Pain Intensity 4 - Physical Exam General Appearance: no apparent distress, alert, anxiety, obese Eyes, Ears, Nose, Throat Exam: normal ENT inspection, moist mucous membranes Neck Exam: normal inspection, non-tender, supple, full range of motion Cardiovascular/Respiratory Exam: chest non-tender, no respiratory distress Gastrointestinal/Abdominal Exam: non-tender Back Exam: normal inspection, normal range of motion, No CVA tenderness, No vertebral tenderness Hips Exam: bilateral: non-tender, normal inspection, normal range of motion, no evidence of injury Legs Exam: right leg: soft tissue tenderness (There is a localized area of tenderness lateral level of mid tibia with localized half centimeter by half centimeter ecchymosis), left leg: non-tender, normal inspection, bilateral leg: normal range of motion, no evidence of injury Knees Exam: bilateral knee: non-tender, normal inspection, normal range of motion, no evidence of injury Ankle Exam: bilateral ankle: non-tender, normal inspection, normal range of motion, no evidence of injury Foot Exam: bilateral foot: non-tender, normal inspection, normal range of motion, no evidence of injury - Course Nursing assessment & vital signs reviewed: Yes Ordered Tests: Active Orders 24 hr Category Date Time Status VENOUS UNILAT/LIMITED EXTREMIT [US] Stat Exams 08/28/24 13:39 Completed - Progress Progress: unchanged Progress Note: 08/28/24 14:10 My medical decision making and the assignment of low complexity to this patient's medical issue today is based on review of the patient's past medical history, review of the patient's medication list, reviewed patient drug allergy list, history present illness and physical findings on examination. The workup today will include a repeat venous Doppler right lower extremity at the request of the patient's primary care providers office. Differential diagnosis includes but is not limited to deep venous thrombosis, contusion, superficial thrombophlebitis, muscle skeletal pain Counseled pt/family regarding: diagnosis, need for follow-up, rad results - Departure Departure Disposition: Home Clinical Impression: Right leg pain Condition: Stable Critical Care Time: No Referrals: FERNANDEZ FIERRO MD [Primary Care Provider] - Follow up/PCP as directed Additional Instructions: Continue all your medication as prescribed. Call your primary care provider today, 08/28/2024, to make arrangements for outpatient workup of your right lower extremity pain
[2024-08-28 13:35] VITALS: TEMP 97.4
--- NOTE | 2024-08-28 14:38 | XRAY ---
Indication: Right leg tenderness and swelling. Two-dimensional sonogram and color Doppler imaging major venous vessels right leg performed. Comparison: August 18, 2024 Again no thrombus seen in the examined deep venous vessels right leg including greater saphenous vein. Veins demonstrate normal compressibility. Venous waveforms are normal with and without augmentation. Targeted ultrasound lateral calf demonstrates 8 x 3 x 6 mm subcutaneous echogenicity with overlying bruising, probable hematoma. Impression: Right leg continues to be negative for DVT.
[2024-08-28 14:39] VITALS: RESP 18
[2024-08-28 15:05] VITALS: BP 121/73; PULSE 88; O2SAT 95
== END 2024-08-28 15:33 | disposition home or self-care (01) ==
LOC: ED 13:25
DX: M79.661 Pain in right lower leg (principal); I10 Essential (primary) hypertension; Z79.01 Long term (current) use of anticoagulants; Z79.891 Long term (current) use of opiate analgesic; Z79.899 Other long term (current) drug therapy
CPT/HCPCS: 93971; 99282

== ENCOUNTER 2024-10-22 11:16 | Emergency (ER) | payer MEDICARE ==
[2024-10-22 11:46] VITALS: TEMP 97.6; O2SAT 95
[2024-10-22] MEDS ORDERED: Sodium Chloride 0.9% 1000 ML 1,000 ML ONE (12:03)
[2024-10-22] MEDS: Sodium Chloride 0.9% 1000 ML 1,000 ML IV STA (12:06)
[2024-10-22 12:40] LABS: BASOPHIL % 0.2 % (0.1-1.2); Basophil (Absolute #) 0.01 x10^3/uL (0.01-0.08); Eosinophil % 1.4 % (0.7-5.8); Eosinophil (Absolute #) 0.08 x10^3/uL (0.04-0.36); Hematocrit 37.2 % (34.1-44.9); Hemoglobin 12.6 g/dL (11.2-15.7); IMMATURE GRAN # 0.02 x10^3u/L (0.001-0.031); IMMATURE GRAN % 0.3 % (0.001-0.429); Lymphocyte (Absolute #) 0.29 x10^3/uL (1.18-3.74); Lymphocytes % 4.9 % (19.3-51.7); Mean Cell Volume 102.8 fL (79.4-94.8); Mean Corpuscular Hemoglobin 34.8 pg (25.6-32.2); Mean Corpuscular Hgb Concent. 33.9 g/dL (32.2-35.5); Mean Platelet Volume 10.3 fL (9.4-12.3); Monocyte (Absolute #) 0.38 x10^3/uL (0.24-0.86); Monocytes % 6.5 % (4.7-12.5); Neutrophil % 86.7 % (34.0-71.1); Platelet Count 212 x10^3/uL (182-369); Red Blood Count 3.62 x10^6/uL (3.93-5.22); Red Cell Distribution Width 15.6 % (11.7-14.4); White Blood Count 5.9 x10^3/uL (3.98-10.04)
--- NOTE | 2024-10-22 12:40 | ERPHSYRPT ---
- History of Present Illness Time Seen by Provider: 10/22/24 11:50 Source: patient Exam Limitations: no limitations Patient Subjective Stated Complaint: Diarrhea Triage Nursing Assessment: Patient ambulated back to ED with walker per self and transferred self to bed. Patient A+O X 3. Patient's skin pink, warm and dry. Patient complains of diarrhea that started early this am. Patient denies pain or discomfort. Abdomen soft and round with BS X 4. Patient denies N/V. Physician History: 78-year-old female presents to emergency department for evaluation of diarrhea x 1 day. Patient states her has similar symptoms. She otherwise feels well. No pain no nausea no vomiting no rash no fever. No chest pain or sh ortness of breath. Symptoms are mild in intensity. No specific worsening or improving factors. Patient otherwise feels well. She voices no other complaints or concerns at this time. Portions of this note were created with voice recognition technology. There may be grammatical, spelling, punctuation or sound alike errors Timing/Duration: today Severity: moderate Modifying Factors: Improves With: nothing Associated Symptoms: denies symptoms Allergies/Adverse Reactions: codeine Allergy (Verified 10/22/24 11:36) unknown Sulfa (Sulfonamide Antibiotics) Allergy (Verified 10/22/24 11:36) Rash JASBIR Inhibitors Adverse Reaction (Verified 10/22/24 11:36) Cough Home Medications: Amlodipine Besylate [Norvasc] 10 mg PO DAILY 11/25/20 [History] Atorvastatin Calcium [Lipitor 20MG Tablet] 20 mg PO DAILY 11/25/20 [History] Metoprolol Succinate 100 mg PO DAILY 11/25/20 [History] Omeprazole 40 mg PO DAILY 11/25/20 [History] Apixaban [Eliquis] 2.5 mg PO BID 05/09/21 [History] Anastrozole [Arimidex] 1 mg PO DAILY 01/31/23 [History] Calcium Carbonate/Vitamin D3 [Calcium 600-Vit D3 200 Tablet] 1 tab PO DAILY 06/03/23 [History] Cholecalciferol (Vitamin D3) [Vitamin D3] 125 mcg PO DAILY 08/06/24 [History] Cyanocobalamin (Vitamin B-12) [Vitamin B-12] 1,000 mcg PO DAILY 08/06/24 [History] Tramadol HCl 50 mg [Ultram 50 mg] 50 mg PO BID 08/06/24 [History] Lidocaine 1 patch TOP DAILY 08/22/24 [History] Hx Tetanus, Diphtheria Vaccination/Date Given: Yes Hx Influenza Vaccination/Date Given: Yes Hx Pneumococcal Vaccination/Date Given: Yes Immunizations Up to Date: Yes Travel Risk - International Travel Have you traveled outside of the country in past 3 weeks: No - Emerging Infectious Disease Are you exhibiting symptoms associated with any current EIDs: No Symptoms: Shortness of Breath - Review of Systems Constitutional: No Symptoms Eyes: No Symptoms Ears, Nose, & Throat: No Symptoms Respiratory: No Symptoms Cardiac: No Symptoms Abdominal/Gastrointestinal: No Symptoms Genitourinary Symptoms: No Symptoms Musculoskeletal: No Symptoms Skin: No Symptoms Neurological: No Symptoms Psychological: No Symptoms Endocrine: No Symptoms Hematologic/Lymphatic: No Symptoms Immunological/Allergic: No Symptoms - Past Medical History Pertinent Past Medical History: Yes Neurological History: No Pertinent History ENT History: Cataracts Cardiac History: Arrhythmia, Hypertension Respiratory History: No Pertinent History Endocrine Medical History: No Pertinent History Musculoskeletal History: Osteoarthritis GI Medical History: No Pertinent History History: No Pertinent History Psycho-Social History: No Pertinent History Female Reproductive Disorders: Breast Cancer Other Medical History: PSH: R TKA 2011, R ANKLE ORIF 2009, HYSTERECTOMY, GALL BLADDER, BREAST CANCER REMOVAL, APPENDECOMY, TONSILLECTOMY. PMH: A-FIB, - Past Surgical History Past Surgical History: Yes Neuro Surgical History: No Pertinent History Cardiac: Cardiac Catheterization Respiratory: No Pertinent History Gastrointestinal: Appendectomy, Cholecystectomy Genitourinary: No Pertinent History Musculoskeletal: Joint Replacement Female Surgical History: Hysterectomy Other Surgical History: R knee, metal in R ankle,. lumpectomy R and L side. lasik on eyes - Social History Smoking Status: Never smoker Exposure to second hand smoke: No Drug Use: none Patient Lives Alone: No - Social Determinants of Health Will the patient participate in the screening: Yes Do you worry about a steady place to live?: No Do you have any problems with any of the following?: No known problems In the past 12 months,have you had to go without utilities?: No Transportation Issues: No Has anyone in your support network made you feel unsafe?: No Have you or anyone in your house had to go without enough: No - Nursing Vital Signs Nursing Vital Signs: Initial Vital Signs Temperature 97.6 F 10/22/24 11:40 Pulse Rate 96 H 10/22/24 11:40 Respiratory Rate 20 10/22/24 11:40 Blood Pressure 150/96 10/22/24 11:40 O2 Sat by Pulse Oximetry 95 10/22/24 11:40 Pain Scale Pain Intensity 0 - Physical Exam General Appearance: no apparent distress, alert Eye Exam: PERRL/EOMI, eyes nml inspection Ears, Nose, Throat Exam: normal ENT inspection, moist mucous membranes Neck Exam: normal inspection, full range of motion Respiratory Exam: normal breath sounds, lungs clear, airway intact, No respiratory distress Cardiovascular Exam: regular rate/rhythm, normal heart sounds, normal peripheral pulses Gastrointestinal/Abdomen Exam: soft, normal bowel sounds, No tenderness, No mass Back Exam: normal inspection, normal range of motion, No CVA tenderness, No vertebral tenderness Extremity Exam: normal inspection, normal range of motion, pelvis stable Neurologic Exam: alert, oriented x 3, cooperative, normal mood/affect, nml cerebellar function, nml station & gait, sensation nml, No motor deficits Skin Exam: normal color, warm, dry, No rash Lymphatic Exam: No adenopathy SpO2 Interpretation: normal SpO2: 95 O2 Delivery: Room Air - Course Nursing assessment & vital signs reviewed: Yes Ordered Tests: Active Orders 24 hr Category Date Time Status IV Insertion STAT Care 10/22/24 11:43 Active CBC W DIFF Stat Lab 10/22/24 12:20 Completed CMP Stat Lab 10/22/24 12:20 Completed Medication Summary Discontinued Medications Generic Name Dose Route Start Last Admin Trade Name Lucero PRN Reason Stop Dose Admin Sodium Chloride 1,000 mls @ 999 mls/hr 10/22/24 11:43 10/22/24 12:06 Sodium Chloride 0.9% 1000 Ml IV 10/22/24 12:43 999 mls/hr .Q1H1M STA Administration Sodium Chloride Confirm 10/22/24 12:03 Sodium Chloride 0.9% 1000 Ml Administered 10/22/24 12:04 Dose 1,000 mls @ ud .ROUTE .STK-MED ONE Lab/Rad Data: Laboratory Result Diagrams 10/22/24 12:20 10/22/24 12:20 Laboratory Results 10/22/24 10/22/24 Range/Units 12:20 12:20 WBC 5.9 (3.98-10.04) x10^3/uL RBC 3.62 L (3.93-5.22) x10^6/uL Hgb 12.6 (11.2-15.7) g/dL Hct 37.2 (34.1-44.9) % MCV 102.8 H (79.4-94.8) fL MCH 34.8 H (25.6-32.2) pg MCHC 33.9 (32.2-35.5) g/dL RDW 15.6 H (11.7-14.4) % Plt Count 212 (182-369) x10^3/uL MPV 10.3 (9.4-12.3) fL Gran % 86.7 H (34.0-71.1) % Immature Gran % (Auto) 0.3 (0.001-0.429) % Nucleat RBC Rel Count 0.0 (0.00-0.2) % Eos # (Auto) 0.08 (0.04-0.36) x10^3/uL Immature Gran # (Auto) 0.02 (0.001-0.031) x10^3u/L Absolute Lymphs (auto) 0.29 L (1.18-3.74) x10^3/uL Absolute Monos (auto) 0.38 (0.24-0.86) x10^3/uL Absolute Nucleated RBC 0.00 (0.00-0.012) x10^3u/L Lymphocytes % 4.9 L (19.3-51.7) % Monocytes % 6.5 (4.7-12.5) % Eosinophils % 1.4 (0.7-5.8) % Basophils % 0.2 (0.1-1.2) % Absolute Granulocytes 5.10 (1.56-6.13) x10^3/uL Basophils # 0.01 (0.01-0.08) x10^3/uL Sodium 134 L (135-145) mmol/L Potassium 3.9 (3.5-5.1) mmol/L Chloride 107 (98-107) mmol/L Carbon Dioxide 19 L (22-30) mmol/L Anion Gap 12.3 (5-15) MEQ/L BUN 28 H (7-17) mg/dL Creatinine 0.95 (0.52-1.04) mg/dL Estimated GFR 61.0 ML/MIN Glucose 103 (74-106) mg/dL Calcium 8.9 (8.4-10.2) mg/dL Total Bilirubin 1.30 (0.2-1.3) mg/dL AST 39 H (14-36) U/L ALT 22 (0-35) U/L Alkaline Phosphatase 60 (38-126) U/L Serum Total Protein 6.5 (6.3-8.2) g/dL Albumin 4.1 (3.5-5.0) g/dL - Progress Progress: improved Progress Note: 78-year-old female presents to our ED for evaluation of diarrhea. Physical exam essentially nonremarkable. Vital stable. Laboratory workup nonremarkable. Patient denies pain. Patient reassessed. She is well. IV fluids infused. Patient states she is ready for discharge she voices no other complaints or concerns at this time. Portions of this note were created with voice recognition technology. There may be grammatical, spelling, punctuation or sound alike errors Complexity of problem addressed is moderate acute complicated. No critical care time. Complexity of data reviewed and analyzed is moderate. Test ordered test reviewed results analyzed and correlated clinically with history and physical exam. Risk of complication and or risk of morbidity/mortality of patient management is low. Vital stable. Time spent to discharge patient is approximately 20 minutes. Plan of care established for shared decision making. No social determinants of health present to impede follow-up. Portions of this note were created with voice recognition technology. There may be grammatical, spelling, punctuation or sound alike errors 10/22/24 12:51 Counseled pt/family regarding: lab results, diagnosis, need for follow-up - Departure Departure Disposition: Home Clinical Impression: Diarrhea Condition: Stable Critical Care Time: No Referrals: FERNANDEZ FIERRO MD [Primary Care Provider] - Follow up/PCP as directed Additional Instructions: Discharge/Care Plan MANDIE PA was seen on 10/22/24 in the Emergency Room. The patient was counseled regarding Diagnosis,Lab results, Imaging studies, need for follow up and when to return to the Emergency Room. Prescriptions given: Discharge Note I have spoken with the patient and/or caregivers. I have explained the patient's condition, diagnosis and treatment plan based on the information available to me at this time. I have answered the patient's and/or caregiver's questions and addressed any concerns. The patient and/or caregivers have as good understanding of the patient's diagnosis, condition and treatment plan as can be expected at this point. The vital signs have been stable. The patient's condition is stable and appropriate for discharge from the emergency department. The patient will pursue further outpatient evaluation with the primary care physician or other designated or consulting physician as outlined in the discharge instructions. The patient and/or caregivers are agreeable to this plan of care and follow-up instructions have been explained in detail. The patient and/or caregivers have received these instruction. The patient/and or caregivers are aware that any significant change in condition or worsening of symptoms should prompt an immediate return to this or the closest emergency department or call 911.
[2024-10-22 12:48] LABS: ALBUMIN 4.1 g/dL (3.5-5.0); ANION GAP 12.3 MEQ/L (5-15); BILIRUBIN,TOTAL 1.3 mg/dL (0.2-1.3); Calcium 8.9 mg/dL (8.4-10.2); Creatinine 1 0.95 mg/dL (0.52-1.04); Potassium 3.9 mmol/L (3.5-5.1); Total Protein 6.5 g/dL (6.3-8.2)
[2024-10-22 13:13] VITALS: BP 156/91; PULSE 77; RESP 24
[2024-10-22 15:43] LABS: Slide Review 1 YES
== END 2024-10-22 13:19 | disposition home or self-care (01) ==
LOC: ED 11:16
DX: R19.7 Diarrhea, unspecified (principal); Z79.899 Other long term (current) drug therapy; Z79.01 Long term (current) use of anticoagulants
CPT/HCPCS: 36415; 80053; 85025; 96360; 99283

== ENCOUNTER 2024-10-27 16:14 | Emergency (ER) | payer MEDICARE ==
[2024-10-27 16:30] VITALS: TEMP 96.9
--- NOTE | 2024-10-27 16:39 | ERPHSYRPT ---
- History of Present Illness Source: patient Exam Limitations: no limitations Patient Subjective Stated Complaint: uti Triage Nursing Assessment: Pt brought self to the ER, vitals wnl, rates urinary pain as 3/10, pulses normal, skin n/w/d, foul smell to urine, dark color, denies any other complaints Physician History: Patient's had dysuria. She does have fever chills or nausea vomiting. She has had UTIs in the past and says this feels similar. It ruiz when she urinates. Nothing else makes the symptoms occur. She has frequency and urgency. She does not have any incontinence. Timing/Duration: yesterday Modifying Factors: Worsens With: urinating Associated Symptoms: denies symptoms Allergies/Adverse Reactions: codeine Allergy (Verified 10/27/24 16:30) unknown Sulfa (Sulfonamide Antibiotics) Allergy (Verified 10/27/24 16:30) Rash JASBIR Inhibitors Adverse Reaction (Verified 10/27/24 16:30) Cough Home Medications: Amlodipine Besylate [Norvasc] 10 mg PO DAILY 11/25/20 [History] Atorvastatin Calcium [Lipitor 20MG Tablet] 20 mg PO DAILY 11/25/20 [History] Metoprolol Succinate 100 mg PO DAILY 11/25/20 [History] Omeprazole 40 mg PO DAILY 11/25/20 [History] Apixaban [Eliquis] 2.5 mg PO BID 05/09/21 [History] Anastrozole [Arimidex] 1 mg PO DAILY 01/31/23 [History] Calcium Carbonate/Vitamin D3 [Calcium 600-Vit D3 200 Tablet] 1 tab PO DAILY 06/03/23 [History] Cholecalciferol (Vitamin D3) [Vitamin D3] 125 mcg PO DAILY 08/06/24 [History] Cyanocobalamin (Vitamin B-12) [Vitamin B-12] 1,000 mcg PO DAILY 08/06/24 [History] Tramadol HCl 50 mg [Ultram 50 mg] 50 mg PO BID 08/06/24 [History] Lidocaine 1 patch TOP DAILY 08/22/24 [History] Hx Tetanus, Diphtheria Vaccination/Date Given: Yes Hx Influenza Vaccination/Date Given: Yes Hx Pneumococcal Vaccination/Date Given: Yes Travel Risk - International Travel Have you traveled outside of the country in past 3 weeks: No - Emerging Infectious Disease Are you exhibiting symptoms associated with any current EIDs: No Symptoms: Shortness of Breath - Review of Systems Constitutional: No Symptoms Eyes: No Symptoms Abdominal/Gastrointestinal: No Symptoms Genitourinary Symptoms: Dysuria, Frequency, Urgency, No Incontinence - Past Medical History Pertinent Past Medical History: Yes Neurological History: No Pertinent History ENT History: Cataracts Cardiac History: Arrhythmia, Hypertension Respiratory History: No Pertinent History Endocrine Medical History: No Pertinent History Musculoskeletal History: Osteoarthritis GI Medical History: No Pertinent History History: No Pertinent History Psycho-Social History: No Pertinent History Female Reproductive Disorders: Breast Cancer Other Medical History: PSH: R TKA 2011, R ANKLE ORIF 2009, HYSTERECTOMY, GALL BLADDER, BREAST CANCER REMOVAL, APPENDECOMY, TONSILLECTOMY. PMH: A-FIB, - Past Surgical History Past Surgical History: Yes Neuro Surgical History: No Pertinent History Cardiac: Cardiac Catheterization Respiratory: No Pertinent History Gastrointestinal: Appendectomy, Cholecystectomy Genitourinary: No Pertinent History Musculoskeletal: Joint Replacement Female Surgical History: Hysterectomy Other Surgical History: R knee, metal in R ankle,. lumpectomy R and L side. lasik on eyes - Social History Smoking Status: Never smoker Exposure to second hand smoke: No Drug Use: none Patient Lives Alone: No - Social Determinants of Health Will the patient participate in the screening: Yes Do you worry about a steady place to live?: No Do you have any problems with any of the following?: No known problems In the past 12 months,have you had to go without utilities?: No Transportation Issues: No Has anyone in your support network made you feel unsafe?: No Have you or anyone in your house had to go without enough: No - Nursing Vital Signs Nursing Vital Signs: Initial Vital Signs Temperature 96.9 F 10/27/24 16:25 Pulse Rate 78 10/27/24 16:25 Blood Pressure 135/74 10/27/24 16:25 O2 Sat by Pulse Oximetry 97 10/27/24 16:25 Pain Scale Pain Intensity 3 - Physical Exam General Appearance: no apparent distress Eye Exam: PERRL/EOMI Gastrointestinal/Abdomen Exam: soft, normal bowel sounds, No tenderness, No distention Neurologic Exam: alert, oriented x 3 Skin Exam: normal color, warm SpO2: 97 - Course Nursing assessment & vital signs reviewed: Yes Ordered Tests: Active Orders 24 hr Category Date Time Status CULTURE,URINE Stat Lab 10/27/24 16:54 Received UA W/RFX UR CULTURE Stat Lab 10/27/24 16:54 Completed Lab/Rad Data: Laboratory Results 10/27/24 Range/Units 16:54 Urine Color Dark Yellow A (Yellow) Urine Appearance Cloudy A (Clear) Urine pH 6.0 (4.6-8.0) Ur Specific [place] 1.015 (1.005-1.030) Urine Protein 30 (Negative) Urine Glucose (UA) Negative (Negative) mg/dL Urine Ketones Trace A (Negative) Urine Blood Negative (Negative) Urine Nitrite Positive A (Negative) Urine Bilirubin Negative (Negative) Urine Urobilinogen 1.0 A (0.2) mg/dL Ur Leukocyte Esterase Moderate A (Negative) U Hyaline Cast (Auto) None Seen (0-2) /LPF Urine Microscopic RBC 0-2 (0-5) /HPF Urine Microscopic WBC 3-5 (0-5) /HPF Ur Epithelial Cells Rare (None Seen) /HPF Urine Bacteria Many A (None Seen) /HPF Urine Culture Reflexed YES (NO) - Progress Progress: unchanged Air Movement: good Progress Note: UA showed evidence of a UTI. I am going to start her on Macrobid. She is discharged home in stable condition 10/27/24 17:39 Medical Desision Making - Risk of complications Minimal Risk: Minimal risk of morbidity - Departure Departure Disposition: Home Clinical Impression: UTI (urinary tract infection) Condition: Stable Critical Care Time: No Referrals: FERNANDEZ FIERRO MD [Primary Care Provider] - Follow up/PCP as directed Instructions: Urinary Tract Infection, Adult (DC)
[2024-10-27 17:20] LABS: Appearance Cloudy (Clear); Bacteria Many /HPF (None Seen); Bilirubin Negative (Negative); Blood Negative (Negative); Epithelial Cells Rare /HPF (None Seen); Glucose, Urine Negative (Negative); Hyaline Casts None Seen /LPF (0-2); Ketones Trace (Negative); Leukocyte Esterase Moderate (Negative); Nitrite Positive (Negative); Protein,Urine Dip 30 (Negative); RBC 0-2 /HPF (0-5); Specific Gravity 1.015 (1.005-1.030)
[2024-10-27] MEDS: Macrobid 100MG Capsule PO ONE (17:54)
[2024-10-27] MEDS ORDERED: Macrobid 100MG Capsule ONE (17:54)
[2024-10-27 18:02] VITALS: BP 138/74; PULSE 74; O2SAT 95
== END 2024-10-27 18:01 | disposition home or self-care (01) ==
LOC: ED 16:14
DX: N39.0 Urinary tract infection, site not specified (principal)
CPT/HCPCS: 81001; 87077; 87086; 87186; 99283; A9270-GY

== ENCOUNTER 2025-06-01 08:28 | Emergency (ER) | payer MEDICARE ==
[2025-06-01 08:58] VITALS: RESP 18; TEMP 97.8; O2SAT 97
[2025-06-01] MEDS ORDERED: PYRIDIUM 200 MG ONE (09:04)
[2025-06-01] MEDS: PYRIDIUM 200 MG PO ONE (09:07)
[2025-06-01 09:10] LABS: BASOPHIL % 0.3 % (0.1-1.2); Basophil (Absolute #) 0.01 x10^3/uL (0.01-0.08); Eosinophil (Absolute #) 0.12 x10^3/uL (0.04-0.36); Hematocrit 35.6 % (34.1-44.9); Hemoglobin 12.1 g/dL (11.2-15.7); IMMATURE GRAN # 0.00 x10^3u/L (0.001-0.031); IMMATURE GRAN % 0.0 % (0.001-0.429); Lymphocyte (Absolute #) 0.44 x10^3/uL (1.18-3.74); Mean Corpuscular Hemoglobin 35.5 pg (25.6-32.2); Mean Corpuscular Hgb Concent. 34.0 g/dL (32.2-35.5); Monocyte (Absolute #) 0.32 x10^3/uL (0.24-0.86); NUCLEATED RBC # 0.00 x10^3u/L (0.00-0.012); NUCLEATED RBC % 0.0 % (0.00-0.2); Platelet Count 176 x10^3/uL (182-369); Red Blood Count 3.41 x10^6/uL (3.93-5.22); White Blood Count 3.0 x10^3/uL (3.98-10.04)
--- NOTE | 2025-06-01 09:11 | ERPHSYRPT ---
- History of Present Illness Time Seen by Provider: 06/01/25 09:04 Source: patient Exam Limitations: no limitations Patient Subjective Stated Complaint: Pt. states, "I have been up all nigth peeing and I think I have a UTI." Triage Nursing Assessment: Pt. ambulates to room with rolling walker, A&Ox3, Skin P/W/D, Resp. even unlabored. Urine specimen collected, clear yellow. Physician History: Patient is a 79-year-old female with significant past medical history of hypertension osteoarthritis atrial fibrillation status post Watchman procedure started having burning urination since last night and frequency of urination all night so she came to the emergency room. She denies any fever chills nausea vomiting abdominal pain blood in the stool or urine. Timing/Duration: today Quality: burning, pressure Onset Location: suprapubic Severity of Pain-Max: mild Severity of Pain-Current: mild Prior abdominal problems: none Sexual intercourse history: non-contributory Modifying Factors: Improves With: nothing Associated Symptoms: dysuria, urinary frequency Allergies/Adverse Reactions: codeine Allergy (Verified 10/27/24 16:30) unknown Sulfa (Sulfonamide Antibiotics) Allergy (Verified 10/27/24 16:30) Rash JASBIR Inhibitors Adverse Reaction (Verified 10/27/24 16:30) Cough Home Medications: Amlodipine Besylate [Norvasc] 10 mg PO DAILY 11/25/20 [History] Atorvastatin Calcium [Lipitor 20MG Tablet] 20 mg PO DAILY 11/25/20 [History] Metoprolol Succinate 100 mg PO DAILY 11/25/20 [History] Omeprazole 40 mg PO DAILY 11/25/20 [History] Apixaban [Eliquis] 2.5 mg PO BID 05/09/21 [History] Anastrozole [Arimidex] 1 mg PO DAILY 01/31/23 [History] Calcium Carbonate/Vitamin D3 [Calcium 600-Vit D3 200 Tablet] 1 tab PO DAILY 06/03/23 [History] Cholecalciferol (Vitamin D3) [Vitamin D3] 125 mcg PO DAILY 08/06/24 [History] Cyanocobalamin (Vitamin B-12) [Vitamin B-12] 1,000 mcg PO DAILY 08/06/24 [History] Tramadol HCl 50 mg [Ultram 50 mg] 50 mg PO BID 08/06/24 [History] Lidocaine 1 patch TOP DAILY 08/22/24 [History] Hx Tetanus, Diphtheria Vaccination/Date Given: Yes Hx Influenza Vaccination/Date Given: Yes Hx Pneumococcal Vaccination/Date Given: Yes Travel Risk - International Travel Have you traveled outside of the country in past 3 weeks: No - Emerging Infectious Disease Are you exhibiting symptoms associated with any current EIDs: No Symptoms: Shortness of Breath - Review of Systems Constitutional: No Fever, No Chills Eyes: No Symptoms Ears, Nose, & Throat: No Symptoms Respiratory: No Cough, No Dyspnea Cardiac: No Chest Pain, No Edema, No Syncope Abdominal/Gastrointestinal: No Abdominal Pain, No Nausea, No Vomiting, No Diarrhea Genitourinary Symptoms: Dysuria, Frequency, Hesitancy, Urgency, No Hematuria, No Incontinence, No Urinary Retention, No Flank Pain, No Menorrhagia, No Vaginal Bleeding Musculoskeletal: No Back Pain, No Neck Pain Skin: No Rash Neurological: No Dizziness, No Focal Weakness, No Sensory Changes Psychological: No Symptoms Endocrine: No Symptoms All Other Systems: Reviewed and Negative - Past Medical History Pertinent Past Medical History: Yes Neurological History: No Pertinent History ENT History: Cataracts Cardiac History: Arrhythmia, Hypertension Respiratory History: No Pertinent History Endocrine Medical History: No Pertinent History Musculoskeletal History: Osteoarthritis GI Medical History: No Pertinent History History: No Pertinent History Psycho-Social History: No Pertinent History Female Reproductive Disorders: Breast Cancer Other Medical History: PSH: R TKA 2011, R ANKLE ORIF 2009, HYSTERECTOMY, GALL BLADDER, BREAST CANCER REMOVAL, APPENDECOMY, TONSILLECTOMY. PMH: A-FIB with Watchman's Procedure in March - Past Surgical History Past Surgical History: Yes Neuro Surgical History: No Pertinent History Cardiac: Cardiac Catheterization Respiratory: No Pertinent History Gastrointestinal: Appendectomy, Cholecystectomy Genitourinary: No Pertinent History Musculoskeletal: Joint Replacement Female Surgical History: Hysterectomy Other Surgical History: R knee, metal in R ankle,. lumpectomy R and L side. lasik on eyes. Watchman's Procedure in March - Social History Smoking Status: Never smoker Exposure to second hand smoke: No Drug Use: none - Social Determinants of Health Will the patient participate in the screening: Declined to provide - Nursing Vital Signs Nursing Vital Signs: Initial Vital Signs Temperature 97.8 F 06/01/25 08:29 Pulse Rate 84 06/01/25 08:29 Respiratory Rate 18 06/01/25 08:29 Blood Pressure 145/113 06/01/25 08:29 O2 Sat by Pulse Oximetry 97 06/01/25 08:29 Pain Scale Pain Intensity 0 - Physical Exam General Appearance: no apparent distress, alert Eye Exam: PERRL/EOMI, eyes nml inspection Ears, Nose, Throat Exam: normal ENT inspection, TMs normal, pharynx normal, moist mucous membranes Neck Exam: normal inspection, non-tender, supple, full range of motion Respiratory Exam: normal breath sounds, lungs clear, No respiratory distress Cardiovascular Exam: regular rate/rhythm, normal heart sounds, normal peripheral pulses Gastrointestinal/Abdomen Exam: soft, No tenderness, No mass Back Exam: normal inspection, normal range of motion, No CVA tenderness, No vertebral tenderness Extremity Exam: normal inspection, normal range of motion, pelvis stable Neurologic Exam: alert, oriented x 3, cooperative, emergency room tech II-XII nml as tested, normal mood/affect, sensation nml, No motor deficits Skin Exam: normal color, warm, dry Lymphatic Exam: No adenopathy SpO2: 97 - Course Nursing assessment & vital signs reviewed: Yes Ordered Tests: Active Orders 24 hr Category Date Time Status CBC W DIFF Stat Lab 06/01/25 09:00 Completed CMP Stat Lab 06/01/25 08:47 Completed UA W/RFX UR CULTURE Stat Lab 06/01/25 08:47 Completed Medication Summary Discontinued Medications Generic Name Dose Route Start Last Admin Trade Name Freq PRN Reason Stop Dose Admin Phenazopyridine HCl 200 mg 06/01/25 08:48 06/01/25 09:07 Phenazopyridine Hcl 200 Mg Tablet PO 06/01/25 08:49 200 mg STAT ONE Administration Phenazopyridine HCl Confirm 06/01/25 09:04 Phenazopyridine Hcl 200 Mg Tablet Administered 06/01/25 09:05 Dose 200 mg .ROUTE .STK-MED ONE Lab/Rad Data: Laboratory Result Diagrams 06/01/25 09:00 06/01/25 08:47 Laboratory Results 06/01/25 06/01/25 06/01/25 Range/Units 09:00 08:47 08:47 WBC 3.0 L (3.98-10.04) x10^3/uL RBC 3.41 L (3.93-5.22) x10^6/uL Hgb 12.1 (11.2-15.7) g/dL Hct 35.6 (34.1-44.9) % MCV 104.4 H (79.4-94.8) fL MCH 35.5 H (25.6-32.2) pg MCHC 34.0 (32.2-35.5) g/dL RDW 13.5 (11.7-14.4) % Plt Count 176 L (182-369) x10^3/uL MPV 9.7 (9.4-12.3) fL Gran % 70.6 (34.0-71.1) % Immature Gran % (Auto) 0.0 L (0.001-0.429) % Nucleat RBC Rel Count 0.0 (0.00-0.2) % Eos # (Auto) 0.12 (0.04-0.36) x10^3/uL Immature Gran # (Auto) 0.00 L (0.001-0.031) x10^3u/L Absolute Lymphs (auto) 0.44 L (1.18-3.74) x10^3/uL Absolute Monos (auto) 0.32 (0.24-0.86) x10^3/uL Absolute Nucleated RBC 0.00 (0.00-0.012) x10^3u/L Lymphocytes % 14.5 L (19.3-51.7) % Monocytes % 10.6 (4.7-12.5) % Eosinophils % 4.0 (0.7-5.8) % Basophils % 0.3 (0.1-1.2) % Absolute Granulocytes 2.14 (1.56-6.13) x10^3/uL Basophils # 0.01 (0.01-0.08) x10^3/uL Sodium 137 (135-145) mmol/L Potassium 3.5 (3.5-5.1) mmol/L Chloride 106 (98-107) mmol/L Carbon Dioxide 23 (22-30) mmol/L Anion Gap 11.3 (5-15) MEQ/L BUN 13 (7-17) mg/dL Creatinine 0.80 (0.52-1.04) mg/dL Estimated GFR 74.4 ML/MIN Glucose 177 H (74-106) mg/dL Calcium 8.9 (8.4-10.2) mg/dL Total Bilirubin 1.00 (0.2-1.3) mg/dL AST 31 (14-36) U/L ALT 19 (0-35) U/L Alkaline Phosphatase 54 (38-126) U/L Serum Total Protein 6.4 (6.3-8.2) g/dL Albumin 3.9 (3.5-5.0) g/dL Urine Color Yellow (Yellow) Urine Appearance Clear (Clear) Urine pH 7.5 (4.6-8.0) Ur Specific [place] 1.010 (1.005-1.030) Urine Protein Negative (Negative) Urine Glucose (UA) Negative (Negative) mg/dL Urine Ketones Negative (Negative) Urine Blood Negative (Negative) Urine Nitrite Negative (Negative) Urine Bilirubin Negative (Negative) Urine Urobilinogen 1.0 A (0.2) mg/dL Ur Leukocyte Esterase Negative (Negative) U Hyaline Cast (Auto) NONE SEEN (0-2) /LPF Urine Microscopic RBC 0-2 (0-5) /HPF Urine Microscopic WBC 0-2 (0-5) /HPF Ur Epithelial Cells None Seen (None Seen) /HPF Urine Bacteria None Seen (None Seen) /HPF Urine Culture Reflexed NO (NO) - Progress Progress: unchanged Air Movement: good Blood Culture(s) Obtained: No Antibiotics given: No Counseled pt/family regarding: lab results, diagnosis, need for follow-up Medical Desision Making - Diagnostic Testing Diagnostic test were ordered, analyzed, and reviewed by me: Yes - Risk of complications Low Risk: Low risk of morbidity from additional dx testing or treatment - Departure Departure Disposition: Home Clinical Impression: Dysuria-frequency syndrome, Cystitis Condition: Stable Critical Care Time: No Referrals: FERNANDEZ FIERRO MD [Primary Care Provider, INTERNAL MEDICINE] - Follow up/PCP as directed Instructions: Bladder pain syndrome (interstitial cystitis) - ED discharge instructions, Bladder spasm, Urinary Incontinence, Adult ED Additional Instructions: Discharge/Care Plan MANDIE PA was seen on 06/01/25 in the Emergency Room. The patient was counseled regarding Diagnosis,Lab results, Imaging studies, need for follow up and when to return to the Emergency Room. Prescriptions given: Discharge Note I have spoken with the patient and/or caregivers. I have explained the patient's condition, diagnosis and treatment plan based on the information available to me at this time. I have answered the patient's and/or caregiver's questions and addressed any concerns. The patient and/or caregivers have as good understanding of the patient's diagnosis, condition and treatment plan as can be expected at this point. The vital signs have been stable. The patient's condition is stable and appropriate for discharge from the emergency department. The patient will pursue further outpatient evaluation with the primary care physician or other designated or consulting physician as outlined in the discharge instructions. The patient and/or caregivers are agreeable to this plan of care and follow-up instructions have been explained in detail. The patient and/or caregivers have received these instruction. The patient/and or caregivers are aware that any significant change in condition or worsening of symptoms should prompt an immediate return to this or the closest emergency department or call 911. MANDIE PA was seen on 06/01/25 n the Emergency Room. At that time you were treated for an emergent condition, during your visit Laboratory, Radiology and/or other procedures may have been ordered. It is very important that you follow-up with your Primary Care Physician FERNANDEZ FIERRO within the next 24-48 hours to review your Emergency Room visit and the final results of testing that was ordered. Some test results such as Urine Cultures, Blood Cultures, and other cultures if ordered will not be finalized for 24-48 hours. If you do not have a Primary Care Provider please call the medical records department at [phone] ext [phone] to obtain a copy of your results or you may sign into our patient portal to obtain these results by visiting us @ [email or web address] and completing the following steps: 1. Click on the Patient Portal link 2. Click the Patient Self Enrollment Link to complete the enrollment form and entering your 3. Once the enrollment form is completed you will receive an email with a temporary ID and password at the email address you provided. 4. Next choose a user name and password. Your user name must be at least 4 characters long and your password must be at least 4 characters long. 5. Choose a security question from the list and provide your answer to the question. If you already have signed into the Health Portal you may access your Health Care Information 29/05 by the following steps: 1. Login to our website @ [email or web address] 2. Enter your original user name and password. FAQS The [facility] Health Portal is an online tool that contains your Lab Results, Radiology Reports, Visit History, Discharge Instructions and Health Summary Lab and Radiology Results will not be available for 72 hours on the portal. The Portal is a secure site, passwords are encryted and URLs are re-written so they cannot be copied and pasted. You and authorized family members are the only ones who can access your Portal. Also there is a timeout feature that protects your information if you leave the Portal page open. If you have technical difficulty please use the Contact Us link on the page this will allow you to submit any questions you have regarding the Portal or you may contact the Medical Record Department at [phone]. Prescriptions: Phenazopyridine HCl [Pyridium 100 mg] 100 mg PO BID #10 tablet
[2025-06-01 09:29] LABS: Calcium 8.9 mg/dL (8.4-10.2); Carbon Dioxide 23.0 mmol/L (22-30); Creatinine 1 0.8 mg/dL (0.52-1.04); EST GLOMERULAR FILTRATION RATE 74.4 ML/MIN; Glucose 177.0 mg/dL (74-106); Potassium 3.5 mmol/L (3.5-5.1); SGOT/AST 31.0 U/L (14-36); SGPT/ALT 19.0 U/L (0-35); Total Protein 6.4 g/dL (6.3-8.2)
[2025-06-01 09:35] LABS: Glucose, Urine Negative (Negative); Protein,Urine Dip Negative (Negative); RBC 0-2 /HPF (0-5); WBC 0-2 /HPF (0-5)
[2025-06-01 09:43] VITALS: BP 146/76; PULSE 76
[2025-06-01 09:56] LABS: Slide Review 1 YES
== END 2025-06-01 09:54 | disposition home or self-care (01) ==
LOC: ED 08:28
DX: N30.90 Cystitis, unspecified without hematuria (principal); N39.8 Other specified disorders of urinary system; R30.0 Dysuria; R35.0 Frequency of micturition; I10 Essential (primary) hypertension; Z79.01 Long term (current) use of anticoagulants; Z79.899 Other long term (current) drug therapy

== ENCOUNTER 2025-07-21 02:23 | Emergency (ER) | payer MEDICARE ==
[2025-07-21 02:38] VITALS: TEMP 97.2
[2025-07-21 02:40] LABS: Glucose, Urine Negative (Negative); Protein,Urine Dip Negative (Negative); RBC 0-2 /HPF (0-5); WBC 0-2 /HPF (0-5)
[2025-07-21 03:02] VITALS: BP 179/80; PULSE 74; RESP 18; O2SAT 96
--- NOTE | 2025-07-21 03:05 | ERPHSYRPT ---
- History of Present Illness Time Seen by Provider: 07/21/25 02:25 Source: patient Exam Limitations: no limitations Patient Subjective Stated Complaint: frequent urination and back pain on left side going down left leg Triage Nursing Assessment: Pt brought in by EMS for c/o left lower back pain that radiates down the back of left leg and frequent urination, urgency and polyuria which all began yesterday morning around 6am. Pt ambulates with cane without difficulty. Pt is alert and oriented x4. Physician History: 79-year-old female presents to the emergency room with concern for UTI patient reports she has urinary frequency she reports she has back pain but that back pain radiates down her left leg and she associates that to musculoskeletal as it improves with Tylenol she is concerned that she might have a bladder infection she reports she has a history of urinary infections denies any nausea vomiting denies any fevers denies any chest pain or shortness of breath Timing/Duration: today Severity: mild Associated Symptoms: No nausea, No vomiting, No shortness of breath, No diaphoresis, No cough, No chest pain, No fever, No headaches, No loss of appetite, No seizure Allergies/Adverse Reactions: codeine Allergy (Verified 07/21/25 02:47) unknown Sulfa (Sulfonamide Antibiotics) Allergy (Verified 07/21/25 02:47) Rash JASBIR Inhibitors Adverse Reaction (Verified 07/21/25 02:47) Cough Home Medications: Amlodipine Besylate [Norvasc] 10 mg PO DAILY 11/25/20 [History] Atorvastatin Calcium [Lipitor 20MG Tablet] 20 mg PO DAILY 11/25/20 [History] Metoprolol Succinate 100 mg PO DAILY 11/25/20 [History] Omeprazole 40 mg PO DAILY 11/25/20 [History] Anastrozole [Arimidex] 1 mg PO DAILY 01/31/23 [History] Calcium Carbonate/Vitamin D3 [Calcium 600-Vit D3 200 Tablet] 1 tab PO DAILY 06/03/23 [History] Cholecalciferol (Vitamin D3) [Vitamin D3] 125 mcg PO DAILY 08/06/24 [History] Cyanocobalamin (Vitamin B-12) [Vitamin B-12] 1,000 mcg PO DAILY 08/06/24 [History] Lidocaine 1 patch TOP DAILY 08/22/24 [History] Aspirin EC 81 mg [Ecotrin 81 mg] 1 tab PO DAILY 07/21/25 [History] Hx Tetanus, Diphtheria Vaccination/Date Given: Yes Hx Influenza Vaccination/Date Given: No Hx Pneumococcal Vaccination/Date Given: Yes Travel Risk - International Travel Have you traveled outside of the country in past 3 weeks: No - Emerging Infectious Disease Are you exhibiting symptoms associated with any current EIDs: No Symptoms: Shortness of Breath - Review of Systems Constitutional: No Fever, No Chills Eyes: No Symptoms Ears, Nose, & Throat: No Symptoms Respiratory: No Cough, No Dyspnea Cardiac: No Chest Pain, No Edema, No Syncope Abdominal/Gastrointestinal: No Nausea, No Vomiting Genitourinary Symptoms: Frequency Musculoskeletal: Back Pain, No Neck Pain Skin: No Rash Neurological: No Dizziness, No Focal Weakness, No Sensory Changes Psychological: No Symptoms Endocrine: No Symptoms All Other Systems: Reviewed and Negative - Past Medical History Pertinent Past Medical History: Yes Neurological History: No Pertinent History ENT History: Cataracts Cardiac History: Arrhythmia, Hypertension Respiratory History: No Pertinent History Endocrine Medical History: No Pertinent History Musculoskeletal History: Osteoarthritis GI Medical History: Gallbladder Disease History: No Pertinent History Psycho-Social History: No Pertinent History Female Reproductive Disorders: Breast Cancer Other Medical History: PSH: R TKA 2011, R ANKLE ORIF 2009, HYSTERECTOMY, GALL BLADDER, BREAST CANCER REMOVAL, APPENDECOMY, TONSILLECTOMY. PMH: A-FIB with Watchman's Procedure in March - Past Surgical History Past Surgical History: Yes Neuro Surgical History: No Pertinent History Cardiac: Cardiac Catheterization Respiratory: No Pertinent History Gastrointestinal: Appendectomy, Cholecystectomy Genitourinary: No Pertinent History Musculoskeletal: Joint Replacement Female Surgical History: Hysterectomy Other Surgical History: R knee, metal in R ankle,. lumpectomy R and L side. lasik on eyes. Watchman's Procedure in March - Social History Smoking Status: Never smoker Exposure to second hand smoke: No Drug Use: none - Social Determinants of Health Will the patient participate in the screening: Yes Do you worry about a steady place to live?: No Do you have any problems with any of the following?: No known problems In the past 12 months,have you had to go without utilities?: No Transportation Issues: No Has anyone in your support network made you feel unsafe?: No Have you or anyone in your house had to go w/o enough food: No - Nursing Vital Signs Nursing Vital Signs: Initial Vital Signs Blood Pressure 182/88 07/21/25 02:33 O2 Sat by Pulse Oximetry 97 07/21/25 02:33 Pain Scale Pain Intensity 5 - Physical Exam General Appearance: no apparent distress, alert Eye Exam: PERRL/EOMI, eyes nml inspection Ears, Nose, Throat Exam: normal ENT inspection, TMs normal, pharynx normal, moist mucous membranes Neck Exam: normal inspection, non-tender, supple, full range of motion Respiratory Exam: normal breath sounds, lungs clear, No respiratory distress Cardiovascular Exam: regular rate/rhythm, normal heart sounds, normal peripheral pulses Gastrointestinal/Abdomen Exam: soft, normal bowel sounds, No tenderness, No mass Back Exam: normal inspection, normal range of motion, muscle spasm, No CVA tenderness, No vertebral tenderness Extremity Exam: normal inspection, normal range of motion, pelvis stable Neurologic Exam: alert, oriented x 3, cooperative, normal mood/affect, nml cerebellar function, nml station & gait, sensation nml, No motor deficits Skin Exam: normal color, warm, dry, No rash Lymphatic Exam: No adenopathy SpO2: 96 Ordered Tests: Active Orders 24 hr Category Date Time Status UA W/RFX UR CULTURE Stat Lab 07/21/25 02:34 Completed Lab/Rad Data: Laboratory Results 07/21/25 Range/Units 02:34 Urine Color Yellow (Yellow) Urine Appearance Clear (Clear) Urine pH 6.5 (4.6-8.0) Ur Specific [place] 1.010 (1.005-1.030) Urine Protein Negative (Negative) Urine Glucose (UA) Negative (Negative) mg/dL Urine Ketones Negative (Negative) Urine Blood Negative (Negative) Urine Nitrite Negative (Negative) Urine Bilirubin Negative (Negative) Urine Urobilinogen 1.0 A (0.2) mg/dL Ur Leukocyte Esterase Trace A (Negative) U Hyaline Cast (Auto) NONE SEEN (0-2) /LPF Urine Microscopic RBC 0-2 (0-5) /HPF Urine Microscopic WBC 0-2 (0-5) /HPF Ur Epithelial Cells None Seen (None Seen) /HPF Urine Bacteria None Seen (None Seen) /HPF Urine Culture Reflexed NO (NO) - Progress Progress Note: 07/21/25 03:04 Patient is urinalysis is within normal limits patient was offered Tylenol patient likely suffering from sciatica patient advised to return for any new or worsening symptoms patient expressed understanding treatment plan will discharge at this time - Departure Departure Disposition: Home Clinical Impression: Urinary frequency Back pain Qualifiers: Back pain location: back pain in unspecified location Chronicity: unspecified Back pain laterality: unspecified Qualified Code(s): M54.9 - Dorsalgia, unspecified Condition: Stable Critical Care Time: No Referrals: FERNANDEZ FIERRO MD [Primary Care Provider, INTERNAL MEDICINE] - Follow up/PCP as directed Instructions: Low back pain in adults
== END 2025-07-21 03:20 | disposition home or self-care (01) ==
LOC: ED 02:23
DX: R35.0 Frequency of micturition (principal); M54.9 Dorsalgia, unspecified; I10 Essential (primary) hypertension; Z79.899 Other long term (current) drug therapy

== ENCOUNTER 2025-08-31 11:36 | Emergency (ER) | payer MEDICARE ==
[2025-08-31 12:10] VITALS: RESP 18; TEMP 97.6; O2SAT 97
--- NOTE | 2025-08-31 12:25 | ERPHSYRPT ---
- History of Present Illness Time Seen by Provider: 08/31/25 11:36 Source: patient Exam Limitations: no limitations Patient Subjective Stated Complaint: Pt. states, "I think I have another UTI, I get them all the time. I had some bladder discomfort this morning. I went on to congregational but I started having urgency and incontinence." Triage Nursing Assessment: Pt. ambulated to room with rolling walker, A&Ox4, Skin P/W/D, Resp. even nonlabored, in NAD, pleasant and cooperative. Physician History: Patient is here with UTI-like symptoms. Patient states that she started getting symptoms yesterday. However got worse this morning. Describes bladder spasms, frequency, dysuria. She has no suprapubic pain, no flank pain. No early signs of pyelonephritis. No fever, tachycardia here. Patient states that she does get frequent UTIs. However, has not had a UTI in greater than 3 months. Patient is taking PO well. Same number of urinations and defecations. The patient has no signs of altered mental status, nuchal rigidity, signs of meningitis. The patient is up-to-date on all vaccinations. Allergies/Adverse Reactions: codeine Allergy (Verified 07/21/25 02:47) unknown Sulfa (Sulfonamide Antibiotics) Allergy (Verified 07/21/25 02:47) Rash JASBIR Inhibitors Adverse Reaction (Verified 07/21/25 02:47) Cough Home Medications: Amlodipine Besylate [Norvasc] 10 mg PO DAILY 11/25/20 [History] Atorvastatin Calcium [Lipitor 20MG Tablet] 20 mg PO DAILY 11/25/20 [History] Metoprolol Succinate 100 mg PO DAILY 11/25/20 [History] Omeprazole 40 mg PO DAILY 11/25/20 [History] Anastrozole [Arimidex] 1 mg PO DAILY 01/31/23 [History] Calcium Carbonate/Vitamin D3 [Calcium 600-Vit D3 200 Tablet] 1 tab PO DAILY 06/03/23 [History] Cholecalciferol (Vitamin D3) [Vitamin D3] 125 mcg PO DAILY 08/06/24 [History] Cyanocobalamin (Vitamin B-12) [Vitamin B-12] 1,000 mcg PO DAILY 08/06/24 [History] Lidocaine 1 patch TOP DAILY 08/22/24 [History] Aspirin EC 81 mg [Ecotrin 81 mg] 1 tab PO DAILY 07/21/25 [History] Hx Tetanus, Diphtheria Vaccination/Date Given: Yes Hx Influenza Vaccination/Date Given: No Hx Pneumococcal Vaccination/Date Given: Yes Travel Risk - International Travel Have you traveled outside of the country in past 3 weeks: No - Emerging Infectious Disease Are you exhibiting symptoms associated with any current EIDs: No Symptoms: Shortness of Breath - Past Medical History Pertinent Past Medical History: Yes Neurological History: No Pertinent History ENT History: Cataracts Cardiac History: Arrhythmia, Hypertension Respiratory History: No Pertinent History Endocrine Medical History: No Pertinent History Musculoskeletal History: Osteoarthritis GI Medical History: Gallbladder Disease History: No Pertinent History Psycho-Social History: No Pertinent History Female Reproductive Disorders: Breast Cancer Other Medical History: PSH: R TKA 2011, R ANKLE ORIF 2009, HYSTERECTOMY, GALL BLADDER, BREAST CANCER REMOVAL, APPENDECOMY, TONSILLECTOMY. PMH: A-FIB with Watchman's Procedure in March - Past Surgical History Past Surgical History: Yes Neuro Surgical History: No Pertinent History Cardiac: Cardiac Catheterization Respiratory: No Pertinent History Gastrointestinal: Appendectomy, Cholecystectomy Genitourinary: No Pertinent History Musculoskeletal: Joint Replacement Female Surgical History: Hysterectomy Other Surgical History: R knee, metal in R ankle,. lumpectomy R and L side. lasik on eyes. Watchman's Procedure in March - Social History Smoking Status: Never smoker Exposure to second hand smoke: No Drug Use: none - Social Determinants of Health Will the patient participate in the screening: Yes Do you worry about a steady place to live?: No Do you have any problems with any of the following?: No known problems In the past 12 months,have you had to go without utilities?: No Transportation Issues: No Has anyone in your support network made you feel unsafe?: No Have you or anyone in your house had to go w/o enough food: No - Nursing Vital Signs Nursing Vital Signs: Initial Vital Signs Temperature 97.6 F 08/31/25 11:36 Pulse Rate 76 08/31/25 11:36 Respiratory Rate 18 08/31/25 11:36 Blood Pressure 154/93 08/31/25 11:36 O2 Sat by Pulse Oximetry 97 08/31/25 11:36 Pain Scale Pain Intensity 0 - Physical Exam SpO2 Interpretation: normal SpO2: 97 Comments: 08/31/25 12:24 Review of Systems Constitutional: Negative for fever. HENT: Negative for congestion. Respiratory: Negative for shortness of breath. Cardiovascular: Negative for chest pain. Gastrointestinal: Negative for abdominal pain. Genitourinary: Dysuria, urgency, frequency Musculoskeletal: Negative for back pain. Skin: Negative for rash. Neurological: Negative for headaches. Psychiatric/Behavioral: Negative for behavioral problems. All other systems reviewed and are negative. Physical Exam Vitals signs and nursing note reviewed. Constitutional: Appearance: Patient is well-developed. HENT: Head: Normocephalic and atraumatic. Eyes: Conjunctiva/sclera: Conjunctivae normal. Neck: Musculoskeletal: Normal range of motion. Trachea: No tracheal deviation. Cardiovascular: Rate and Rhythm: Normal rate. Heart sounds normal. Pulmonary: Effort: Pulmonary effort is normal. No respiratory distress. Abdominal: Palpations: Abdomen is soft. No flank pain, no suprapubic pain Musculoskeletal: General: No deformity. Skin: General: Skin is warm and dry. Neurological/ Psychiatric: Mental Status: Mental status, behavior, interaction with environment is appropriate for patient's age and condition - Course Nursing assessment & vital signs reviewed: Yes Ordered Tests: Active Orders 24 hr Category Date Time Status CULTURE,URINE Stat Lab 08/31/25 12:24 Received UA W/RFX UR CULTURE Stat Lab 08/31/25 12:24 Completed Medication Summary Discontinued Medications Generic Name Dose Route Start Last Admin Trade Name Freq PRN Reason Stop Dose Admin Nitrofurantoin Macrocrystals 100 mg 08/31/25 12:11 08/31/25 12:26 Nitrofurantoin Macro 100 Mg Capsule PO 08/31/25 12:12 100 mg STAT ONE Administration Nitrofurantoin Macrocrystals Confirm 08/31/25 12:26 Nitrofurantoin Macro 100 Mg Capsule Administered 08/31/25 12:27 Dose 100 mg .ROUTE .STK-MED ONE Lab/Rad Data: Laboratory Results 08/31/25 Range/Units 12:24 Urine Color Yellow (Yellow) Urine Appearance Cloudy A (Clear) Urine pH 6.0 (4.6-8.0) Ur Specific [place] 1.020 (1.005-1.030) Urine Protein 30 (Negative) Urine Glucose (UA) Negative (Negative) mg/dL Urine Ketones Negative (Negative) Urine Blood Moderate A (Negative) Urine Nitrite Positive A (Negative) Urine Bilirubin Negative (Negative) Urine Urobilinogen 2.0 A (0.2) mg/dL Ur Leukocyte Esterase Large A (Negative) U Hyaline Cast (Auto) NONE SEEN (0-2) /LPF Urine Microscopic RBC >100 A (0-5) /HPF Urine Microscopic WBC >100 A (0-5) /HPF Ur Epithelial Cells Rare (None Seen) /HPF Urine Bacteria Many A (None Seen) /HPF Urine Culture Reflexed YES (NO) - Progress Progress: improved Progress Note: 08/31/25 12:24 Patient likely has UTI, no early signs of pyelonephritis. Will obtain a UA, urine culture. Will give first dose of Macrobid here because it is a Monday. Patient states her pharmacy is closed until later this afternoon 08/31/25 13:23 UA does show clear UTI. We will treat with Macrobid going home. Will also place patient on Pyridium for pain. As above first dose of Macrobid given here. Patient will be able to tack picker the rest of the medications afternoon, will take a second dose before tonight. I did personally rechecked patient's temperature in the room, continues to be afebrile, no tachycardia on the monitor. Plan for discharge home at this point in time. Counseled pt/family regarding: lab results, diagnosis, need for follow-up - Departure Departure Disposition: Home Clinical Impression: UTI (urinary tract infection) Condition: Stable Critical Care Time: No Referrals: FERNANDEZ FIERRO MD [Primary Care Provider, INTERNAL MEDICINE] - Follow up/PCP as directed Instructions: Urinary Tract Infection, Adult (DC) Prescriptions: Nitrofurantoin Macro 100 mg [Macrobid 100MG Capsule] 100 mg PO BID 5 Days #10 cap Phenazopyridine HCl 200 mg [Pyridium 200 mg] 200 mg PO TID #6 tablet
[2025-08-31] MEDS: Macrobid 100MG Capsule PO ONE (12:26)
[2025-08-31] MEDS ORDERED: Macrobid 100MG Capsule ONE (12:26)
[2025-08-31 12:33] LABS: Glucose, Urine Negative (Negative); Protein,Urine Dip 30 (Negative); RBC >100 /HPF (0-5); WBC >100 /HPF (0-5)
[2025-08-31 12:42] VITALS: BP 146/88; PULSE 66
== END 2025-08-31 12:02 | disposition home or self-care (01) ==
LOC: ED 11:36
DX: N39.0 Urinary tract infection, site not specified (principal); R30.0 Dysuria; R35.0 Frequency of micturition; I10 Essential (primary) hypertension; Z79.899 Other long term (current) drug therapy